=== PATIENT | male | born 1945 | race Caucasian/White ===

== ENCOUNTER → 2019-07-11 13:56 | Outpatient (CLI) | payer MEDICARE, OTHER, SELFPAY ==
--- NOTE | 2019-07-11 | DI.US.S_ITS ---
PROCEDURE: US RENAL COMPLETE INDICATIONS: RETENTION OF URINE, UNSPECIFIED TECHNIQUE: Real-time scanning was performed of the kidneys and bladder, with image documentation. COMPARISON: [facility], CT, IVP (ABD & PEL WWO CONTRAST), 01/26/2018, 12:58. FINDINGS: Kidneys: Kidneys are normal in size. Right kidney measures 10.5 cm long; left kidney measures 10.6 cm long. Right renal cortical thickness is 1.2 cm; left renal cortical thickness is 1.5 cm. Renal cortical echotexture is normal. No hydronephrosis or nephrolithiasis. No suspicious solid mass lesions. Bladder: Pre-void bladder volume is 777 mL. Post-void residual is 599 mL. Pre-void images demonstrate no intraluminal masses or stones. On pre-void images, neither ureteral jets are noted with color Doppler interrogation. (Of note, ureteral jets may not be detectable in up to 25% of cases due to insufficient differences in specific gravity between ureteral and bladder urine). Bladder wall trabeculations and fine low-level echoes visualized within the urinary bladder. Miscellaneous: No free pelvic fluid. IMPRESSION: 1. No hydronephrosis. 2. Significant postvoid residual with bladder wall trabeculation suggesting chronic outlet obstruction. 3. Fine low-level echoes throughout the urinary bladder which could be related to cystitis. Recommend correlation with urinalysis. Dictated by: Dominic GLASS Interpreted: Anuradha Augustin MD on 07/11/2019 at 17:09 Approved by: Anuradha Augustin M.D. on 07/11/2019 at 17:23
== END ==
PROVIDERS: PCP Family Medicine; Visit Provider Urology
DX: R33.9 Retention of urine, unspecified (principal); N32.89 Other specified disorders of bladder
CPT/HCPCS: 76770

== ENCOUNTER 2024-01-01 07:57 | Day surgery (SDC) | payer MEDICARE, OTHER, SELFPAY ==
[2023-12-31 08:05] VITALS: BMI 22.1
[2024-01-01 08:20] VITALS: BP 174/81; PULSE 87; RESP 16; TEMP 36.6; O2SAT 98; BMI 22.1
[2024-01-01] MEDS: LACTATED RINGERS 1,000 ML 42 ML IV ×2 (08:38→11:16)
--- NOTE | 2024-01-01 09:49 | PM.PREOP ---
Pre-operative Note Interval Note History & Physical reviewed/Exam performed by Physician: Yes Changes to H&P: No
[2024-01-01] MEDS: CEFAZOLIN 2 GM/100 ML PREMIX 100 ML IV (10:40)
[2024-01-01] MEDS: TRANEXAMIC ACID 1,000 MG in SODIUM CHLORIDE 0.9% 100 ML 200 MG IV (10:42)
--- NOTE | 2024-01-01 10:56 | SUR.OPER ---
Lithotomy on padded OR bed, head on pillow, arms secured on padded arm boards at <90 degrees abduction. Legs secured in padded yellow fins stirrups.
[2024-01-01 11:37] VITALS: BP 140/74; PULSE 68; RESP 15; TEMP 36.8; O2SAT 99
--- NOTE | 2024-01-01 11:45 | PM.OP.1 ---
Operative Date/Time/Diagnoses Date of procedure: 01/01/24 Time of procedure: 11:30 Pre-op diagnosis: 1. Multiple obstructing prostatic calculi. 2. History of prostate cancer status post brachytherapy. Post-op diagnosis: same Procedure & Clinicians Procedure: 1. Cystoscopy/laser litholapaxy of multiple obstructing and adherent prostate calculi. 2. Cystoscopy/laser photo vaporization of prostate (resection). 3. Cystoscopy/removal foreign bodies (brachytherapy metallic seeds x3) Same procedure as scheduled: Yes Indications: 1. Multiple obstructing prostatic calculi. 2. Prostate foreign bodies. 3. Bladder outlet obstruction. Surgeon: Geneva Leo Click Yes if Unassisted: Yes Anesthesia Type: General Operative Notes Closure Type: not applicable Specimen(s): other (Brachytherapy seeds x3. Calculus fragments. Prostate tissue.) Applied: catheter (Sixteen Mong[place]ian 2 [address] Rogers catheter to gravity drainage.) Estimated Blood Loss (mL): 0 Blood products transfused: none Procedure in detail: The patient was positioned supine was administered general anesthesia. He was then repositioned in semi lithotomy in the lower abdomen, genitalia, and groin were then prepped and draped in sterile fashion. The continuous-flow laser cystoscope was then advanced and lower urinary tract with the findings as described above. Using the beak of the scope some of the prostatic urethral calculi were dislodged and repositioned retrograde into the bladder lumen. This allowed assessment of the situation. The bladder showed 1 to 2+ trabeculation. The bladder neck was elevated with a depressed bladder floor. Orifices were normal position bilaterally with clear efflux no visible tumor was seen. Fifty micron laser fiber was requested and all operating room personnel and patient were fitted with laser safety eyewear. The repositioned calculi within the bladder lumen were then laser fragmented readily. Continuous-flow laser cystoscope was then withdrawn to vicinity of the verumontanum and calculus with overlying mucosa were laser resected and excavated from the right proximal and posterior prostatic fossa. Then, attention was turned to the left prostatic fossa where there was a large adherent mass of calculus. Lithotripsy was commenced and eventually metallic brachytherapy seeds were encountered laterally. Laser resection and undermining of the tissue in the vicinity and beneath these metallic foreign bodies was conducted to mobilize the foreign bodies which were then repositioned retrograde into the bladder base with hydrostatic irrigant flow. Hemostasis was excellent. The prostatic fossa appeared adequately resected and patent. Next the foreign body grasper, the 25 Mong[place]ian stone shop superintendent, and th Ellik evacuator was used in combination to remove stone fragments, tissue fragments, and metallic foreign body. All the specimens were submitted in aggregate to pathology for routine gross and microscopic examination. The bladder was then left partially filled and the continuous-flow laser scope was removed. A 16 Mongolian Rogers catheter was then inserted and advanced lower urinary tract, the balloon inflated to 10 cc, and then placed to gravity drainage. The patient was then repositioned in supine, was awakened, transferred to [facility], and then transported to recovery in stable condition. Complications: none Post-operative Condition: stable Disposition: PACU Plan for aftercare: 1. Discharge home with Rogers catheter. 2. Supervised voiding trial and [facility] 01/04/2024
[2024-01-01 11:48] VITALS: BP 150/72; PULSE 64; RESP 17; O2SAT 99
[2024-01-01 11:52] VITALS: BP 148/74; PULSE 64; RESP 17; O2SAT 99
[2024-01-01 12:05] VITALS: BP 156/69; PULSE 80; RESP 14; O2SAT 97
[2024-01-01 13:01] VITALS: BP 154/81; PULSE 81; RESP 14; O2SAT 98
[2024-01-09 11:04] LABS: Ca oxalate dihydrate 40 % (.); Ca oxalate monohydr 40 % (.); Hydroxyapatite 20 % (.); Size 8x7 mm (.)
== END 2024-01-01 13:01 | disposition home or self-care (01) ==
PROVIDERS: PCP Family Medicine; Referring Provider Specialist; Visit Provider Specialist
PROC: 0TCB8ZZ Extirpation of Matter from Bladder, Via Natural or Artificial Opening Endoscopic (ICD-10-PCS; CPT 52601; principal; 2024-01-01 09:30)
DX: N32.0 Bladder-neck obstruction (principal); N42.0 Calculus of prostate; I10 Essential (primary) hypertension
CPT/HCPCS: 52601; 52318; 82365; 82962; 93005; 93010; J0690; J1100; J2250; J2405; J2704; J3010

== ENCOUNTER → 2024-01-05 08:17 | Outpatient (CLI) | payer MEDICARE, OTHER, SELFPAY | PROVIDERS: PCP Family Medicine; Visit Provider Specialist | DX: R39.9 Unspecified symptoms and signs involving the genitourinary system (principal) | CPT/HCPCS: 51798; 81002; 87086 ==

== ENCOUNTER → 2024-02-23 14:24 | Outpatient (CLI) | payer MEDICARE, OTHER, SELFPAY ==
[2024-02-23 16:31] LABS: Prostate Specific Antigen < 0.064 ng/mL (0.10-4.00)
== END ==
PROVIDERS: PCP Family Medicine; Referring Provider Specialist; Visit Provider Specialist
DX: Z85.46 Personal history of malignant neoplasm of prostate (principal)
CPT/HCPCS: 36415; 84153

== ENCOUNTER 2024-05-30 13:41 | Emergency (ER) | payer MEDICARE, OTHER, SELFPAY ==
[2024-05-30] VITALS (14 sets, daily range): BP systolic 147–189; BP diastolic 65–79; PULSE 52–65; RESP 9–26; TEMP 36.5; O2SAT 96–100; BMI 22.1
--- NOTE | 2024-05-30 14:09 | DI.CT.S_ITS ---
PROCEDURE: CT HEAD/BRAIN WO CON INDICATIONS: Positive BE-FAST, Stroke symptoms. Neurologic deficit. TECHNIQUE: Noncontrast 4.5 mm thick angled axial sections acquired from the foramen magnum to the vertex, with coronal and sagittal reformats. For radiation dose reduction, the following was used: automated exposure control, adjustment of mA and/or kV according to patient size. COMPARISON: [facility], MR, MR BRAIN WITHOUT CONTRAST, 04/13/2023, 7:57. [facility], CT, CT HEAD WITHOUT CONTRAST, 04/11/2023, 19:32. FINDINGS: Image quality: Diagnostic. CSF spaces: Basal cisterns are patent. No extra-axial fluid collections. The ventricles are symmetric in size and shape. Brain: No intracranial bleeds or masses. There is cerebral volume loss for age, with resultant ventricular and sulcal prominence. There are periventricular and deep white matter chronic small vessel ischemic changes. There is intracranial internal carotid artery atherosclerosis. Skull and face: Calvarium and visualized facial bones appear intact, without suspicious lesions. Sinuses: Severe right maxillary sinus mucosal thickening with small air-fluid level. mastoids are clear. IMPRESSION: No acute intracranial pathology. Acute superimposed upon chronic right maxillary sinusitis. Dictated by: Clementine Pepe MD, PhD on 05/30/2024 at 14:38 Approved by: Clementine Pepe MD, PhD on 05/30/2024 at 14:40
--- NOTE | 2024-05-30 14:09 | DI.RAD.S_ITS ---
PROCEDURE: XR CHEST 1V INDICATIONS: Possible stroke TECHNIQUE: One view of the chest was acquired. COMPARISON: None. FINDINGS: Surgical changes and devices: None. Lungs and pleura: Lungs are clear. No pleural effusions or pneumothorax. Mediastinum: Mediastinal contours appear normal. Heart size is normal. Bones and chest wall: No suspicious bony lesions. Overlying soft tissues appear unremarkable. IMPRESSION: No acute cardiopulmonary abnormality is seen. Dictated by: Clementine Pepe MD, PhD on 05/30/2024 at 14:37 Approved by: Clementine Pepe MD, PhD on 05/30/2024 at 14:37
--- NOTE | 2024-05-30 14:10 | DI.CT.S_ITS ---
PROCEDURE: CT ANGIO HEAD AND NECK INDICATIONS: TIA TECHNIQUE: After the administration of intravenous contrast, 1 mm thick sections acquired from the aortic arch through the Josephine of [place]. 3-dimensional nryulxe-xetqvsaeq-tdxzrvkzzg (MIP) and/or volume rendering reformats were acquired of the central intracranial vasculature and neck separately. For radiation dose reduction, the following was used: automated exposure control, adjustment of mA and/or kV according to patient size. COMPARISON: CT head May 30, 2024. FINDINGS: Image quality: Diagnostic. HEAD CT ANGIOGRAPHY: Anterior circulation: Intracranial internal carotid arteries are normal in size and flow. The flow within the paired anterior cerebral arteries is normal and symmetric. The flow within the middle cerebral arteries is normal and symmetric. The anterior communicating artery is seen. No aneurysms are seen. Posterior circulation: Atherosclerotic calcification in the proximal V4 segment of the left vertebral artery which causes mild short segment stenosis. Intracranial right vertebral artery is fully patent. Normal flow in the basilar artery. Normal flow in the right posterior cerebral artery. There is narrowing with diminished flow involving the P1 segment of the left posterior cerebral artery which could be due to atherosclerotic disease or nonocclusive thrombus. No aneurysms are seen. Dural sinuses demonstrate normal postcontrast enhancement. NECK CT ANGIOGRAPHY: Carotid system: The great vessels demonstrate bovine variant anatomy as they arise from the aortic arch. The origins of the common carotid arteries appear patent. The common carotid arteries demonstrate normal caliber and courses. Soft and calcified atherosclerotic plaque in the origin of the right internal carotid artery which causes mild, less than 50% stenosis of the vessel. Soft and calcified atherosclerotic plaque in the origin of the left internal carotid artery which causes high-grade, approximately 70% stenosis of the vessel. Posterior circulation: Dominant left vertebral artery. Atherosclerotic plaque in the origins of the vertebral arteries causes mild narrowing of the vessels. The more superior extracranial portions of both vertebral arteries also demonstrate normal courses and calibers. They join to form a normal appearing basilar artery. Soft tissues: Visualized neck soft tissues demonstrate no suspicious abnormalities. Bones: No suspicious bony lesions. Visualized cervical spine appears normally aligned. Spine degenerative disc disease and facet arthropathy. 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 High-grade atherosclerotic stenosis versus nonocclusive thrombus involving the P1 segment of the left posterior cerebral artery. Mild atherosclerotic stenosis of the origin of the right internal carotid artery, origins of the vertebral arteries and P4 segment of the left vertebral artery. Any quantitative measurements of stenosis were performed using NASCET criteria. Dictated by: Clementine Pepe MD, PhD on 05/30/2024 at 14:40 Approved by: Clementine Pepe MD, PhD on 05/30/2024 at 14:50
--- NOTE | 2024-05-30 14:14 | EKG_ITS ---
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
[2024-05-30 14:23] LABS: Add Manual Diff / Slide Review NO; Basophils Absolute Auto 0 /uL (0-100); Basophils Percent Auto 0.3 % (0-2); Eosinophils Absolute Auto 100 /uL (0-450); Eosinophils Percent Auto 0.8 % (2-4); Hematocrit 38.9 % (41-53); Hemoglobin 13.5 g/dL (13.5-17.5); Lymphocytes Absolute Auto 1600 /uL (1100-4500); Lymphocytes Percent Auto 24.7 % (25-40); Mean Corpuscular HGB Conc 34.7 % (30-36); Mean Corpuscular Hemoglobin 31.4 PG (26-34); Mean Corpuscular Volume 90.5 fL (80-100); Monocytes Absolute Auto 500 /uL (0-900); Monocytes Percent Auto 7.4 % (3-14); Neutrophils Absolute Auto 4300 /uL (1500-7000); Neutrophils Percent Auto 66.8 % (50-75); Platelet Count 188 X10^3/uL (150-400); Prothrombin Time 11.3 SECONDS (9.4-12.5); Red Cell Distribution Width 12.1 % (11.6-14.8); White Blood Cell Count 6.5 X10^3/uL (4.5-11.0)
[2024-05-30 14:25] LABS: PTT Partial Thromboplastin Tim 42 SECONDS (25.1-36.5)
[2024-05-30 14:29] LABS: Alanine Aminotransferase 21 IU/L (<50); Albumin Globulin Ratio 1.1 (1.0-2.8); Alkaline Phosphatase 76 U/L (38-126); Aspartate Aminotransferase 33 IU/L (17-59); BUN Creatinine Ratio 30.6 (6-22); Bilirubin Total 0.7 mg/dL (0.2-1.3); Blood Urea Nitrogen 33 mg/dL (9-20); Calcium 9.1 mg/dL (8.4-10.2); Carbon Dioxide 30 mmol/L (22-32); Chloride 105 mmol/L (98-107); Creatine Kinase 63 U/L (55-170); Estimated Glomerular Filt Rate > 60 mL/min (>60); Globulin 3.8 g/dL (1.7-4.1); Glucose 111 mg/dL (80-110); HEMOLYSIS < 15 (0-50); Magnesium 2.3 mg/dL (1.6-2.3); Potassium 5.2 mmol/L (3.4-5.1); Sodium 138 mmol/L (137-145); Total Protein 7.8 g/dL (6.3-8.2)
[2024-05-30 14:39] LABS: Troponin I < 0.012 ng/mL (0.01-0.034)
--- NOTE | 2024-05-30 15:26 | PC.NURSE ---
Thursday afternoon pt experienced a brief (< 5 minutes) episode of confusion. He describes having his family members over to visit, but when they left he forgot who had been visiting and asked his who was just with them visiting. He also mentions forgetting why his son's truck was at his house, and eventually recalled that the truck is at his house pending transmission work.
[2024-05-30 17:32] LABS: UR Morphine/Opiate cutoff 300 Negative (Negative); Ur Creatinine Normal (Normal); Ur Specific Gravity Normal (Normal); Urine Amphetamines Negative (Negative); Urine Barbiturates Negative (Negative); Urine Benzodiazepines Negative (Negative); Urine Cocaine Negative (Negative); Urine MDMA Negative (Negative); Urine Methadone Negative (Negative); Urine Methamphetamines Negative (Negative); Urine Oxycodone Negative (Negative); Urine Phencyclidine Negative (Negative); Urine Tetrahydrocannabinol Negative (Negative); Urine Tricyclic Antidepressant Negative (Negative); Urine pH Normal (Normal)
--- NOTE | 2024-05-30 18:17 | ED.NEUROSD ---
HPI - Neuro Symptoms/Deficit General Chief Complaint: Neuro Symptoms/Deficit Stated Complaint: TIA Time Seen by Provider: 05/30/24 17:54 Source: patient Mode of arrival: Ambulatory History of Present Illness HPI Narrative: 79-year-old male with history of known carotid artery stenosis followed by vascular surgery (Dr. Dominguez of [place]) presents for possible TIA. Five days ago patient was at home with his family and had a sudden and severe change in his recall and memory. This resolved spontaneously after several minutes. Patient recently got a smart phone and today was investigating his symptoms and was concerned that he may have had a TIA. Patient states on previous brain imaging he was told he had a stroke in the past, but patient denies ever having symptoms of a stroke to his knowledge. Patient has known 70% carotid artery stenosis that is followed by vascular surgery. On Anticoagulants: No Related Data Home Medications Medication Instructions Recorded Confirmed tamsulosin 0.4 mg capsule 0.4 mg PO DAILY 02/24/24 02/24/24 Allergies Allergy/AdvReac Type Severity Reaction Status Date / Time No Known Drug Allergies Allergy Verified 05/30/24 13:59 Review of Systems Hematologic/Lymphatic On Anticoagulants: No Patient History Medical History Hx of brachytherapy (04/10/18) Urge incontinence Lower urinary tract symptoms (LUTS) Bladder outlet obstruction Prostatic calculi High blood pressure History of prostate cancer Surgical History History of transurethral resection of prostate (07/27/19) Social History marital status: number of children: 2 household members: spouse 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 Smoking Status: Never smoker alcohol intake: current Type(s) of exercise: other frequency: daily Smoking Status: Never smoker Substance Use Type: does not use Exam Initial Vital Signs Initial Vital Signs: Vital Signs Temperature 97.7 F 05/30/24 13:53 Pulse Rate 65 05/30/24 13:53 Respiratory Rate 18 05/30/24 13:53 Blood Pressure 158/71 H 05/30/24 13:53 Pulse Oximetry 98 05/30/24 13:53 Oxygen Delivery Method Room Air 05/30/24 13:53 Const: Awake, alert, no acute distress, nontoxic appearing Cardiac: regular rate, regular rhythm RESP: unlabored, clear bilaterally, no wheezing GI: Soft, nontender, nondistended, no rebound, no guarding MSK: Atraumatic, full range of motion, pulses equal Skin: Warm, Dry, intact, no rashes Neuro: AO x3, CN II-XII grossly intact, moves all extremities Course Orders Ordered: ED Orders 05/30/24 14:00 EKG-12 Lead Stat 05/30/24 14:05 Complete Blood Count AUTO DIFF Stat Comprehensive Metabolic Panel Stat Magnesium Stat PTT Partial Thromboplastin Yamil Stat Prothrombin Time INR Stat Troponin & CK Cardiac Panel Stat 05/30/24 14:09 CT head/brain wo con Stat XR chest 1V Stat 05/30/24 14:10 CT angio head and neck Stat 05/30/24 17:15 Urine Drug Screen, Rapid Stat 05/30/24 19:24 MR head/brain wo con Stat Discontinued Medications Ondansetron HCl (Ondansetron 4 Mg/2 Ml Inj) 4 mg IV NOW PRN PRN Reason: Nausea And Vomiting Ondansetron HCl (Ondansetron 4 Mg Odt) 4 mg SL NOW PRN PRN Reason: Nausea And Vomiting Vital Signs Vital signs: Vital Signs - 8 hr 05/30/24 15:15 05/30/24 15:30 05/30/24 15:30 Pulse Rate 57 L 55 L Respiratory Rate 24 18 Blood Pressure 154/68 H Pulse Oximetry 100 98 Oxygen Delivery Method 05/30/24 16:00 05/30/24 16:00 05/30/24 16:30 Pulse Rate 52 L 60 Respiratory Rate 16 26 H Blood Pressure 165/70 H Pulse Oximetry 99 99 Oxygen Delivery Method Room Air 05/30/24 16:30 05/30/24 17:00 05/30/24 17:01 Pulse Rate 54 L 54 L Respiratory Rate 25 H 18 Blood Pressure 156/72 H Pulse Oximetry 98 99 Oxygen Delivery Method Room Air 05/30/24 17:01 05/30/24 17:30 05/30/24 17:30 Pulse Rate 55 L Respiratory Rate 13 Blood Pressure 157/70 H 147/65 H Pulse Oximetry 98 Oxygen Delivery Method 05/30/24 18:00 05/30/24 18:00 05/30/24 18:30 Pulse Rate 55 L 54 L Respiratory Rate 14 12 Blood Pressure 148/67 H Pulse Oximetry 98 98 Oxygen Delivery Method Room Air 05/30/24 18:30 05/30/24 19:00 05/30/24 19:00 Pulse Rate 56 L Respiratory Rate 16 Blood Pressure 166/75 H 157/72 H Pulse Oximetry 98 Oxygen Delivery Method 05/30/24 19:35 05/30/24 19:36 05/30/24 19:36 Pulse Rate 63 59 L Respiratory Rate 20 9 L Blood Pressure 189/79 H Pulse Oximetry 96 100 Oxygen Delivery Method Room Air 05/30/24 20:00 05/30/24 20:00 Pulse Rate 61 Respiratory Rate 19 16 Blood Pressure 173/76 H Pulse Oximetry 99 99 Oxygen Delivery Method MDM - Neuro Symptoms/Deficit Differential Diagnosis Differential diagnosis: Likely peripheral neuropathy, cerebrovascular accident and transient cerebral ischemia Lab Data 05/30/24 14:05 05/30/24 14:05 Labs: Lab Results 05/30/24 05/30/24 Range/Units 14:05 17:15 WBC 6.5 (4.5-11.0) X10^3/uL RBC 4.30 L (4.5-5.9) X10^6/uL Hgb 13.5 (13.5-17.5) g/dL Hct 38.9 L (41-53) % MCV 90.5 (80-100) fL MCH 31.4 (26-34) PG MCHC 34.7 (30-36) % RDW 12.1 (11.6-14.8) % Plt Count 188 (150-400) X10^3/uL Neut % (Auto) 66.8 (50-75) % Lymph % (Auto) 24.7 L (25-40) % [place] % (Auto) 7.4 (3-14) % Eos % (Auto) 0.8 L (2-4) % Baso % (Auto) 0.3 (0-2) % Neut # (Auto) 4300 (7909-2710) /uL Lymph # (Auto) 1600 (8167-0565) /uL [place] # (Auto) 500 (0-900) /uL Eos # (Auto) 100 (0-450) /uL Baso # (Auto) 0 (0-100) /uL PT 11.3 (9.4-12.5) SECONDS INR 1.0 (0.9-1.3) APTT 42 H (25.1-36.5) SECONDS Sodium 138 (137-145) mmol/L Potassium 5.2 H (3.4-5.1) mmol/L Chloride 105 (98-107) mmol/L Carbon Dioxide 30 (22-32) mmol/L BUN 33 H (9-20) mg/dL Creatinine 1.08 (0.66-1.25) mg/dL Estimated GFR > 60 (>60) mL/min BUN/Creatinine Ratio 30.6 H (6-22) Glucose 111 H (80-110) mg/dL Calcium 9.1 (8.4-10.2) mg/dL Magnesium 2.3 (1.6-2.3) mg/dL Total Bilirubin 0.7 (0.2-1.3) mg/dL AST 33 (17-59) IU/L ALT 21 (<50) IU/L Alkaline Phosphatase 76 (38-126) U/L Total Creatine Kinase 63 (55-170) U/L Troponin I < 0.012 (0.01-0.034) ng/mL Total Protein 7.8 (6.3-8.2) g/dL Albumin 4.0 (3.5-5.0) g/dL Globulin 3.8 (1.7-4.1) g/dL Albumin/Globulin Ratio 1.1 (1.0-2.8) U Opiates 300ng/mL cut Negative (Negative) Ur Oxycodone Screen Negative (Negative) Urine Methadone Screen Negative (Negative) Ur Barbiturates Screen Negative (Negative) U Tricyclic Antidepress Negative (Negative) Ur Phencyclidine Scrn Negative (Negative) Ur Amphetamines Screen Negative (Negative) U Methamphetamines Scrn Negative (Negative) Ur MDMA Scrn (Ecstasy) Negative (Negative) U Benzodiazepines Scrn Negative (Negative) Urine Cocaine Screen Negative (Negative) U Marijuana (THC) Screen Negative (Negative) Urine pH Normal (Normal) Urine Specific [place] Normal (Normal) Ur Creatinine Normal (Normal) Point of Care Testing Glucose POC 103 Urine Dip Bedside Urine Glucose Negative Bedside Urine Bilirubin - Negative Bedside Urine Ketone - Negative Urine Specific [place] 1.015 Bedside Urine Occult Blood ++ Bedside Urine pH 5.5 Bedside Urine Protein +/- 15 Bedside Urine Urobilinogen - Negative Bedside Urine Nitrite - Negative Bedside Urine Leukocytes - Negative Esterase Imaging Data CT scan - head: Radiologist's Impression: PROCEDURE: CT HEAD/BRAIN WO CON INDICATIONS: Positive BE-FAST, Stroke symptoms. Neurologic deficit. TECHNIQUE: Noncontrast 4.5 mm thick angled axial sections acquired from the foramen magnum to the vertex, with coronal and sagittal reformats. For radiation dose reduction, the following was used: automated exposure control, adjustment of mA and/or kV according to patient size. COMPARISON: [facility], MR, MR BRAIN WITHOUT CONTRAST, 04/13/2023, 7:57. [facility], CT, CT HEAD WITHOUT CONTRAST, 04/11/2023, 19:32. FINDINGS: Image quality: Diagnostic. CSF spaces: Basal cisterns are patent. No extra-axial fluid collections. The ventricles are symmetric in size and shape. Brain: No intracranial bleeds or masses. There is cerebral volume loss for age, with resultant ventricular and sulcal prominence. There are periventricular and deep white matter chronic small vessel ischemic changes. There is intracranial internal carotid artery atherosclerosis. Skull and face: Calvarium and visualized facial bones appear intact, without suspicious lesions. Sinuses: Severe right maxillary sinus mucosal thickening with small air-fluid level. mastoids are clear. IMPRESSION: No acute intracranial pathology. Acute superimposed upon chronic right maxillary sinusitis. Dictated by: Clementine Pepe MD, PhD on 05/30/2024 at 14:38 Approved by: Clementine Pepe MD, PhD on 05/30/2024 at 14:40 PROCEDURE: MR HEAD/BRAIN WO CON INDICATIONS: POSS CVA, P1 CVA STENOSIS TECHNIQUE: Noncontrast axial T1 spin echo, axial T2 fast spin echo, sagittal and axial FLAIR, coronal T2 fast spin echo, axial gradient echo, axial diffusion and ADC through the brain. COMPARISON: [facility], CT, CT ANGIO HEAD AND NECK, 05/30/2024, 14:14. FINDINGS: Image quality: Excellent. CSF Spaces: Basal cisterns are patent. No extra-axial fluid collections. Ventricles are normal in size and shape. Brain: No intracranial masses or hemorrhage. [place]/white matter interface is normal. Brainstem appears normal. Diffusion-weighted images demonstrate no acute infarct. No chronic ischemic insults. Normal intravascular flow voids are present. Skull and face: Calvarium has normal marrow signal. Orbits appear normal. Sinuses: Opacification of the right maxillary sinus. Mastoids are clear. IMPRESSION: No acute infarct. Dictated by: Matt Pizarro M.D. on 05/30/2024 at 21:00 Approved by: Matt Pizarro M.D. on 05/30/2024 at 21:05 CTA - brain/neck: Radiologist's Impression: PROCEDURE: CT ANGIO HEAD AND NECK INDICATIONS: TIA TECHNIQUE: After the administration of intravenous contrast, 1 mm thick sections acquired from the aortic arch through the [place] of [place]. 3-dimensional rwrqhls-vpgmnwmaz-xkgshugjgx (MIP) and/or volume rendering reformats were acquired of the central intracranial vasculature and neck separately. For radiation dose reduction, the following was used: automated exposure control, adjustment of mA and/or kV according to patient size. COMPARISON: CT head May 30, 2024. FINDINGS: Image quality: Diagnostic. HEAD CT ANGIOGRAPHY: Anterior circulation: Intracranial internal carotid arteries are normal in size and flow. The flow within the paired anterior cerebral arteries is normal and symmetric. The flow within the middle cerebral arteries is normal and symmetric. The anterior communicating artery is seen. No aneurysms are seen. Posterior circulation: Atherosclerotic calcification in the proximal V4 segment of the left vertebral artery which causes mild short segment stenosis. Intracranial right vertebral artery is fully patent. Normal flow in the basilar artery. Normal flow in the right posterior cerebral artery. There is narrowing with diminished flow involving the P1 segment of the left posterior cerebral artery which could be due to atherosclerotic disease or nonocclusive thrombus. No aneurysms are seen. Dural sinuses demonstrate normal postcontrast enhancement. NECK CT ANGIOGRAPHY: Carotid system: The great vessels demonstrate bovine variant anatomy as they arise from the aortic arch. The origins of the common carotid arteries appear patent. The common carotid arteries demonstrate normal caliber and courses. Soft and calcified atherosclerotic plaque in the origin of the right internal carotid artery which causes mild, less than 50% stenosis of the vessel. Soft and calcified atherosclerotic plaque in the origin of the left internal carotid artery which causes high-grade, approximately 70% stenosis of the vessel. Posterior circulation: Dominant left vertebral artery. Atherosclerotic plaque in the origins of the vertebral arteries causes mild narrowing of the vessels. The more superior extracranial portions of both vertebral arteries also demonstrate normal courses and calibers. They join to form a normal appearing basilar artery. Soft tissues: Visualized neck soft tissues demonstrate no suspicious abnormalities. Bones: No suspicious bony lesions. Visualized cervical spine appears normally aligned. Spine degenerative disc disease and facet arthropathy. 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 High-grade atherosclerotic stenosis versus nonocclusive thrombus involving the P1 segment of the left posterior cerebral artery. Mild atherosclerotic stenosis of the origin of the right internal carotid artery, origins of the vertebral arteries and P4 segment of the left vertebral artery. Any quantitative measurements of stenosis were performed using NASCET criteria. Dictated by: Clementine Pepe MD, PhD on 05/30/2024 at 14:40 Approved by: Clementine Pepe MD, PhD on 05/30/2024 at 14:50 ECG Data Interpretation: Sinus bradycardia at 59 beats per minute. Normal [place], no ST T wave changes, no STEMI MDM Narrative Medical decision making narrative: Possible TIA 5 days ago. Patient was well outside of candidacy for intervention or thrombolytics. On my exam patient has intact neurologic exam without any deficits whatsoever. CT brain and CTA ordered prior to my assessment show no acute stroke, however CTA read as high-grade atherosclerotic stenosis versus nonocclusive thrombus involving the P1 segment of the left posterior cerebral artery?. Left 70% stenosis of the ICA stable. Based on these findings I reached out to [facility]. They reviewed the images and stated that the stenosis of P 1 appeared to be longstanding. They recommended an MRI. If the MRI showed any findings of acute stroke then patient should be on dual antiplatelet therapy, however if no acute stroke seen then no medication changes recommended and he could be discharged with follow up. Patient consented to MRI brain. MRI brain shows no acute findings to suggest acute CVA. Patient and informed of all lab and imaging findings, they were relieved to know that there was no acute stroke seen. No medication changes to be made at this time. Patient was given a copy of his MRI in angio reports to take to his follow up appointments with the specialists. Discharge Plan Departure Patient Disposition: Home Clinical Impression: Episodic memory loss Instructions: DI for Transient Ischemic Attack Activity Restrictions/Additional Instructions: Your laboratory work and imaging today was reassuring. You have stable 70% stenosis of your left internal carotid artery. There was a possibility of narrowing of a blood vessel in the back of your brain, however this appears to be chronic and not related to your symptoms today. Your brain MRI did not show any new strokes. Continue all of your current medications as prescribed. Follow up with your specialists as scheduled. If you notice any new or worsening neurologic complaints or concerns please return to the emergency department for repeat evaluation. Prescriptions: No Action tamsulosin 0.4 mg capsule 0.4 mg PO DAILY Referrals: Kishore Reinoso DO [Primary Care Provider] - Stand Alone Forms: Patient Portal/API
--- NOTE | 2024-05-30 19:24 | DI.MRI.S_ITS ---
PROCEDURE: MR HEAD/BRAIN WO CON INDICATIONS: POSS CVA, P1 CVA STENOSIS TECHNIQUE: Noncontrast axial T1 spin echo, axial T2 fast spin echo, sagittal and axial FLAIR, coronal T2 fast spin echo, axial gradient echo, axial diffusion and ADC through the brain. COMPARISON: [facility], CT, CT ANGIO HEAD AND NECK, 05/30/2024, 14:14. FINDINGS: Image quality: Excellent. CSF Spaces: Basal cisterns are patent. No extra-axial fluid collections. Ventricles are normal in size and shape. Brain: No intracranial masses or hemorrhage. [place]/white matter interface is normal. Brainstem appears normal. Diffusion-weighted images demonstrate no acute infarct. No chronic ischemic insults. Normal intravascular flow voids are present. Skull and face: Calvarium has normal marrow signal. Orbits appear normal. Sinuses: Opacification of the right maxillary sinus. Mastoids are clear. IMPRESSION: No acute infarct. Dictated by: Matt Pizarro M.D. on 05/30/2024 at 21:00 Approved by: Matt Pizarro M.D. on 05/30/2024 at 21:05
--- NOTE | 2024-05-30 19:42 | PC.NURSE ---
Pt states no changes in his symptoms since arrival.
== END 2024-05-30 21:19 | disposition home or self-care (01) ==
PROVIDERS: Emergency Medicine; Emergency Provider Emergency Medicine; PCP Family Medicine
DX: R41.3 Other amnesia (principal); R00.1 Bradycardia, unspecified
CPT/HCPCS: 36415; 70450; 70496; 70498; 70551; 71045; 80053; 80305; 81003; 82550; 82962; 83735; 84484; 85025; 85610; 85730; 93005; 93010; 99284; Q9967

== ENCOUNTER → 2025-01-04 08:56 | Outpatient (CLI) | payer MEDICARE, OTHER, SELFPAY | PROVIDERS: PCP Family Medicine; Visit Provider Urology | DX: R39.9 Unspecified symptoms and signs involving the genitourinary system (principal) | CPT/HCPCS: 87086 ==

== ENCOUNTER → 2025-01-04 09:38 | Outpatient (CLI) | payer MEDICARE, OTHER, SELFPAY ==
[2025-01-04 10:56] LABS: Blood Urea Nitrogen 22 mg/dL (9-20); Calcium 9.2 mg/dL (8.4-10.2); Carbon Dioxide 28 mmol/L (22-32); Chloride 96 mmol/L (98-107); Estimated Glomerular Filt Rate > 60 mL/min (>60); Glucose 272 mg/dL (80-110); HEMOLYSIS < 15 (0-50); Potassium 4.4 mmol/L (3.4-5.1); Sodium 132 mmol/L (137-145)
[2025-01-04 11:37] LABS: Prostate Specific Antigen < 0.064 ng/mL (0.10-4.00)
== END ==
PROVIDERS: PCP Internal Medicine; Referring Provider Urology; Visit Provider Urology
DX: R31.0 Gross hematuria (principal); Z85.46 Personal history of malignant neoplasm of prostate; R39.9 Unspecified symptoms and signs involving the genitourinary system
CPT/HCPCS: 36415; 80048; 84153; 87086

== ENCOUNTER → 2025-01-07 10:51 | Outpatient (CLI) | payer MEDICARE, OTHER, SELFPAY ==
--- NOTE | 2025-01-07 10:52 | DI.CT.S_ITS ---
PROCEDURE: CT ABDOMEN PELVIS WO/W CON INDICATIONS: Gross hematuria history of prostate cancer TECHNIQUE: After the administration of oral contrast, 5 mm thick sections acquired from the diaphragms to the iliac crests. After the administration of intravenous contrast, 5 mm thick sections acquired from the diaphragms to the symphysis. 5 mm thick coronal and sagittal reformats were acquired. For radiation dose reduction, the following was used: automated exposure control, adjustment of mA and/or kV according to patient size. COMPARISON: [facility], CT, CT ABDOMEN PELVIS WITH CONTRAST, 04/11/2023, 19:32. [facility], CR, XR CHEST 1V, 05/30/2024, 14:13. FINDINGS: Image quality: Diagnostic. Lower Chest: No significant findings. ABDOMEN: Liver: No solid mass. Gallbladder: No radiopaque gallstones or wall thickening. Biliary ducts: No biliary dilation. Pancreas: No ductal dilation. Spleen: Size is within normal limits. Adrenal Glands: No adrenal nodules. Kidneys and Ureters: No hydronephrosis. No solid mass. No complex renal cystic lesion which requires follow up. 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 Punctate low-attenuation foci too small to definitively characterize are unchanged and statistically likely represent small cysts. Stomach and Bowel: Normal colonic caliber, without significant wall thickening. Moderate stool. Peritoneum: No abnormal intraperitoneal fluid. No free air. Ventral Wall: No significant ventral hernia. Abdominal Nodes: No retroperitoneal or mesenteric adenopathy by size criteria. Vessels: Aorta and inferior vena cava are normal in size. PELVIS: Pelvic Organs: Is enlarged with radiation seeds. Bladder: Bladder wall demonstrates mild thickening. It is incompletely distended. There is mild irregularity along the posterior inferior aspect. Pelvic Nodes: No enlarged lymph nodes. Miscellaneous: No inguinal hernias are seen. Bones: No aggressive osseous abnormality. IMPRESSION: Diffusely thickened bladder wall with incomplete distention. There is mild irregularity of the contrast within the posterior lumen. This could be secondary to affect from enlarged prostate gland. However, given history of hematuria, further evaluation with cystoscopy may be helpful for further delineation. Dictated by: Anuradha Augustin M.D. on 01/07/2025 at 16:07 Approved by: Anuradha Augustin M.D. on 01/07/2025 at 16:12
== END ==
PROVIDERS: PCP Internal Medicine; Referring Provider Urology; Visit Provider Urology
DX: R31.0 Gross hematuria (principal); Z85.46 Personal history of malignant neoplasm of prostate; N40.0 Benign prostatic hyperplasia without lower urinary tract symptoms; R93.41 Abnormal radiologic findings on diagnostic imaging of renal pelvis, ureter, or bladder
CPT/HCPCS: 74178; Q9967

== ENCOUNTER → 2025-01-27 15:37 | Outpatient (CLI) | payer MEDICARE, OTHER, SELFPAY | PROVIDERS: PCP Internal Medicine; Visit Provider Urology | DX: N39.41 Urge incontinence (principal); R31.0 Gross hematuria; R39.9 Unspecified symptoms and signs involving the genitourinary system; Z85.46 Personal history of malignant neoplasm of prostate | CPT/HCPCS: 51798; 52000; 87077; 87086; 87186 ==

== ENCOUNTER 2025-02-12 10:32 | Inpatient (IN) | payer MEDICARE, OTHER, SELFPAY ==
[2025-02-12] VITALS (22 sets, daily range): BP systolic 108–172; BP diastolic 57–79; PULSE 84–110; RESP 12–46; TEMP 36.3–37.7; O2SAT 98–100; BMI 22.1; BMI 22.8
[2025-02-12] MEDS: LIDOCAINE 2% (GLYDO) 6 ML GEL TOP (11:06)
[2025-02-12 11:28] LABS: Appearance Urine UA CLOUDY; Bilirubin Urine UA 1+ (NEGATIVE); Color Urine UA ORANGE; Glucose Urine UA TRACE g/dL (Negative); Ketones Urine UA NEGATIVE (NEGATIVE); Leukocyte Esterase Urine UA TRACE (NEGATIVE); Nitrite Urine UA NEGATIVE (Negative); Occult Blood Urine UA 3+ (Negative); Protein Urine UA 2+ (Negative); Urobilinogen Urine UA 0.2 E.U./dL (0.2)
[2025-02-12 11:45] LABS: Bacteria Urine Few (2-10); RBC Urine >100/HPF (0-5/HPF); Urine Volume 10mL (spun); WBC Urine 1-5/HPF (0-5/HPF)
[2025-02-12 11:46] LABS: Culture Indicated Urine Cult Not Indicated; Squamous Epithelial Cell Urine 0-1 /HPF (0-5/HPF)
[2025-02-12 11:47] LABS: Ictotest Urine Negative (Negative)
--- NOTE | 2025-02-12 11:56 | ED.MALEGU ---
HPI - Male Genitourinary General Chief complaint: Urogenital-Male Stated complaint: Hard time going to the bathroom Time Seen by Provider: 02/12/25 11:35 Source: patient, RN notes reviewed and old records reviewed Mode of arrival: Wheelchair Limitations: no limitations History of Present Illness HPI Narrative: 80-year-old male history of DVT currently on Eliquis, prior pancreatic stone on , known carotid artery stenosis follows with vascular, history of bladder outlet obstruction, prostatic calculi and history of prostate cancer has had a prior TURP x2. Patient presents with complaint of difficulty with urination that started overnight. Patient has not been able to empty his bladder. Has been increasingly painful overnight. No reports of fever. While here in the department patient's states his memory seems to be altered as well after arrival to the department. She notes he does have some baseline issues with memory since about 2022. gives majority of history patient does not really contribute. Patient appears uncomfortable after catheter is placed but it was not conversing. She notes he was had chronic back pain. She also notes his right leg has been chronically swollen since he had his DVT. He has not had any nausea or vomiting. Has had some trouble with bowel movements but did have a small bowel movement earlier today. She states he has been walking around like he was uncomfortable been able to ambulate and was speaking clearly. No complaints of chest pain or shortness of breath. No facial droop. No sudden changes movement. She notes he was on Eliquis for DVT in his left lower leg diagnosed in November, and tamsulosin his only home medications. Had Ca, pancreatic stone retrieval with ERCP with Dr. Noland. TURP x2 several years ago. No known drug allergies. No tobacco, alcohol or recreational drugs. Dr. Cristina is his primary care physician. Dr. Padilla is his urologist. Dr. Noland is his felt finisher. He was accompanied by his . Related Data Home Medications Medication Instructions Recorded Confirmed tamsulosin 0.4 mg capsule 0.4 mg PO DAILY 02/24/24 01/27/25 Previous Rx's Medication Instructions Recorded ciprofloxacin HCl 250 mg tablet 250 mg PO BID #6 tabs 01/12/25 ciprofloxacin HCl 500 mg tablet 500 mg PO BID #20 tabs 01/30/25 Allergies Allergy/AdvReac Type Severity Reaction Status Date / Time No Known Drug Allergies Allergy Verified 02/12/25 10:46 Review of Systems Review of Systems ROS Unobtainable: All systems reviewed & are unremarkable except as noted in HPI and below Patient History Medical History Bladder outlet obstruction Chronic anticoagulation Gross hematuria High blood pressure History of prostate cancer Hx of brachytherapy (04/10/18) Lower urinary tract symptoms (LUTS) Prostatic calculi Right leg DVT Urge incontinence Surgical History History of transurethral resection of prostate (07/27/19) Social History marital status: number of children: 2 household members: spouse 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 No facial droop. HEENT: Head normocephalic, atraumatic, EOMI, pupils reactive, face symmetric, moist mucous membranes NECK: Supple, full range of motion CARDIOVASCULAR: Regular rate and rhythm without murmurs, rubs or gallops. Patient was some swelling right lower extremity nonpitting compared to the left. states this is his baseline. RESPIRATORY: Breath sounds equal bilaterally, no wheezes rales or rhonchi. No tachypnea accessory muscle use. ABDOMEN: Soft, nontender, nondistended after Rogers catheter placed. Normoactive bowel sounds all 4 quadrants. No guarding or rebound, rigidity, no mass : No CVA tenderness, patient was Rogers catheter in place. No active urine draining he was about 600 mL of tea-colored urine in the bag itself. EXTREMITIES: Normal range of motion of upper and lower extremities, no clubbing or edema. Neurovascularly intact NEUROLOGICAL: Cranial nerves II through XII grossly intact. Moving all extremities SKIN: Warm, dry, no petechiae, no rashes or lesions. Initial Vital Signs Initial Vital Signs: Vital Signs Temperature 97.4 F L 02/12/25 10:41 Pulse Rate 100 H 02/12/25 10:41 Respiratory Rate 26 H 02/12/25 10:41 Blood Pressure 135/63 02/12/25 10:41 Pulse Oximetry 100 02/12/25 10:41 Oxygen Delivery Method Room Air 02/12/25 10:41 Course Orders Ordered: ED Orders 02/12/25 11:10 Ictotest Urine Stat UA Complete [Urinalysis and Microscopic] Stat Urine Culture Stat Urine Drug Screen, Rapid Stat 02/12/25 11:55 CBC Auto Diff [Complete Blood Count AUTO DIFF] Stat CK [Creatine Kinase] Stat CMP [Comprehensive Metabolic Panel] Stat Lactate (Lactic Acid) Stat Lipase Stat Procalcitonin Stat 02/12/25 11:57 Blood Culture Stat 02/12/25 12:15 CT kidney ureter bladder (KUB) Stat Sodium Chloride (Normal Saline 0.9%) 2,121 mls @ 707 mls/hr 30 ml/kg infuse over 3 hr (2121 ml) IV NOW ONE Stop: 02/12/25 16:36 Last Admin: 02/12/25 13:53 Dose: 707 mls/hr Documented By: FELICIANO Discontinued Medications Ceftriaxone Sodium 2,000 mg/ (Sodium Chloride) 100 mls @ 200 mls/hr IV NOW ONE Stop: 02/12/25 11:38 Last Infusion: 02/12/25 12:40 Dose: Infused Documented By: Admin: 02/12/25 12:10 Dose: 200 mls/hr Documented By: FELICIANO Sodium Chloride (Normal Saline 0.9%) 1,000 mls @ 1,000 mls/hr IV BOLUS ONE Stop: 02/12/25 13:16 Last Admin: 02/12/25 12:40 Dose: 1,000 mls/hr Documented By: CJ Lidocaine HCl (Lidocaine 2% (Glydo) 6 Ml Gel) 6 ml TOP NOW ONE Stop: 02/12/25 10:59 Last Admin: 02/12/25 11:06 Dose: 6 ml Documented By: SLOANE Morphine Sulfate (Morphine 4 Mg/Ml Inj) 4 mg IV NOW ONE Stop: 02/12/25 12:18 Last Admin: 02/12/25 12:41 Dose: 4 mg Documented By: CJ Vital Signs Vital signs: Vital Signs - 8 hr 02/12/25 10:41 02/12/25 12:35 02/12/25 12:48 Temperature 97.4 F L 98.3 F Pulse Rate 100 H 110 H 102 H Respiratory Rate 26 H 40 H Blood Pressure 135/63 Pulse Oximetry 100 100 100 Oxygen Delivery Method Room Air 02/12/25 12:48 02/12/25 13:00 02/12/25 13:00 Temperature Pulse Rate 94 H Respiratory Rate 18 Blood Pressure 154/67 H 140/65 Pulse Oximetry 100 98 Oxygen Delivery Method High Flow Nasal Cannula 02/12/25 13:15 02/12/25 13:15 02/12/25 13:30 Temperature Pulse Rate 92 H Respiratory Rate 12 Blood Pressure 139/64 137/65 Pulse Oximetry 99 Oxygen Delivery Method 02/12/25 13:30 02/12/25 13:45 02/12/25 13:45 Temperature Pulse Rate 93 H 95 H Respiratory Rate 16 22 Blood Pressure 141/65 H Pulse Oximetry 100 100 Oxygen Delivery Method MDM - Male Genitourinary Lab Data 02/12/25 11:55 02/12/25 11:55 Labs: Lab Results 02/12/25 02/12/25 02/12/25 Range/Units 11:10 11:10 11:55 WBC 7.1 (4.5-11.0) X10^3/uL RBC 3.92 L (4.5-5.9) X10^6/uL Hgb 11.7 L (13.5-17.5) g/dL Hct 33.3 L (41-53) % MCV 85.0 (80-100) fL MCH 29.9 (26-34) PG MCHC 35.2 (30-36) % RDW 12.2 (11.6-14.8) % Plt Count 333 (150-400) X10^3/uL Neut % (Auto) 78.3 H (50-75) % Lymph % (Auto) 14.0 L (25-40) % [place] % (Auto) 6.7 (3-14) % Eos % (Auto) 0.4 L (2-4) % Baso % (Auto) 0.6 (0-2) % Neut # (Auto) 5600 (1208-0782) /uL Lymph # (Auto) 1000 L (9147-1385) /uL [place] # (Auto) 500 (0-900) /uL Eos # (Auto) 0 (0-450) /uL Baso # (Auto) 0 (0-100) /uL Sodium 131 L (137-145) mmol/L Potassium 4.5 (3.4-5.1) mmol/L Chloride 96 L (98-107) mmol/L Carbon Dioxide 20 L (22-32) mmol/L BUN 36 H (9-20) mg/dL Creatinine 1.99 H (0.66-1.25) mg/dL Estimated GFR 34 L (>60) mL/min BUN/Creatinine Ratio 18.1 (6-22) Glucose 179 H (80-110) mg/dL Lactate 4.6 H* (0.7-2.1) mmol/L Calcium 9.4 (8.4-10.2) mg/dL Total Bilirubin 1.1 (0.2-1.3) mg/dL AST 35 (17-59) IU/L ALT 26 (<50) IU/L Alkaline Phosphatase 108 (38-126) U/L Total Creatine Kinase 38 L (55-170) U/L Total Protein 7.4 (6.3-8.2) g/dL Albumin 4.0 (3.5-5.0) g/dL Globulin 3.4 (1.7-4.1) g/dL Albumin/Globulin Ratio 1.2 (1.0-2.8) Lipase 12 L (23-300) U/L Procalcitonin 0.160 (<0.5) ng/mL Urine Color [place] Urine Appearance Cloudy Urine pH 5.0 Normal (4.5-8.0) Ur Specific [place] 1.020 (1.000-1.035) Urine Protein 2+ H (Negative) Urine Glucose (UA) Trace H (Negative) g/dL Urine Ketones Negative (NEGATIVE) Urine Occult Blood 3+ H (Negative) Urine Nitrate Negative (Negative) Urine Bilirubin 1+ H (NEGATIVE) Ur Bilirubin Confirm Negative (Negative) Urine Urobilinogen 0.2 (0.2) E.U./dL Ur Leukocyte Esterase Trace H (NEGATIVE) Urine RBC >100/hpf H (0-5/HPF) Urine WBC 1-5/hpf (0-5/HPF) Ur Squamous Epith Cells 0-1 /hpf (0-5/HPF) Urine Bacteria Few (2-10) H (None) Ur Culture Indicated? Cult not indicated Vol Urine Centrifuged 10ml (spun) U Opiates 300ng/mL cut Negative (Negative) Ur Oxycodone Screen Negative (Negative) Urine Methadone Screen Negative (Negative) Ur Barbiturates Screen Negative (Negative) U Tricyclic Antidepress Positive H (Negative) Ur Phencyclidine Scrn Negative (Negative) Ur Amphetamines Screen Negative (Negative) U Methamphetamines Scrn Negative (Negative) Ur MDMA Scrn (Ecstasy) Negative (Negative) U Benzodiazepines Scrn Negative (Negative) Urine Cocaine Screen Negative (Negative) U Marijuana (THC) Screen Positive H (Negative) Urine Specific [place] Normal (Normal) Ur Creatinine Normal (Normal) ECG Data Attestation: I personally reviewed and interpreted this ECG as follows: Prior ECG tracings: available for review Interpretation: Rate of 108 QRS is 68 QTC 455. Patient has some frequent PVCs nonspecific change. Patient has prior from 05/30/2024. [facility] Narrative Medical decision making narrative: Patient had over 600 mL on bladder scan. Rogers catheter was placed by nursing and had immediate output proximally 600 mL. Urinalysis shows 2+ protein trace glucose 3+ blood 1+ bilirubin trace leuks greater than 100 RBCs 1-5 WBCs few bacteria 1 squamous. Culture was ordered. Patient has not old urine culture from January 27, 2025 which showed Klebsiella oxytoca had resistance to cefazolin and ampicillin otherwise sensitive with greater than 100,000 CFU. Per family was treated with ciprofloxacin recently. White count of 7, hemoglobin 11.7 platelets of 333 predominance of neutrophils at 78%. INR is 1, creatinine is 1.99 was 1.10 on January 04, BUN 36 CO2 is 20 chloride 96 potassium is appropriate 4.5 with a sodium 131 glucose is 179. Calcium is 9.4. LFTs are negative, lipase is 12. Procalcitonin Lactate lactate is elevated at 4 0.6 CK is normal at 38 Blood cultures obtained Urinalysis shows 2+ protein, trace glucose 3+ blood negative for nitrates 1+ bili negative for bili, trace leuks, greater than 100 RBCs 1-5 [address]BCs [address] KUB was obtained to look for other obstructive potential sources or kidney stone is notes he was also had back pain for past 2 months. Shows no obstructing stone bilateral hydro and hydroureter increased from compared without obstructing stone moderate stool throughout mild central new mobility suggested prior sphincterotomy. Patient received fluids, Rocephin based on patient's most culture, morphine Patient's catheter had immediate output but he appears quite uncomfortable and had a change in his mentation does not have any active output currently so nursing flushed the catheter. Rechecked at 1335 patient is still mildly confused but now conversant. He states he does feel off. He denies any pain currently. Initial urine was quite dark and tea-colored now is slightly pink tinged. Repeat evaluation patient appears to have likely urosepsis meets criteria with a later respiratory rate and tachycardia, no white count. Patient has not been febrile. No hypotension. He appears improved on re-evaluation but still slightly confused. We will admit patient inpatient for UTI sepsis. Patient has been following with Dr. Padilla. Spoke with Dr. Eisenberg hospitalist at 1330, accepts for inpatient. Does ask that we go ahead and give a 30 cc/kilos bolus total of fluids. We will also reach out to urology. Spoke with Dr. Justin, urology. Reviewed findings imaging for patient recommends repeat renal/bladder ultrasound in 48 hours we will see patient. Discharge Plan Departure Patient Disposition: Admitted As Inpatient Clinical Impression: Acute UTI, Altered mental status, Bilateral hydronephrosis Admit Date/Time: 02/12/25 13:50 Admit Provider: Brooks Eisenberg V
[2025-02-12 12:06] LABS: Add Manual Diff / Slide Review NO; Basophils Absolute Auto 0 /uL (0-100); Basophils Percent Auto 0.6 % (0-2); Eosinophils Absolute Auto 0 /uL (0-450); Eosinophils Percent Auto 0.4 % (2-4); Hematocrit 33.3 % (41-53); Hemoglobin 11.7 g/dL (13.5-17.5); Lymphocytes Absolute Auto 1000 /uL (1100-4500); Mean Corpuscular HGB Conc 35.2 % (30-36); Mean Corpuscular Hemoglobin 29.9 PG (26-34); Monocytes Absolute Auto 500 /uL (0-900); Monocytes Percent Auto 6.7 % (3-14); Neutrophils Absolute Auto 5600 /uL (1500-7000); Neutrophils Percent Auto 78.3 % (50-75); Platelet Count 333 X10^3/uL (150-400); Red Blood Cell Count 3.92 X10^6/uL (4.5-5.9); Red Cell Distribution Width 12.2 % (11.6-14.8); White Blood Cell Count 7.1 X10^3/uL (4.5-11.0)
[2025-02-12] MEDS: cefTRIAXone 2,000 MG in SODIUM CHLORIDE 0.9% 100 ML 200 MG IV (12:10)
--- NOTE | 2025-02-12 12:15 | DI.CT.S_ITS ---
PROCEDURE: CT KIDNEY URETER BLADDER (KUB) INDICATIONS: urinary retention, dark urine, confusion TECHNIQUE: Axial sections were acquired from the lung bases to the pubic symphysis. Coronal and sagittal reformats were performed. For radiation dose reduction, the following was used: automated exposure control, adjustment of mA and/or kV according to patient size. COMPARISON: [facility], CT, CT ABDOMEN PELVIS WITH CONTRAST, 09/02/2023, 10:59. FINDINGS: Image quality: There is moderate motion artifact.. Lower Chest: No significant findings. 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 No right renal stone. Right-sided hydronephrosis extending to level of mid ureter without radiopaque stone identified Right Ureter: Hydroureter extends to the mid ureter without obstructive stone identified. Left Kidney: The stones. Mild hydronephrosis. Left Ureter: Mild hydroureter Bladder: The bladder is decompressed with Rogers catheter. ABDOMEN: Liver: No contour-deforming solid mass. Gallbladder: No radiopaque gallstones or wall thickening. Biliary ducts: No biliary dilation. Central pneumobilia. Pancreas: No ductal dilation. Atrophic appearing pancreas Spleen: Size is within normal limits. Adrenal Glands: No adrenal nodules. Stomach and Bowel: Normal colonic caliber, without significant wall thickening. Moderate to large volume stool throughout the colon with fecalization of the small bowel suggesting delayed transit. Peritoneum: Moderate edema throughout the peritoneum and retroperitoneal fat. No overlies or drainable fluid collection. Ventral Wall: No hernia. Abdominal Nodes: No enlarged retroperitoneal or mesenteric lymph nodes. 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 PELVIS: Pelvic Organs: Unremarkable. Pelvic Nodes: Unremarkable. Miscellaneous: No inguinal hernias are seen. Moderate anasarca Bones: Unremarkable. IMPRESSION: No obstructing stone identified. Bilateral hydronephrosis and hydroureter, increased from comparison without obstructing stone identified. Moderate stool throughout the colon. Mild central pneumobilia suggestive of prior sphincterotomy Dictated by: Kishore Radford M.D. on 02/12/2025 at 12:00 Approved by: Kishore Radford M.D. on 02/12/2025 at 12:17
[2025-02-12 12:18] LABS: Alanine Aminotransferase 26 IU/L (<50); Albumin Globulin Ratio 1.2 (1.0-2.8); Alkaline Phosphatase 108 U/L (38-126); Aspartate Aminotransferase 35 IU/L (17-59); BUN Creatinine Ratio 18.1 (6-22); Bilirubin Total 1.1 mg/dL (0.2-1.3); Blood Urea Nitrogen 36 mg/dL (9-20); Calcium 9.4 mg/dL (8.4-10.2); Carbon Dioxide 20 mmol/L (22-32); Chloride 96 mmol/L (98-107); Estimated Glomerular Filt Rate 34 mL/min (>60); Globulin 3.4 g/dL (1.7-4.1); Glucose 179 mg/dL (80-110); HEMOLYSIS < 15 (0-50); Lipase 12 U/L (23-300); Potassium 4.5 mmol/L (3.4-5.1); Sodium 131 mmol/L (137-145); Total Protein 7.4 g/dL (6.3-8.2)
[2025-02-12 12:36] LABS: Creatine Kinase 38 U/L (55-170)
[2025-02-12 12:39] LABS: Lactate (Lactic Acid) 4.6 mmol/L (0.7-2.1)
[2025-02-12] MEDS: SODIUM CHLORIDE 0.9% 1,000 ML 1000 ML IV (12:40)
[2025-02-12] MEDS: MORPHINE 4 MG/ML INJ IV (12:41)
[2025-02-12 12:43] LABS: Ur Creatinine Normal (Normal); Ur Specific Gravity Normal (Normal); Urine Amphetamines Negative (Negative); Urine Cocaine Negative (Negative); Urine Opiates Negative (Negative); Urine THC Positive (Negative); Urine pH Normal (Normal)
[2025-02-12 12:44] LABS: Urine Barbiturates Negative (Negative); Urine Benzodiazepines Negative (Negative); Urine MDMA Negative (Negative); Urine Methadone Negative (Negative); Urine Oxycodone Negative (Negative); Urine Phencyclidine Negative (Negative); Urine Tricyclic Antidepressant Positive (Negative)
--- NOTE | 2025-02-12 13:04 | PC.NURSE ---
pt is non verbal, moaning and rolling around bed. will not answer questions. reports he has not been feeling good for a day. states he has been moaning at home.
[2025-02-12] MEDS: SODIUM CHLORIDE 0.9% 2,121 ML 707 ML IV (13:53)
--- NOTE | 2025-02-12 13:53 | PM.HP.IH.1 ---
History of Present Illness History of Present Illness Date Patient Seen: 02/12/25 Time Patient Seen: 14:50 Chief complaint: Hard time going to the bathroom Narrative: 80-year-old man under the primary care of Dr. Kartik Cristina presents with difficulty urinating and confusion with a history of DVT on Eliquis, peripancreatic stone on Creon for pancreatic insufficiency, carotid artery stenosis and prior history of bladder outlet obstruction with prostatic calculi history of prostate cancer status post TURP x2, planning upcoming cystoscopy by Dr. Kishore Padilla of urology. He has had a recent Klebsiella UTI and was waiting to complete treatment schedule the cystoscopy in evaluation of bladder wall thickening seen on his recent CT scan in December below. His CT scan in the emergency department shows new bilateral hydronephrosis and hydroureter without obstructing stone seen. The history is obtained from the as patient appears uncomfortable and appears to defer to her, but he does report suprapubic pain. He had a DVT in November and started on Eliquis but they have noticed in the past few days his right leg appears to be more swollen and tender. A urinary catheter was placed with 600 mL urine output and IV fluids administered per sepsis protocol, with presenting lactate of 4.6 improving to 1.9 within 3 hours. He was administered ceftriaxone 2 g IV in the emergency department and is admitted further evaluation and management. 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 Smoking Status: Never smoker alcohol intake: current Type(s) of exercise: other frequency: daily Meds Home Medications and Allergies Home Medications Medication Instructions Recorded Confirmed Type tamsulosin 0.4 mg capsule 0.4 mg PO DAILY 02/24/24 01/27/25 History ciprofloxacin HCl 250 mg tablet 250 mg PO BID #6 tabs 01/12/25 01/27/25 Rx ciprofloxacin HCl 500 mg tablet 500 mg PO BID #20 tabs 01/30/25 Rx Allergies Allergy/AdvReac Type Severity Reaction Status Date / Time No Known Drug Allergies Allergy Verified 02/12/25 10:46 Review of Systems Review of Systems ROS: Yes All systems reviewed with the patient and are negative except as otherwise documented Exam Vital Signs (past 8 hours): - 02/12/25 10:41 02/12/25 12:35 02/12/25 12:48 Temperature 97.4 F L 98.3 F Pulse Rate 100 H 110 H 102 H Respiratory Rate 26 H 40 H Blood Pressure 135/63 Pulse Oximetry 100 100 100 Oxygen Delivery Method Room Air 02/12/25 12:48 02/12/25 13:00 02/12/25 13:00 Temperature Pulse Rate 94 H Respiratory Rate 18 Blood Pressure 154/67 H 140/65 Pulse Oximetry 100 98 Oxygen Delivery Method High Flow Nasal Cannula 02/12/25 13:15 02/12/25 13:15 02/12/25 13:30 Temperature Pulse Rate 92 H Respiratory Rate 12 Blood Pressure 139/64 137/65 Pulse Oximetry 99 Oxygen Delivery Method 02/12/25 13:30 Temperature Pulse Rate 93 H Respiratory Rate 16 Blood Pressure Pulse Oximetry 100 Oxygen Delivery Method Oxygen Delivery Method High Flow Nasal Cannula Narrative Exam Narrative: GENERAL: This is a well-nourished, well-developed patient, appears uncomfortable, answering simple questions but defers to , grimacing occasionally. HEAD: Atraumatic. Normocephalic. No temporal or scalp tenderness. EYES: Pupils equal round and reactive. Extraocular motions intact. No scleral icterus. No injection or drainage. ENT: Mucous membranes pink and moist. NECK: Trachea midline. No JVD, bruits or lymphadenopathy. Supple, nontender, no meningeal signs. CARDIOVASCULAR: Regular rate and rhythm without murmurs, gallops, or rubs. RESPIRATORY: Clear to auscultation. GASTROINTESTINAL: Abdomen soft, non-tender, nondistended. EXTREMITIES: No left leg edema; right leg with moderate swelling and tenderness, normal skin color, distal DP and PT pulse intact on the right, with tenderness extending into the right thigh. NEUROLOGIC: Alert, oriented, speech fluent, full upper and lower motor strength, no focal deficits evident. DERMATOLOGIC: No rashes or skin lesions. Objective Imaging CT KUB 02/12/2025:: Radiologist's impression: No obstructing stone identified. Bilateral hydronephrosis and hydroureter, increased from comparison without obstructing stone identified. Moderate stool throughout the colon. Mild central pneumobilia suggestive of prior sphincterotomy Abdomen pelvis CT with and without contrast 01/07/2025:: Radiologist's impression: Diffusely thickened bladder wall with incomplete distention. There is mild irregularity of the contrast within the posterior lumen. This could be secondary to affect from enlarged prostate gland. However, given history of hematuria, further evaluation with cystoscopy may be helpful for further delineation. Kidneys and Ureters: No hydronephrosis. No solid mass. No complex renal cystic lesion which requires follow up. 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 Punctate low-attenuation foci too small to definitively characterize are unchanged and statistically likely represent small cysts. Labs 02/12/25 11:55 02/12/25 11:55 Labs: Laboratory Results - last 24 hr 02/12/25 02/12/25 02/12/25 11:10 11:10 11:55 WBC 7.1 RBC 3.92 L Hgb 11.7 L Hct 33.3 L MCV 85.0 MCH 29.9 MCHC 35.2 RDW 12.2 Plt Count 333 Neut % (Auto) 78.3 H Lymph % (Auto) 14.0 L [place] % (Auto) 6.7 Eos % (Auto) 0.4 L Baso % (Auto) 0.6 Neut # (Auto) 5600 Lymph # (Auto) 1000 L [place] # (Auto) 500 Eos # (Auto) 0 Baso # (Auto) 0 Sodium 131 L Potassium 4.5 Chloride 96 L Carbon Dioxide 20 L BUN 36 H Creatinine 1.99 H Estimated GFR 34 L BUN/Creatinine Ratio 18.1 Glucose 179 H Lactate 4.6 H* Calcium 9.4 Total Bilirubin 1.1 AST 35 ALT 26 Alkaline Phosphatase 108 Total Creatine Kinase 38 L Total Protein 7.4 Albumin 4.0 Globulin 3.4 Albumin/Globulin Ratio 1.2 Lipase 12 L Procalcitonin 0.160 Urine Color [place] Urine Appearance Cloudy Urine pH 5.0 Normal Ur Specific [place] 1.020 Urine Protein 2+ H Urine Glucose (UA) Trace H Urine Ketones Negative Urine Occult Blood 3+ H Urine Nitrate Negative Urine Bilirubin 1+ H Ur Bilirubin Confirm Negative Urine Urobilinogen 0.2 Ur Leukocyte Esterase Trace H Urine RBC >100/hpf H Urine WBC 1-5/hpf Ur Squamous Epith Cells 0-1 /hpf Urine Bacteria Few (2-10) H Ur Culture Indicated? Cult not indicated Vol Urine Centrifuged 10ml (spun) U Opiates 300ng/mL cut Negative Ur Oxycodone Screen Negative Urine Methadone Screen Negative Ur Barbiturates Screen Negative U Tricyclic Antidepress Positive H Ur Phencyclidine Scrn Negative Ur Amphetamines Screen Negative U Methamphetamines Scrn Negative Ur MDMA Scrn (Ecstasy) Negative U Benzodiazepines Scrn Negative Urine Cocaine Screen Negative U Marijuana (THC) Screen Positive H Urine Specific [place] Normal Ur Creatinine Normal Assessment & Plan Assessment & Plan narrative: 1. Urinary tract infection with presumed septicemia with tachycardia, MELISSA, and elevated lactate. SOFA 1. 2. Bilateral hydronephrosis and hydroureter, bladder wall thickening. Urology consultation appreciated. We will likely require stenting. 3. Acute kidney injury. 4. BPH. Continue tamsulosin, urinary catheterization. 5. Deep venous thrombosis, right leg. Continue Eliquis. Given increasing pain and swelling will repeat ultrasound. 6. History of pancreatic insufficiency. Continue Creon. 7. History of prostate cancer. No evidence of disease. PSA less than 0.064 on 01/04/2025. 8. Hyperglycemia. Monitor. No reported history of diabetes. Check hemoglobin A1c in the morning. DVT prophylaxis: Eliquis Code status: Full code. This is reviewed with the patient and his on admission. His Leni is his surrogate decision maker. Plan: -admit as inpatient physical require at least 2 midnights of inpatient level care -ceftriaxone 2 g IV Q 24 hours -follow urine cultures -IV normal saline hydration -monitor renal function -lower extremity ultrasound -urinary catheterization, tamsulosin -continue Creon -urology consultation appreciated Scores GCS [place] coma scale eye opening: Spontaneous [place] coma scale verbal response: Orientated [place] coma scale motor response: Obey commands [place] coma scale total score: 15 SOFA PaO2/FIO2: >=400 mmHg Platelets: >= 150 Bilirubin: < 1.2 mg/dL Hypotension: MAP >= 70 mmHg [place] Coma Scale: 15 Renal: Creatinine 1.2-1.9 mg/dL SOFA Score: 1 IH PROFEE Er Medical Technician Document charge(s): No Charge Codes Initial inpatient/observation care: [id number]
[2025-02-12 14:02] LABS: Reflexed Lactate in 2 Hours Y
[2025-02-12 14:35] LABS: Lactate 2HR (Lactic Acid Rflx) 1.9 mmol/L (0.7-2.1)
--- NOTE | 2025-02-12 14:55 | DI.US.S_ITS ---
PROCEDURE: US PERIPH VENOUS LOW EXTREM RT INDICATIONS: swelling and dvt hx TECHNIQUE: Real-time imaging, as well as color and pulse Doppler interrogation, were performed of the lower extremity deep veins from the inguinal ligament to the popliteal fossa, with documentation of the visualized calf veins. COMPARISON: None. FINDINGS: The common femoral, femoral, popliteal, and the visualized calf veins are normally compressible, and free of intraluminal thrombus. Color and pulse Doppler demonstrate normal phasic intraluminal flow. There is normal augmentation response to distal compression maneuver. IMPRESSION: No findings of lower extremity deep venous thrombosis. Dictated by: Kishore Radford M.D. on 02/12/2025 at 14:39 Approved by: Kishore Radford M.D. on 02/12/2025 at 14:40
--- NOTE | 2025-02-12 15:26 | PM.CN.IH.1 ---
History of Present Illness Consult details Date Patient Seen: 02/12/25 Time Patient Seen: 15:26 Chief complaint: Hard time going to the bathroom Reason for consult: Urinary retention, MELISSA, bilateral hydroureteronephrosis Narrative: 80 y/o M presented to ER for evaluation of severe suprapubic pain and inability to urinate for more than 12 hours. Briefly, he has a h/o low-risk prostate cancer diagnosed in 2007. He was ultimately treated w/ brachytherapy in March of 2008. He underwent a limited TURP in 2018 secondary to exposed brachytherapy seeds within his prostate urethra. He then began to have difficulty urinating with obstructing type voiding symptoms and underwent a TURP w/ cystolithalopaxy for management of regrowth of prostatic tissue, exposed brachytherapy seeds and urolithiasis within his bladder and prostatic urethra in December of 2023. Regarding his prostate cancer, his PSA was noted to be < 0.064 in December of 2024. Over the last 12 hours, he has been unable to urinate at all and endorsing severe suprapubic pain/discomfort. He did not answer many questions secondary to discomfort and continued shaking, nearly all of the history was obtained from his . He had a cystoscopy performed in early January of [address] Padilla that was notable for coaptating lateral prostatic lobes w/ questionable necrotic debris vs edema and dystrophic calcifications. He is in the midst of getting scheduled for a cystoscopy under anesthesia with possible TURP or TURBT. His evaluation in the ER was notable for tachycardia and tachypnea. His bladder scan was noted to be 600 cc's and a 14Fr harper catheter was placed by the nursing staff w/ immediate return of 600 cc's of tea colored urine. His WBC was 7.1, his sCr 1.99 (baseline sCr around 1.1), his lactate was 4.6, questionably infected appearing UA and a CT KUB that was notable for bilateral mild hydroureteronephrosis (R>L) and abnormal thickening of his posterior bladder wall and the urinary trigone. Meds Home Medications and Allergies Home Medications Medication Instructions Recorded Confirmed Type tamsulosin 0.4 mg capsule 0.4 mg PO DAILY 02/24/24 01/27/25 History ciprofloxacin HCl 250 mg tablet 250 mg PO BID #6 tabs 01/12/25 01/27/25 Rx ciprofloxacin HCl 500 mg tablet 500 mg PO BID #20 tabs 01/30/25 Rx Allergies Allergy/AdvReac Type Severity Reaction Status Date / Time No Known Drug Allergies Allergy Verified 02/12/25 10:46 Review of Systems Review of Systems Narrative: CONSTITUTIONAL: Denies weight loss, fevers, chills. HEENT: Denies change in vision, hearing. RESP: Denies SOB, cough. CV: Denies palpations, CP. GI: Denies nausea, vomiting, diarrhea. MSK: Denies myalgia, joint pain. SKIN: Denies rash, pruritus. NEURO: Denies headache, syncope. PSYCH: Denies recent change in mood, anxiety, depression. Exam Vital Signs (past 8 hours): - 02/12/25 10:41 02/12/25 12:35 02/12/25 12:48 Temperature 97.4 F L 98.3 F Pulse Rate 100 H 110 H 102 H Respiratory Rate 26 H 40 H Blood Pressure 135/63 Pulse Oximetry 100 100 100 Oxygen Delivery Method Room Air 02/12/25 12:48 02/12/25 13:00 02/12/25 13:00 Temperature Pulse Rate 94 H Respiratory Rate 18 Blood Pressure 154/67 H 140/65 Pulse Oximetry 100 98 Oxygen Delivery Method High Flow Nasal Cannula 02/12/25 13:15 02/12/25 13:15 02/12/25 13:30 Temperature Pulse Rate 92 H Respiratory Rate 12 Blood Pressure 139/64 137/65 Pulse Oximetry 99 Oxygen Delivery Method 02/12/25 13:30 02/12/25 13:45 02/12/25 13:45 Temperature Pulse Rate 93 H 95 H Respiratory Rate 16 22 Blood Pressure 141/65 H Pulse Oximetry 100 100 Oxygen Delivery Method 02/12/25 14:00 02/12/25 14:00 Temperature Pulse Rate 93 H Respiratory Rate 30 H Blood Pressure 158/71 H Pulse Oximetry 100 Oxygen Delivery Method Oxygen Delivery Method High Flow Nasal Cannula Narrative Exam Narrative: GEN: Alert and oriented X3. No acute distress. Well-nourished. EYES: PERRLA, EOMI. HENT: Moist mucus membranes, no scleral icterus, normal neck ROM. RESP: Unlabored breathing, equal rise and fall of chest bilaterally, no cyanosis appreciated. CV: No peripheral edema, unremarkable heart rate. ABD: Soft, non-tender, non-distended, no palpable masses. : Harper secured and draining clear yellow urine. EXT: No edema, clubbing or cyanosis. SKIN: No rashes or lesions. NEURO: No focal neurologic deficits, CN II-XII grossly intact. PSYCH: Cooperative, appropriate mood and affect. Objective Labs 02/12/25 11:55 02/12/25 11:55 Labs: Laboratory Results - last 24 hr 02/12/25 02/12/25 02/12/25 11:10 11:10 11:55 WBC 7.1 RBC 3.92 L Hgb 11.7 L Hct 33.3 L MCV 85.0 MCH 29.9 MCHC 35.2 RDW 12.2 Plt Count 333 Neut % (Auto) 78.3 H Lymph % (Auto) 14.0 L [place] % (Auto) 6.7 Eos % (Auto) 0.4 L Baso % (Auto) 0.6 Neut # (Auto) 5600 Lymph # (Auto) 1000 L [place] # (Auto) 500 Eos # (Auto) 0 Baso # (Auto) 0 Sodium 131 L Potassium 4.5 Chloride 96 L Carbon Dioxide 20 L BUN 36 H Creatinine 1.99 H Estimated GFR 34 L BUN/Creatinine Ratio 18.1 Glucose 179 H Lactate 4.6 H* Calcium 9.4 Total Bilirubin 1.1 AST 35 ALT 26 Alkaline Phosphatase 108 Total Creatine Kinase 38 L Total Protein 7.4 Albumin 4.0 Globulin 3.4 Albumin/Globulin Ratio 1.2 Lipase 12 L Procalcitonin 0.160 Urine Color [place] Urine Appearance Cloudy Urine pH 5.0 Normal Ur Specific [place] 1.020 Urine Protein 2+ H Urine Glucose (UA) Trace H Urine Ketones Negative Urine Occult Blood 3+ H Urine Nitrate Negative Urine Bilirubin 1+ H Ur Bilirubin Confirm Negative Urine Urobilinogen 0.2 Ur Leukocyte Esterase Trace H Urine RBC >100/hpf H Urine WBC 1-5/hpf Ur Squamous Epith Cells 0-1 /hpf Urine Bacteria Few (2-10) H Ur Culture Indicated? Cult not indicated Vol Urine Centrifuged 10ml (spun) U Opiates 300ng/mL cut Negative Ur Oxycodone Screen Negative Urine Methadone Screen Negative Ur Barbiturates Screen Negative U Tricyclic Antidepress Positive H Ur Phencyclidine Scrn Negative Ur Amphetamines Screen Negative U Methamphetamines Scrn Negative Ur MDMA Scrn (Ecstasy) Negative U Benzodiazepines Scrn Negative Urine Cocaine Screen Negative U Marijuana (THC) Screen Positive H Urine Specific [place] Normal Ur Creatinine Normal 02/12/25 14:06 WBC RBC Hgb Hct MCV MCH MCHC RDW Plt Count Neut % (Auto) Lymph % (Auto) [place] % (Auto) Eos % (Auto) Baso % (Auto) Neut # (Auto) Lymph # (Auto) [place] # (Auto) Eos # (Auto) Baso # (Auto) Sodium Potassium Chloride Carbon Dioxide BUN Creatinine Estimated GFR BUN/Creatinine Ratio Glucose Lactate 1.9 Calcium Total Bilirubin AST ALT Alkaline Phosphatase Total Creatine Kinase Total Protein Albumin Globulin Albumin/Globulin Ratio Lipase Procalcitonin Urine Color Urine Appearance Urine pH Ur Specific [place] Urine Protein Urine Glucose (UA) Urine Ketones Urine Occult Blood Urine Nitrate Urine Bilirubin Ur Bilirubin Confirm Urine Urobilinogen Ur Leukocyte Esterase Urine RBC Urine WBC Ur Squamous Epith Cells Urine Bacteria Ur Culture Indicated? Vol Urine Centrifuged U Opiates 300ng/mL cut Ur Oxycodone Screen Urine Methadone Screen Ur Barbiturates Screen U Tricyclic Antidepress Ur Phencyclidine Scrn Ur Amphetamines Screen U Methamphetamines Scrn Ur MDMA Scrn (Ecstasy) U Benzodiazepines Scrn Urine Cocaine Screen U Marijuana (THC) Screen Urine Specific [place] Ur Creatinine PFSH Medical History Right leg DVT Chronic anticoagulation Gross hematuria Hx of brachytherapy (04/10/18) Urge incontinence Lower urinary tract symptoms (LUTS) Bladder outlet obstruction Prostatic calculi High blood pressure History of prostate cancer Surgical History History of transurethral resection of prostate (07/27/19) Social History marital status: number of children: 2 household members: spouse 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 Briefly, he has a h/o low-risk prostate cancer diagnosed in 2007. He was ultimately treated w/ brachytherapy in March of 2008. He underwent a limited TURP in 2019 secondary to exposed brachytherapy seeds within his prostate urethra. He then began to have difficulty urinating with obstructing type voiding symptoms and underwent a TURP w/ cystolithalopaxy for management of regrowth of prostatic tissue, exposed brachytherapy seeds and urolithiasis within his bladder and prostatic urethra in December of 2023. Regarding his prostate cancer, his PSA was noted to be < 0.064 in December of 2024. Over the last 12 hours, he has been unable to urinate at all and endorsing severe suprapubic pain/discomfort. He did not answer many questions secondary to discomfort and continued shaking, nearly all of the history was obtained from his . He had a cystoscopy performed in early January of [address] Padilla that was notable for coaptating lateral prostatic lobes w/ questionable necrotic debris vs edema and dystrophic calcifications. He is in the midst of getting scheduled for a cystoscopy under anesthesia with possible TURP or TURBT. His evaluation in the ER was notable for tachycardia and tachypnea. His bladder scan was noted to be 600 cc's and a 14Fr harper catheter was placed by the nursing staff w/ immediate return of 600 cc's of tea colored urine. His WBC was 7.1, his sCr 1.99 (baseline sCr around 1.1), his lactate was 4.6, questionably infected appearing UA and a CT KUB that was notable for bilateral mild hydroureteronephrosis (R>L) and abnormal thickening of his posterior bladder wall and the urinary trigone. Discussed extensively with his that I would recommend that the harper catheter remain in place for now and that a renal bladder US be performed on 14 February 2025 to evaluate for resolution of the aforementioned hydronephrosis. Discussed etiologies to include acute urinary retention, necrotic debris within his bladder, calcifications, exposed brachytherapy seeds or concern for possible bladder or prostate cancer obscuring his ureteral orifices. Discussed that he will need a cystoscopy under anesthesia with possible TURP and/or TURBT in the near future. - Please ensure that he remains on his Tamsulosin 0.4mg daily - Recommend discussion of holding his blood thinner should the aforementioned procedure need to be completed during his admission - Recommend broad spectrum antibiotics with tapering to UCx directed antibiotics when available - Appreciate assistance of hospitalist team with this patient - Dr. Padilla returns to on 14 February 2025, will alert him to this patient and have him follow-up and weigh in on his RBUS findings - Please reconsult Urology in the interim should additional questions and/or concerns arise (2) Acute kidney injury: Status: Acute Plan: Please see plan above under urinary retention (3) Bilateral hydronephrosis: Status: Acute Plan: Please see plan above under urinary retention Time-Based Coding :: [TOTAL MINUTES] spent with patient and on the chart (including review of chart, obtaining history, exam, reviewing outside data, placing orders, documenting exam and treatment plan, and counseling patient) on [DATE]. PROFEE Charge Codes Inpatient or Observation consultation: [id number]
[2025-02-12] MEDS: HYDROMORPHONE 0.5 MG INJ IV ×3 (15:46→20:12)
[2025-02-12] MEDS: SODIUM CHLORIDE 0.45% 1,000 ML 100 ML IV (15:47)
[2025-02-12] MEDS: ONDANSETRON 4 MG/2 ML INJ IV (15:50)
[2025-02-12] MEDS: HYDROCODONE/ACET 5/325 TABLET 1 TAB PO (17:55)
--- NOTE | 2025-02-12 19:34 | PC.NURSE ---
Patient arrived from ED at 1715 this evening. SBP elevated however patient in severe pain with mobilizing from gurney to bed. He c/o pain to R flank , low abd, perineal area. He is very [place]. He denies having appetite for dinner but is able to take ensure. at bedside helping with admission assessment. Pt is A&X3, no confusion observed, some lethargy and he is very [place]. Continuous monitoring.
[2025-02-13] MEDS: SODIUM CHLORIDE 0.45% 1,000 ML 100 ML IV ×2 (02:12→13:26)
[2025-02-13 04:40] VITALS: BP 107/66; PULSE 95; RESP 16; TEMP 37.3; O2SAT 98
[2025-02-13 04:41] VITALS: TEMP 37.3
[2025-02-13] MEDS: ACETAMINOPHEN 325 MG TABLET 650 MG PO (04:41)
[2025-02-13 05:54] LABS: Add Manual Diff / Slide Review NO; Basophils Absolute Auto 0 /uL (0-100); Basophils Percent Auto 0.5 % (0-2); Eosinophils Absolute Auto 100 /uL (0-450); Eosinophils Percent Auto 1.3 % (2-4); Hematocrit 26.6 % (41-53); Hemoglobin 9.4 g/dL (13.5-17.5); Lymphocytes Absolute Auto 900 /uL (1100-4500); Lymphocytes Percent Auto 14.5 % (25-40); Mean Corpuscular HGB Conc 35.3 % (30-36); Mean Corpuscular Hemoglobin 30.3 PG (26-34); Mean Corpuscular Volume 85.9 fL (80-100); Monocytes Absolute Auto 600 /uL (0-900); Monocytes Percent Auto 9.8 % (3-14); Neutrophils Absolute Auto 4400 /uL (1500-7000); Neutrophils Percent Auto 73.9 % (50-75); Platelet Count 255 X10^3/uL (150-400); Red Cell Distribution Width 12.2 % (11.6-14.8); White Blood Cell Count 5.9 X10^3/uL (4.5-11.0)
[2025-02-13 06:03] LABS: Hemoglobin A1C% w Est Avg Glu 5.9 % (4.0-6.0)
[2025-02-13 06:15] LABS: Alanine Aminotransferase 13 IU/L (<50); Albumin 3.1 g/dL (3.5-5.0); Alkaline Phosphatase 78 U/L (38-126); Aspartate Aminotransferase 30 IU/L (17-59); BUN Creatinine Ratio 17.2 (6-22); Bilirubin Total 0.5 mg/dL (0.2-1.3); Blood Urea Nitrogen 34 mg/dL (9-20); Calcium 8.6 mg/dL (8.4-10.2); Carbon Dioxide 24 mmol/L (22-32); Chloride 101 mmol/L (98-107); Estimated Glomerular Filt Rate 34 mL/min (>60); Globulin 3.1 g/dL (1.7-4.1); Glucose 100 mg/dL (80-110); HEMOLYSIS < 15 (0-50); Potassium 4.4 mmol/L (3.4-5.1); Sodium 131 mmol/L (137-145); Total Protein 6.2 g/dL (6.3-8.2)
[2025-02-13 06:53] LABS: Thyroid Stimulating Hormone 2.19 uIU/mL (0.47-4.68)
[2025-02-13] MEDS: HYDROCODONE/ACET 5/325 TABLET 1 TAB PO ×2 (06:53→19:50)
[2025-02-13 08:00] VITALS: BP 119/56; PULSE 84; RESP 14; TEMP 36.8; O2SAT 98
[2025-02-13] MEDS: TAMSULOSIN 0.4 MG CAPSULE PO (09:03)
[2025-02-13] MEDS: APIXABAN 5 MG TABLET PO ×2 (09:03→19:50)
[2025-02-13] MEDS: cefTRIAXone 2,000 MG in SODIUM CHLORIDE 0.9% 100 ML 200 MG IV (11:29)
[2025-02-13] MEDS: DOCUSATE 100 MG CAPSULE PO ×2 (11:30→19:50)
[2025-02-13] MEDS: polyethylene glycoL 3350 17 GM POWD.PACK PO (11:31)
--- NOTE | 2025-02-13 14:34 | CM.DANOTE ---
DCP Assessment note pt is a 80yo M admitted with UTI/concerns on urinary retention. failed PO abx in OP setting, now getting IV abx. PCP Kartik Cristina Payer Medicare and [facility] FOOD PROCESSING CHEMIST reviewed EMR per provider in morning rounds, plan for ultrasounds tomorrow/urology consult [place]. Per RN, pt medically improving. mobilizing with nursing. ASA'C[place]ARMI[place]. FOOD PROCESSING CHEMIST entered room and introduced self and role. pt resting in bed, spouse Leni at bedside. confirm lives with spouse in [place], indep at baseline, no DME. mobilizing baseline during admission, pt has been experiencing lower back pain past few weeks. FOOD PROCESSING CHEMIST advised pt to f/u with OP PCP about OP PT for back. no hx of HH/SNF. Denies any DCP/CM needs at this time. P: anticipate dc home with spouse and likely OP f/u when medically stable. no anticipated DCP needs at this time, will continue to follow as needed KAYDEN Mayes Discharge Planning/Care Management Advanced directive, confirm from FAMILY Start: 02/12/25 17:46 Freq: Q24H Status: Active Protocol: Document 02/12/25 17:46 EJ (Rec: 02/12/25 18:36 EJ [id number]) Advance Directive, confirm on record Time 18:00 Person contacted Janis Cook Copy received No CM Discharge Assessment Start: 02/13/25 14:32 Freq: Status: Active Protocol: Document 02/13/25 14:33 SL (Rec: 02/13/25 14:33 SL Desktop) Discharge Planning Assessment Assigned Color Consultant KAYDEN Ackerman DPOA/Assigned Designee Name Leni spouse Contact Information [phone] Advance Directives? Yes Advance Directives on File No History Provided By Patient Prior Living Arrangements House Household Members spouse Independent with ADL's Yes Is patient alert and oriented? Yes Barriers to Discharge No Discharge Plan Home Referrals Initiated None needed Whiteboard Updated in Patient Room with Yes name and ext. # of Color Consultant Review Status In Process Please Provide Date Initial DC 02/13/25 Assessment Was Performed Next Review Type Continued Stay Review
--- NOTE | 2025-02-13 15:19 | PM.PN.1 ---
Subjective Subjective Interval history: 80 M admitted with probable acute cystitis Exam Vital Signs (past 8 hours): - 02/13/25 08:00 02/13/25 08:00 Temperature 98.2 F Pulse Rate 84 Respiratory Rate 14 Blood Pressure 119/56 L Pulse Oximetry 98 Oxygen Delivery Method Room Air Oxygen Flow Rate 0 Oxygen Delivery Method Room Air Oxygen Flow Rate 0 Narrative Exam Narrative: GENERAL: This is a well-nourished, well-developed patient, appears uncomfortable, answering simple questions but defers to , grimacing occasionally. HEAD: Atraumatic. Normocephalic. No temporal or scalp tenderness. EYES: Pupils equal round and reactive. Extraocular motions intact. No scleral icterus. No injection or drainage. ENT: Mucous membranes pink and moist. NECK: Trachea midline. No JVD, bruits or lymphadenopathy. Supple, nontender, no meningeal signs. CARDIOVASCULAR: Regular rate and rhythm without murmurs, gallops, or rubs. RESPIRATORY: Clear to auscultation. GASTROINTESTINAL: Abdomen soft, non-tender, nondistended. EXTREMITIES: No left leg edema; right leg with moderate swelling and tenderness, normal skin color, distal DP and PT pulse intact on the right, with tenderness extending into the right thigh. NEUROLOGIC: Alert, oriented, speech fluent, full upper and lower motor strength, no focal deficits evident. DERMATOLOGIC: No rashes or skin lesions. Objective Labs 02/13/25 05:00 02/13/25 05:00 Labs: Laboratory Results - last 24 hr 02/13/25 05:00 WBC 5.9 RBC 3.10 L Hgb 9.4 L Hct 26.6 L MCV 85.9 MCH 30.3 MCHC 35.3 RDW 12.2 Plt Count 255 Neut % (Auto) 73.9 Lymph % (Auto) 14.5 L [place] % (Auto) 9.8 Eos % (Auto) 1.3 L Baso % (Auto) 0.5 Neut # (Auto) 4400 Lymph # (Auto) 900 L [place] # (Auto) 600 Eos # (Auto) 100 Baso # (Auto) 0 Sodium 131 L Potassium 4.4 Chloride 101 Carbon Dioxide 24 BUN 34 H Creatinine 1.98 H Estimated GFR 34 L BUN/Creatinine Ratio 17.2 Glucose 100 Hemoglobin A1c 5.9 Calcium 8.6 Total Bilirubin 0.5 AST 30 ALT 13 Alkaline Phosphatase 78 Total Protein 6.2 L Albumin 3.1 L Globulin 3.1 Albumin/Globulin Ratio 1.0 TSH 2.19 PFSH Medical History Right leg DVT Chronic anticoagulation Gross hematuria Hx of brachytherapy (04/10/18) Urge incontinence Lower urinary tract symptoms (LUTS) Bladder outlet obstruction Prostatic calculi High blood pressure History of prostate cancer Surgical History History of transurethral resection of prostate (07/27/19) Social History marital status: number of children: 2 household members: spouse 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 Sepsis secondary to Acute cystitis due to urinary obstruction (BPH related), present on admission 2. Bilateral hydronephrosis and hydroureter, bladder wall thickening. Urology consultation appreciated. 3. Acute kidney injury and acute metabolic encephalopathy due to #1 above. 4. BPH. Continue tamsulosin, harper catheter 5. Deep venous thrombosis, right leg. Continue Eliquis. 6. History of pancreatic insufficiency. Continue Creon. 7. History of prostate cancer. No evidence of disease. PSA less than 0.064 on 01/04/2025. 8. Hyperglycemia, pre-diabetes. Monitor. No reported history of diabetes. A1c 5.9%. Recommend outpatient follow up with PCP. DVT prophylaxis: Eliquis Code status: Full code. This is reviewed with the patient and his on admission. His Leni is his surrogate decision maker. Plan: -continue ceftriaxone 2 g IV Q 24 hours for now given presentation and findings, cultures negative thus far. -follow urine culture -can stop IV fluids this afternoon. -monitor renal function, cr essentially unchanged at 1.98 today. -lower extremity ultrasound negative for DVT, continues on home apixaban. -urinary catheterization, tamsulosin -continue Creon -urology consultation appreciated will repeat renal ultrasound tomorrow per their recommendations. Dispo: possible discharge home 1-2 days depending on urology recommendations. Time-Based Coding :: [TOTAL MINUTES] spent with patient and on the chart (including review of chart, obtaining history, exam, reviewing outside data, placing orders, documenting exam and treatment plan, and counseling patient) on [DATE]. Scores SOFA PaO2/FIO2: >=400 mmHg Platelets: >= 150 Bilirubin: < 1.2 mg/dL Hypotension: MAP >= 70 mmHg [place] Coma Scale: 15 Renal: Creatinine 1.2-1.9 mg/dL SOFA Score: 1 Quality VTE Deep Vein Thrombosis/Pulmonary Embolism Present on Admission: No
[2025-02-13 16:00] VITALS: BP 136/75; PULSE 79; RESP 15; TEMP 36.6; O2SAT 98
[2025-02-13] MEDS: CREON 3 EACH PO (17:30)
[2025-02-13 20:00] VITALS: BP 141/70; PULSE 80; RESP 18; TEMP 36.6; O2SAT 99
[2025-02-13] MEDS: BISACODYL 10 MG SUPP PR (22:23)
[2025-02-14] VITALS: BP 135/68; PULSE 75; RESP 18; TEMP 36.5; O2SAT 98
[2025-02-14 04:00] VITALS: BP 124/87; PULSE 72; RESP 18; TEMP 36.8; O2SAT 100
[2025-02-14 04:46] LABS: Add Manual Diff / Slide Review NO; Basophils Absolute Auto 0 /uL (0-100); Basophils Percent Auto 0.6 % (0-2); Eosinophils Absolute Auto 200 /uL (0-450); Eosinophils Percent Auto 2.7 % (2-4); Hematocrit 29.1 % (41-53); Hemoglobin 10.1 g/dL (13.5-17.5); Lymphocytes Absolute Auto 800 /uL (1100-4500); Lymphocytes Percent Auto 13.4 % (25-40); Mean Corpuscular HGB Conc 34.5 % (30-36); Mean Corpuscular Hemoglobin 29.7 PG (26-34); Monocytes Absolute Auto 500 /uL (0-900); Monocytes Percent Auto 9.4 % (3-14); Neutrophils Absolute Auto 4200 /uL (1500-7000); Neutrophils Percent Auto 73.9 % (50-75); Platelet Count 253 X10^3/uL (150-400); Red Blood Cell Count 3.39 X10^6/uL (4.5-5.9); Red Cell Distribution Width 12.1 % (11.6-14.8); White Blood Cell Count 5.7 X10^3/uL (4.5-11.0)
[2025-02-14 05:40] LABS: BUN Creatinine Ratio 15.4 (6-22); Blood Urea Nitrogen 30 mg/dL (9-20); Calcium 8.8 mg/dL (8.4-10.2); Carbon Dioxide 24 mmol/L (22-32); Chloride 97 mmol/L (98-107); Estimated Glomerular Filt Rate 35 mL/min (>60); Glucose 156 mg/dL (80-110); HEMOLYSIS < 15 (0-50); Potassium 4.8 mmol/L (3.4-5.1); Sodium 128 mmol/L (137-145)
[2025-02-14 08:00] VITALS: BP 133/72; PULSE 74; RESP 15; TEMP 36.5; O2SAT 97
[2025-02-14] MEDS: HYDROCODONE/ACET 5/325 TABLET 1 TAB PO (08:00)
[2025-02-14] MEDS: CREON 3 EACH PO ×3 (08:02→17:55)
[2025-02-14] MEDS: TAMSULOSIN 0.4 MG CAPSULE PO (08:06)
[2025-02-14] MEDS: APIXABAN 5 MG TABLET PO ×2 (08:06→21:28)
[2025-02-14] MEDS: polyethylene glycoL 3350 17 GM POWD.PACK PO (08:06)
[2025-02-14] MEDS: DOCUSATE 100 MG CAPSULE PO ×2 (08:06→21:29)
--- NOTE | 2025-02-14 09:00 | DI.US.S_ITS ---
PROCEDURE: US RENAL COMPLETE INDICATIONS: reassess hydronephrosis after harper placement TECHNIQUE: Real-time scanning was performed of the kidneys and bladder, with image documentation. COMPARISON: [facility], CT, CT KIDNEY URETER BLADDER (KUB), 02/12/2025, 12:23. FINDINGS: Kidneys: Kidneys are normal in size. Right kidney measures 11.4 cm long; left kidney measures 10.3 cm long. Right renal cortical thickness is 1.6 cm; left renal cortical thickness is 1.5 cm. Renal cortical echotexture is normal. Moderate bilateral hydronephrosis. No nephrolithiasis. No suspicious solid mass lesions. Bladder: Bladder decompressed by Harper catheter. Miscellaneous: No free pelvic fluid. IMPRESSION: Bilateral moderate hydronephrosis without significant change compared to prior CT scan. Dictated by: Clementine Pepe MD, PhD on 02/14/2025 at 9:08 Approved by: Clementine Pepe MD, PhD on 02/14/2025 at 9:13
--- NOTE | 2025-02-14 10:29 | CM.DPNOTE ---
Addendum entered by KAYDEN Mayes 02/14/25 15:55: per provider, pt reports feeling weaker than normal. PT/OT pending. per Favian, pt needs cardiology and vascular clearance prior to urology surgical intervention can be done in OP setting. pt also anxious about 5 days without BM. per provider, anticipate dc tomorrow with OP cardio/vascular/urology f/u. DCP pending therapy recs/pt preferences. will add new meds to encourage BM today. SL Original Note: DCP note DAIRY EQUIPMENT MECHANIC reviewed EMR per chart review/provider report, urology consult pending for today. per yesterday PN, dc today vs Wed pending urology input. no further CM needs identified at this time P: anticipate dc home with spouse when medically stable and likely OP f/u. Will continue to follow in case any DCP needs arise. KAYDEN Mayes
[2025-02-14] MEDS: cefTRIAXone 2,000 MG in SODIUM CHLORIDE 0.9% 100 ML 200 MG IV (11:02)
[2025-02-14 12:00] VITALS: BP 148/68; PULSE 83; RESP 15; TEMP 36.4; O2SAT 100
[2025-02-14 16:00] VITALS: BP 148/68; PULSE 75; RESP 18; TEMP 36.3; O2SAT 99
[2025-02-14] MEDS: LACTULOSE 20 GM/30 ML SOLUTION PO ×2 (16:10→21:28)
--- NOTE | 2025-02-14 16:18 | PM.PN.1 ---
Subjective Subjective Interval history: 80 M admitted with probable acute cystitis, and b/l hydroureter. Discussed with urology today given repeat ultrasound. Given improvement in symptoms, stable / improving cr and harper in place patient is okay for discharge and outpatient follow up. He still requires cardiology and vascular clearance / risk stratification prior to any urological procedures here. The interval option should harper fail would be percutaneous nephrostomy tubes with IR. Patient still complains of no bowel movements today, spouse is concerned about his R leg which is still swollen weakness. Ordered lactulose for his constipation and PT/OT evaluations. Exam Vital Signs (past 8 hours): - 02/14/25 12:00 02/14/25 16:00 Temperature 97.5 F L 97.4 F L Pulse Rate 83 75 Respiratory Rate 15 18 Blood Pressure 148/68 H 148/68 H Pulse Oximetry 100 99 Oxygen Delivery Method Room Air Oxygen Flow Rate 0 Narrative Exam Narrative: GENERAL: This is a well-nourished, well-developed patient, appears uncomfortable, answering simple questions but defers to , grimacing occasionally. HEAD: Atraumatic. Normocephalic. No temporal or scalp tenderness. EYES: Pupils equal round and reactive. Extraocular motions intact. No scleral icterus. No injection or drainage. ENT: Mucous membranes pink and moist. NECK: Trachea midline. No JVD, bruits or lymphadenopathy. Supple, nontender, no meningeal signs. CARDIOVASCULAR: Regular rate and rhythm without murmurs, gallops, or rubs. RESPIRATORY: Clear to auscultation. GASTROINTESTINAL: Abdomen soft, non-tender, nondistended. EXTREMITIES: No left leg edema; right leg with moderate swelling and tenderness, normal skin color, distal DP and PT pulse intact on the right, with tenderness extending into the right thigh. NEUROLOGIC: Alert, oriented, speech fluent, full upper and lower motor strength, no focal deficits evident. DERMATOLOGIC: No rashes or skin lesions. Objective Labs 02/14/25 04:00 02/14/25 04:00 Labs: Laboratory Results - last 24 hr 02/14/25 04:00 WBC 5.7 RBC 3.39 L Hgb 10.1 L Hct 29.1 L MCV 86.0 MCH 29.7 MCHC 34.5 RDW 12.1 Plt Count 253 Neut % (Auto) 73.9 Lymph % (Auto) 13.4 L Bradford % (Auto) 9.4 Eos % (Auto) 2.7 Baso % (Auto) 0.6 Neut # (Auto) 4200 Lymph # (Auto) 800 L Bradford # (Auto) 500 Eos # (Auto) 200 Baso # (Auto) 0 Sodium 128 L Potassium 4.8 Chloride 97 L Carbon Dioxide 24 BUN 30 H Creatinine 1.95 H Estimated GFR 35 L BUN/Creatinine Ratio 15.4 Glucose 156 H Calcium 8.8 PFSH Medical History Right leg DVT Chronic anticoagulation Gross hematuria Hx of brachytherapy (04/10/18) Urge incontinence Lower urinary tract symptoms (LUTS) Bladder outlet obstruction Prostatic calculi High blood pressure History of prostate cancer Surgical History History of transurethral resection of prostate (07/27/19) Social History marital status: number of children: 2 household members: spouse 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 Sepsis secondary to Acute cystitis due to urinary obstruction (BPH related), present on admission 2. Bilateral hydronephrosis and hydroureter, bladder wall thickening. Urology consultation appreciated. 3. Acute kidney injury and acute metabolic encephalopathy due to #1 above. 4. BPH. Continue tamsulosin, harper catheter 5. Deep venous thrombosis, right leg. Continue Eliquis. 6. History of pancreatic insufficiency. Continue Creon. 7. History of prostate cancer. No evidence of disease. PSA less than 0.064 on 01/04/2025. 8. Hyperglycemia, pre-diabetes. Monitor. No reported history of diabetes. A1c 5.9%. Recommend outpatient follow up with PCP. DVT prophylaxis: Eliquis Code status: Full code. This is reviewed with the patient and his on admission. His Leni is his surrogate decision maker. Plan: -continue ceftriaxone 2 g IV Q 24 hours for now given presentation and findings, cultures negative thus far. -follow urine culture, also with no growth -stopped IV fluids on 02/13. -monitor renal function, cr essentially unchanged at 1.95 today. Repeat ultrasound with stable hydroureter bilaterally. -lower extremity ultrasound negative for DVT, continues on home apixaban. -urinary catheterization, tamsulosin to continue. Will continue laxative therapies and add lactulose. -continue Creon -urology consultation appreciated - Discussed with urology Dr. Padilla today given repeat ultrasound. Given improvement in symptoms, stable / improving cr and harper in place patient is okay for discharge and outpatient follow up. He still requires cardiology and vascular clearance / risk stratification prior to any urological procedures here. The interval option should harper fail would be percutaneous nephrostomy tubes with IR. Dispo: possible discharge home tomorrow should Cr remain stable and no recommendation for SNF with PT/OT. Time-Based Coding :: [TOTAL MINUTES] spent with patient and on the chart (including review of chart, obtaining history, exam, reviewing outside data, placing orders, documenting exam and treatment plan, and counseling patient) on [DATE]. Quality VTE Deep Vein Thrombosis/Pulmonary Embolism Present on Admission: No
--- NOTE | 2025-02-14 16:35 | OT.IP.EVAL ---
Current Diagnoses Unspecified hydronephrosis (02/12/25) Acute kidney failure, unspecified (02/12/25) Retention of urine, unspecified (02/12/25) Past Medical History (Last Reviewed 02/12/25 @ 15:35 by Carlito Justin DO) Bladder outlet obstruction Chronic anticoagulation Gross hematuria High blood pressure History of prostate cancer Hx of brachytherapy (04/10/18) Lower urinary tract symptoms (LUTS) Prostatic calculi Right leg DVT Urge incontinence Surgical History (Last Reviewed 02/12/25 @ 15:35 by Carlito Justin DO) History of transurethral resection of prostate (07/27/19) Occupational Therapy Inpatient Evaluation/Re-Eval M1 PT/OT-IP Prior Functional Status Start: 02/14/25 16:13 Freq: NEEDED Status: Active Protocol: Document 02/14/25 16:38 [facility] (Rec: 02/14/25 17:00 [facility] Desktop) Medical Review Prior Functional Status Communication I Mobility and Gait I and did not use a device. Activities of Daily Living and IADL's Completely independent with ADL and IADL needs. Pt states has not driven since November. Social History Household Members spouse Living Arrangements House Number of Floors (Floors) 3 or More Floors Number of Stairs To Enter/Railing? Pt lies in tri-level. & steps from the front with wide bilateral rails to the main level with kitchen and living room. 7 steps with right rail and left 1/2 wall to get to the bedroom level. Home Environment Standard Height Toilet,Walk in Shower M2 OT-IP Current Condition Start: 02/14/25 16:13 Freq: Status: Active Protocol: Document 02/14/25 16:38 [facility] (Rec: 02/14/25 17:00 [facility] Desktop) Occupational Therapy Current Condition Current Condition Evaluation Date 02/14/25 Treatment Diagnosis Sepsis due to acute cystitis Diagnosis Onset Date 02/12/25 M3 OT- IP Subjective and Pain Start: 02/14/25 16:13 Freq: Status: Active Protocol: Document 02/14/25 16:38 [facility] (Rec: 02/14/25 17:00 [facility] Desktop) OT- Subjective Occupational Therapy Visit Type Type Initial Evaluation Visit Start Time 15:15 Visit Stop Time 16:35 Occupational Therapy Visit Comments Patient Comments Pt agreed to get up, pt's in the room. Patient/Caregiver Goals TO go home. OT Pain Assessment Pain When Pain Assessed At Rest Location Back Pain Behaviors Facial Grimacing,Holding Area M4 OT- IP ADL's Start: 02/14/25 16:13 Freq: Status: Active Protocol: Document 02/14/25 16:38 [facility] (Rec: 02/14/25 17:00 [facility] Desktop) OT [id number] Comments OT Self-Feeding Comments Not at meal time. OT ADL-Grooming General Evaluation Grooming Ability Standby Assistance OT ADL-Oral Care Comments Oral Care Comments NOt performed. OT ADL-Dressing General Eval Upper Body Dressing Ability Standby Assistance Lower Body Dressing Ability Standby Assistance Comments OT Dressing Comments Increased time and use of momentum and left hand to assist to get his RLE up over his left knee. OT ADL-Toileting General Evaluation Toileting Ability Total Assistance Areas Needing Assistance Empty Catheter or Colostomy Comments OT Toileting Comments Harper in place. OT ADL-Bathing Comments OT Bathing Comments NOt performed. Suggested pt get a shower chair/stool for showering needs. M5 OT- IP IADL's Start: 02/14/25 16:13 Freq: Status: Active Protocol: Document 02/14/25 16:38 [facility] (Rec: 02/14/25 17:00 [facility] Desktop) OT-Instrumental Activities of Daily Living Home Safety Awareness Home Safety Comments To assess more tomorrow. Medication Management Medication Management Comments Pt states does his own. Money Management Money Management Caregiver Provides Assistance Meal Preparation Meal Preparation Caregiver Provides Assist Shower Maid Shower Maid Caregiver Provides Assist M6 OT- IP Functional Cognition Start: 02/14/25 16:13 Freq: Status: Active Protocol: Document 02/14/25 16:38 [facility] (Rec: 02/14/25 17:00 [facility] Desktop) Cognitive Factors Limiting Selfcare Function Cognitive Ability Level of Alertness Alert Patient Orientation Name,Age,Birthday,Month,Date, Year,Day of Week,Place, Situation Attention Span Ability Capable of Focused Attention, Capable of Sustained Attention Ability to Follow Commands Able to Follow One Step Commands Memory Description Short Term Impaired Cognitive Tests SLUMS 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 Pt's states pt has had TIA's in the past and his STM gets worse when he is tired. Pt able to recall 11 animals in one minute, able to recall 2/5 objects after time passes, and able to answer 3/4 questions right after paragraph read. Cognitive Comments Cognitive Assessment Comments Pt able to follow commands. Pt having difficulty with STM . Pt needing reminders to remember to carry his harper when up walking. OT- Vision and Hearing OT- Hearing Assessment OT- Hearing Assessment Hearing Impaired,Use of Hearing Aids OT- Vision Assessment Visual Acuity Glasses All The Time Visual Attentiveness WFL Occular Pursuits WFL M7 OT- IP Mobility and Balance Start: 02/14/25 16:13 Freq: Status: Active Protocol: Document 02/14/25 16:38 [facility] (Rec: 02/14/25 17:00 [facility] Desktop) OT- Bed Mobility Assessment Supine to Sit Supine to Sit Assist Standby Assistance Sit to Supine Sit to Supine Assist Minimal Assistance OT-Transfer Assessment Sit to and From Stand Sit to and from Stand Standby Assistance Transfers Transfer Ability Standby Assistance Technique Transfer Destination Bed,Chair Transfer Technique Stand Step Pivot Devices Transfer Assistive Devices None Comments Mobility Comments Pt needing CANDE to help get his RLE back into bed due to RLE very swollen and heavy and has difficulty to orange picker his leg. Pt able to stand with SBA and walk in the room with no device at this time. Suggested pt to call for assist as needed. OT- Balance Assessment Sitting Balance and Reactions Static Sitting Balance Ability Normal Dynamic Sitting Balance Ability Good Standing Balance and Reactions Static Standing Balance Ability Good Dynamic Standing Balance Ability Fair M8 OT- IP Objective Assessments Start: 02/14/25 16:13 Freq: Status: Active Protocol: Document 02/14/25 16:38 [facility] (Rec: 02/14/25 17:00 [facility] Desktop) OT Gross Range of Motion Upper Extremity Range of Motion Assessment Within Functional Limits OT Strength Comments Strength Comments BUE grossly 4/5 to 4+/5 OT- Coordination Assessment Upper Extremity Finger to Nose Test Within Functional Limits OT-Muscle Tone Assessment Comments Muscle Tone Comments Muscle atrophy in hands, pt unable to make a fist with bilateral hands. Pt states has not been able to close his hand since the past 3 months since having a DVT. OT Sensation Assessment Comments Summary Comments Intact for sensation in hands. M9 OT- IP Assessment and Plan Start: 02/14/25 16:13 Freq: Status: Active Protocol: Document 02/14/25 16:38 [facility] (Rec: 02/14/25 17:00 [facility] Desktop) OT Summary Assessment and Plan Potential Rehabilitation Potential Good Analytic Complexity at Evaluation Moderate Summary OT Impairments Pain,Range of Motion,Strength, Balance,Functional Cognition, Functional Mobility,Dressing, Toileting,Shower Transfers Progress Towards Goals Progressing Toward Goals Assessment Summary Pt MOD complexity and main barriers are medical needs of sepsis due to acute cystitis and having swollen RLE making it having to move his RLE for bed mobility and when up walking. Pt to go home when medically stable. To go over hand exercises with pt tomorrow. Goals Self-Feeding Goal Independent Grooming Goal Independent Dressing Goal Independent Toileting Goal Independent Bathing Goal Independent Toilet Transfer Goal Independent Shower Transfer Goal Independent Days to Meet Goals 5 Frequency of Treatment Frequency Of Treatment Once a Day Treatment Plan OT Treatment Plan ADL Training,Functional Mobility,Therapeutic Exercises ,Patient/Family Education, Discharge Planning Discharge Recommendations OT Discharge Recommendations Home with 24/ Assist Available Home Equipment Needs Shower chair/stool Transportation Needs at Discharge Private Vehicle
[2025-02-14 20:00] VITALS: BP 154/73; PULSE 81; RESP 18; TEMP 36.3; O2SAT 99
[2025-02-15 04:00] VITALS: BP 133/69; PULSE 92; RESP 18; TEMP 36.6; O2SAT 99
[2025-02-15 06:30] LABS: Add Manual Diff / Slide Review NO; Basophils Absolute Auto 0 /uL (0-100); Basophils Percent Auto 0.4 % (0-2); Eosinophils Absolute Auto 100 /uL (0-450); Eosinophils Percent Auto 1.9 % (2-4); Hematocrit 30.4 % (41-53); Hemoglobin 10.6 g/dL (13.5-17.5); Lymphocytes Absolute Auto 700 /uL (1100-4500); Lymphocytes Percent Auto 11.8 % (25-40); Mean Corpuscular HGB Conc 34.9 % (30-36); Mean Corpuscular Hemoglobin 29.8 PG (26-34); Mean Corpuscular Volume 85.4 fL (80-100); Monocytes Absolute Auto 500 /uL (0-900); Monocytes Percent Auto 8.4 % (3-14); Neutrophils Absolute Auto 4900 /uL (1500-7000); Neutrophils Percent Auto 77.5 % (50-75); Platelet Count 248 X10^3/uL (150-400); Red Blood Cell Count 3.56 X10^6/uL (4.5-5.9); Red Cell Distribution Width 12.2 % (11.6-14.8); White Blood Cell Count 6.3 X10^3/uL (4.5-11.0)
[2025-02-15 06:45] LABS: BUN Creatinine Ratio 17.6 (6-22); Blood Urea Nitrogen 33 mg/dL (9-20); Calcium 8.7 mg/dL (8.4-10.2); Carbon Dioxide 23 mmol/L (22-32); Chloride 96 mmol/L (98-107); Estimated Glomerular Filt Rate 36 mL/min (>60); Glucose 116 mg/dL (70-99); HEMOLYSIS < 15 (0-50); Potassium 4.4 mmol/L (3.4-5.1); Sodium 127 mmol/L (137-145)
[2025-02-15 08:00] VITALS: BP 136/88; PULSE 83; RESP 16; TEMP 36.1; O2SAT 99
[2025-02-15] MEDS: TAMSULOSIN 0.4 MG CAPSULE PO (08:30)
[2025-02-15] MEDS: APIXABAN 5 MG TABLET PO ×2 (08:30→22:18)
[2025-02-15] MEDS: CREON 3 EACH PO ×3 (08:30→17:44)
[2025-02-15] MEDS: DOCUSATE 100 MG CAPSULE PO (08:30)
[2025-02-15] MEDS: LACTULOSE 20 GM/30 ML SOLUTION PO ×2 (08:30→15:04)
[2025-02-15] MEDS: HYDROCODONE/ACET 5/325 TABLET 1 TAB PO (09:31)
--- NOTE | 2025-02-15 10:10 | PT.IIE ---
Current Diagnoses Unspecified hydronephrosis (02/12/25) Acute kidney failure, unspecified (02/12/25) Retention of urine, unspecified (02/12/25) Surgical History (Last Reviewed 02/12/25 @ 15:35 by Carlito Justin DO) History of transurethral resection of prostate (07/27/19) Medical History (Last Reviewed 02/12/25 @ 15:35 by Carlito Justin DO) Bladder outlet obstruction Chronic anticoagulation Gross hematuria High blood pressure History of prostate cancer Hx of brachytherapy (04/10/18) Lower urinary tract symptoms (LUTS) Prostatic calculi Right leg DVT Urge incontinence Physical Therapy Inpatient Evaluation/Re-Eval M1 PT/OT-IP Prior Functional Status Start: 02/15/25 13:18 Freq: NEEDED Status: Active Protocol: Document 02/15/25 10:10 [facility] (Rec: 02/15/25 13:37 [facility] [id number]) Medical Review Prior Functional Status Medical History Reviewed Yes Communication able to make needs known Mobility and Gait pt stated that he was modified independent with all mobilities and ambulation without AD; stated that he strained his back last November and has had pain since then Activities of Daily Living and IADL's Completely independent with ADL and IADL needs. Pt states has not driven since November. Social History Household Members spouse Living Arrangements House Number of Floors (Floors) 3 or More Floors Number of Stairs To Enter/Railing? 7 steps with wide bilateral rails to enter the house 7 steps R rail ascending to get to 2nd level bedroom Home Environment Standard Height Toilet,Walk in Shower Home Equipment Bedside Commode M2 PT-IP Current Condition Start: 02/15/25 13:18 Freq: NEEDED Status: Active Protocol: Document 02/15/25 10:10 [facility] (Rec: 02/15/25 13:37 AB [id number]) Physical Therapy Current Condition Current Condition Evaluation Date 02/15/25 Treatment Diagnosis UIT; hydronephrosis; difficulty in walking Onset Date 02/12/25 M3 PT-IP Subjective Start: 02/15/25 13:18 Freq: NEEDED Status: Active Protocol: Document 02/15/25 10:10 [facility] (Rec: 02/15/25 13:37 AB [id number]) Subjective Physical Therapy Visit Type Type Initial Evaluation Visit Start Time 10:10 Visit Stop Time 11:00 Number of HISTOLOGY MANAGER Visits 0 Physical Therapy Visit Comments Patient Comments agreeable to do PT Therapy Pain Assessment Pain When Pain Assessed During Mobility Pain Present Pain Present Pain Reported Location Back Scale Used Numeric (0 - 10) Right Flank Intensity 10 Scale Used Numeric (0 - 10) M4 PT-IP Mobility and Gait Start: 02/15/25 13:18 Freq: NEEDED Status: Active Protocol: Document 02/15/25 10:10 [facility] (Rec: 02/15/25 13:37 AB [id number]) PT-Bed Mobility Assessment Supine to Sit Supine to Sit Standby Assistance Sit to Supine Sit to Supine Moderate Assistance,1 Person Assistance,2 Person Assistance PT-Transfer Assessment Sit to and From Stand Sit to and from Stand Contact Guard Assistance,1 Person Assistance,Use of Upper Extremities Equipment Transfer Assistive Device Gait Belt,Front Wheeled Walker Orthotic/Prosthetic Devices or Brace: No Comments Mobility Comments pt in bed and spouse in room. obtained PLOF and home set up. pt stated that he cannot move RLE during MMT and needed assistance. pt completed supine to sit SBA . c/o increase R side low back pain with mobility. pt stated that he strained his back last November and has pain since then. sit to stand CGA but has to sit back down due to pain. pt rested . sit to stand again CGA and ambulated in room using FWW CGA and cues. presents with slow pace antalgic gait with stooped posture. cued for upright posture but pt with difficulty with c/o increase back pain. pt sat on EOB. wanted to lay back. sit to supine mod A and cues needing assist with RLE elevation to bed. positioned pt on the bed. call light and table placed within reach. informed spouse to get a FWW for pt and agreed. stated that she had one before and will look for it. Gait Assessment Gait Gait Assistance Required: Contact Guard Assist,1 Person Assist Distance (Feet) 20 Able to Maintain Weight Bearing Status Yes During Gait Assistive Devices Assistive Device Gait Belt,Front Wheeled Walker Orthotic/Prosthetic Devices or Brace: No Gait Deviations General Gait Pattern Antalgic,Decreased Stride Length,Decreased Feet Clearance,Flexed Trunk,Step-to Gait Factors Limiting Gait Function Factors Limiting Gait Function Decreased Activity Tolerance, Decreased Strength,Pain,Poor Balance,Poor Safety Awareness PT-Balance Assessment Sitting Balance and Reactions Static Sitting Balance Ability Good Dynamic Sitting Balance Ability Good Standing Balance and Reactions Static Standing Balance Ability Fair Dynamic Standing Balance Ability Fair Device Used FWW M5 PT-IP Objective Assessments Start: 02/15/25 13:18 Freq: NEEDED Status: Active Protocol: Document 02/15/25 10:10 [facility] (Rec: 02/15/25 13:37 AB [id number]) Orientation Orientation/Cognition Level of Alertness Alert Orientation Name,Place,Situation Language Function Ability Hard of Hearing Safety Awareness Decreased Safety Awareness Memory Description No Deficits Noted Gross Range of Motion Lower Extremity ROM Assessment Within Functional Limits Strength Lower Extremity Strength Assessment Right Impaired Hip 2+/5 Knee 2+/5 Ankle 2+/5 Coordination Assessment Gross Coordination Gross Coordination WNL Muscle Tone Muscle Tone WNL Yes M6 PT-IP Treatment Start: 02/15/25 13:18 Freq: NEEDED Status: Active Protocol: Document 02/15/25 10:10 AB (Rec: 02/15/25 13:37 AB [id number]) Physical Therapy Treatment Education Education Provided Safety M7 PT-IP Assessment and Plan Start: 02/15/25 13:18 Freq: NEEDED Status: Active Protocol: Document 02/15/25 10:10 [facility] (Rec: 02/15/25 13:37 AB [id number]) PT Summary Assessment and Plan Potential Rehabilitation Potential Fair Status of Condition at Evaluation Evolving Summary Impairments Pain,ROM,Strength,Balance, Coordination,Sensation,Tone, Cognition,Bed Mobility, Transfers,Gait,Activity Tolerance Assessment Summary pt is a 80 y/o M who is admitted for UTI, hydornephrosis. pt with difficulty moving RLE with c/o R side back pain and RLE swelling. c/o increase back pain when ambulating and unable to tolerate much activity due to pain. pt requiring CGA for ambulation with use of FWW. Recommending continued use of FWW and spouse will try to get a FWW for pt to use at home. d/c plan depending on progress. home with assist with HHPT vs SNF Goals Bed Mobility Goal Standby Assistance Transfer Goal Standby Assistance,Front Wheeled Walker Gait Goal Standby Assistance,Front Wheel Walker Gait Distance 100 Other Goals improve bed mobility, transfers, ambulation using FWW ~ 200 ft mod I up/down 7 steps R rail ascending SBA Days to Meet Goals 10 Frequency of Treatment Frequency Of Treatment Once a Day Treatment Plan Physical Therapy Treatment Plan Bed Mobility Training,Transfer Training,Gait Training, Therapeutic Exercise,Balance Retraining,Discharge Planning, Hot or Cold Pack,Neuromuscular Re-ed,Coordination Retraining ,Manual Therapy Recommendations To Nursing Amount of Assist Needed 1 Person Assist Discharge Recommendations PT Discharge Recommendations Home with 18/05 Assist Available,Home Health,SNF Rehab,Home vs SNF Equipment Needed for Home Before FWW Discharge Transportation Needs at Discharge Private Vehicle,Wheelchair/ Cabulance - PT assist 1
[2025-02-15] MEDS: cefTRIAXone 2,000 MG in SODIUM CHLORIDE 0.9% 100 ML 200 MG IV (11:16)
--- NOTE | 2025-02-15 12:04 | OT.IP.TRT ---
Current Diagnoses Unspecified hydronephrosis (02/12/25) Acute kidney failure, unspecified (02/12/25) Retention of urine, unspecified (02/12/25) Occupational Therapy Treatment Note M2 OT-IP Current Condition Start: 02/14/25 16:13 Freq: Status: Active Protocol: Document 02/14/25 16:38 CCC (Rec: 02/14/25 17:00 [facility] Desktop) Occupational Therapy Current Condition Current Condition Evaluation Date 02/14/25 Treatment Diagnosis Sepsis due to acute cystitis Diagnosis Onset Date 02/12/25 M3 OT- IP Subjective and Pain Start: 02/14/25 16:13 Freq: Status: Active Protocol: Document 02/15/25 12:28 CCC (Rec: 02/15/25 12:34 [facility] Desktop) OT- Subjective Occupational Therapy Visit Type Type Treatment Note Visit Start Time 11:50 Visit Stop Time 12:04 Occupational Therapy Visit Comments Patient Comments Pt states got up earlier but had more pain and needing to use the FWW. Pt agreed to go over thera-putty exercises for his hands. Patient/Caregiver Goals To go home. M4 OT- IP ADL's Start: 02/14/25 16:13 Freq: Status: Active Protocol: Document 02/14/25 16:38 CCC (Rec: 02/14/25 17:00 [facility] Desktop) OT [id number] Comments OT Self-Feeding Comments Not at meal time. OT ADL-Grooming General Evaluation Grooming Ability Standby Assistance OT ADL-Oral Care Comments Oral Care Comments NOt performed. OT ADL-Dressing General Eval Upper Body Dressing Ability Standby Assistance Lower Body Dressing Ability Standby Assistance Comments OT Dressing Comments Increased time and use of momentum and left hand to assist to get his RLE up over his left knee. OT ADL-Toileting General Evaluation Toileting Ability Total Assistance Areas Needing Assistance Empty Catheter or Colostomy Comments OT Toileting Comments Harper in place. OT ADL-Bathing Comments OT Bathing Comments NOt performed. Suggested pt get a shower chair/stool for showering needs. M5 OT- IP IADL's Start: 02/14/25 16:13 Freq: Status: Active Protocol: Document 02/14/25 16:38 CCC (Rec: 02/14/25 17:00 [facility] Desktop) OT-Instrumental Activities of Daily Living Home Safety Awareness Home Safety Comments To assess more tomorrow. Medication Management Medication Management Comments Pt states does his own. Money Management Money Management Caregiver Provides Assistance Meal Preparation Meal Preparation Caregiver Provides Assist Manager Library Manager Library Caregiver Provides Assist M6 OT- IP Functional Cognition Start: 02/14/25 16:13 Freq: Status: Active Protocol: Document 02/14/25 16:38 [facility] (Rec: 02/14/25 17:00 [facility] Desktop) Cognitive Factors Limiting Selfcare Function Cognitive Ability Level of Alertness Alert Patient Orientation Name,Age,Birthday,Month,Date, Year,Day of Week,Place, Situation Attention Span Ability Capable of Focused Attention, Capable of Sustained Attention Ability to Follow Commands Able to Follow One Step Commands Memory Description Short Term Impaired Cognitive Tests SLUMS 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 Pt's states pt has had TIA's in the past and his STM gets worse when he is tired. Pt able to recall 11 animals in one minute, able to recall 2/5 objects after time passes, and able to answer 3/4 questions right after paragraph read. Cognitive Comments Cognitive Assessment Comments Pt able to follow commands. Pt having difficulty with STM . Pt needing reminders to remember to carry his harper when up walking. OT- Vision and Hearing OT- Hearing Assessment OT- Hearing Assessment Hearing Impaired,Use of Hearing Aids OT- Vision Assessment Visual Acuity Glasses All The Time Visual Attentiveness WFL Occular Pursuits WFL M7 OT- IP Mobility and Balance Start: 02/14/25 16:13 Freq: Status: Active Protocol: Document 02/14/25 16:38 [facility] (Rec: 02/14/25 17:00 [facility] Desktop) OT- Bed Mobility Assessment Supine to Sit Supine to Sit Assist Standby Assistance Sit to Supine Sit to Supine Assist Minimal Assistance OT-Transfer Assessment Sit to and From Stand Sit to and from Stand Standby Assistance Transfers Transfer Ability Standby Assistance Technique Transfer Destination Bed,Chair Transfer Technique Stand Step Pivot Devices Transfer Assistive Devices None Comments Mobility Comments Pt needing CANDE to help get his RLE back into bed due to RLE very swollen and heavy and has difficulty to strip picker his leg. Pt able to stand with SBA and walk in the room with no device at this time. Suggested pt to call for assist as needed. OT- Balance Assessment Sitting Balance and Reactions Static Sitting Balance Ability Normal Dynamic Sitting Balance Ability Good Standing Balance and Reactions Static Standing Balance Ability Good Dynamic Standing Balance Ability Fair M8 OT- IP Objective Assessments Start: 02/14/25 16:13 Freq: Status: Active Protocol: Document 02/15/25 12:28 [facility] (Rec: 02/15/25 12:34 [facility] Desktop) OT Strength Comments Strength Comments went over theraputty exsercises and stretches for pt to work on finger flexion. OT-Muscle Tone Assessment Comments Muscle Tone Comments Pt states his hands have been swollen and not able to put his ring on. Educated pt to work on elevating his arms and doing gentle massage/stratching to his hands. M9 OT- IP Assessment and Plan Start: 02/14/25 16:13 Freq: Status: Active Protocol: Document 02/15/25 12:28 [facility] (Rec: 02/15/25 12:34 [facility] Desktop) OT Summary Assessment and Plan Potential Rehabilitation Potential Good Analytic Complexity at Evaluation Moderate Summary OT Impairments Pain,Range of Motion,Strength, Balance,Functional Cognition, Functional Mobility,Dressing, Toileting,Shower Transfers Assessment Summary Pt shown thera-putty exercises for his hands. Pt is more pain today and states able to get up earlier but having to use the FWW. Pt to go home pending progress and will benefit from a FWW for home use. Goals Self-Feeding Goal Independent Grooming Goal Independent Dressing Goal Independent Toileting Goal Independent Bathing Goal Independent Toilet Transfer Goal Independent Shower Transfer Goal Independent Days to Meet Goals 4 Frequency of Treatment Frequency Of Treatment Once a Day Treatment Plan OT Treatment Plan ADL Training,Functional Mobility,Therapeutic Exercises ,Patient/Family Education, Discharge Planning Discharge Recommendations OT Discharge Recommendations Home with 18/05 Assist Available Home Equipment Needs FWW Transportation Needs at Discharge Private Vehicle
--- NOTE | 2025-02-15 13:33 | P.DS_ITS ---
History of Present Illness History of Present Illness Chief complaint: Hard time going to the bathroom Discharge Providers Provider Date of admission: 02/12/25 13:50 Primary care physician: Kartik Cristina MD Consults: 02/14/25 13:43 Consult to Occupational Therapy Evaluate & Treat Comment: Physician Instructions: Evaluate and treat Consult to Physical Therapy Evaluate & Treat Comment: Physician Instructions: Evaluate and Treat Discharge provider: Dagoberto Jackson MD Exam Vital Signs (past 8 hours): - 02/15/25 08:00 Temperature 97.0 F L Pulse Rate 83 Respiratory Rate 16 Blood Pressure 136/88 Pulse Oximetry 99 Oxygen Delivery Method Room Air Oxygen Flow Rate 0 Objective Labs 02/15/25 05:44 02/15/25 05:44 Labs: Laboratory Results - last 24 hr 02/15/25 05:44 WBC 6.3 RBC 3.56 L Hgb 10.6 L Hct 30.4 L MCV 85.4 MCH 29.8 MCHC 34.9 RDW 12.2 Plt Count 248 Neut % (Auto) 77.5 H Lymph % (Auto) 11.8 L [place] % (Auto) 8.4 Eos % (Auto) 1.9 L Baso % (Auto) 0.4 Neut # (Auto) 4900 Lymph # (Auto) 700 L [place] # (Auto) 500 Eos # (Auto) 100 Baso # (Auto) 0 Sodium 127 L Potassium 4.4 Chloride 96 L Carbon Dioxide 23 BUN 33 H Creatinine 1.87 H Estimated GFR 36 L BUN/Creatinine Ratio 17.6 Glucose 116 H Calcium 8.7 PFSH Medical History Right leg DVT Chronic anticoagulation Gross hematuria Hx of brachytherapy (04/10/18) Urge incontinence Lower urinary tract symptoms (LUTS) Bladder outlet obstruction Prostatic calculi High blood pressure History of prostate cancer Surgical History History of transurethral resection of prostate (07/27/19) Social History marital status: number of children: 2 household members: spouse 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
--- NOTE | 2025-02-15 14:55 | PM.PN.1 ---
Subjective Subjective Interval history: He was doing well. He did have multiple bowel movements last night this morning and response to lactulose. He was tolerating his Harper catheter. Exam Vital Signs (past 8 hours): - 02/15/25 08:00 Temperature 97.0 F L Pulse Rate 83 Respiratory Rate 16 Blood Pressure 136/88 Pulse Oximetry 99 Oxygen Delivery Method Room Air Oxygen Flow Rate 0 Narrative Exam Narrative: NAD, alert and oriented. Fluent speech. Lungs are clear, normal rate and effort. Heart is regular, no murmur gallop or rub. Abdomen is soft, non distended. Extremities are free of edema. Harper catheter. Urine is clear. Objective Labs 02/15/25 05:44 02/15/25 05:44 Labs: Laboratory Results - last 24 hr 02/15/25 05:44 WBC 6.3 RBC 3.56 L Hgb 10.6 L Hct 30.4 L MCV 85.4 MCH 29.8 MCHC 34.9 RDW 12.2 Plt Count 248 Neut % (Auto) 77.5 H Lymph % (Auto) 11.8 L [place] % (Auto) 8.4 Eos % (Auto) 1.9 L Baso % (Auto) 0.4 Neut # (Auto) 4900 Lymph # (Auto) 700 L [place] # (Auto) 500 Eos # (Auto) 100 Baso # (Auto) 0 Sodium 127 L Potassium 4.4 Chloride 96 L Carbon Dioxide 23 BUN 33 H Creatinine 1.87 H Estimated GFR 36 L BUN/Creatinine Ratio 17.6 Glucose 116 H Calcium 8.7 PFSH Medical History Right leg DVT Chronic anticoagulation Gross hematuria Hx of brachytherapy (04/10/18) Urge incontinence Lower urinary tract symptoms (LUTS) Bladder outlet obstruction Prostatic calculi High blood pressure History of prostate cancer Surgical History History of transurethral resection of prostate (07/27/19) Social History marital status: number of children: 2 household members: spouse 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 Sepsis secondary to Acute cystitis due to urinary obstruction (BPH related), present on admission and improved. 2. Bilateral hydronephrosis and hydroureter, bladder wall thickening. Urology consultation appreciated. Present on admission and improved. 3. Acute kidney injury and acute metabolic encephalopathy due to #1 above. Improving. 4. BPH. Continue tamsulosin, harper catheter. Present on admission and active. 5. Deep venous thrombosis, right leg. Continue Eliquis. Present on admission and active. 6. History of pancreatic insufficiency. Continue Creon. Present on admission and stable. 7. History of prostate cancer. No evidence of disease. PSA less than 0.064 on 01/04/2025. Present on admission and stable. 8. Hyperglycemia, pre-diabetes. Monitor. No reported history of diabetes. A1c 5.9%. Recommend outpatient follow up with PCP. DVT prophylaxis: Kavon Code status: Full code. This is reviewed with the patient and his on admission. His Leni is his surrogate decision maker. Plan: -continue ceftriaxone 2 g IV Q 24 hours for now given presentation and findings, cultures negative thus far. -follow urine culture, also with no growth -carotid ultrasounds. -discuss with Cardiology to see if they believe he requires a cardiac stress test. -monitor renal function. Time-Based Coding :: [TOTAL MINUTES] spent with patient and on the chart (including review of chart, obtaining history, exam, reviewing outside data, placing orders, documenting exam and treatment plan, and counseling patient) on [DATE]. Quality VTE Deep Vein Thrombosis/Pulmonary Embolism Present on Admission: No
--- NOTE | 2025-02-15 15:57 | DI.ECHO.S_ITS ---
Version: 1 Study ID: [id number] [place] [address] Name: DONATO REECE Study Date: 02/16/2025, 6: 22 AM : 1945 BP: 131 / 75 mmHg Gender: Male Height: 69 in Age: 80 Years Weight: 155 lb BSA: 1.85 mA? Ordering: MICHELINE GRANADO Referring: MICHELINE GRANADO Clinician: Silvana Naqvi Reason For Study: CARDIAC PERIOPERATIVE CLEARANCE History: Summary Statements Normal sinus rhythm. Normal LV size; there is moderate eccentric left ventricular hypertrophy localized to the septum measuring 1.5 cm in end diastole. Normal wall motion and LV systolic function. Ejection fraction is 60-65%. Normal chamber sizes. Aortic sclerosis without stenosis. No left ventricular outflow tract obstruction. No prior study available for comparison. Procedure: A two-dimensional transthoracic echocardiogram with color flow and Doppler was performed. The study quality was technically adequate. There is no prior echocardiogram noted for this patient. The patient was in sinus rhythm with heart rates between 78-83 bpm during the exam. Left Ventricle: The left ventricle is normal in size. There is moderate asymmetric left ventricular hypertrophy. The ejection fraction is estimated to be 60-65%. Right Ventricle: The right ventricle is normal in size and function. Atria: The left atrial size is normal. Right atrial size is normal. There is no Doppler evidence for an interatrial shunt. Mitral Valve: The mitral valve leaflets appear to open well. There is trace mitral regurgitation. Aortic Valve: The aortic valve is trileaflet. The aortic valve is slightly calcified. There is no aortic valve stenosis. There is mild aortic regurgitation. Tricuspid Valve: The tricuspid valve leaflets are thin and pliable. There is mild tricuspid regurgitation. Pulmonic Valve: The pulmonic valve leaflets are thin and pliable; valve motion is normal. There is no pulmonic valvular regurgitation. Great Vessels: The aortic root is normal size. The ascending aorta could not be visualized. The IVC is of normal diameter and collapses greater than 50% with a sniff. This suggests a low right atrial pressure of 3 mm Hg. Pericardium/ Pleura: There is no pericardial effusion. There is no pleural effusion. 2D and M-Mode Measurements and Calculations LVIDd: 4.8 cm LVOT diam: 2.5 cm LVIDs: 3.4 cm Ao root diam: 3.9 cm IVSd: 1.19 cm LVPWd: 0.95 cm LV claire. diameter/BSA (cm/m^2): 2.6 LV sys. diameter/BSA (cm/m^2): 1.86 RVD1 (basal): 3.5 cm RVD2 (mid): 2.8 cm TAPSE: 2.7 cm LA A4 area: 15.9 patient services rep? IVC diam: 1.46 cm LA A2 area: 20.8 patient services rep? RA area: 14.4 patient services rep? LA length (vol): 4.7 cm RA long axis: 5.1 cm LA vol: 59.5 ml RA vol: 34.1 ml LA vol index: 32.1 ml/mA? RA : 18.4 ml/mA? Doppler Measurements and Calculations Ao V2 max: 147.7 cm/sec LVOT Max Esau: 88.8 cm/sec Ao V2 mean: 103.8 cm/sec LV V1 max P.2 mmHg Ao V2 VTI: 30.5 cm LV V1 VTI: 19.2 cm Ao max P.7 mmHg SV(LVOT): 96.3 ml Ao mean P.8 mmHg CHRISTA(I,D): 3.2 patient services rep? CHRISTA(V,D): 3.0 patient services rep? CHRISTA indexed to BSA (cm^2/m^2): 1.70 sev ratio: 0.63 MV E max esau: 49.9 cm/sec MV dec time: 0.11 sec MV A max esau: 88.4 cm/sec MV E/A: 0.56 Med Peak E' Esau: 5.0 cm/sec Lat Peak E' Esau: 6.4 cm/sec E/e' average: 8.8 PA V2 max: 123.2 cm/sec PA mean P.4 mmHg Electronically signed by: Ciera Burris M.D. 02/16/2025, 9: 01 AM
[2025-02-15 16:00] VITALS: BP 151/81; PULSE 76; RESP 16; TEMP 36.7; O2SAT 98
[2025-02-15 20:00] VITALS: BP 150/70; PULSE 87; RESP 18; TEMP 36.5; O2SAT 99
[2025-02-15] MEDS: LIDOCAINE 5% PATCH 1 EACH TOP (22:18)
[2025-02-15] MEDS: ACETAMINOPHEN 325 MG TABLET 650 MG PO (22:20)
[2025-02-16 04:00] VITALS: BP 131/75; PULSE 83; RESP 18; TEMP 36.6; O2SAT 98
[2025-02-16 06:08] LABS: Add Manual Diff / Slide Review NO; Basophils Absolute Auto 0 /uL (0-100); Basophils Percent Auto 0.5 % (0-2); Eosinophils Absolute Auto 100 /uL (0-450); Eosinophils Percent Auto 2.2 % (2-4); Hematocrit 29.2 % (41-53); Hemoglobin 10.2 g/dL (13.5-17.5); Lymphocytes Absolute Auto 800 /uL (1100-4500); Lymphocytes Percent Auto 15.4 % (25-40); Mean Corpuscular HGB Conc 34.9 % (30-36); Mean Corpuscular Hemoglobin 29.9 PG (26-34); Mean Corpuscular Volume 85.6 fL (80-100); Monocytes Absolute Auto 500 /uL (0-900); Neutrophils Absolute Auto 3800 /uL (1500-7000); Neutrophils Percent Auto 72.9 % (50-75); Platelet Count 252 X10^3/uL (150-400); Red Blood Cell Count 3.41 X10^6/uL (4.5-5.9); Red Cell Distribution Width 12.2 % (11.6-14.8); White Blood Cell Count 5.2 X10^3/uL (4.5-11.0)
[2025-02-16 06:19] LABS: BUN Creatinine Ratio 17.6 (6-22); Blood Urea Nitrogen 31 mg/dL (9-20); Calcium 8.8 mg/dL (8.4-10.2); Carbon Dioxide 27 mmol/L (22-32); Chloride 96 mmol/L (98-107); Estimated Glomerular Filt Rate 39 mL/min (>60); Glucose 110 mg/dL (70-99); HEMOLYSIS < 15 (0-50); Potassium 4.3 mmol/L (3.4-5.1); Sodium 128 mmol/L (137-145)
[2025-02-16 08:00] VITALS: BP 148/78; PULSE 79; RESP 17; TEMP 36.6; O2SAT 99
--- NOTE | 2025-02-16 09:00 | DI.US.S_ITS ---
PROCEDURE: US CAROTID DOPPLER BI INDICATIONS: CAROTID STENOSIS TECHNIQUE: Color and pulse Doppler interrogation was performed of both carotid systems, with image documentation and velocity measurements. COMPARISON: [facility], CT, CT ANGIO HEAD AND NECK, 05/30/2024, 14:14. FINDINGS: Stenosis calculations are based on SRU (Society of Radiologists in Ultrasound) criteria. Right side: Brachial blood pressure: 162/75 mm Hg. Common carotid artery peak systolic velocity: 68 cm/sec. Internal carotid artery peak systolic velocity: 213 cm/sec. Internal carotid artery end diastolic velocity: 31 cm/sec. External carotid artery peak systolic velocity: 165 cm/sec. ICA/CCA peak systolic ratio: 3.1 . Yeager scale imaging description: Mild noncalcified plaque Percent internal carotid artery stenosis: 50-69% stenosis . Vertebral artery: Flow direction is antegrade. Left side: Brachial blood pressure: 148/78 mm Hg. Common carotid artery peak systolic velocity: 93 cm/sec. Internal carotid artery peak systolic velocity: 322 cm/sec. Internal carotid artery end diastolic velocity: 76 cm/sec. External carotid artery peak systolic velocity: 102 cm/sec. ICA/CCA peak systolic ratio: 3.5 . Yeager scale imaging description: Moderate calcified and noncalcified plaque Percent internal carotid artery stenosis: 70% stenosis-near occlusion . Vertebral artery: Flow direction is antegrade. Other: There is a heterogenous, hypoechoic 3.1 x 4.1 x 3.2 cm mass present lateral to the left common carotid artery. IMPRESSION: 1. In the right carotid artery, there is 50-69% stenosis based on peak systolic velocity criteria. 2. In the left carotid artery, there is 70% stenosis- near occlusion based on peak systolic velocity criteria. 3. Antegrade vertebral arteries. 4. Incompletely characterized left submandibular 4.[address] neck soft tissue with contrast recommended for further evaluation. Dictated by: Giorgio Vera M.D. on 02/16/2025 at 8:35 Approved by: Giorgio Vera M.D. on 02/16/2025 at 8:44
[2025-02-16] MEDS: OXYCODONE IR 5 MG TABLET PO (09:10)
[2025-02-16] MEDS: HYDROMORPHONE 0.5 MG INJ IV (09:58)
[2025-02-16] MEDS: CREON 3 EACH PO (12:21)
[2025-02-16] MEDS: cefTRIAXone 2,000 MG in SODIUM CHLORIDE 0.9% 100 ML 200 MG IV (12:22)
--- NOTE | 2025-02-16 14:15 | CM.DPNOTE ---
DCP Cont Reviewed chart. Patient discussed in multidisciplinary rounds. Discharge home today anticipated. Patient appears at functional and cognitive baseline. Plan remains discharge home w/family and recommendation for close follow up with urology. CM team following clinical course closely in case any discharge needs or concerns arise. NEHAL
--- NOTE | 2025-02-16 15:17 | PM.DS.1 ---
History of Present Illness History of Present Illness Chief complaint: Hard time going to the bathroom Narrative: From H&P: 80-year-old man under the primary care of Dr. Kartik Cristina presents with difficulty urinating and confusion with a history of DVT on Eliquis, peripancreatic stone on Creon for pancreatic insufficiency, carotid artery stenosis and prior history of bladder outlet obstruction with prostatic calculi history of prostate cancer status post TURP x2, planning upcoming cystoscopy by Dr. Kishore Padilla of urology. He has had a recent Klebsiella UTI and was waiting to complete treatment schedule the cystoscopy in evaluation of bladder wall thickening seen on his recent CT scan in December below. His CT scan in the emergency department shows new bilateral hydronephrosis and hydroureter without obstructing stone seen. The history is obtained from the as patient appears uncomfortable and appears to defer to her, but he does report suprapubic pain. He had a DVT in November and started on Eliquis but they have noticed in the past few days his right leg appears to be more swollen and tender. A urinary catheter was placed with 600 mL urine output and IV fluids administered per sepsis protocol, with presenting lactate of 4.6 improving to 1.9 within 3 hours. He was administered ceftriaxone 2 g IV in the emergency department and is admitted further evaluation and management. Discharge Providers Provider Date of admission: 02/12/25 13:50 Discharge Date: 02/16/25 Primary care physician: Kartik Cristina MD Consults: 02/14/25 13:43 Consult to Occupational Therapy Evaluate & Treat Comment: Physician Instructions: Evaluate and treat Consult to Physical Therapy Evaluate & Treat Comment: Physician Instructions: Evaluate and Treat Urology. Discharge provider: Dagoberto Jackson MD Summary Hospital Course Discharge Diagnosis: 1. Sepsis secondary to Acute cystitis due to urinary obstruction (BPH related), present on admission and improved. 2. Bilateral hydronephrosis and hydroureter, bladder wall thickening. Urology consultation appreciated. Present on admission and improved. 3. Acute kidney injury and acute metabolic encephalopathy due to #1 above. Improving. 4. BPH. Continue tamsulosin, harper catheter. Present on admission and active. 5. Deep venous thrombosis, right leg. Continue Eliquis. Present on admission and active. 6. History of pancreatic insufficiency. Continue Creon. Present on admission and stable. 7. History of prostate cancer. No evidence of disease. PSA less than 0.064 on 01/04/2025. Present on admission and stable. 8. Hyperglycemia, pre-diabetes. Monitor. No reported history of diabetes. A1c 5.9%. Recommend outpatient follow up with PCP. Hospital Course: Patient was admitted initially for concern for sepsis and urinary tract infection in context of urine retention. He decompressed with a Harper catheter. Urine cultures were ultimately negative, although he was treated with antibiotics while in the hospital. Case was discussed with Urology multiple times and they would like to pursue cystoscopy at some point in the near future further assessed. The patient will go home with a leg bag. There was concerns about preoperative clearance due to his vascular disease. I did coordinate with recommended preoperative studies with Dr. Salomon cardiology and obtained an echo which was normal, a nuclear stress test which was low risk, and a carotid duplex ultrasound which reveals asymptomatic stenosis of the right internal carotid 50-69% and asymptomatic left internal carotid stenosis of 70%. Dr. Salomon felt that the patient would be cleared for cystoscopy based on these test results. I did discuss this further with Dr. Padilla. The patient will be discharged home with a Harper and leg bag and Dr. Padilla will arrange for follow up and decide how to best pursue sharing the preoperative clearance information with anesthesia. The patient does have ongoing right leg edema but had negative duplex ultrasound. He continues on anticoagulation for now. MELISSA was improving up until the time of discharge with decompression and will be further followed outpatient. [N], the patient has documentation of a left ventricle ejection fracture less than or equal to 40%, or moderately or severely reduced left ventricle systolic function. [N], the patient has a history of heart transplant or left ventricular assist device (LVAD). [N], the patient was prescribed an ANA inhibitor at discharge or is already being taken. The patient was not prescribed an ANA-inhibitor because of the following exception: N. [N], the patient was prescribed a beta toby at discharge. The patient was not prescribed a beta toby at discharge because of the following exception: N. Status at Discharge Cognitive/behavioral status at discharge: oriented Functional status at discharge: uses cane/walker Overall status at discharge: patient is progressing back to baseline Time Spent with Patient Time spent: Greater than 30 minutes Exam Vital Signs (past 8 hours): - 02/16/25 08:00 Temperature 97.8 F Pulse Rate 79 Respiratory Rate 17 Blood Pressure 148/78 H Pulse Oximetry 99 Oxygen Flow Rate 0 Oxygen Delivery Method Room Air Oxygen Flow Rate 0 Narrative Exam Narrative: NAD, alert and oriented. Fluent speech. Lungs are clear, normal rate and effort. Heart is regular, no murmur gallop or rub. Abdomen is soft, non distended. Extremities are free of edema. Objective Imaging Multiple studies:: Radiologist's impression: Echo: Reason For Study: CARDIAC PERIOPERATIVE CLEARANCE History: Summary Statements Normal sinus rhythm. Normal LV size; there is moderate eccentric left ventricular hypertrophy localized to the septum measuring 1.5 cm in end diastole. Normal wall motion and LV systolic function. Ejection fraction is 60-65%. Normal chamber sizes. Aortic sclerosis without stenosis. No left ventricular outflow tract obstruction. No prior study available for comparison. Nuclear stress test: Normal, low risk study. Carotid ultrasound: Stenosis calculations are based on SRU (Society of Radiologists in Ultrasound) criteria. Right side: Brachial blood pressure: 162/75 mm Hg. Common carotid artery peak systolic velocity: 68 cm/sec. Internal carotid artery peak systolic velocity: 213 cm/sec. Internal carotid artery end diastolic velocity: 31 cm/sec. External carotid artery peak systolic velocity: 165 cm/sec. ICA/CCA peak systolic ratio: 3.1 . Yeager scale imaging description: Mild noncalcified plaque Percent internal carotid artery stenosis: 50-69% stenosis . Vertebral artery: Flow direction is antegrade. Left side: Brachial blood pressure: 148/78 mm Hg. Common carotid artery peak systolic velocity: 93 cm/sec. Internal carotid artery peak systolic velocity: 322 cm/sec. Internal carotid artery end diastolic velocity: 76 cm/sec. External carotid artery peak systolic velocity: 102 cm/sec. ICA/CCA peak systolic ratio: 3.5 . Yeager scale imaging description: Moderate calcified and noncalcified plaque Percent internal carotid artery stenosis: 70% stenosis-near occlusion . Vertebral artery: Flow direction is antegrade. Other: There is a heterogenous, hypoechoic 3.1 x 4.1 x 3.2 cm mass present lateral to the left common carotid artery. IMPRESSION: 1. In the right carotid artery, there is 50-69% stenosis based on peak systolic velocity criteria. 2. In the left carotid artery, there is 70% stenosis- near occlusion based on peak systolic velocity criteria. 3. Antegrade vertebral arteries. 4. Incompletely characterized left submandibular 4.[address] neck soft tissue with contrast recommended for further evaluation. Leg DVT study: IMPRESSION: No findings of lower extremity deep venous thrombosis. Renal ultrasound: Bilateral moderate hydronephrosis without significant change compared to prior CT scan. Abdomen pelvis CT: No obstructing stone identified. Bilateral hydronephrosis and hydroureter, increased from comparison without obstructing stone identified. Moderate stool throughout the colon. Mild central pneumobilia suggestive of prior sphincterotomy Labs 02/16/25 05:41 02/16/25 05:41 Labs: Laboratory Results - last 24 hr 02/16/25 05:41 WBC 5.2 RBC 3.41 L Hgb 10.2 L Hct 29.2 L MCV 85.6 MCH 29.9 MCHC 34.9 RDW 12.2 Plt Count 252 Neut % (Auto) 72.9 Lymph % (Auto) 15.4 L [place] % (Auto) 9.0 Eos % (Auto) 2.2 Baso % (Auto) 0.5 Neut # (Auto) 3800 Lymph # (Auto) 800 L [place] # (Auto) 500 Eos # (Auto) 100 Baso # (Auto) 0 Sodium 128 L Potassium 4.3 Chloride 96 L Carbon Dioxide 27 BUN 31 H Creatinine 1.76 H Estimated GFR 39 L BUN/Creatinine Ratio 17.6 Glucose 110 H Calcium 8.8 PFSH Medical History Right leg DVT Chronic anticoagulation Gross hematuria Hx of brachytherapy (04/10/18) Urge incontinence Lower urinary tract symptoms (LUTS) Bladder outlet obstruction Prostatic calculi High blood pressure History of prostate cancer Surgical History History of transurethral resection of prostate (07/27/19) Social History marital status: number of children: 2 household members: spouse 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 Sepsis secondary to Acute cystitis due to urinary obstruction (BPH related), present on admission and improved. 2. Bilateral hydronephrosis and hydroureter, bladder wall thickening. Urology consultation appreciated. Present on admission and improved. 3. Acute kidney injury and acute metabolic encephalopathy due to #1 above. Improving. Discharge Plan Discharge Plan Patient Disposition: Home Provider Discharge Comment: Stable for discharge home with Harper and leg bag and close follow up with Dr. Padilla, Urology. Discharge orders & Medications Prescriptions: Continued Eliquis 5 mg Tablet 5 mg PO DAILY losartan 25 mg Tablet 25 mg PO DAILY Creon 36,000-114,000- 180,000 unit capsule,delayed release(DR/EC) 3 cap PO TID Rx Instructions: 3 capsules with each meal tamsulosin 0.4 mg capsule 0.4 mg PO DAILY Follow up/Referrals: Kartik Cristina MD [Primary Care Provider] - Kishore Padilla MD [Physician] - Diet/Activity/Treatments Diet: Low-fat Visit Report/Discharge Packet Instructions: DI for Urinary Retention in Men Stand Alone Forms: Patient Portal/API Discharge Data Primary Care Provider: Kartik Cristina Quality VTE Deep Vein Thrombosis/Pulmonary Embolism Present on Admission: No
--- NOTE | 2025-02-16 15:39 | DI.NM.S_ITS ---
DATE OF SERVICE: 02/16/2025 PROCEDURE: Pharmacological perfusion study. INDICATIONS: Preop clearance for urinary obstruction with bilateral hydronephrosis, hyperglycemia, prediabetic. RADIOPHARMACEUTICAL: 27.5 millicurie technetium-99m Myoview IV was injected at stress and 12.5 millicurie technetium-99m Myoview IV was injected at rest. CARDIAC STRESS: The patient underwent IV Lexiscan perfusion study under the supervision of an attending staff using standard IV Lexiscan as per protocol. The patient remained hemodynamically stable. Baseline rhythm sinus. During stress, no convincing ischemic changes seen. Intermittent PVCs. No ventricular tachycardia. Resting blood pressure 125/82 and heart rate 78. No chest pain. Had minimal dyspnea. RAW DATA: There is increased subdiaphragmatic activity. GATED STUDY: Resting LV ejection fraction 64 and stress LV ejection fraction 65%. Resting end-diastolic volume 131 mL. TID ratio 1.03, which is within normal limits. Lung/heart ratio 0.22, which is within normal limits. MYOCARDIAL PERFUSION SCAN: Stress supine and resting supine images were compared to each other. There are no stress prone images. There is a normal myocardial perfusion. Summed stress score and summed rest score zero. CONCLUSION: This is a normal myocardial perfusion study. Preserved LV function. No ischemic EKG changes. Intermittent PVCs without any ventricular tachycardia during stress. Overall, low-risk myocardial perfusion scan. Aaron Cook - JOAQUIN/francisco javier/[employer] doc#: [id number]/job#: [id number] dd: 02/16/2025 12:57:00 dt: 02/16/2025 14:17:00 DICTATING MD/COPIES TO: Federica Cheema MD COPIES MNE: MAYA;
--- NOTE | 2025-02-16 15:51 | CM.DPNOTE ---
DC Note Patient discharging home today, Dr Jackson feels patient would benefit from HH and patient/spouse agree. Referral sent to [facility] per calendar rotation. Patient lives in [place]. Emailed f2F, MORGAN order and clinical packet to Salena at [facility]. NEHAL
[2025-02-16 16:00] VITALS: BP 137/69; PULSE 90; RESP 16; TEMP 36.4; O2SAT 100
--- NOTE | 2025-02-16 16:09 | PT.IPTN ---
Current Diagnoses Unspecified hydronephrosis (02/12/25) Acute kidney failure, unspecified (02/12/25) Retention of urine, unspecified (02/12/25) Physical Therapy Treatment Note M2 PT-IP Current Condition Start: 02/15/25 13:18 Freq: NEEDED Status: Active Protocol: Document 02/15/25 10:10 AB (Rec: 02/15/25 13:37 AB [id number]) Physical Therapy Current Condition Current Condition Evaluation Date 02/15/25 Treatment Diagnosis UIT; hydronephrosis; difficulty in walking Onset Date 02/12/25 M3 PT-IP Subjective Start: 02/15/25 13:18 Freq: NEEDED Status: Active Protocol: Document 02/16/25 16:09 DLM (Rec: 02/16/25 17:57 DLM Desktop) Subjective Physical Therapy Visit Type Type Treatment Note Visit Start Time 15:40 Visit Stop Time 16:09 Notes 29 min Number of [place] FLORIST Visits 0 Physical Therapy Visit Comments Patient Comments He wants to go home. Patient Goals Discharge home Therapy Pain Assessment Pain When Pain Assessed During Mobility Pain Present Pain Present Pain Reported Location Back Intensity 8 Scale Used Numeric (0 - 10) Description Aching,Tender,With Movement Pain Behaviors Facial Grimacing,Guarding Pain Management Techniques Modification of Treatment,Re- positioning M4 PT-IP Mobility and Gait Start: 02/15/25 13:18 Freq: NEEDED Status: Active Protocol: Document 02/16/25 16:09 DLM (Rec: 02/16/25 17:57 DLM Desktop) PT-Bed Mobility Assessment Rolling Type of Rolling Log Rolling Level of Assist Standby Assistance Supine to Sit Supine to Sit Standby Assistance Sit to Supine Sit to Supine Minimal Assistance Scooting Scooting to Edge of Bed Independent PT-Transfer Assessment Sit to and From Stand Sit to and from Stand Standby Assistance,Use of Upper Extremities Equipment Transfer Assistive Device Gait Belt,Front Wheeled Walker Transfers Transfer Destination Bed Transfer Technique Stand Step Pivot Transfer Ability Level of Assist Standby Assistance,Contact Guard Assistance Comments Mobility Comments Pt stands at edge of bed with FWW. He has increased back pain with any attempts to stand erect. He has decreased back pain with mild flexion of trunk and UE support on FWW. Educated pt to use FWW and positioning to manage his pain . Educated pt to use log rolling in bed and get in/out of bed from sidelying to better manage his back pain. Pt describes doing a long sit up to get out of bed previously. He needs assistance to get his LE's onto bed during sit to supine. Gait Assessment Gait Gait Assistance Required: Contact Guard Assist Distance (Feet) 20 Assistive Devices Assistive Device Gait Belt,Front Wheeled Walker Gait Deviations General Gait Pattern Decreased Stride Length,Flexed Trunk Factors Limiting Gait Function Factors Limiting Gait Function Decreased Activity Tolerance, Decreased Strength,Pain,Poor Balance,Poor Safety Awareness Comments Gait Comments His distance of gait is limited by his back pain at this time. His pain improves in sitting and sidelying. He tolerates lying flat on his back poorly due to pain. PT-Balance Assessment Sitting Balance and Reactions Static Sitting Balance Ability Good Dynamic Sitting Balance Ability Good Standing Balance and Reactions Static Standing Balance Ability Fair Dynamic Standing Balance Ability Fair Device Used FWW M5 PT-IP Objective Assessments Start: 02/15/25 13:18 Freq: NEEDED Status: Active Protocol: Document 02/15/25 10:10 AB (Rec: 02/15/25 13:37 AB [id number]) Orientation Orientation/Cognition Level of Alertness Alert Orientation Name,Place,Situation Language Function Ability Hard of Hearing Safety Awareness Decreased Safety Awareness Memory Description No Deficits Noted Gross Range of Motion Lower Extremity ROM Assessment Within Functional Limits Strength Lower Extremity Strength Assessment Right Impaired Hip 2+/5 Knee 2+/5 Ankle 2+/5 Coordination Assessment Gross Coordination Gross Coordination WNL Muscle Tone Muscle Tone WNL Yes M6 PT-IP Treatment Start: 02/15/25 13:18 Freq: NEEDED Status: Active Protocol: Document 02/16/25 16:09 DLM (Rec: 02/16/25 17:57 DLM Desktop) Physical Therapy Treatment Education Education Provided Safety Other Treatments Other Treatment Performed education to manage back pain during mobility including log rolling, use of FWW, trunk positioning in standing His is present today and participated in education. M7 PT-IP Assessment and Plan Start: 02/15/25 13:18 Freq: NEEDED Status: Active Protocol: Document 02/16/25 16:09 DLM (Rec: 02/16/25 17:57 DLM Desktop) PT Summary Assessment and Plan Summary Impairments Pain,ROM,Strength,Balance, Coordination,Sensation,Tone, Cognition,Bed Mobility, Transfers,Gait,Activity Tolerance Progress Towards Goals Slow Progress due to Pain Assessment Summary Aaron is alert and resting in bed in right sidelying. He reports pain relieve with sitting, sidelying and use of rub on pain reliever at home. Pt was able to ambulate a short distance in his room with the FWW with his distance limited by his back pain. He has a harper catheter that he plans to have at discharge. His back pain is increased with erect trunk posture in standing. He needs to lean on the FWW to decrease his back pain in standing. He will need to use the FWW at home to manage his pain at this time. He is open to education for pain management. His plans to borrow a FWW to use at home if she can not find the one they had in storage. Will plan for discharge home with 24/ assist and home health Physical Therapy to continue to advance his gait and address pain management. Goals Bed Mobility Goal Standby Assistance Transfer Goal Standby Assistance,Front Wheeled Walker Gait Goal Standby Assistance,Front Wheel Walker Gait Distance 100 Other Goals improve bed mobility, transfers, ambulation using FWW ~ 200 ft mod I up/down 7 steps R rail ascending SBA Days to Meet Goals 10 Frequency of Treatment Frequency Of Treatment Once a Day Treatment Plan Physical Therapy Treatment Plan Bed Mobility Training,Transfer Training,Gait Training, Therapeutic Exercise,Balance Retraining,Discharge Planning, Hot or Cold Pack,Neuromuscular Re-ed,Coordination Retraining ,Manual Therapy Precautions Other Precautions low back pain Recommendations To Nursing Amount of Assist Needed 1 Person Assist Discharge Recommendations PT Discharge Recommendations Home with 24/7 Assist Available,Home Health Equipment Needed for Home Before FWW Discharge Transportation Needs at Discharge Private Vehicle - PT assist 1
--- NOTE | 2025-02-16 19:16 | PC.NURSE ---
pt discharged home, RN answered questions, pt is aware to f/u with Urology, leg bag instructions given and sent home with large bag attached and small bag for later if desired.
== END 2025-02-16 18:40 | disposition home health service (06) | DRG 871 ==
LOC: ED 13:51 → AC 13:51
PROVIDERS: Internal Medicine; Admitting Provider Internal Medicine; Emergency Provider Emergency Medicine; PCP Internal Medicine; Referring Provider Emergency Medicine; Visit Provider Internal Medicine
DX: A41.9 Sepsis, unspecified organism (principal); G93.41 Metabolic encephalopathy; N17.9 Acute kidney failure, unspecified; N30.00 Acute cystitis without hematuria; N13.8 Other obstructive and reflux uropathy; N13.6 Pyonephrosis; K86.89 Other specified diseases of pancreas; R73.03 Prediabetes; R33.8 Other retention of urine; N40.1 Benign prostatic hyperplasia with lower urinary tract symptoms; Z86.718 Personal history of other venous thrombosis and embolism; Z79.01 Long term (current) use of anticoagulants; Z92.3 Personal history of irradiation; Z85.46 Personal history of malignant neoplasm of prostate; I49.3 Ventricular premature depolarization
CPT/HCPCS: 36415; 51798; 74176; 76770; 78452; 80048; 80053; 80305; 81001; 82550; 83036; 83605; 83690; 84145; 84443; 85025; 87040; 87086; 93010; 93017; 93306; 93880; 93971; 96361; 96365; 96375; 97110; 97116; 97163; 97166; 97530; 99233; 99285; A9502; J0696; J1171; J2270; J2405; J2785; J7050

== ENCOUNTER 2025-02-25 12:08 | Emergency (ER) | payer MEDICARE, OTHER, SELFPAY ==
[2025-02-12 17:38] VITALS: BMI 22.8
[2025-02-25] VITALS (11 sets, daily range): BP systolic 128–184; BP diastolic 62–84; PULSE 69–81; RESP 14–17; TEMP 36.4; O2SAT 97–100; BMI 21.4
--- NOTE | 2025-02-25 12:35 | PC.NURSE ---
chronic right flank pain since november has not gone away and is taking muscle relaxers for this. Pt endorses consisten pain not getting worse. He presents for new hematuria that started yesterday. Pt not taking his eliquis since yesterday because of the hematuria. Denies penile or abdominal pain. Right lower extremity is swollen. Hx of DVT. Pt endorses right flank pain that radiates to right hip/right thigh. No right calf tenderness.
--- NOTE | 2025-02-25 13:49 | ED.MALEGU ---
HPI - Male Genitourinary General Chief complaint: Urogenital-Male Stated complaint: Back Pain, Blood in Urine Time Seen by Provider: 02/25/25 12:17 Source: patient and family Mode of arrival: Wheelchair Limitations: no limitations History of Present Illness HPI Narrative: 80-year-old male history of DVT on Eliquis, prior pancreatic stone on Creon, known chronic artery stenosis, BPH, prosthetic calculi, history of prostate cancer with prior TURP x2. Presents with complaint of blood in his catheter bag. Patient states no fevers. 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 He denies any nausea or vomiting. No chest pain or shortness of breath. He has been constipated but did have a bowel movement earlier today. No black or bloody stools. He states he has been constipated for medications while hospitalized has been taking stool softeners regularly. Denies any dysuria, urgency or other urinary symptoms but did notice dark urine in his catheter and bloody urine over the last 12-24 hours. Patient states no suprapubic pain, no abdominal pain. Has not had any large clots or signs of blockage. Patient had recent hospitalization admitted on 01/2025 and discharged on 01/2024 with sepsis secondary to acute cystitis, urinary obstruction, BPH with bilateral hydro and hydroureter and bladder wall thickening, MELISSA and acute metabolic encephalopathy. Was discharged home with plan for cystoscopy as an outpatient with Urology. Patient has been continuing to take his Eliquis until this morning. He has been following with Dr. Padilla for urology. They expressed they have had some difficulty and getting cardiac clearance in place. They are waiting a letter from Cardiology think he was recommendations about when to stop and start his Eliquis with the procedure. Related Data Home Medications Medication Instructions Recorded Confirmed tamsulosin 0.4 mg capsule 0.4 mg PO DAILY 02/24/24 02/12/25 apixaban 5 mg tablet (Eliquis) 5 mg PO DAILY 02/12/25 02/12/25 hbjuml-oqbsnptz-[id number] 3 cap PO TID 02/12/25 02/12/25 36,000-114,000-180,000 unit capsule,delay rel (Creon) losartan 25 mg tablet 25 mg PO DAILY 02/12/25 02/12/25 Previous Rx's Medication Instructions Recorded cephalexin 500 mg capsule 500 mg PO Q8H 10 days #30 caps 02/25/25 Allergies Allergy/AdvReac Type Severity Reaction Status Date / Time No Known Drug Allergies Allergy Verified 02/25/25 12:16 Review of Systems Review of Systems ROS Unobtainable: All systems reviewed & are unremarkable except as noted in HPI and below Patient History Medical History Elevated serum creatinine Right leg DVT Chronic anticoagulation Gross hematuria Hx of brachytherapy (04/10/18) Urge incontinence Lower urinary tract symptoms (LUTS) Bladder outlet obstruction Prostatic calculi High blood pressure History of prostate cancer Surgical History History of transurethral resection of prostate (07/27/19) Social History marital status: number of children: 2 household members: spouse 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 RESPIRATORY: Breath sounds equal bilaterally, no wheezes rales or rhonchi. ABDOMEN: Soft, nontender. Normoactive bowel sounds all 4 quadrants. No guarding or rebound, rigidity, no mass : No CVA tenderness, portion has patent Rogers catheter in place is draining urine that is translucent but reddish. No clots appreciated. EXTREMITIES: Normal range of motion, no clubbing or edema. Neurovascularly intact NEUROLOGICAL: Cranial nerves II through XII grossly intact. Moving all extremities SKIN: Warm, dry, no petechiae, no rashes or lesions. Initial Vital Signs Initial Vital Signs: Vital Signs Temperature 97.6 F 02/25/25 12:16 Pulse Rate 81 02/25/25 12:16 Respiratory Rate 17 02/25/25 12:16 Blood Pressure 128/62 02/25/25 12:16 Pulse Oximetry 100 02/25/25 12:16 Oxygen Delivery Method Room Air 02/25/25 12:16 Course Orders Ordered: ED Orders 02/25/25 12:32 Complete Blood Count AUTO DIFF Stat Comprehensive Metabolic Panel Stat PTT Partial Thromboplastin Yamil Stat Prothrombin Time INR Stat 02/25/25 13:38 UA Complete [Urinalysis and Microscopic] Stat Urine Culture Stat 02/25/25 14:26 CT kidney ureter bladder (KUB) Stat Discontinued Medications Ceftriaxone Sodium 1,000 mg/ (Sodium Chloride) 100 mls @ 200 mls/hr IV NOW ONE Stop: 02/25/25 14:29 Last Infusion: 02/25/25 15:40 Dose: Infused Documented By: Admin: 02/25/25 15:00 Dose: 200 mls/hr Documented By: ABBE Vital Signs Vital signs: Vital Signs - 8 hr 02/25/25 12:16 02/25/25 12:35 02/25/25 13:00 Temperature 97.6 F Pulse Rate 81 75 70 Respiratory Rate 17 Blood Pressure 128/62 Pulse Oximetry 100 100 98 Oxygen Delivery Method Room Air Room Air 02/25/25 13:00 02/25/25 13:30 02/25/25 13:30 Temperature Pulse Rate 78 Respiratory Rate Blood Pressure 170/79 H 155/80 H Pulse Oximetry 97 Oxygen Delivery Method Room Air 02/25/25 14:00 02/25/25 14:00 02/25/25 14:30 Temperature Pulse Rate 70 71 Respiratory Rate Blood Pressure 184/83 H Pulse Oximetry 99 98 Oxygen Delivery Method Room Air 02/25/25 14:30 02/25/25 14:42 02/25/25 14:42 Temperature Pulse Rate 74 Respiratory Rate Blood Pressure 175/84 H 173/83 H Pulse Oximetry 100 Oxygen Delivery Method 02/25/25 15:00 02/25/25 15:00 02/25/25 15:30 Temperature Pulse Rate 72 Respiratory Rate Blood Pressure 182/81 H 170/78 H Pulse Oximetry 99 Oxygen Delivery Method Room Air 02/25/25 15:30 02/25/25 16:00 02/25/25 16:00 Temperature Pulse Rate 69 70 Respiratory Rate Blood Pressure 178/84 H Pulse Oximetry 99 99 Oxygen Delivery Method Room Air 02/25/25 16:40 Temperature Pulse Rate 76 Respiratory Rate 14 Blood Pressure Pulse Oximetry Oxygen Delivery Method MDM - Male Genitourinary Lab Data 02/25/25 12:32 02/25/25 12:32 Labs: Lab Results 02/25/25 02/25/25 Range/Units 12:32 13:38 WBC 5.9 (4.5-11.0) X10^3/uL RBC 3.48 L (4.5-5.9) X10^6/uL Hgb 10.3 L (13.5-17.5) g/dL Hct 29.7 L (41-53) % MCV 85.2 (80-100) fL MCH 29.6 (26-34) PG MCHC 34.8 (30-36) % RDW 12.1 (11.6-14.8) % Plt Count 289 (150-400) X10^3/uL Neut % (Auto) 78.6 H (50-75) % Lymph % (Auto) 11.7 L (25-40) % [place] % (Auto) 7.6 (3-14) % Eos % (Auto) 1.2 L (2-4) % Baso % (Auto) 0.9 (0-2) % Neut # (Auto) 4600 (3830-8288) /uL Lymph # (Auto) 700 L (8468-5853) /uL [place] # (Auto) 400 (0-900) /uL Eos # (Auto) 100 (0-450) /uL Baso # (Auto) 100 (0-100) /uL PT 14.7 H (9.4-12.5) SECONDS INR 1.3 (0.9-1.3) APTT 40 H (25.1-36.5) SECONDS Sodium 124 L (137-145) mmol/L Potassium 4.6 (3.4-5.1) mmol/L Chloride 91 L (98-107) mmol/L Carbon Dioxide 26 (22-32) mmol/L BUN 31 H (9-20) mg/dL Creatinine 1.75 H (0.66-1.25) mg/dL Estimated GFR 39 L (>60) mL/min BUN/Creatinine Ratio 17.7 (6-22) Glucose 203 H (70-99) mg/dL Calcium 9.0 (8.4-10.2) mg/dL Total Bilirubin 0.6 (0.2-1.3) mg/dL AST 31 (17-59) IU/L ALT 18 (<50) IU/L Alkaline Phosphatase 98 (38-126) U/L Total Protein 6.6 (6.3-8.2) g/dL Albumin 3.5 (3.5-5.0) g/dL Globulin 3.1 (1.7-4.1) g/dL Albumin/Globulin Ratio 1.1 (1.0-2.8) Urine Color Red Urine Appearance Turbid Urine pH 6.5 (4.5-8.0) Ur Specific [place] 1.020 (1.000-1.035) Urine Protein 3+ H (Negative) Urine Glucose (UA) Negative (Negative) g/dL Urine Ketones Trace H (NEGATIVE) Urine Occult Blood 3+ H (Negative) Urine Nitrate Positive H (Negative) Urine Bilirubin Negative (NEGATIVE) Urine Urobilinogen 0.2 (0.2) E.U./dL Ur Leukocyte Esterase Trace H (NEGATIVE) Urine RBC >100/hpf H (0-5/HPF) Urine WBC 1-5/hpf (0-5/HPF) Ur Squamous Epith Cells None seen (0-5/HPF) Urine Bacteria Moderate (10-30) H (None) Ur Culture Indicated? Specimen cultured Vol Urine Centrifuged 10ml (spun) MDM Narrative Medical decision making narrative: White count of 5.2 hemoglobin is 10.2 was in the 10 range throughout January of 2025, platelets are 252. Sodium is 128 appears consistent with priors for the past month. Patient's chloride 96 BUN 31, creatinine is 1.76 which is slightly improved from priors, glucose is 110 UA is 3+ protein, trace ketones, 3+ blood, positive for nitrates trace leuks, greater than 100 RBCs 1-5 WBCs moderate bacteria was sent for culture. Labs show hemoglobin of 10.3 consistent with priors white count 5.9 also consistent with priors platelets of 289. Chemistries show creatinine 1.75 improved from priors earlier in January, sodium is 124 patient has been 128-127 chloride 91, BUN 31 glucose is 203 LFTs are otherwise negative. CT KUB she was persistent appearance bilateral hydro and hydroureter without visualized source of stone. Bladder collapsed and diffusely thickened with a Rogers catheter unable to be evaluated. Focal areas of streaky opacity right base and lesser degree the left. 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 Patient received a dose of Rocephin for nitrate positive urine in the setting of Rogers catheter in place. Patient's last urine culture was negative prior to that had Klebsiella and appeared sensitive to Rocephin. Plan to start patient on oral antibiotic, patient was supposed to follow up with Urology for cystoscopy for hematuria. Spoke with Dr. Padilla, urology he was familiar with the patient. Reviewed findings from today he notes patient has actually been having hematuria for out the week they have had regular phone calls daily. At this time they are trying to get patient scheduled for cystoscopy but also has had some changes bladder there was concern for potential malignancy and encrustation of the prostate and we will likely require some additional procedures and after discussion with the anesthesia 1 and formal Cardiology consultation. He has been in contact with Dr. Salomon with Cardiology in [place]. Expected to see the patient within the next week for formal evaluation. He states he was reviewed this with the patient's family at this time they did not feel comfortable stopping Eliquis without further input. He agrees with current plan to treat and follow up outpatient at this time. Discussed with the patient and family including his at bedside. Reviewed they should be expecting to hear back from Cardiology and my conversation with Dr. Padilla. Did give contact for Dr. Salomon's office so they can call on Thursday to see if they has been scheduled. At this time we will have them continue Xarelto as patient has not had a drop in his hemoglobin but to watch closely. Discussed return precautions they feel comfortable with the plan at this time. Did review all of his findings including that his sodium was a little bit in the low side. They feel comfortable with this plan all questions answered. Discharge Plan Departure Patient Disposition: Home Clinical Impression: Hematuria, UTI (urinary tract infection) Activity Restrictions/Additional Instructions: I did talk with Dr. Padilla today. He has spoken with Dr. Salomon (cardiology), and has heard that they are expecting to see you in the next week or so for a face to face evaluation for medical clearance. At this time I would continue your Xarelto but you can talk with your primary care physician as well. Your urine does show changes consistent with infection. Please take oral antibiotics as prescribed. Prescription sent to [facility] [place] You had a dose of IV antibiotics today you can start her oral antibiotics tomorrow. Please return for fevers, new or worsening abdominal back or flank pain, if you are having any clots or blockages to the catheter if it is not draining appropriately, changes to mentation, vomiting or other new or concerning changes. Prescriptions: New cephalexin 500 mg capsule 500 mg PO Q8H 10 Days Qty: 30 0RF No Action Eliquis 5 mg Tablet 5 mg PO DAILY losartan 25 mg Tablet 25 mg PO DAILY Creon 36,000-114,000- 180,000 unit capsule,delayed release(DR/EC) 3 cap PO TID Rx Instructions: 3 capsules with each meal tamsulosin 0.4 mg capsule 0.4 mg PO DAILY Referrals: Kartik Cristina MD [Primary Care Provider] - Kishore Padilla MD [Physician] - Stand Alone Forms: Patient Portal/API/Survey
[2025-02-25 14:17] LABS: Add Manual Diff / Slide Review NO; Basophils Absolute Auto 100 /uL (0-100); Basophils Percent Auto 0.9 % (0-2); Eosinophils Absolute Auto 100 /uL (0-450); Eosinophils Percent Auto 1.2 % (2-4); Hematocrit 29.7 % (41-53); Hemoglobin 10.3 g/dL (13.5-17.5); INR 1.3 (0.9-1.3); Lymphocytes Absolute Auto 700 /uL (1100-4500); Lymphocytes Percent Auto 11.7 % (25-40); Mean Corpuscular HGB Conc 34.8 % (30-36); Mean Corpuscular Hemoglobin 29.6 PG (26-34); Mean Corpuscular Volume 85.2 fL (80-100); Monocytes Absolute Auto 400 /uL (0-900); Monocytes Percent Auto 7.6 % (3-14); Neutrophils Absolute Auto 4600 /uL (1500-7000); Neutrophils Percent Auto 78.6 % (50-75); Platelet Count 289 X10^3/uL (150-400); Prothrombin Time 14.7 SECONDS (9.4-12.5); Red Blood Cell Count 3.48 X10^6/uL (4.5-5.9); Red Cell Distribution Width 12.1 % (11.6-14.8); White Blood Cell Count 5.9 X10^3/uL (4.5-11.0)
[2025-02-25 14:20] LABS: PTT Partial Thromboplastin Tim 40 SECONDS (25.1-36.5)
[2025-02-25 14:22] LABS: Bilirubin Urine UA NEGATIVE (NEGATIVE); Glucose Urine UA NEGATIVE (Negative); Ketones Urine UA TRACE (NEGATIVE); Leukocyte Esterase Urine UA TRACE (NEGATIVE); Nitrite Urine UA POSITIVE (Negative); Occult Blood Urine UA 3+ (Negative); Protein Urine UA 3+ (Negative); Urobilinogen Urine UA 0.2 E.U./dL (0.2); pH Urine UA 6.5 (4.5-8.0)
[2025-02-25 14:24] LABS: Appearance Urine UA TURBID
[2025-02-25 14:25] LABS: Alanine Aminotransferase 18 IU/L (<50); Albumin 3.5 g/dL (3.5-5.0); Albumin Globulin Ratio 1.1 (1.0-2.8); Alkaline Phosphatase 98 U/L (38-126); Aspartate Aminotransferase 31 IU/L (17-59); BUN Creatinine Ratio 17.7 (6-22); Bilirubin Total 0.6 mg/dL (0.2-1.3); Blood Urea Nitrogen 31 mg/dL (9-20); Carbon Dioxide 26 mmol/L (22-32); Chloride 91 mmol/L (98-107); Estimated Glomerular Filt Rate 39 mL/min (>60); Globulin 3.1 g/dL (1.7-4.1); Glucose 203 mg/dL (70-99); HEMOLYSIS < 15 (0-50); Potassium 4.6 mmol/L (3.4-5.1); Sodium 124 mmol/L (137-145); Total Protein 6.6 g/dL (6.3-8.2)
[2025-02-25 14:25] LABS: Bacteria Urine Moderate (10-30); Color Urine UA RED; Culture Indicated Urine Specimen Cultured; RBC Urine >100/HPF (0-5/HPF); Squamous Epithelial Cell Urine None Seen (0-5/HPF); Urine Volume 10mL (spun); WBC Urine 1-5/HPF (0-5/HPF)
--- NOTE | 2025-02-25 14:26 | DI.CT.S_ITS ---
PROCEDURE: CT KIDNEY URETER BLADDER (KUB) INDICATIONS: hematuria, recent BPH with b/l hydro TECHNIQUE: Axial sections were acquired from the lung bases to the pubic symphysis. Coronal and sagittal reformats were performed. For radiation dose reduction, the following was used: automated exposure control, adjustment of mA and/or kV according to patient size. COMPARISON: [facility], CT, CT KIDNEY URETER BLADDER (KUB), 02/12/2025, 12:23. FINDINGS: Image quality: Diagnostic. Lower Chest: Focal areas of streaky opacity in the right base and to a lesser degree the left. URINARY: Right Kidney: Areas of calcified vascular aneurysm are present unchanged. Hydronephrosis to the level of the mid ureter without visualized obstruction is unchanged. Right Ureter: Hydronephrosis to the level mid ureter without stone. No change. Left Kidney: Mild hydronephrosis. No visualized stone. Left Ureter: Kzpv-ln-ugrlhxqx hydroureter without visualized stone. Bladder: Bladder is thickened and collapsed with a Rogers catheter. ABDOMEN: Liver: No contour-deforming solid mass. Pneumobilia. Is unchanged. Gallbladder: No radiopaque gallstones or wall thickening. Biliary ducts: No biliary dilation. Pancreas: No ductal dilation. Spleen: Size is within normal limits. Adrenal Glands: No adrenal nodules. Stomach and Bowel: Normal colonic caliber, without significant wall thickening. Peritoneum: No abnormal intraperitoneal fluid. No free air. Ventral Wall: No hernia. Abdominal Nodes: No enlarged retroperitoneal or mesenteric lymph nodes. Vessels: Aorta and inferior vena cava are normal in size. PELVIS: Pelvic Organs: Prostate gland is enlarged with radiation seeds. Pelvic Nodes: Unremarkable. Miscellaneous: No inguinal hernias are seen. Bones: Unremarkable. IMPRESSION: Persistent appearance of bilateral hydronephrosis and hydroureter without visualized source of stone. Bladder is collapsed and diffusely thickened with a Rogers catheter unable to be evaluated. Dictated by: Anuradha Augustin M.D. on 02/25/2025 at 14:48 Approved by: Anuradha Augustin M.D. on 02/25/2025 at 14:54
[2025-02-25] MEDS: cefTRIAXone 1,000 MG in SODIUM CHLORIDE 0.9% 100 ML 200 MG IV (15:00)
== END 2025-02-25 16:50 | disposition home or self-care (01) ==
PROVIDERS: Emergency Provider Emergency Medicine; PCP Internal Medicine
DX: R31.9 Hematuria, unspecified (principal); N39.0 Urinary tract infection, site not specified
CPT/HCPCS: 36415; 74176; 80053; 81001; 85025; 85610; 85730; 87086; 96365; 99284; J0696

== ENCOUNTER 2025-03-01 16:24 | Inpatient (IN) | payer MEDICARE, OTHER, SELFPAY ==
[2025-02-12 17:38] VITALS: BMI 22.8
[2025-03-01] VITALS (17 sets, daily range): BP systolic 128–186; BP diastolic 67–86; PULSE 78–91; RESP 15–35; TEMP 36.4–36.5; O2SAT 94–100; BMI 23.6; BMI 22.8
--- NOTE | 2025-03-01 16:45 | PC.NURSE ---
History of swelling and blood clot in right leg; pt unable to use right leg during NIH examination secondary to these dx per pt
--- NOTE | 2025-03-01 16:46 | EKG_ITS ---
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
--- NOTE | 2025-03-01 16:46 | DI.RAD.S_ITS ---
PROCEDURE: XR CHEST 1V INDICATIONS: Chest Pain TECHNIQUE: One view of the chest was acquired. COMPARISON: [facility], CR, XR CHEST 1V, 05/30/2024, 14:13. FINDINGS: Surgical changes and devices: None. Lungs and pleura: Lungs are clear. No pleural effusions or pneumothorax. Mediastinum: Mediastinal contours appear normal. Heart size is normal. Bones and chest wall: No suspicious bony lesions. Overlying soft tissues appear unremarkable. IMPRESSION: No acute cardiopulmonary pathology. Dictated by: Flaquito Bentley M.D. on 03/01/2025 at 17:14 Approved by: Flaquito Bentley M.D. on 03/01/2025 at 17:14
--- NOTE | 2025-03-01 16:51 | DI.CT.S_ITS ---
PROCEDURE: CT HEAD/BRAIN WO CON INDICATIONS: AMS TECHNIQUE: Noncontrast 4.5 mm thick angled axial sections acquired from the foramen magnum to the vertex, with coronal and sagittal reformats. For radiation dose reduction, the following was used: automated exposure control, adjustment of mA and/or kV according to patient size. COMPARISON: [facility], CT, CT ANGIO HEAD AND NECK, 03/01/2025, 17:27. [facility], MR, MR HEAD/BRAIN WO CON, 05/30/2024, 20:19. [facility], CT, CT ANGIO HEAD AND NECK, 05/30/2024, 14:14. [facility], CT, CT HEAD/BRAIN WO CON, 05/30/2024, 14:14. FINDINGS: Image quality: This examination is limited by involuntary motion artifact. CSF spaces: Basal cisterns are patent. No extra-axial fluid collections. The ventricles are symmetric in size and shape. Brain: No intracranial bleeds or mass effect. There is cerebral volume loss, with resultant ventricular and sulcal prominence. There are periventricular and deep white matter chronic small vessel ischemic changes. There is intracranial internal carotid artery atherosclerosis. Skull and face: Calvarium and visualized facial bones appear intact, without suspicious lesions. Sinuses: Visualized sinuses and mastoids are clear. IMPRESSION: Motion limited study, without an acute intracranial abnormality seen. Dictated by: Markus Garzon M.D. on 03/01/2025 at 16:46 Approved by: Markus Garzon M.D. on 03/01/2025 at 16:47
--- NOTE | 2025-03-01 16:51 | PC.NURSE ---
Discussed case w/ MD Stephen. CT non con verbal order.
--- NOTE | 2025-03-01 17:01 | DI.CT.S_ITS ---
PROCEDURE: CT ANGIO HEAD AND NECK INDICATIONS: altered mental status TECHNIQUE: After the administration of intravenous contrast, 1 mm thick sections acquired from the aortic arch through the [place]. 3-dimensional bklwugk-fieeqimcv-imafejgddd (MIP) and/or volume rendering reformats were acquired of the central intracranial vasculature and neck separately. For radiation dose reduction, the following was used: automated exposure control, adjustment of mA and/or kV according to patient size. COMPARISON: [facility], CT, CT ANGIO HEAD AND NECK, 05/30/2024, 14:14. [facility], CT, CT HEAD/BRAIN WO CON, 03/01/2025, 17:27. [facility], MR, MR HEAD/BRAIN WO CON, 05/30/2024, 20:19. [facility], CT, CT HEAD/BRAIN WO CON, 05/30/2024, 14:14. FINDINGS: Image quality: Limited by bolus timing, with venous contamination. There is artifact associated with the metallic hardware. Artifact from the metallic hardware is reduced by metal reconstruction algorithm. BRAIN: CSF spaces: Ventricles are normal in size and shape. Basal cisterns are patent. No extra-axial fluid collections. Brain: No significant abnormality of the brain can be seen. Skull and face: Calvarium and facial bones appear intact, without suspicious lesions. Orbits appear normal. Sinuses: Sinuses and mastoids are clear. HEAD CT ANGIOGRAPHY: Anterior circulation: Intracranial internal carotid arteries are normal in size and flow. The flow within the paired anterior cerebral arteries is normal and symmetric. The flow within the middle cerebral arteries is normal and symmetric. The anterior communicating artery is seen. No aneurysms are seen. Posterior circulation: There is focal calcification seen involving the left V4 segment, with 50% narrowing. The right V4 segment is within normal limits. There is a normal appearing basilar artery. Is there is focal high-grade narrowing seen involving the left P1 segment, which is similar to the prior. Flow within the posterior cerebral arteries is otherwise normal and symmetric. No aneurysms are seen. No significant intracranial venous abnormality is seen. NECK CT ANGIOGRAPHY: Carotid system: The great vessels demonstrate a conventional anatomy as they arise from the aortic arch. The origins of the common carotid arteries appear patent. The common carotid arteries demonstrate normal caliber and courses. The bifurcation regions demonstrate atherosclerotic irregularity and calcification. There is 70-80% narrowing seen involving the left proximal internal carotid artery. No hemodynamically significant stenosis is seen on the right. The more distal internal carotid arteries demonstrate normal course and caliber. Posterior circulation: The origins of the demonstrate approximately 50% narrowing on the right and 20% narrowing on the left. The more superior extracranial portions of both vertebral arteries also demonstrate normal courses and calibers. The left vertebral artery is dominant to the right. Soft tissues: Visualized neck soft tissues demonstrate no suspicious abnormalities. Bones: No suspicious bony lesions. Visualized cervical spine appears normally aligned. IMPRESSION: High-grade narrowing again seen involving the left P1 segment, without significant change from the prior. 50% narrowing seen involving the left V4 segment. 70-80% narrowing seen involving the left proximal internal carotid artery. Mild narrowing can be seen involving the origins of the origins of the vertebral arteries. The If there is strong clinical suspicion for an acute stroke, please consider a brain MRI for further evaluation, as it is more sensitive (assuming that there is no contraindication to MRI). Any quantitative measurements of stenosis were performed using NASCET criteria. Dictated by: Markus Garzon M.D. on 03/01/2025 at 16:47 Approved by: Markus Garzon M.D. on 03/01/2025 at 16:53
--- NOTE | 2025-03-01 17:02 | ED.GENADULT ---
HPI - General Adult <Robbie Stephen MD - Last Filed: 03/02/25 09:40> General Chief complaint: Altered Mental Status Stated complaint: AMS Time Seen by Provider: 03/01/25 17:00 Source: patient and family Mode of arrival: EMS History of Present Illness HPI narrative: Significant PMHx include: R DVT in Nov 2024 on Eliquis, HTN, prostate cancer, urosepsis, urinary retention with chronic harper catheter, TIA with confusion Aaron is a 80-year-old male who presented to the emergency department with an episode of confusion and a fall. The patient's daughter called him at approximately 2:25 PM and found him to be confused and unresponsive to questions. The patient reports that he was sitting on the couch in the living room when he went upstairs to the bathroom. Upon returning, he moved slowly due to back pain. As he bent his knees near the refrigerator, his legs suddenly gave out, causing him to slowly fall to the ground. He denies hitting his head or losing consciousness during the fall. The patient describes feeling lightheaded and was unable to get up on his own, so he crawled to the living room couch for support. When his daughter arrived about 15 minutes later, she found him disoriented and unable to remember their phone conversation. He was using the TV remote as a phone. The patient's confusion resolved by approximately 3:15 PM. The patient has a history of TIA about two years ago, which also presented with brief confusion. He also has a history of a recent blood clot in his right leg a few months ago, for which he is taking Eliquis. The patient was recently hospitalized for sepsis due to a urinary tract infection and is currently on day 3 or 4 of antibiotics. He has a catheter in place. The patient denies any chest pain, fever, shortness of breath, abdominal pain, nausea, vomiting, or diarrhea. He reports ongoing lower back pain but does not believe he injured his back during the fall. The patient notes that his right leg has been weak and swollen since November, making it difficult to walk. He currently uses a walker for mobility. Related Data Home Medications Medication Instructions Recorded Confirmed tamsulosin 0.4 mg capsule 0.4 mg PO DAILY 02/24/24 03/02/25 apixaban 5 mg tablet (Eliquis) 5 mg PO DAILY 02/12/25 03/02/25 mlcyhb-vlkbzchu-tbanybo 3 cap PO TID 02/12/25 03/02/25 36,000-114,000-180,000 unit capsule,delay rel (Creon) Previous Rx's Medication Instructions Recorded cephalexin 500 mg capsule 500 mg PO Q8H 10 days #30 caps 02/25/25 Allergies Allergy/AdvReac Type Severity Reaction Status Date / Time No Known Drug Allergies Allergy Verified 02/25/25 12:16 Review of Systems <Robbie Stephen MD - Last Filed: 03/02/25 09:40> Review of Systems Narrative: All systems reviewed and unremarkable except as noted in the HPI Patient History <Robbie Stephen MD - Last Filed: 03/02/25 09:40> Medical History Elevated serum creatinine Right leg DVT Chronic anticoagulation Gross hematuria Hx of brachytherapy (04/10/18) Urge incontinence Lower urinary tract symptoms (LUTS) Bladder outlet obstruction Prostatic calculi High blood pressure History of prostate cancer Surgical History History of transurethral resection of prostate (07/27/19) Social History marital status: number of children: 2 household members: spouse 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 Smoking Status: Never smoker alcohol intake: current Type(s) of exercise: other frequency: daily Smoking Status: Never smoker Exam <Robbie Stephen MD - Last Filed: 03/02/25 09:40> Narrative Exam Narrative: VS as noted above Focused physical exam as follows: General: Well developed, well nourished, no acute distress HEENT: pink palpebral conjunctiva, anicteric sclera, DELFINA, moist mucous membranes, no JVD, no cervical lymphadenopathy Lungs: no respiratory distress, clear to auscultation without wheezes or crackles; equal breath sounds Heart: normal rate, regular rhythm, no appreciable murmurs Abdomen: soft, nontender, no rebound or rigidity Musculoskeletal: no gross deformities with full ROM in all extremities, no pedal edema Skin: pink, warm; no rashes Neuro: AAOx3, GCS 15, mild weakness in the R lower extremity but this is not new Psyche: no SI/HI, normal affect Initial Vital Signs Initial Vital Signs: Vital Signs Temperature 97.6 F 03/01/25 16:27 Pulse Rate 79 03/01/25 16:27 Respiratory Rate 19 03/01/25 16:27 Blood Pressure 162/73 H 03/01/25 16:27 Pulse Oximetry 99 03/01/25 16:27 Oxygen Delivery Method Room Air 03/01/25 16:27 <Blaise Ramires MD - Last Filed: 03/02/25 04:46> Initial Vital Signs Initial Vital Signs: Vital Signs Temperature 97.6 F 03/01/25 16:27 Pulse Rate 79 03/01/25 16:27 Respiratory Rate 19 03/01/25 16:27 Blood Pressure 162/73 H 03/01/25 16:27 Pulse Oximetry 99 03/01/25 16:27 Oxygen Delivery Method Room Air 03/01/25 16:27 Scores <Robbie Stephen MD - Last Filed: 03/02/25 09:40> NIH Stroke Scale Level of Conciousness: Alert, keenly responsive Ask month/age: Answers both questions correctly. Open/close eyes, close hand: Performs both tasks correctly Best gaze horizontal: Normal Visual saunders: No visual loss Facial palsy: Normal symetrical movement Left arm drift: No drift for full 10 sec Right arm drift: No drift for full 10 sec Left leg drift: No drift for full 5 sec Right leg drift: Some effort against gravity, cannot maintain, drifts down to bed Limb ataxia: Absent Sensory on face/arms/legs: Normal, no sensory loss Best language: No aphasia, normal Dysarthria: Normal Extinction or inattention: No abnormality Total NIH Stroke scale score: 2 <Blaise Ramires MD - Last Filed: 03/02/25 04:46> NIH Stroke Scale Total NIH Stroke scale score: 2 Course <Robbie Stephen MD - Last Filed: 03/02/25 09:40> Course Course Narrative: Initial VS noted above. PMHx, PSHx, Medication list, social history reviewed as noted above. Differential diagnosis considered include (but not limited to) the following: CVA/TIA, intracranial hemorrhage, hypo/hyperglycemia, electrolyte imbalance, liver or kidney failure, urosepsis, UTI, adverse effect of illicit drug/ETOH, cardiac dysrhythmia Pt interviewed and examined. Neuro exam nonfocal other than RLE weakness which is not new. NIHSS is 2 due to R leg weakness (not new). Pt is on Eliquis - not a TNKAse candidate. TIA work up initiated to include CT head and CTA head and neck. Bedside EKG showed no ST elevation or ectopy. Transferred care to Dr. Ramires @ 1800 with work up and disposition pending. Robbie Stephen MD 03/01/25 1800 Orders Ordered: Acetaminophen (Acetaminophen 325 Mg Tablet) 650 mg PO Q6H PRN PRN Reason: Fever/Mild Pain (1-3) Cephalexin HCl (Cephalexin 250 Mg Capsule) 500 mg PO Q8H [facility] Last Admin: 03/02/25 08:53 Dose: 500 mg Documented By: CITLALI Naloxone HCl (Naloxone 0.4 Mg/Ml Vial) 0.2 mg IV Q2MIN PRN PRN Reason: Opiate Reversal Non-Formulary Medication (Iazeea-Pajcndgb-Pdvxrgc [Creon]) 3 cap PO TID [facility] Last Admin: 03/02/25 08:55 Dose: Not Given Documented By: CITLALI Tamsulosin HCl (Tamsulosin 0.4 Mg Capsule) 0.4 mg PO DAILY [facility] Last Admin: 03/02/25 08:53 Dose: 0.4 mg Documented By: CITLALI Vital Signs Vital signs: Vital Signs - 8 hr 03/01/25 21:00 03/01/25 21:00 03/01/25 21:30 Pulse Rate 79 91 H Respiratory Rate 17 35 H Blood Pressure 164/83 H Pulse Oximetry 94 99 Oxygen Delivery Method Room Air 03/01/25 21:31 03/01/25 21:31 03/01/25 22:00 Pulse Rate 85 Respiratory Rate 25 H Blood Pressure 128/67 178/83 H Pulse Oximetry 100 Oxygen Delivery Method Room Air 03/01/25 22:00 03/01/25 22:30 03/01/25 22:30 Pulse Rate 80 80 Respiratory Rate 22 Blood Pressure 159/74 H Pulse Oximetry 100 99 Oxygen Delivery Method Room Air <Blaise Ramires MD - Last Filed: 03/02/25 04:46> Orders Ordered: Acetaminophen (Acetaminophen 325 Mg Tablet) 650 mg PO Q6H PRN PRN Reason: Fever/Mild Pain (1-3) Cephalexin HCl (Cephalexin 250 Mg Capsule) 500 mg PO Q8H [facility] Last Admin: 03/02/25 08:53 Dose: 500 mg Documented By: CITLALI Naloxone HCl (Naloxone 0.4 Mg/Ml Vial) 0.2 mg IV Q2MIN PRN PRN Reason: Opiate Reversal Non-Formulary Medication (Lmppku-Xvbjftry-Dtfburn [Creon]) 3 cap PO TID [facility] Last Admin: 03/02/25 08:55 Dose: Not Given Documented By: CITLALI Tamsulosin HCl (Tamsulosin 0.4 Mg Capsule) 0.4 mg PO DAILY [facility] Last Admin: 03/02/25 08:53 Dose: 0.4 mg Documented By: CITLALI Vital Signs Vital signs: Vital Signs - 8 hr 03/01/25 21:00 03/01/25 21:00 03/01/25 21:30 Pulse Rate 79 91 H Respiratory Rate 17 35 H Blood Pressure 164/83 H Pulse Oximetry 94 99 Oxygen Delivery Method Room Air 03/01/25 21:31 03/01/25 21:31 03/01/25 22:00 Pulse Rate 85 Respiratory Rate 25 H Blood Pressure 128/67 178/83 H Pulse Oximetry 100 Oxygen Delivery Method Room Air 03/01/25 22:00 03/01/25 22:30 03/01/25 22:30 Pulse Rate 80 80 Respiratory Rate 22 Blood Pressure 159/74 H Pulse Oximetry 100 99 Oxygen Delivery Method Room Air Medical Decision Making <Robbie Stephen MD - Last Filed: 03/02/25 09:40> Lab Data 03/02/25 03:46 03/02/25 03:46 Labs: Lab Results 03/01/25 Range/Units 16:59 WBC 6.1 (4.5-11.0) X10^3/uL RBC 3.40 L (4.5-5.9) X10^6/uL Hgb 10.1 L (13.5-17.5) g/dL Hct 28.7 L (41-53) % MCV 84.4 (80-100) fL MCH 29.7 (26-34) PG MCHC 35.2 (30-36) % RDW 12.4 (11.6-14.8) % Plt Count 284 (150-400) X10^3/uL Neut % (Auto) 79.9 H (50-75) % Lymph % (Auto) 10.7 L (25-40) % Luce % (Auto) 8.2 (3-14) % Eos % (Auto) 0.6 L (2-4) % Baso % (Auto) 0.6 (0-2) % Neut # (Auto) 4900 (0813-0201) /uL Lymph # (Auto) 600 L (0123-7256) /uL Luce # (Auto) 500 (0-900) /uL Eos # (Auto) 0 (0-450) /uL Baso # (Auto) 0 (0-100) /uL PT 17.2 H (9.4-12.5) SECONDS INR 1.5 H (0.9-1.3) APTT 43 H (25.1-36.5) SECONDS Sodium 123 L (137-145) mmol/L Potassium 4.7 (3.4-5.1) mmol/L Chloride 90 L (98-107) mmol/L Carbon Dioxide 29 (22-32) mmol/L BUN 32 H (9-20) mg/dL Creatinine 1.78 H (0.66-1.25) mg/dL Estimated GFR 39 L (>60) mL/min BUN/Creatinine Ratio 18.0 (6-22) Glucose 121 H (70-99) mg/dL Lactate 0.8 (0.7-2.1) mmol/L Calcium 9.0 (8.4-10.2) mg/dL Magnesium 1.9 (1.6-2.3) mg/dL Total Bilirubin 0.5 (0.2-1.3) mg/dL AST 34 (17-59) IU/L ALT 17 (<50) IU/L Alkaline Phosphatase 112 (38-126) U/L Total Creatine Kinase 39 L (55-170) U/L Troponin I < 0.012 (0.01-0.034) ng/mL NT-Pro-B Natriuret Pep 3240 H (<450) pg/mL Total Protein 7.1 (6.3-8.2) g/dL Albumin 3.8 (3.5-5.0) g/dL Globulin 3.3 (1.7-4.1) g/dL Albumin/Globulin Ratio 1.2 (1.0-2.8) Lipase 10 L (23-300) U/L ECG Data Attestation: I personally reviewed and interpreted this ECG as follows: (1700 - NSR @ 75; nonspecific STTW changes; QTc 422) <Blaise Ramires MD - Last Filed: 03/02/25 04:46> Lab Data Lab results reviewed: Yes I reviewed the patient's lab results. Lab results narrative: White blood cell count 6100, hemoglobin 10.1, platelets 284,000. Glucose 121. BUN 32 with creatinine 1.78. Serum CO2 29. Sodium 123. Potassium 4.7. Normal liver functions. Lipase normal. BNP 3240 elevated. Troponin negative/unmeasurable. Labs: Lab Results 03/01/25 Range/Units 16:59 WBC 6.1 (4.5-11.0) X10^3/uL RBC 3.40 L (4.5-5.9) X10^6/uL Hgb 10.1 L (13.5-17.5) g/dL Hct 28.7 L (41-53) % MCV 84.4 (80-100) fL MCH 29.7 (26-34) PG MCHC 35.2 (30-36) % RDW 12.4 (11.6-14.8) % Plt Count 284 (150-400) X10^3/uL Neut % (Auto) 79.9 H (50-75) % Lymph % (Auto) 10.7 L (25-40) % Luce % (Auto) 8.2 (3-14) % Eos % (Auto) 0.6 L (2-4) % Baso % (Auto) 0.6 (0-2) % Neut # (Auto) 4900 (4348-4231) /uL Lymph # (Auto) 600 L (6387-9846) /uL Luce # (Auto) 500 (0-900) /uL Eos # (Auto) 0 (0-450) /uL Baso # (Auto) 0 (0-100) /uL PT 17.2 H (9.4-12.5) SECONDS INR 1.5 H (0.9-1.3) APTT 43 H (25.1-36.5) SECONDS Sodium 123 L (137-145) mmol/L Potassium 4.7 (3.4-5.1) mmol/L Chloride 90 L (98-107) mmol/L Carbon Dioxide 29 (22-32) mmol/L BUN 32 H (9-20) mg/dL Creatinine 1.78 H (0.66-1.25) mg/dL Estimated GFR 39 L (>60) mL/min BUN/Creatinine Ratio 18.0 (6-22) Glucose 121 H (70-99) mg/dL Lactate 0.8 (0.7-2.1) mmol/L Calcium 9.0 (8.4-10.2) mg/dL Magnesium 1.9 (1.6-2.3) mg/dL Total Bilirubin 0.5 (0.2-1.3) mg/dL AST 34 (17-59) IU/L ALT 17 (<50) IU/L Alkaline Phosphatase 112 (38-126) U/L Total Creatine Kinase 39 L (55-170) U/L Troponin I < 0.012 (0.01-0.034) ng/mL NT-Pro-B Natriuret Pep 3240 H (<450) pg/mL Total Protein 7.1 (6.3-8.2) g/dL Albumin 3.8 (3.5-5.0) g/dL Globulin 3.3 (1.7-4.1) g/dL Albumin/Globulin Ratio 1.2 (1.0-2.8) Lipase 10 L (23-300) U/L MDM Narrative Medical decision making narrative: 03/01/25, 1830, Ike. Signout from Dr Stephen. 80-year-old male with history of TIA in the past, last known well to 30 p.m. this afternoon, felt like his legs were giving out, fell toward the ground, takes Eliquis anticoagulation secondary to a recent DVT now on his 3rd month, seemed confused however on the phone with his daughter, was apparently using the TV remote as if it were a phone while talking with his daughter, NIHSS score to attributable to his right leg weakness with old clot, confusion symptoms seemed to be resolved. Also has history of urinary tract infection, on recent antibiotics, chronic Harper, urinalysis pending. CT head noncontrast study ordered, CT angiogram head and neck vessels ordered. Assumed care. CT head noncontrast study. Impressions: ?Motion limited study, without any acute intracranial abnormality seen.? See radiology report. EKG shows normal sinus rhythm with first-degree AV block, ventricular rate 75, SC 210. No obvious ST segment elevation or depression changes. QRS 78. QTC 422. CT angio head and neck vessels. Impressions: ?High-grade narrowing again seen involving the left P1 segment, without significant change from prior. 50% narrowing involving the left V4 segment. Seventy 80% narrowing seen involving the left proximal internal carotid artery. Mild narrowing can be seen involving the origins of the origin of the vertebral bodies. If there is strong clinical suspicion for an acute stroke, police consider brain MRI for further evaluation, as it is more sensitive (assuming that there is no contraindication MRI). See radiology report. [id number], case discssued with stroke neurology Dr Phelan, can admit for Brain MRI on telemetry, echo, fasting lipid panel, hemoglobin A1c, permissive hypertension, further evaluation stroke-like symptoms. Continue Eliquis. We will contact hospitalist. [id number], case discussed with hospitalist Dr. Jalloh who accepts patient for admission to observation. Discharge Plan Departure Patient Disposition: Admitted as Observation Clinical Impression: Stroke-like symptoms, Confusion, Bilateral leg weakness Admit Date/Time: 03/01/25 22:36 Admit Provider: Boubacar Moralez
[2025-03-01 17:11] LABS: Add Manual Diff / Slide Review NO; Basophils Absolute Auto 0 /uL (0-100); Basophils Percent Auto 0.6 % (0-2); Eosinophils Absolute Auto 0 /uL (0-450); Eosinophils Percent Auto 0.6 % (2-4); Hematocrit 28.7 % (41-53); Hemoglobin 10.1 g/dL (13.5-17.5); Lymphocytes Absolute Auto 600 /uL (1100-4500); Lymphocytes Percent Auto 10.7 % (25-40); Mean Corpuscular HGB Conc 35.2 % (30-36); Mean Corpuscular Hemoglobin 29.7 PG (26-34); Mean Corpuscular Volume 84.4 fL (80-100); Monocytes Absolute Auto 500 /uL (0-900); Monocytes Percent Auto 8.2 % (3-14); Neutrophils Absolute Auto 4900 /uL (1500-7000); Neutrophils Percent Auto 79.9 % (50-75); Platelet Count 284 X10^3/uL (150-400); Red Cell Distribution Width 12.4 % (11.6-14.8); White Blood Cell Count 6.1 X10^3/uL (4.5-11.0)
[2025-03-01 17:28] LABS: INR 1.5 (0.9-1.3); Prothrombin Time 17.2 SECONDS (9.4-12.5)
[2025-03-01 17:30] LABS: PTT Partial Thromboplastin Tim 43 SECONDS (25.1-36.5)
[2025-03-01 17:32] LABS: Lactate (Lactic Acid) 0.8 mmol/L (0.7-2.1)
[2025-03-01 17:33] LABS: Alanine Aminotransferase 17 IU/L (<50); Albumin 3.8 g/dL (3.5-5.0); Albumin Globulin Ratio 1.2 (1.0-2.8); Alkaline Phosphatase 112 U/L (38-126); Aspartate Aminotransferase 34 IU/L (17-59); Bilirubin Total 0.5 mg/dL (0.2-1.3); Blood Urea Nitrogen 32 mg/dL (9-20); Carbon Dioxide 29 mmol/L (22-32); Chloride 90 mmol/L (98-107); Creatine Kinase 39 U/L (55-170); Estimated Glomerular Filt Rate 39 mL/min (>60); Globulin 3.3 g/dL (1.7-4.1); Glucose 121 mg/dL (70-99); HEMOLYSIS < 15 (0-50); Lipase 10 U/L (23-300); Magnesium 1.9 mg/dL (1.6-2.3); Potassium 4.7 mmol/L (3.4-5.1); Sodium 123 mmol/L (137-145); Total Protein 7.1 g/dL (6.3-8.2)
[2025-03-01 17:45] LABS: NT-proBNP (BNP-Adult 18+) 3240 pg/mL (<450); Troponin I < 0.012 ng/mL (0.01-0.034)
[2025-03-02] VITALS (8 sets, daily range): BP systolic 93–154; BP diastolic 51–85; PULSE 75–96; RESP 16–19; TEMP 36.2–36.6; O2SAT 94–100
--- NOTE | 2025-03-02 01:13 | DI.MRI.S_ITS ---
PROCEDURE: MR HEAD/BRAIN WO CON INDICATIONS: suspected stroke TECHNIQUE: Noncontrast axial T1 spin echo, axial T2 fast spin echo, sagittal and axial FLAIR, coronal T2 fast spin echo, axial gradient echo, axial diffusion and ADC through the brain. COMPARISON: [facility], , MR HEAD/BRAIN WO CON, 05/30/2024, 20:19. FINDINGS: CSF Spaces: Basal cisterns are patent. No extra-axial fluid collections. Ventricles are normal in size and shape. Brain: No intracranial masses or hemorrhage. Yeager/white matter interface is normal. Brainstem appears normal. Diffusion-weighted sequence is unremarkable without evidence of acute infarct. Normal intravascular flow voids are present. Skull and face: Calvarium has normal marrow signal. Orbits appear normal. Sinuses: Right maxillary sinus mucosal thickening and debris nevertheless improved from the prior IMPRESSION: Atrophy and mild white matter chronic ischemic change without acute infarct, hemorrhage or mass lesion Right maxillary mucosal sinus disease, improved from the prior Approved by: Jose Martin Torrez M.D. on 03/02/2025 at 14:12
--- NOTE | 2025-03-02 01:19 | PM.HP.1 ---
History of Present Illness History of Present Illness Date Patient Seen: 03/02/25 Time Patient Seen: 00:20 Date of Onset of Symptoms: 03/01/25 Chief complaint: AMS Narrative: 80 y/o brought to ED by EMS for confusion. Daughter found him confused at home and summoned EMS. He was recently hospitalized at [facility] for UTI, sepsis, MELISSA and acute urinary obstruction and was discharged home with indwelling catheter to follow up with urology for cystoscopy. He has a history of prostate carcinoma, TURP x 2, thickened bladder wall - planned cystoscopy, is on Flomax and finishing course of Keflex. He has a history of b/l carotid stenosis and intracranial stenosis and TIA/s in the past. ED workup negative for stroke, same degree of renal insufficiency, recent A1C was 5.9. 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 Smoking Status: Never smoker alcohol intake: current Type(s) of exercise: other frequency: daily Meds Home Medications and Allergies Home Medications Medication Instructions Recorded Confirmed Type tamsulosin 0.4 mg capsule 0.4 mg PO DAILY 02/24/24 03/02/25 History apixaban 5 mg tablet (Eliquis) 5 mg PO DAILY 02/12/25 03/02/25 History zkvyic-urupjdkk-jcpxktk 3 cap PO TID 02/12/25 03/02/25 History 36,000-114,000-180,000 unit capsule,delay rel (Creon) cephalexin 500 mg capsule 500 mg PO Q8H 10 days #30 caps 02/25/25 03/02/25 Rx Allergies Allergy/AdvReac Type Severity Reaction Status Date / Time No Known Drug Allergies Allergy Verified 02/25/25 12:16 Review of Systems Review of Systems Narrative: General - w/o fever or chills Neuro - chronic right leg weakness CVS - w/op chest pain or pressure RS - w/o shortness of breath or cough UG - w/o dysuria or worsening hematuria GI - w/o abdominal pain Exam Vital Signs (past 8 hours): - 03/01/25 17:36 03/01/25 17:38 03/01/25 17:38 Temperature Pulse Rate 82 82 Respiratory Rate 23 Blood Pressure 186/81 H Pulse Oximetry 99 100 Oxygen Delivery Method Oxygen Flow Rate 03/01/25 18:00 03/01/25 18:00 03/01/25 18:30 Temperature Pulse Rate 80 Respiratory Rate 15 Blood Pressure 176/86 H 171/81 H Pulse Oximetry 100 Oxygen Delivery Method Oxygen Flow Rate 03/01/25 18:30 03/01/25 19:00 03/01/25 19:30 Temperature Pulse Rate 78 79 78 Respiratory Rate 17 16 19 Blood Pressure 170/83 H 170/82 H Pulse Oximetry 99 98 99 Oxygen Delivery Method Room Air Oxygen Flow Rate 03/01/25 20:00 03/01/25 20:00 03/01/25 20:30 Temperature Pulse Rate 78 Respiratory Rate 18 Blood Pressure 174/82 H 172/83 H Pulse Oximetry 94 Oxygen Delivery Method Oxygen Flow Rate 03/01/25 20:30 03/01/25 21:00 03/01/25 21:00 Temperature Pulse Rate 79 79 Respiratory Rate 18 17 Blood Pressure 164/83 H Pulse Oximetry 96 94 Oxygen Delivery Method Room Air Oxygen Flow Rate 03/01/25 21:30 03/01/25 21:31 03/01/25 21:31 Temperature Pulse Rate 91 H 85 Respiratory Rate 35 H 25 H Blood Pressure 128/67 Pulse Oximetry 99 100 Oxygen Delivery Method Room Air Oxygen Flow Rate 03/01/25 22:00 03/01/25 22:00 03/01/25 22:30 Temperature Pulse Rate 80 Respiratory Rate Blood Pressure 178/83 H 159/74 H Pulse Oximetry 100 Oxygen Delivery Method Oxygen Flow Rate 03/01/25 22:30 03/01/25 22:45 03/01/25 22:50 Temperature 97.7 F Pulse Rate 80 87 Respiratory Rate 22 19 Blood Pressure 161/73 H Pulse Oximetry 99 98 Oxygen Delivery Method Room Air Room Air Oxygen Flow Rate 0 03/02/25 00:00 Temperature 97.1 F L Pulse Rate 79 Respiratory Rate 17 Blood Pressure 154/73 H Pulse Oximetry 94 Oxygen Delivery Method Oxygen Flow Rate 0 Oxygen Delivery Method Room Air Oxygen Flow Rate 0 Narrative Exam Narrative: General - in no distress HEENT - hearing loss, has hearing aids, atraumatic CVS - RRR RS - CTA GI - abdomen soft, not distended UG - indwelling Rogers Neuro - w/o focal acute weakness, chronic Rt leg weakness, appears somewhat confused Objective ECG Impression: NSR, 77 !st degree AV block, GA 210 ms w/o ischemic changes Imaging CT scan - head: Radiologist's impression: No intracranial bleeds or mass effect. There is cerebral volume loss, with resultant ventricular and sulcal prominence. There are periventricular and deep white matter chronic small vessel ischemic changes. There is intracranial internal carotid artery atherosclerosis. CTA head neck: Radiologist's impression: High-grade narrowing again seen involving the left P1 segment, without significant change from prior. 50% narrowing involving the left V4 segment. 70% to 80% narrowing seen involving the left proximal internal carotid artery. Mild narrowing can be seen involving the origins of the origin of the vertebral bodies. Chest x-ray: Radiologist's impression: No acute cardiopulmonary pathology. Labs 03/01/25 16:59 03/01/25 16:59 Labs: Laboratory Results - last 24 hr 03/01/25 16:59 WBC 6.1 RBC 3.40 L Hgb 10.1 L Hct 28.7 L MCV 84.4 MCH 29.7 MCHC 35.2 RDW 12.4 Plt Count 284 Neut % (Auto) 79.9 H Lymph % (Auto) 10.7 L [place] % (Auto) 8.2 Eos % (Auto) 0.6 L Baso % (Auto) 0.6 Neut # (Auto) 4900 Lymph # (Auto) 600 L [place] # (Auto) 500 Eos # (Auto) 0 Baso # (Auto) 0 PT 17.2 H INR 1.5 H APTT 43 H Sodium 123 L Potassium 4.7 Chloride 90 L Carbon Dioxide 29 BUN 32 H Creatinine 1.78 H Estimated GFR 39 L BUN/Creatinine Ratio 18.0 Glucose 121 H Lactate 0.8 Calcium 9.0 Magnesium 1.9 Total Bilirubin 0.5 AST 34 ALT 17 Alkaline Phosphatase 112 Total Creatine Kinase 39 L Troponin I < 0.012 NT-Pro-B Natriuret Pep 3240 H Total Protein 7.1 Albumin 3.8 Globulin 3.3 Albumin/Globulin Ratio 1.2 Lipase 10 L Assessment & Plan Assessment and plan (1) TIA (transient ischemic attack): Status: Acute (2) CKD (chronic kidney disease) stage 3, GFR 30-59 ml/min: Status: Acute (3) Bladder outlet obstruction: Status: Acute (4) Right leg DVT: Qualifiers: Affected thrombotic vein of extremity: unspecified vein of extremity Chronicity: chronic Qualified Code(s): I82.501 - Chronic embolism and thrombosis of unspecified deep veins of right lower extremity Status: Acute (5) Exocrine pancreatic insufficiency: Status: Acute Assessment & Plan narrative: TIA - recurrent - symptomatic Lt ICA stenosis, 70-80% including high-grade intracranial stenosis - pending MRI brain - microvascular disease and atrophy seen on CTH - permissive HTN, pending lipid panel - recent A1C 5.9, pending repeated - neurology apprenticeship consultant recommended to continue with Eliquis for now - recent unremarkable echocardiogram and stress test Bladder outlet obstruction - followed by urology and planned cystoscopy for bladder thickening - had TURP, brachyTx and 2nd limited TURP for brachyTx removal - b/l hydronephrosis and renal function at CKD stage 3a-3b level since almost a month now UTI - Keflex - not clear how many more doses he is supposed to be - to be clarified with urologist Rt leg DVT - had clear doppler few weeks ago - started Tx in November - on 5 mg daily? - switched to 2.5 mg bid - if he is going to stop Eliquis needs antiplatelets Exocrine Pancreatic Insufficiency - Creon with meals Patient consented to a real time, audio-video telemedicine visit with electronic stethoscope and RN assisting during the exam. Patient located at [place], [place]. Provider located in [place]. Time-Based Coding :: [TOTAL MINUTES] spent with patient and on the chart (including review of chart, obtaining history, exam, reviewing outside data, placing orders, documenting exam and treatment plan, and counseling patient) on [DATE].
[2025-03-02 04:21] LABS: Add Manual Diff / Slide Review NO; Basophils Absolute Auto 0 /uL (0-100); Basophils Percent Auto 0.7 % (0-2); Eosinophils Absolute Auto 100 /uL (0-450); Eosinophils Percent Auto 0.9 % (2-4); Hematocrit 28.7 % (41-53); Hemoglobin 9.9 g/dL (13.5-17.5); Lymphocytes Absolute Auto 700 /uL (1100-4500); Lymphocytes Percent Auto 9.9 % (25-40); Mean Corpuscular HGB Conc 34.7 % (30-36); Mean Corpuscular Hemoglobin 29.5 PG (26-34); Monocytes Absolute Auto 600 /uL (0-900); Monocytes Percent Auto 8.9 % (3-14); Neutrophils Absolute Auto 5300 /uL (1500-7000); Neutrophils Percent Auto 79.6 % (50-75); Platelet Count 278 X10^3/uL (150-400); Red Blood Cell Count 3.37 X10^6/uL (4.5-5.9); Red Cell Distribution Width 12.4 % (11.6-14.8); White Blood Cell Count 6.7 X10^3/uL (4.5-11.0)
[2025-03-02 04:40] LABS: BUN Creatinine Ratio 16.6 (6-22); Blood Urea Nitrogen 30 mg/dL (9-20); Carbon Dioxide 27 mmol/L (22-32); Chloride 93 mmol/L (98-107); Cholesterol 175 mg/dL (140-199); Estimated Glomerular Filt Rate 38 mL/min (>60); Glucose 111 mg/dL (70-99); HDL Cholesterol 54 mg/dL (40-60); HEMOLYSIS < 15 (0-50); LDL Cholesterol Calculated 94 mg/dL (<100); Potassium 4.4 mmol/L (3.4-5.1); Sodium 125 mmol/L (137-145); Triglycerides 133 mg/dL (35-150)
--- NOTE | 2025-03-02 04:49 | PC.NURSE ---
Admitted to acute care from ED at 22:50, transferred by slide board to bed. Alert and oriented x 4, hard of hearing. Rogers catheter present on admit, patient reports it was placed the last time I was here.
[2025-03-02] MEDS: cephALEXin 250 MG CAPSULE 500 MG PO ×2 (08:53→17:30)
[2025-03-02] MEDS: TAMSULOSIN 0.4 MG CAPSULE PO (08:53)
--- NOTE | 2025-03-02 11:39 | PT-IP ANOTE ---
Attempted Physical Therapy evaluation. Pt is lying in bed sleeping and did not arouse when I spoke to family. Pt's and Son are present and report his back pain has been limiting all activity at home. Pt does not want to move at home because it increases his back pain. He was current with home health Physical Therapy before this admission but with limited tolerance for treatment due to his back pain. His reports they got an out-pt referral for an MRI on his back but he fell before they could get the MRI. The Physician arrived at this time in his room. PT radha held at this time. MRI on his brain is pending.
--- NOTE | 2025-03-02 11:59 | SLP.IPNOTE ---
Chart reviewed and RN consulted. Brain MRI pending. RN reported no observed s/sx of aspiration or other swallowing difficulty. Also noted that pt appears to have returned to cognitive baseline per marine photographer and family report. Pt and family with hospitalist when TAX SENIOR ASSOCIATE evaluation was attempted. Evaluation held off. TAX SENIOR ASSOCIATE to re-attempt later in day if schedule allows.
--- NOTE | 2025-03-02 12:03 | DI.CT.S_ITS ---
PROCEDURE: CT ABDOMEN PELVIS WO CON INDICATIONS: R flank pain, r/o worsening hydronephrosis TECHNIQUE: Axial sections were acquired from the lung bases to the pubic symphysis. Coronal and sagittal reformats were performed. For radiation dose reduction, the following was used: automated exposure control, adjustment of mA and/or kV according to patient size. COMPARISON: [facility], CT, CT ABDOMEN PELVIS WITH CONTRAST, 09/02/2023, 10:59. [facility], CT, CT KIDNEY URETER BLADDER (KUB), 02/25/2025, 14:35. FINDINGS: Image quality: Diagnostic. Lower Chest: Minor posterior basal reticulation. No consolidations or effusions. URINARY: Moderate to severe bilateral and fairly symmetric hydronephrosis to a similar degree compared to prior. No significant perinephric inflammation. Less dilute contrast excreted from the left kidney suggests mildly delayed left renal function. No visible stones in the kidneys or ureters. The distal right ureter is not filled with contrast. The distal left ureter remains dilated to the bladder. Rogers catheter is present decompressing the urinary bladder is wall appears diffusely thickened. There is significant perivesicular inflammation though nonfocal. ABDOMEN: Liver: No contour-deforming solid mass. Gallbladder: No gallbladder wall thickening. Small amount of air at the fundus. Biliary ducts: Nondilated. Primarily extrahepatic pneumobilia. Pancreas: Diffuse fatty replacement. Scattered parenchymal calcifications. Minor pancreatic ductal prominence and air in the duct. Spleen: Size is within normal limits. Adrenal Glands: No adrenal nodules. Stomach and Bowel: Stomach and small bowel loops are within normal limits. Increased quantity of solid stool in the proximal and transverse colon. Distal colon is decompressed. Peritoneum: No abnormal intraperitoneal fluid. No free air. Ventral Wall: No hernia. Abdominal Nodes: No enlarged retroperitoneal nodes. Several borderline prominent mesenteric lymph nodes as present previously with diffuse haziness of the mesenteric fat. 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 Distal abdominal aortic aneurysm at roughly 3.2 cm. Portal vein is not well seen. IVC is decreased in caliber. PELVIS: Pelvic Organs: Brachytherapy seeds in the prostate gland. Pelvic Nodes: Unremarkable. Miscellaneous: Diffuse pelvic fat stranding in the anterior subcutaneous tissues, muscular layer, and throughout the pelvis, also involving presacral fascia. Bones: No suspicious lesions or fractures. Degenerative disease in the lower lumbar spine. IMPRESSION: Bilateral and fairly symmetric hydronephrosis, similar extent compared to priors. Given bilaterality, this is likely due to distal/bladder process. Colonic obstipation, primarily proximal, similar to increased compared to prior exam. Mesenteric adenopathy and hazy/divya mesentery appearance has not significantly changed since December 2024, but new since 09/02/23. Dictated by: Martina Katz M.D. on 03/02/2025 at 15:33 Approved by: Martina Katz M.D. on 03/02/2025 at 15:52
--- NOTE | 2025-03-02 14:05 | SLP.IPNOTE ---
Chart reviewed and RN consulted. Screen completed. GUM MIXER alert and oriented upon GUM MIXER entry. Pt's and son present at bedside. Pt and family denied swallowing, speech, and language difficulties. Pt drank thin liquids via straw throughout the conversation without overt s/sx of dysphgia. He was able to participate in conversation without difficulty and answered questions re: livinig situation and medical history accurately. Pt expressed he had a TIA two years ago, and occasionally has short-term memory difficulties. However, his family expressed that his confusion that was present upon admission has cleared and he seems to be back at baseline. Given no changes from baseline, no further GUM MIXER services are needed at this time. Recommended pt request PCP referral for outpatient GUM MIXER services targeting cognition, if pt and family are interested. Discussed recommendations with RN and MD. Order discharged at this time. GUM MIXER to follow-up if there changes to status.
--- NOTE | 2025-03-02 14:42 | OT.IPNOTE ---
Pt not available for OT eval as getting MRI.
--- NOTE | 2025-03-02 15:13 | P.HP_ITS ---
History of Present Illness History of Present Illness Date Patient Seen: 03/02/25 Time Patient Seen: 11:55 Date of Onset of Symptoms: 03/01/25 Chief complaint: AMS Narrative: Per overnight provider: 80 y/o brought to ED by EMS for confusion. Daughter found him confused at home and summoned EMS. He was recently hospitalized at [facility] for UTI, sepsis, MELISSA and acute urinary obstruction and was discharged home with indwelling catheter to follow up with urology for cystoscopy. He has a history of prostate carcinoma, TURP x 2, thickened bladder wall - planned cystoscopy, is on Flomax and finishing course of Keflex. He has a history of b/l carotid stenosis and intracranial stenosis and TIA/s in the past. ED workup negative for stroke, same degree of renal insufficiency, recent A1C was 5.9. Placed in observation with MRI brain pending Interval History: In further discussion with patient, he had a fall yesterday after reaching down low to in the refridgerator. He has had a worsening R flank pain, he had pain when he bent down yesterday. He denies numbness, tingling, slurred speech to me but felt weak and had to crawl around. According to the ER report he was using a TV remote as a phone. He was acutely confused per daughter which resolved in under an hour per ER report. He was admitted for possible TIA. In review of admission labs, his sodium was 123 on presentation. He describes his pain as R flank related and radiating down his R leg laterally over the IT band area. It flares up intermittently like yesterday. His PCP had ordered a Lumbar spine MRI that was supposed to be today at the hospital. 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: current Type(s) of exercise: other frequency: daily Meds Home Medications and Allergies Home Medications Medication Instructions Recorded Confirmed Type tamsulosin 0.4 mg capsule 0.4 mg PO DAILY 02/24/24 03/02/25 History apixaban 5 mg tablet (Eliquis) 5 mg PO BID 02/12/25 03/02/25 History yjzohq-rbxudabh-eyccaju 3 cap PO TID 02/12/25 03/02/25 History 36,000-114,000-180,000 unit capsule,delay rel (Creon) cephalexin 500 mg capsule 500 mg PO Q8H 10 days #30 caps 02/25/25 03/02/25 Rx Allergies Allergy/AdvReac Type Severity Reaction Status Date / Time No Known Drug Allergies Allergy Verified 02/25/25 12:16 Review of Systems Review of Systems Narrative: All other systems reviewed with the patient and are negative unless otherwise stated. Exam Vital Signs (past 8 hours): - 03/02/25 08:03 03/02/25 09:59 03/02/25 12:00 Temperature 97.7 F 97.1 F L Pulse Rate 85 82 Respiratory Rate 18 18 Blood Pressure 126/65 102/61 Pulse Oximetry 99 100 Oxygen Delivery Method Room Air Oxygen Flow Rate 0 0 Oxygen Delivery Method Room Air Oxygen Flow Rate 0 Narrative Exam Narrative: General - in no distress, alert and oriented today. HEENT - hearing loss, has hearing aids, atraumatic CVS - RRR RS - CTA GI - abdomen soft, not distended. R flank tenderness. UG - indwelling Rogers Neuro - w/o focal acute weakness, chronic Rt leg weakness, appears somewhat confused Objective Labs 03/02/25 03:46 03/02/25 03:46 Labs: Laboratory Results - last 24 hr 03/01/25 03/02/25 16:59 03:46 WBC 6.1 6.7 RBC 3.40 L 3.37 L Hgb 10.1 L 9.9 L Hct 28.7 L 28.7 L MCV 84.4 85.0 MCH 29.7 29.5 MCHC 35.2 34.7 RDW 12.4 12.4 Plt Count 284 278 Neut % (Auto) 79.9 H 79.6 H Lymph % (Auto) 10.7 L 9.9 L [place] % (Auto) 8.2 8.9 Eos % (Auto) 0.6 L 0.9 L Baso % (Auto) 0.6 0.7 Neut # (Auto) 4900 5300 Lymph # (Auto) 600 L 700 L [place] # (Auto) 500 600 Eos # (Auto) 0 100 Baso # (Auto) 0 0 PT 17.2 H INR 1.5 H APTT 43 H Sodium 123 L 125 L Potassium 4.7 4.4 Chloride 90 L 93 L Carbon Dioxide 29 27 BUN 32 H 30 H Creatinine 1.78 H 1.81 H Estimated GFR 39 L 38 L BUN/Creatinine Ratio 18.0 16.6 Glucose 121 H 111 H Hemoglobin A1c 6.0 Lactate 0.8 Calcium 9.0 9.0 Magnesium 1.9 Total Bilirubin 0.5 AST 34 ALT 17 Alkaline Phosphatase 112 Total Creatine Kinase 39 L Troponin I < 0.012 NT-Pro-B Natriuret Pep 3240 H Total Protein 7.1 Albumin 3.8 Globulin 3.3 Albumin/Globulin Ratio 1.2 Triglycerides 133 Cholesterol 175 LDL Cholesterol, Calc 94 HDL Cholesterol 54 Lipase 10 L Assessment & Plan Assessment & Plan narrative: Possible TIA, Acute metabolic encephalopathy, weakness - Unclear if TIA, suspect more likely acute encephalopathy due to hyponatremia or pain related weakness at this time. - MR brain pending, r/o CVA - CT abd/pelvis, consider discussion with urology if worsening hyponatremia, renal function, or if pain related to hydronephrosis is unclear at this time. - as noted below, MR of L spine if negative evaluation above. - positive UA on 02/25 but negative cultures at that time. Currently on keflex, prescribed 10 days from the ER on 02/25. Hyponatremia, acute on chronic, present on admission. - Unclear if related to hydronephrosis or not. First eval with CT of his abdomen to see if increasing obstruction / hydronephrosis or not. - Will obtain Urine Na and urine osm today. - Na improved to 125 on repeat, will continue to follow. Acute on chronic R leg weakness - physical exam shows R flank pain, but proximal muscle weakness of his R leg without sensory deficits. distal plantar flexion +5/5. - Also with IT band pain on the R leg based on descriptio of pain and exam. - MR L spine ordered by PCP, spinal etiologies seem less likely at this time. Will evaluate first with brain MRI, and repeat CT of his abdomen to rule out possible worsening hydronephrosis leading to R flank pain and hyponatremia. - if above workup is negative, plan for MRI L spine to rule out spinal pathologies. - PT / OT consultation Bladder outlet obstruction with chronic hydronephrosis - followed by urology and planned cystoscopy for bladder thickening - had TURP, brachyTx and 2nd limited TURP for brachyTx removal - b/l hydronephrosis and renal function at CKD stage 3a-3b level since almost a month now - as noted above, pending repeat abdominal CT to see if pain related to hydronephrosis. - baseline cr around 1.7 UTI, present prior to admissino. - continue previously prescribed Keflex Rt leg DVT - continue eliquis Exocrine Pancreatic Insufficiency - Creon with meals Code: Full, surrogate is patient's spouse DVT: Lovenox daily I have utilized all available immediate resources to obtain, update, or review the patient's current medications. Dispo: patient admitted under inpatient status due to hyponatremia. Unclear discharge timing 2-3 days pending the above evaluation. Additional history obtained via discussions with the overnight telehospitalist. These discussions contributed to the creation of the above assessment and plan. I have reviewed patient's presenting documentation, labs, and imaging personally. Time-Based Coding :: [TOTAL MINUTES] spent with patient and on the chart (including review of chart, obtaining history, exam, reviewing outside data, placing orders, documenting exam and treatment plan, and counseling patient) on [DATE].
--- NOTE | 2025-03-02 15:18 | CM.DANOTE ---
Initial DCP Assessment Visit Note Reviewed EMR and team rounds for status updates. Met with several family members in the room to discuss potential home d/c needs, as well as obtain some of the recent hx of decline and resources being used. Pt is modified independent, lives at home with his in [place]. If he discharges from , we will need to notifiy [facility] of d/c and provide resumption orders. Pt at this time is possibly pending transfer if his kidney function remains impaired. Per , he was been steadily declining and becoming less functional since , and has had 3-ED visits between [place] and current hospitalization. If he returns home, family will transport. Payor: Medicare PCP: Dr Cristina Pt is a 84 year-old M witwith a hx of HTN, prostate cancer, urosepsis, and urinary retention with a chronic catheter, as well as past TIA. He presented to the ED via EMS after becoming very confused yesterday afternoon, did not remember talking to his dtr on the phone, and was not oriented or able to answer questions appropriately, then his legs gave out and he slid to the ground (non-injurty) Family shared that he has been steadily declining in overall disease function since , and that he's had 3-ED visits since that time. He uses a walker at baseline for mobility, however due to chronic back pain, he is mostly sedentary. CT was negative for abnormalities. [facility] was consulted, and the decision was made to admit him for furher eval and monitoring of his stroke symptoms. Brain MR results are currently pending. DCP will continue to monitor and assist with final d/c coordination and referral needs. Discharge Planning/Care Management Advanced directive, confirm from FAMILY Start: 03/02/25 00:24 Freq: Q24H Status: Active Protocol: Document 03/02/25 00:24 (Rec: 03/02/25 00:35 [id number]) Advance Directive, confirm on record Time 00:35 Person contacted patient/ spouse Copy received No CM Discharge Assessment Start: 03/01/25 22:45 Freq: Status: Active Protocol: Document 03/02/25 15:16 DPL (Rec: 03/02/25 15:18 DPL [id number]) Discharge Planning Assessment Assigned Framer KAYDEN Rubi Advance Directives? No Advance Directives on File No History Provided By Family Member,Significant Other Expected Length of Stay 3 Has Patient been admitted in last 30 No days? Prior Living Arrangements House Household Members spouse Type of transporation used prior to Relies on Others admit Independent with ADL's No: Modified ind. with a walker and family assistance. Needs Assistance With Meal Prep,Managing Medications ,Home Chores / Shopping Caregiver for Another No Comment OP Urology DME Already Rented / Owned Bath Bench,Elevated Toilet Seat,FWW / Walker Patient/Family Preference Home with Home Health Barriers to Discharge No Discharge Plan Home Community Services Physical Therapy,Home Health Aid,Home Health Nurse Transportation Arrangement Family Referrals Initiated None needed Additional Comment Will need to contact [facility] at d/c to resume services. If patient plan is home with home health No : Has signed face to face form been completed? Whiteboard Updated in Patient Room with Yes name and ext. # of Framer Review Status In Process Please Provide Date Initial DC 03/02/25 Assessment Was Performed
--- NOTE | 2025-03-02 16:48 | PT.IIE ---
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) Chronic kidney disease, stage 3 unspecified (03/01/25) Bladder-neck obstruction (03/01/25) Surgical History (Last Reviewed 03/02/25 @ 02:41 by Boubacar Jalloh MD) History of transurethral resection of prostate (07/27/19) Medical History (Last Reviewed 03/02/25 @ 02:41 by Boubacar Jalloh MD) Bladder outlet obstruction Chronic anticoagulation Elevated serum creatinine Gross hematuria High blood pressure History of prostate cancer Hx of brachytherapy (04/10/18) Lower urinary tract symptoms (LUTS) Prostatic calculi Right leg DVT Urge incontinence Physical Therapy Inpatient Evaluation/Re-Eval M1 PT/OT-IP Prior Functional Status Start: 03/02/25 16:54 Freq: NEEDED Status: Active Protocol: Document 03/02/25 16:54 DLM (Rec: 03/02/25 17:25 DLM Desktop) Medical Review Prior Functional Status Medical History Reviewed Yes Diet/Fluid Consistency Regular Communication WNL, wears glasses Mobility and Gait Independent without a device. Has been using a FWW to manage his back pain at home recently (since January hospitalization). He is able to go up and down stairs at home using the handrail. He has two FWW's at home; one on each level of the house. He reports he stays on the couch a lot where he can position himself to manage his back pain. Activities of Daily Living and IADL's Independent. He has been needing help from his more recently due to his back pain. He was discharged home in January with a harper catheter . Prior Functional Level (Other details) He had only one visit by the home health Physical Therapist between his last hospital discharge and this admission. Social History Household Members spouse Living Arrangements House Number of Floors (Floors) Two Floors Number of Stairs To Enter/Railing? 7 steps with bilateral rails, 7 steps with one rail to get to second floor of house to his bedroom Home Environment Standard Height Toilet,Walk in Shower Home Equipment Bedside Commode Employment Status Retired Additional Social History Comment He describes straining his back in Feb lifting his exercise bike at home. He went to a Chiropractor for his back pain but it did not help. He uses a CBD cream on his back at home that helps for about an hour. He uses a heating pad at home that helps a little. He tried ice but it did not help. He reports losing 30#. He reports food does not taste good to him and he just can't eat much. 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 He is not sure if he was light-headed when this occurred. He reports his legs feel stronger today than they did day of admission . Patient Goals Feel better Therapy Pain Assessment Pain When Pain Assessed During Mobility Pain Present Pain Present Pain Reported Location Back Intensity 5 Scale Used Numeric (0 - 10) Description Aching,Sharp,Shooting,Tender, With Movement Pain Behaviors Facial Grimacing,Wincing Pain Management Techniques Modification of Treatment,Re- positioning M4 PT-IP Mobility and Gait Start: 03/02/25 16:54 Freq: NEEDED Status: Active Protocol: Document 03/02/25 16:54 DLM (Rec: 03/02/25 17:25 DLM Desktop) PT-Bed Mobility Assessment Rolling Type of Rolling Bilateral Level of Assist Independent Supine to Sit Supine to Sit Independent Sit to Supine Sit to Supine Independent Scooting Scooting to Edge of Bed Independent PT-Transfer Assessment Sit to and From Stand Sit to and from Stand Standby Assistance,Use of Upper Extremities Equipment Transfer Assistive Device Front Wheeled Walker Transfers Transfer Destination Bed Transfer Technique Stand Step Pivot Transfer Ability Level of Assist Standby Assistance,Use of Upper Extremities Comments Mobility Comments He is not getting in/out of bed from his side and needs verbal cues to remind him to use this precaution to manage his back pain. He has increased back pain if he tries to lie flat in supine and has less pain if head of bed is elevated. He has increased back pain with trying to sit erect or stand erect and has less pain with mild to moderate flexion of trunk. He reports his back pain gets worse if he bends too far forward. Gait Assessment Gait Gait Assistance Required: Standby Assistance Distance (Feet) 10 Assistive Devices Assistive Device Front Wheeled Walker Gait Deviations General Gait Pattern Flexed Trunk Factors Limiting Gait Function Factors Limiting Gait Function Decreased Activity Tolerance, Decreased Strength,Pain Comments Gait Comments He reports light-headedness with initial standing that resolved with sitting up on the edge of the bed. He developed light-headedness with gait that limited his distance to 10 feet. His light -headedness resolved slowly in sitting. Pt returned to bed to rest per his request. Stair Climbing Assessment Comments Stair Climbing Comments unable to advance to this due to light-headedness during short distance of gait PT-Balance Assessment Sitting Balance and Reactions Static Sitting Balance Ability Good Dynamic Sitting Balance Ability Good Standing Balance and Reactions Static Standing Balance Ability Good Dynamic Standing Balance Ability Good Device Used FWW Functional Assessments Other Functional Tests Performed Straight leg raise test is negative bilaterally. No radicular pain in right LE at this time. Palpation of his back shows pain in lumbar region which is greatest over his kidney areas and right worse than left. M5 PT-IP Objective Assessments Start: 03/02/25 16:54 Freq: NEEDED Status: Active Protocol: Document 03/02/25 16:54 DLM (Rec: 03/02/25 17:25 DLM Desktop) Orientation Orientation/Cognition Level of Alertness Alert Orientation Name,Age,Birthday,Month,Date, Year,Day of Week,Place, Situation Language Function Ability No Deficits Noted Safety Awareness Decreased Safety Awareness Gross Range of Motion Upper Extremity ROM Assessment Within Functional Limits Lower Extremity ROM Assessment Within Functional Limits Strength Upper Extremity Strength Assessment Within Functional Limits Lower Extremity Strength Assessment Right Impaired Hip flexion 3-/5 Knee flex and ext 4/5 Ankle DF 4+/5 Comments Strength Comments left LE: hip flex 5/5, knee flex and ext 5/5, DF 5/5 No back pain with resisted LE movements Coordination Assessment Gross Coordination Gross Coordination WNL Sensation Assessment Sensation Gross Sensation WNL Comments Sensation Comments no numbness reported at this time Muscle Tone Muscle Tone WNL Yes M6 PT-IP Treatment Start: 03/02/25 16:54 Freq: NEEDED Status: Active Protocol: Document 03/02/25 16:54 DLM (Rec: 03/02/25 17:25 DLM Desktop) Physical Therapy Treatment Education Education Provided Safety Other Treatments Other Treatment Performed Pt educated to avoid twisting and use trunk flexion positions to manage his back pain. Pt should be using the FWW at all times. Educated pt to report all light-headedness to staff and to avoid gait when he is light-headed to avoid falls. M7 PT-IP Assessment and Plan Start: 03/02/25 16:54 Freq: NEEDED Status: Active Protocol: Document 03/02/25 16:54 DLM (Rec: 03/02/25 17:25 DLM Desktop) PT Summary Assessment and Plan Potential Rehabilitation Potential Good Status of Condition at Evaluation Evolving Summary Impairments Pain,Strength,Bed Mobility, Transfers,Gait,Activity Tolerance Assessment Summary Jean is alert and resting in bed with his family present. He describes ongoing back pain that limits his gait and mobility. He was admitted with worsening of his LE weakness and a fall at home when his LE 's gave out. He is medically complicated with ongoing bladder and kidney impairments . He continues to have a Harper catheter due to urine retention. Noted in his chart review that patient has only Tylenol ordered for his back pain at this time. He describes limited management of his back pain at home with use of Tylenol and creams he uses on his back. Clinical testing today shows improved LE strength with chronic right LE weakness greater than left . Pt was able to ambulate only a short distance with the FWW this visit due to light- headedness limiting his activity tolerance. Pt and his family want for him to discharge home when he is medically stable. Jean is medically complex at this time and is at increased risk for falls. Recommend he resume home health Physical Therapy when he discharges home to continue to address his back pain and strengthening. Goals Bed Mobility Goal Independent Transfer Goal Independent,Front Wheeled Walker Gait Goal Standby Assistance,Front Wheel Walker Gait Distance 100 feet without light- headedness Other Goals up/down 7 steps with bilateral rails and SBA Days to Meet Goals 5 Frequency of Treatment Frequency Of Treatment Once a Day Treatment Plan Physical Therapy Treatment Plan Bed Mobility Training,Transfer Training,Gait Training, Therapeutic Exercise,Balance Retraining,Discharge Planning, Hot or Cold Pack,Neuromuscular Re-ed Other Recommendations and Next Treatment back pain management Focus Precautions Lumbar Precautions Log Roll,No Twisting,Limit Bending,Lifting Restriction of 10 lbs Other Precautions manage his back pain monitor for light-headedness Recommendations To Nursing Amount of Assist Needed Standby Assistance Discharge Recommendations PT Discharge Recommendations Home with 18/05 Assist Available,Home Health Other Discharge Recommendations home PT to address his back pain and strengthening Transportation Needs at Discharge Private Vehicle - PT assist 1
--- NOTE | 2025-03-02 17:12 | DI.MRI.S_ITS ---
PROCEDURE: MR LUMBAR SPINE WO CON INDICATIONS: R leg unilateral weakness with low back pain TECHNIQUE: Noncontrast sagittal T1 spin echo and T2 fast echo, sagittal STIR, and T2 fast spin echo through the lumbar spine. In cases with scoliosis, additional coronal T2 fast spin echo may be performed. COMPARISON: [facility], CT, CT ABDOMEN PELVIS WO CON, 03/02/2025, 14:56. FINDINGS: Image quality: Excellent. Alignment and Curvature: There is trace retrolisthesis of L4 on L5. Mild leftward curvature. Bone Marrow: Marrow is of normal overall signal. No acute vertebral body compression fractures. Spinal Cord: Conus medullaris terminates at the L1 level. Visualized cord demonstrates normal signal and size. 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 Paraspinous Soft Tissues: No paravertebral masses. T2 hyperintensities within the kidneys likely cysts. Discs: Multilevel gmjj-us-vobamigy disc desiccation most severe at L4-5. T12-L1: No disc bulge, spinal stenosis or foraminal narrowing. L1-L2: Minimal disc bulge without spinal stenosis or foraminal narrowing. Facet and ligamentum flavum hypertrophy are present. L2-L3: Mild disc bulge with mild spinal stenosis. Mild bilateral foraminal narrowing with facet and ligamentum flavum hypertrophy. L3-L4: Mild disc bulge with mild spinal stenosis. Moderate bilateral foraminal narrowing with facet and ligamentum flavum hypertrophy. L4-L5: Mild disc bulge with moderate spinal stenosis. Moderate to severe right and moderate left foraminal narrowing with facet and ligamentum flavum hypertrophy. L5-S1: Mild disc bulge including a right lateral/foraminal component. Severe right and moderate left foraminal narrowing with mild compression of the exiting right L5 nerve roots. Facet and ligamentum flavum hypertrophy are present. IMPRESSION: Multilevel degenerative changes including disc bulges, spinal stenosis and foraminal narrowing. Foraminal narrowing is most significant at L5-S1 demonstrating mild compression of the right exiting L5 nerve root. Dictated by: Anuradha Augustin M.D. on 03/02/2025 at 20:07 Approved by: Anuradha Augustin M.D. on 03/02/2025 at 20:11
[2025-03-02] MEDS: LACTULOSE 20 GM/30 ML SOLUTION PO ×2 (17:30→21:20)
[2025-03-02 20:31] LABS: Sodium Urine Random 18 mmol/L (30-90)
--- NOTE | 2025-03-02 21:07 | PC.NURSE ---
RN requested this senior copywriter to do Orthostatic Vitals on patient and RN is aware of the vitals. All vitals were taken on pts Left arm Lying @2001 - 143/73(95), HR-77 Sitting @2002 - 99/57(71), HR-87 Standing @2003 - 93/51(65), HR-87
[2025-03-02] MEDS: SENNOSIDES 8.6 MG TABLET 17.2 MG PO (21:20)
[2025-03-02] MEDS: ACETAMINOPHEN 325 MG TABLET 650 MG PO (21:20)
[2025-03-02] MEDS: LIPASE PROTEASE AMYLASE 3 EACH PO (21:21)
[2025-03-03] VITALS (18 sets, daily range): BP systolic 92–151; BP diastolic 48–73; PULSE 74–95; RESP 12–21; TEMP 35.8–36.3; O2SAT 95–100; BMI 22.8
--- NOTE | 2025-03-03 | DI.RAD.S_ITS ---
PROCEDURE: XR ABDOMEN 1V INDICATIONS: RT STENT PLACEMENT TECHNIQUE: Low resolution intraoperative fluoroscopic spot films were obtained COMPARISON: None. FINDINGS: Intraoperative fluoroscopic spot films show appropriate positioning of double-J ureteral stent IMPRESSION: Fluoroscopic guidance Approved by: Jose Martin Torrez M.D. on 03/06/2025 at 11:28
[2025-03-03] MEDS: cephALEXin 250 MG CAPSULE 500 MG PO ×3 (01:04→21:53)
[2025-03-03 05:37] LABS: Add Manual Diff / Slide Review NO; Basophils Absolute Auto 100 /uL (0-100); Basophils Percent Auto 0.9 % (0-2); Eosinophils Absolute Auto 100 /uL (0-450); Eosinophils Percent Auto 1.4 % (2-4); Hematocrit 27.5 % (41-53); Hemoglobin 9.5 g/dL (13.5-17.5); Lymphocytes Absolute Auto 700 /uL (1100-4500); Lymphocytes Percent Auto 12.3 % (25-40); Mean Corpuscular HGB Conc 34.5 % (30-36); Mean Corpuscular Hemoglobin 29.1 PG (26-34); Mean Corpuscular Volume 84.5 fL (80-100); Monocytes Absolute Auto 500 /uL (0-900); Neutrophils Absolute Auto 4300 /uL (1500-7000); Neutrophils Percent Auto 76.4 % (50-75); Platelet Count 273 X10^3/uL (150-400); Red Blood Cell Count 3.25 X10^6/uL (4.5-5.9); Red Cell Distribution Width 12.1 % (11.6-14.8); White Blood Cell Count 5.6 X10^3/uL (4.5-11.0)
[2025-03-03 05:45] LABS: BUN Creatinine Ratio 17.2 (6-22); Blood Urea Nitrogen 32 mg/dL (9-20); Calcium 9.1 mg/dL (8.4-10.2); Carbon Dioxide 26 mmol/L (22-32); Chloride 92 mmol/L (98-107); Estimated Glomerular Filt Rate 37 mL/min (>60); Glucose 123 mg/dL (70-99); HEMOLYSIS < 15 (0-50); Potassium 4.5 mmol/L (3.4-5.1); Sodium 126 mmol/L (137-145)
[2025-03-03] MEDS: TAMSULOSIN 0.4 MG CAPSULE PO (08:55)
--- NOTE | 2025-03-03 08:56 | P.PN_ITS ---
Subjective Subjective Date Patient Seen: 03/03/25 Time Patient Seen: 07:50 Interval history: Narrative : 80 y/o brought to ED by EMS for confusion. Daughter found him confused at home and summoned EMS. He was recently hospitalized at [facility] for UTI, sepsis, MELISSA and acute urinary obstruction and was discharged home with indwelling catheter to follow up with urology for cystoscopy. He has a history of prostate carcinoma, TURP x 2, thickened bladder wall - planned cystoscopy, is on Flomax and finishing course of Keflex. He has a history of b/l carotid stenosis and intracranial stenosis and TIA/s in the past. ED workup negative for stroke, same degree of renal insufficiency, recent A1C was 5.9. Placed in observation with MRI brain pending In further discussion with patient, he had a fall yesterday after reaching down low to in the refridgerator. He has had a worsening R flank pain, he had pain when he bent down yesterday. He denies numbness, tingling, slurred speech to me but felt weak and had to crawl around. According to the ER report he was using a TV remote as a phone. He was acutely confused per daughter which resolved in under an hour per ER report. He was admitted for possible TIA. In review of admission labs, his sodium was 123 on presentation. He describes his pain as R flank related and radiating down his R leg laterally over the IT band area. It flares up intermittently like yesterday. His PCP had ordered a Lumbar spine MRI that was supposed to be today at the hospital. Interval history: 03/03: The patient reports pain in his back with movement, but otherwise is comfortable at rest. The pain radiates from the right lateral hip area and low back to the distal right lateral thigh, without pain [id number]. He is unable to get up without severe pain, and is essentially nonambulatory as a result, and unable to return home, where he has to navigate multiple levels of stairs in his level home. He notes he is awaiting cardiac clearance for planned urologic surgery for bilateral hydronephrosis and urethral obstruction due to history of prostate cancer with prostatic seeds with erosion into the bladder neck, PSA 01/04/2025 undetectable at less than 0.64. Note also recent Klebsiella urinary infection with sepsis two weeks ago requiring hospitalization. Exam Vital Signs (past 8 hours): - 03/03/25 03:23 03/03/25 07:00 Temperature 97.3 F L 97.1 F L Pulse Rate 81 90 Respiratory Rate 21 21 Blood Pressure 138/68 102/48 L Pulse Oximetry 100 100 Oxygen Flow Rate 0 0 Oxygen Delivery Method Room Air Oxygen Flow Rate 0 Narrative Exam Narrative: GENERAL: This is a well-nourished, well-developed patient, in no apparent distress. HEAD: Atraumatic. Normocephalic. No temporal or scalp tenderness. EYES: Pupils equal round and reactive. Extraocular motions intact. No scleral icterus. No injection or drainage. ENT: Mucous membranes pink and moist. NECK: Trachea midline. No JVD, bruits or lymphadenopathy. Supple, nontender, no meningeal signs. CARDIOVASCULAR: Regular rate and rhythm without murmurs, gallops, or rubs. RESPIRATORY: Clear to auscultation. GASTROINTESTINAL: Abdomen soft, non-tender, nondistended. EXTREMITIES: No clubbing, cyanosis, or edema. BACK: Nontender without deformity or crepitance. No flank tenderness. NEUROLOGIC: Alert, oriented, speech fluent, full upper and lower motor strength, no focal deficits evident. Severe pain in the right leg with walking. DERMATOLOGIC: No rashes or skin lesions. Objective ECG Impression: 03/01/2025: Sinus rhythm with 1st degree AV block Imaging *: Radiologist's impression: 1. Head CT 03/01/2025: Motion limited study, without an acute intracranial abnormality seen. 2. Brain MRI 03/02/2025: Atrophy and mild white matter chronic ischemic change without acute infarct, hemorrhage or mass lesion Right maxillary mucosal sinus disease, improved from the prior 3. Head/neck CTA 03/01/2025: High-grade narrowing again seen involving the left P1 segment, without significant change from the prior.50% narrowing seen involving the left V4 segment. 70-80% narrowing seen involving the left proximal internal carotid artery. Mild narrowing can be seen involving the origins of the origins of the vertebral arteries. The If there is strong clinical suspicion for an acute stroke, please consider a brain MRI for further evaluation, as it is more sensitive (assuming that there is no contraindication to MRI). 4. Chest xray 03/01/2025: Motion limited study, without an acute intracranial abnormality seen. 5. Abdomen-pelvis CT without contrast 03/02/2025: Bilateral and fairly symmetric hydronephrosis, similar extent compared to priors. Given bilaterality, this is likely due to distal/bladder process. Colonic obstipation, primarily proximal, similar to increased compared to prior exam. Mesenteric adenopathy and hazy/divya mesentery appearance has not significantly changed since December 2024, but new since 09/02/23. 6. Lumbar MRI without contrast 03/02/2025: Multilevel degenerative changes including disc bulges, spinal stenosis and foraminal narrowing. Foraminal narrowing is most significant at L5-S1 demonstrating mild compression of the right exiting L5 nerve root. 7. Carotid doppler US 02/16/2025: 1. In the right carotid artery, there is 50-69% stenosis based on peak systolic velocity criteria. 2. In the left carotid artery, there is 70% stenosis- near occlusion based on peak systolic velocity criteria. 3. Antegrade vertebral arteries. 4. Incompletely characterized left submandibular 4.[address] neck soft tissue with contrast recommended for further evaluation. 8. NM myocardial perfusion scan 02/16/2025: This is a normal myocardial perfusion study. Preserved LV function. No ischemic EKG changes. Intermittent PVCs without any ventricular tachycardia during stress. Overall, low-risk myocardial perfusion scan. 9. Echocardiogram 02/15/2025: Normal sinus rhythm. Normal LV size; there is moderate eccentric left ventricular hypertrophy localized to the septum measuring 1.5 cm in end diastole. Normal wall motion and LV systolic function. Ejection fraction is 60-65%. Normal chamber sizes. Aortic sclerosis without stenosis. No left ventricular outflow tract obstruction. No prior study available for comparison. 10. Venous doppler US 02/12/2025: No findings of lower extremity deep venous thrombosis. 11. Renal US 02/14/2025: Bilateral moderate hydronephrosis without significant change compared to prior CT scan. Labs 03/03/25 04:30 03/03/25 04:30 Labs: Laboratory Results - last 24 hr 03/02/25 03/03/25 19:54 04:30 WBC 5.6 RBC 3.25 L Hgb 9.5 L Hct 27.5 L MCV 84.5 MCH 29.1 MCHC 34.5 RDW 12.1 Plt Count 273 Neut % (Auto) 76.4 H Lymph % (Auto) 12.3 L [place] % (Auto) 9.0 Eos % (Auto) 1.4 L Baso % (Auto) 0.9 Neut # (Auto) 4300 Lymph # (Auto) 700 L [place] # (Auto) 500 Eos # (Auto) 100 Baso # (Auto) 100 Sodium 126 L Potassium 4.5 Chloride 92 L Carbon Dioxide 26 BUN 32 H Creatinine 1.86 H Estimated GFR 37 L BUN/Creatinine Ratio 17.2 Glucose 123 H Calcium 9.1 Magnesium 2.0 Ur Random Sodium 18 L PFSH Medical History Bladder outlet obstruction Chronic anticoagulation Elevated serum creatinine Gross hematuria High blood pressure History of prostate cancer Hx of brachytherapy (04/10/18) Lower urinary tract symptoms (LUTS) Prostatic calculi Right leg DVT Urge incontinence Surgical History History of transurethral resection of prostate (07/27/19) Social History marital status: number of children: 2 household members: spouse 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 - Doubt TIA, suspect more likely acute encephalopathy due to cyclobenzaprine, with secondary hyponatremia. - positive UA on 02/25 but negative cultures at that time. Currently on keflex on time of admission, prescribed 10 days from the ER on 02/25. Acute on chronic R leg weakness - MRI 03/02: Right L5 nerve root impingement, exacerbated by overexertion with heavy lifting on 12/14/2024 lifting a heavy object - Pain is worsened and debilitating. - Plan for IV steroid then oral prednisone taper after ureteral obstruction treated, to rule out upper tract infection before giving steroids - Hold PT/OT until pain improved Bladder outlet obstruction with chronic hydronephrosis/acute kidney injury - followed by urology and planned cystoscopy/possible ureteral stenting for bladder thickening - note no improvement in creatinine despite Rogers catheter bladder decompression - he is cleared from a cardiac and medical perpective to have this treated today, with normal myocardial perfusion scan, echocardiogram and lower extremity US in the past 3 weeks -had TURP, brachyTx and 2nd limited TURP for brachyTx removal - b/l hydronephrosis and renal function at CKD stage 3a-3b level since almost a month now - baseline cr around 1.0 in December prior to this obstruction UTI, present prior to admissino. - UA negative for infection, consider upper tract infection - hold previously prescribed Keflex Hyponatremia, acute on chronic, present on admission. 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 PROFEE Product Handler Document charge(s): No Charge Codes Subsequent inpatient/observation care: [id number]
--- NOTE | 2025-03-03 08:59 | OT.IPNOTE ---
Per hospitalist discharge pt OT eval orders as pt not medically appropriate to be seen at this time.
--- NOTE | 2025-03-03 09:07 | PT.IPTN ---
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) Chronic kidney disease, stage 3 unspecified (03/01/25) Bladder-neck obstruction (03/01/25) Physical Therapy Treatment Note M2 PT-IP Current Condition Start: 03/02/25 16:54 Freq: NEEDED Status: Active Protocol: Document 03/02/25 16:54 DLM (Rec: 03/02/25 17:25 DLM Desktop) Physical Therapy Current Condition Current Condition Evaluation Date 03/02/25 Treatment Diagnosis AMS, back pain, impaired gait Onset Date 03/01/25 M3 PT-IP Subjective Start: 03/02/25 16:54 Freq: NEEDED Status: Active Protocol: Document 03/03/25 09:07 AB (Rec: 03/03/25 09:07 AB [id number]) Subjective Physical Therapy Visit Type Type Administrative Note Notes Per hospitalist, d/c PT. Pt not appropriate for PT at this time. Document 03/03/25 09:07 AB (Rec: 03/03/25 09:07 AB [id number]) PT Summary Assessment and Plan Frequency of Treatment Frequency Of Treatment Discharge
[2025-03-03] MEDS: DEXTROSE 5%-0.9% NS 1,000 ML 125 ML IV (09:24)
[2025-03-03 09:53] LABS: Appearance Urine UA CLEAR; Bilirubin Urine UA NEGATIVE (NEGATIVE); Color Urine UA YELLOW; Glucose Urine UA NEGATIVE (Negative); Ketones Urine UA NEGATIVE (NEGATIVE); Leukocyte Esterase Urine UA TRACE (NEGATIVE); Nitrite Urine UA NEGATIVE (Negative); Occult Blood Urine UA 3+ (Negative); Protein Urine UA 2+ (Negative); Specific Gravity Urine UA 1.025 (1.000-1.035); Urobilinogen Urine UA 0.2 E.U./dL (0.2); pH Urine UA 5.5 (4.5-8.0)
--- NOTE | 2025-03-03 09:59 | PC.NURSE ---
Per Dr Eisenberg, keep patient NPO, medications with sips of water okay.
[2025-03-03 10:20] LABS: RBC Urine 30-100/HPF (0-5/HPF); Urine Volume 10mL (spun); WBC Urine 1-5/HPF (0-5/HPF)
[2025-03-03 10:21] LABS: Bacteria Urine None Seen; Culture Indicated Urine Cult Not Indicated; Hyaline Casts Urine 1-5/LPF; Squamous Epithelial Cell Urine 0-1 /HPF (0-5/HPF)
--- NOTE | 2025-03-03 13:19 | PM.CN.IH.1 ---
History of Present Illness Consult details Date Patient Seen: 03/03/25 Time Patient Seen: 12:00 Chief complaint: AMS Reason for consult: Bilateral hydronephrosis with worsening renal function Requesting provider: Brooks Eisenberg Narrative: This 80-year-old male is admitted to the hospital with complaints of severe sciatica. And had known hydronephrosis had a Rogers catheter placed in his creatinine had been improving however it is worsening and the hydronephrosis has persisted and there was still contrast from a CT scan done on the some 6 or 7 days ago that has persisted. Again renal function is worsening. And the hospitalist service would like to give the patient IV steroids to help with his sciatica back pain. Patient has a history of prostate cancer, brachytherapy in his had some gross hematuria. He has a Rogers catheter which continues in place and is draining well. Creatinine has risen up to 1.86 with a GFR of 37. Patient had been taking Eliquis. He had had a recent cardiac workup and has carotid stenosis 70% or high-grade on 1 side. His case was reviewed with anesthesia to see if these could be done safely again this is in a an urgent to emergent case given his pain needs seemingly worsening renal function plan would be for cystoscopy with bilateral stent placement. The procedure, risks, alternatives were discussed with the patient his son and and they wished to proceed. The risks for the procedure to include but not limited to bleeding, infection, injury to surrounding structures, failure to place stents, possible need for Interventional Radiology to place bilateral percutaneous nephrostomy tubes, unforeseen and unpredictable consequences in sequelae, anesthetic complications possibility for adverse cardiovascular events to include heart attack, stroke, DVT. With the questions answered they voiced understanding and acceptance of risks and wished to proceed. Patient's CT scan again shows bilateral hydronephrosis Rogers catheter in place the ureters seemed to be of uniform diameter without filling defect down to the level of the bladder. At cystoscopy in the office we were not able to visualize things clearly and so there is the possibility of an occult urothelial malignancy in the bladder which was discussed with the patient and family and complications of his radiation etc. urinalysis today shows blood but no distinct evidence of infection patient has been on Keflex patient reports he has not taken his Eliquis since the . Meds Home Medications and Allergies Home Medications Medication Instructions Recorded Confirmed Type tamsulosin 0.4 mg capsule 0.4 mg PO DAILY 02/24/24 03/02/25 History apixaban 5 mg tablet (Eliquis) 5 mg PO BID 02/12/25 03/02/25 History jfxlya-vhjjzwgo-irxvxap 3 cap PO TID 02/12/25 03/02/25 History 36,000-114,000-180,000 unit capsule,delay rel (Creon) cephalexin 500 mg capsule 500 mg PO Q8H 10 days #30 caps 02/25/25 03/02/25 Rx Allergies Allergy/AdvReac Type Severity Reaction Status Date / Time No Known Drug Allergies Allergy Verified 02/25/25 12:16 Exam Vital Signs (past 8 hours): - 03/03/25 07:00 03/03/25 07:00 03/03/25 09:15 Temperature 97.1 F L Pulse Rate 90 Respiratory Rate 21 Blood Pressure 102/48 L Blood Pressure [Orthostatic Lying] 118/70 Blood Pressure [Orthostatic Sitting] 111/72 Blood Pressure [Orthostatic Standing] 92/51 L Pulse Oximetry 100 Oxygen Delivery Method Room Air Oxygen Flow Rate 0 03/03/25 12:00 Temperature 96.5 F L Pulse Rate 86 Respiratory Rate 20 Blood Pressure Blood Pressure [Orthostatic Lying] Blood Pressure [Orthostatic Sitting] Blood Pressure [Orthostatic Standing] Pulse Oximetry 99 Oxygen Delivery Method Oxygen Flow Rate 0 Oxygen Delivery Method Room Air Oxygen Flow Rate 0 Narrative Exam Narrative: General: This is an awake, alert, oriented, uncomfortable appearing male lying in a hospital bed. Abdomen: Soft, nontender. Objective Labs 03/03/25 04:30 03/03/25 04:30 Labs: Laboratory Results - last 24 hr 03/02/25 03/03/25 03/03/25 19:54 04:30 09:30 WBC 5.6 RBC 3.25 L Hgb 9.5 L Hct 27.5 L MCV 84.5 MCH 29.1 MCHC 34.5 RDW 12.1 Plt Count 273 Neut % (Auto) 76.4 H Lymph % (Auto) 12.3 L Marin % (Auto) 9.0 Eos % (Auto) 1.4 L Baso % (Auto) 0.9 Neut # (Auto) 4300 Lymph # (Auto) 700 L Marin # (Auto) 500 Eos # (Auto) 100 Baso # (Auto) 100 Sodium 126 L Potassium 4.5 Chloride 92 L Carbon Dioxide 26 BUN 32 H Creatinine 1.86 H Estimated GFR 37 L BUN/Creatinine Ratio 17.2 Glucose 123 H Calcium 9.1 Magnesium 2.0 Urine Color Yellow Urine Appearance Clear Urine pH 5.5 Ur Specific [place] 1.025 Urine Protein 2+ H Urine Glucose (UA) Negative Urine Ketones Negative Urine Occult Blood 3+ H Urine Nitrate Negative Urine Bilirubin Negative Urine Urobilinogen 0.2 Ur Leukocyte Esterase Trace H Urine RBC 30-100/hpf H Urine WBC 1-5/hpf Ur Squamous Epith Cells 0-1 /hpf Urine Bacteria None seen Hyaline Casts 1-5/lpf Ur Culture Indicated? 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 The patient has been NPO and we will plan to do this around 2:00 a.m. this afternoon. Time-Based Coding :: [35 TOTAL MINUTES] spent with patient and on the chart (including review of chart, obtaining history, exam, reviewing outside data, placing orders, documenting exam and treatment plan, and counseling patient) on [DATE]. PROFEE Charge Codes Inpatient or Observation consultation: 73791 (35 minutes)
--- NOTE | 2025-03-03 13:21 | CM.DPNOTE ---
WADE Jauregui Reviewed chart. Patient discussed in multidisciplinary rounds. It is possible that DR Justin will take patient to the OR for a urololgy procedure, Dr Eisenberg would provide cardiac clearance. Therapies on hold. Patient would like to return home w/family and resumption of [facility] . Emailed F2F, HH order and clinical to Linda at [facility] P [phone]. Plan remains discharge home w/family and Signature . Will await therapy recommendations once patient is medically stable to participate. CM team following clinical course closely in case any discharge needs or concerns arise. NEHAL
--- NOTE | 2025-03-03 13:32 | PM.PREOP ---
Pre-operative Note COVID-19 COVID-19 status: Not tested Interval Note History & Physical reviewed/Exam performed by Physician: Yes Changes to H&P: No
[2025-03-03] MEDS: LACTATED RINGERS 1,000 ML 42 ML IV (14:37)
[2025-03-03] MEDS: CEFAZOLIN 2 GM/100 ML PREMIX 100 ML IV (14:45)
--- NOTE | 2025-03-03 15:00 | SUR.OPER ---
Lithotomy on padded OR bed, head on pillow, arms secured on padded arm boards at <90 degrees abduction. Legs secured in padded yellow fins stirrups.
[2025-03-03] MEDS: iopamidoL 30 ML VIAL INTRAURETH (15:21)
--- NOTE | 2025-03-03 16:21 | P.OP_ITS ---
Operative Date/Time/Diagnoses Date of procedure: 03/03/25 Time of procedure: 16:22 Pre-op diagnosis: Bilateral hydronephrosis elevated serum creatinine Post-op diagnosis: same Procedure & Clinicians Procedure: Cystoscopy right retrograde pyelogram and right ureteral stent placement, attempted left ureteral stent placement (unable to identify ureteral orifice) Same procedure as scheduled: Yes Indications: This is a 80-year-old male who was admitted to the hospital and 3 workup found to have bilateral hydronephrosis and a rising serum creatinine. I believe it was in the 1.86 range. Patient also had back pain profound sciatica was in urinary retention with a Rogers catheter and he presents at this time for cystoscopy and planned bilateral ureteral stent placement or at least attempted. Patient does have a history of prostate cancer and had undergone brachytherapy. Surgeon: Kishore Padilla Click Yes if Unassisted: Yes Anesthesia Type: General Operative Notes Findings: Findings: Urethral meatus is normal the urethra so changes consistent with a Rogers catheter being in place prostatic fossa is remarkable for minimal obstructive character dystrophic calcification fibrinous debris irregular flocculent surface. I do not see any protruding brachytherapy seeds. The trigone and bladder outlet area are obliterated by bullous edema irregularity, nothing that looks like malignancy. It was unable to identify the left ureteral orifice despite extended attempt using 30 and 70 degree lens. Was able to find I think with some luck the right ureteral orifice and perform a retrograde pyelo gram and place a stent the retrograde pyelogram showed dilated distal ureter and then at the level of the vessels a segment of about 3 cm that was quite narrowed and tight. The kidney itself was quite hydronephrotic dilated but smooth with blunted calices. The stent was left in good position this was a 7 Hungarian by multilink stent the string he had been removed and there was clear efflux without evidence of purulence from the stent. An 18 Hungarian team and tip were coude-tip catheter was left in place with 14 cc in the balloon. Closure Type: not applicable Specimen(s): none sent Prosthetic devices, grafts, tissues, transplants, or devices: 1. Seven Hungarian by multi length stent right collecting system good position no string 2. Eighteen Hungarian team and tip 2 way catheter 14 cc in the balloon left in the urethra bladder draining blush colored urine. Estimated Blood Loss (mL): 5 Procedure in detail: Procedure in detail: After informed consent was obtained, the patient was identified brought to the operating room where anesthesia was induced on the patient's bed due to his profound back pain and inability to move. He was then transferred to the operating room bed where he was positioned in the lithotomy position. He was then prepped, draped in a sterile fashion and prepared for Transurethral procedure. After prepping, draping, ensuring an adequate level of anesthesia, time-out and administration of antibiotics (2 g of Ancef) a 22 Hungarian cystoscope was passed through the urethra prostate and in the bladder under direct vision cystoscopy was then performed with the 30 in 70 degree lens. The ureteral orifices were not immediately visible and then with the 30 and 70 degree lens probing through the very irregular bullous edema crevices neurogenic webbing I eventually identified the right ureteral orifice. This was with a 70 degree lens and with the aid of an Edgard bridge I was able to pass a wire up and end of the collecting system this did coil at the level of the vessels I passed a Lawton catheter over the wire left in place and retrograde pyelogram was performed. There was the area of narrowing noted and with a Lawton catheter in place I was able to manipulate the hybrid wire up and into the renal pelvis. The Lawton catheter was advanced over the wire into the renal pelvis where retrograde pyelogram was again performed confirming that it was in the collecting system. The wire was replaced backloaded through the cystoscope and the stent was passed over the wire and up into the collecting system where it was position via fluoroscopic visualization in the bladder under direct vision, the nylon harness was removed and the stent was left in good position with the right ureteral orifices a landmark I then tried for an extended period of time approximately an hour to identify the left ureteral orifice. I could not identify it. At this point there were some points of bleeding which were controlled with the Bugbee electrode the bladder was filled the scope was removed and the catheter was passed through the urethral prostate into the bladder without difficulty the balloon was filled 14 cc of sterile water and placed to gravity drainage. At this point the patient was awakened having tolerated the procedure well transferred to the postanesthesia care unit where he will be recovered and then transferred to the rizo and back into the care of the hospitalist. The patient tolerated the procedure well and there were no complications Complications: none Post-operative Condition: stable Disposition: PACU Plan for aftercare: Patient will be recovered in recovery and then transferred to the care of Dr. Chanda deluna who he was received from back in acute care. He will likely need a percutaneous nephrostomy tube to drain the left collecting system and then perhaps internalization of a stent either at that time or several days later to facilitate internal drainage. Other care we will be per the hospitalist.
[2025-03-03] MEDS: methylPREDNISolone 125 MG/2 ML VIAL IV (16:56)
[2025-03-03] MEDS: SENNOSIDES 8.6 MG TABLET 17.2 MG PO (21:53)
[2025-03-03] MEDS: APIXABAN 5 MG TABLET PO (21:53)
[2025-03-04 03:00] VITALS: BP 124/64; BP 136/74; BP 87/43; PULSE 109; PULSE 96; RESP 20; TEMP 36.6; O2SAT 97
[2025-03-04] MEDS: DEXTROSE 5%-0.9% NS 1,000 ML 125 ML IV (05:25)
[2025-03-04 05:44] LABS: Add Manual Diff / Slide Review NO; Basophils Absolute Auto 0 /uL (0-100); Basophils Percent Auto 0.2 % (0-2); Eosinophils Absolute Auto 0 /uL (0-450); Hematocrit 28.4 % (41-53); Hemoglobin 9.9 g/dL (13.5-17.5); Lymphocytes Absolute Auto 200 /uL (1100-4500); Lymphocytes Percent Auto 5.9 % (25-40); Mean Corpuscular HGB Conc 34.8 % (30-36); Mean Corpuscular Hemoglobin 29.5 PG (26-34); Mean Corpuscular Volume 84.9 fL (80-100); Monocytes Absolute Auto 100 /uL (0-900); Neutrophils Absolute Auto 2900 /uL (1500-7000); Neutrophils Percent Auto 91.9 % (50-75); Platelet Count 279 X10^3/uL (150-400); Red Blood Cell Count 3.34 X10^6/uL (4.5-5.9); Red Cell Distribution Width 12.5 % (11.6-14.8); White Blood Cell Count 3.2 X10^3/uL (4.5-11.0)
[2025-03-04 05:50] LABS: BUN Creatinine Ratio 18.3 (6-22); Blood Urea Nitrogen 33 mg/dL (9-20); Calcium 9.2 mg/dL (8.4-10.2); Carbon Dioxide 24 mmol/L (22-32); Chloride 95 mmol/L (98-107); Estimated Glomerular Filt Rate 38 mL/min (>60); Glucose 298 mg/dL (70-99); HEMOLYSIS < 15 (0-50); Magnesium 1.9 mg/dL (1.6-2.3); Potassium 4.7 mmol/L (3.4-5.1); Sodium 127 mmol/L (137-145)
[2025-03-04] MEDS: cephALEXin 250 MG CAPSULE 500 MG PO (05:57)
[2025-03-04] MEDS: TAMSULOSIN 0.4 MG CAPSULE PO (08:17)
[2025-03-04] MEDS: LIPASE PROTEASE AMYLASE 3 EACH PO ×3 (08:17→17:09)
[2025-03-04] MEDS: APIXABAN 5 MG TABLET PO ×2 (08:17→21:07)
[2025-03-04 08:18] VITALS: BP 135/67; PULSE 90; RESP 17; TEMP 36.3; O2SAT 99
--- NOTE | 2025-03-04 11:03 | PM.PN.IH.1 ---
Subjective Subjective Date Patient Seen: 03/04/25 Time Patient Seen: 07:53 Interval history: Narrative : 80 y/o brought to ED by EMS for confusion. Daughter found him confused at home and summoned EMS. He was recently hospitalized at [facility] for UTI, sepsis, MELISSA and acute urinary obstruction and was discharged home with indwelling catheter to follow up with urology for cystoscopy. He has a history of prostate carcinoma, TURP x 2, thickened bladder wall - planned cystoscopy, is on Flomax and finishing course of Keflex. He has a history of b/l carotid stenosis and intracranial stenosis and TIA/s in the past. ED workup negative for stroke, same degree of renal insufficiency, recent A1C was 5.9. Placed in observation with MRI brain pending In further discussion with patient, he had a fall yesterday after reaching down low to in the refridgerator. He has had a worsening R flank pain, he had pain when he bent down yesterday. He denies numbness, tingling, slurred speech to me but felt weak and had to crawl around. According to the ER report he was using a TV remote as a phone. He was acutely confused per daughter which resolved in under an hour per ER report. He was admitted for possible TIA. In review of admission labs, his sodium was 123 on presentation. He describes his pain as R flank related and radiating down his R leg laterally over the IT band area. It flares up intermittently like yesterday. His PCP had ordered a Lumbar spine MRI that was supposed to be today at the hospital. Interval history: 03/03: The patient reports pain in his back with movement, but otherwise is comfortable at rest. The pain radiates from the right lateral hip area and low back to the distal right lateral thigh, without pain [id number]. He is unable to get up without severe pain, and is essentially nonambulatory as a result, and unable to return home, where he has to navigate multiple levels of stairs in his level home. He notes he is awaiting cardiac clearance for planned urologic surgery for bilateral hydronephrosis and urethral obstruction due to history of prostate cancer with prostatic seeds with erosion into the bladder neck, PSA 01/04/2025 undetectable at less than 0.64. Note also recent Klebsiella urinary infection with sepsis two weeks ago requiring hospitalization. 03/04: The patient underwent successful right ureteral stenting on 03/03, unable to stent the left ureter, with bladder cautery of bleeding sites. He was given a dose of IV Solu-Medrol 125 mg postoperatively for back pain/sciatica. Today he states his back pain is gone and he is feeling much better, having been up and walked in the room without difficulty to go to the bathroom. Exam Vital Signs (past 8 hours): - 03/04/25 07:00 03/04/25 08:18 Temperature 97.4 F L Pulse Rate 90 Respiratory Rate 17 Blood Pressure 135/67 Pulse Oximetry 99 Oxygen Delivery Method Room Air Oxygen Flow Rate 0 Oxygen Delivery Method Room Air Oxygen Flow Rate 0 Narrative Exam Narrative: GENERAL: This is a well-nourished, well-developed patient, in no apparent distress. HEAD: Atraumatic. Normocephalic. No temporal or scalp tenderness. EYES: Pupils equal round and reactive. Extraocular motions intact. No scleral icterus. No injection or drainage. ENT: Mucous membranes pink and moist. NECK: Trachea midline. No JVD, bruits or lymphadenopathy. Supple, nontender, no meningeal signs. CARDIOVASCULAR: Regular rate and rhythm without murmurs, gallops, or rubs. RESPIRATORY: Clear to auscultation. GASTROINTESTINAL: Abdomen soft, non-tender, nondistended. EXTREMITIES: No clubbing, cyanosis, or edema. BACK: Nontender without deformity or crepitance. No flank tenderness. NEUROLOGIC: Alert, oriented, speech fluent, full upper and lower motor strength, no focal deficits evident. Severe pain in the right leg with walking. DERMATOLOGIC: No rashes or skin lesions. Objective ECG Impression: 03/01/2025: Sinus rhythm with 1st degree AV block Imaging *: Radiologist's impression: 1. Head CT 03/01/2025: Motion limited study, without an acute intracranial abnormality seen. 2. Brain MRI 03/02/2025: Atrophy and mild white matter chronic ischemic change without acute infarct, hemorrhage or mass lesion Right maxillary mucosal sinus disease, improved from the prior 3. Head/neck CTA 03/01/2025: High-grade narrowing again seen involving the left P1 segment, without significant change from the prior.50% narrowing seen involving the left V4 segment. 70-80% narrowing seen involving the left proximal internal carotid artery. Mild narrowing can be seen involving the origins of the origins of the vertebral arteries. The If there is strong clinical suspicion for an acute stroke, please consider a brain MRI for further evaluation, as it is more sensitive (assuming that there is no contraindication to MRI). 4. Chest xray 03/01/2025: Motion limited study, without an acute intracranial abnormality seen. 5. Abdomen-pelvis CT without contrast 03/02/2025: Bilateral and fairly symmetric hydronephrosis, similar extent compared to priors. Given bilaterality, this is likely due to distal/bladder process. Colonic obstipation, primarily proximal, similar to increased compared to prior exam. Mesenteric adenopathy and hazy/divya mesentery appearance has not significantly changed since December 2024, but new since 09/02/23. 6. Lumbar MRI without contrast 03/02/2025: Multilevel degenerative changes including disc bulges, spinal stenosis and foraminal narrowing. Foraminal narrowing is most significant at L5-S1 demonstrating mild compression of the right exiting L5 nerve root. 7. Carotid doppler US 02/16/2025: 1. In the right carotid artery, there is 50-69% stenosis based on peak systolic velocity criteria. 2. In the left carotid artery, there is 70% stenosis- near occlusion based on peak systolic velocity criteria. 3. Antegrade vertebral arteries. 4. Incompletely characterized left submandibular 4.[address] neck soft tissue with contrast recommended for further evaluation. 8. NM myocardial perfusion scan 02/16/2025: This is a normal myocardial perfusion study. Preserved LV function. No ischemic EKG changes. Intermittent PVCs without any ventricular tachycardia during stress. Overall, low-risk myocardial perfusion scan. 9. Echocardiogram 02/15/2025: Normal sinus rhythm. Normal LV size; there is moderate eccentric left ventricular hypertrophy localized to the septum measuring 1.5 cm in end diastole. Normal wall motion and LV systolic function. Ejection fraction is 60-65%. Normal chamber sizes. Aortic sclerosis without stenosis. No left ventricular outflow tract obstruction. No prior study available for comparison. 10. Venous doppler US 02/12/2025: No findings of lower extremity deep venous thrombosis. 11. Renal US 02/14/2025: Bilateral moderate hydronephrosis without significant change compared to prior CT scan. Labs 03/04/25 04:30 03/04/25 04:30 Labs: Laboratory Results - last 24 hr 03/04/25 04:30 WBC 3.2 L RBC 3.34 L Hgb 9.9 L Hct 28.4 L MCV 84.9 MCH 29.5 MCHC 34.8 RDW 12.5 Plt Count 279 Neut % (Auto) 91.9 H Lymph % (Auto) 5.9 L Kingfisher % (Auto) 2.0 L Eos % (Auto) 0.0 L Baso % (Auto) 0.2 Neut # (Auto) 2900 Lymph # (Auto) 200 L Kingfisher # (Auto) 100 Eos # (Auto) 0 Baso # (Auto) 0 Sodium 127 L Potassium 4.7 Chloride 95 L Carbon Dioxide 24 BUN 33 H Creatinine 1.80 H Estimated GFR 38 L BUN/Creatinine Ratio 18.3 Glucose 298 H D Calcium 9.2 Magnesium 1.9 PFSH Medical History (Updated 03/03/25 @ 13:29 by Kishore Padilla MD) Bladder outlet obstruction Chronic anticoagulation Elevated serum creatinine Gross hematuria High blood pressure History of prostate cancer Hx of brachytherapy (04/10/18) Lower urinary tract symptoms (LUTS) Prostatic calculi Right leg DVT Urge incontinence Worsening renal function Surgical History History of transurethral resection of prostate (07/27/19) Social History marital status: number of children: 2 household members: spouse 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 - Doubt TIA, suspect more likely acute encephalopathy due to cyclobenzaprine, with secondary hyponatremia. - positive UA on 02/25 but negative cultures at that time. Currently on keflex on time of admission, prescribed 10 days from the ER on 02/25. Acute on chronic R leg weakness - MRI 03/02: Right L5 nerve root impingement, exacerbated by overexertion with heavy lifting on 12/14/2024 lifting a heavy object - Pain is worsened and debilitating, resolved following 1 dose of IV methylprednisolone 125 mg on 03/03. - Plan for IV steroids today then oral prednisone taper. - Consider PT if difficulty with ambulation today. Bladder outlet obstruction with chronic hydronephrosis/acute kidney injury - s/p right ureteral stenting 03/03, will need outpatient percutaneous left nephrostomy following discharge - note no improvement in creatinine prior to admission despite Rogers catheter bladder decompression -had TURP, brachyTx and 2nd limited TURP for brachyTx removal - b/l hydronephrosis and renal function at CKD stage 3a-3b level since almost a month now - baseline cr around 1.0 in December prior to this obstruction, monitor with IV hydration today and hopeful to improve, but still requires left sided ureteral decompression percutaneously as an outpatient this week UTI, present prior to admissino. - UA negative for infection - hold previously prescribed Keflex Hyponatremia, acute on chronic, present on admission. 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 PROFEE Talent Development Manager Document charge(s): No Charge Codes Subsequent inpatient/observation care: [id number]
[2025-03-04] MEDS: methylPREDNISolone 125 MG/2 ML VIAL 80 MG IV (11:45)
[2025-03-04 13:00] VITALS: BP 118/48; BP 135/68; BP 145/56; PULSE 102; PULSE 107
[2025-03-04] MEDS: DEXTROSE 5%-0.9% NS 1,000 ML 100 ML IV (14:09)
[2025-03-04] MEDS: cephALEXin 250 MG CAPSULE PO ×2 (14:09→21:07)
[2025-03-04 16:25] VITALS: BP 165/72; PULSE 81; RESP 16; TEMP 36.3; O2SAT 99
[2025-03-04 20:06] VITALS: BP 169/65; PULSE 85; RESP 20; TEMP 36.1; O2SAT 100
[2025-03-04] MEDS: SENNOSIDES 8.6 MG TABLET 17.2 MG PO (21:07)
[2025-03-05 00:15] VITALS: BP 155/70; PULSE 97; RESP 17; TEMP 37; O2SAT 98
[2025-03-05 05:02] LABS: Add Manual Diff / Slide Review NO; Basophils Absolute Auto 0 /uL (0-100); Basophils Percent Auto 0.1 % (0-2); Eosinophils Absolute Auto 0 /uL (0-450); Hematocrit 28.2 % (41-53); Hemoglobin 9.7 g/dL (13.5-17.5); Lymphocytes Absolute Auto 500 /uL (1100-4500); Mean Corpuscular HGB Conc 34.3 % (30-36); Mean Corpuscular Hemoglobin 29.3 PG (26-34); Mean Corpuscular Volume 85.3 fL (80-100); Monocytes Absolute Auto 700 /uL (0-900); Neutrophils Absolute Auto 8800 /uL (1500-7000); Neutrophils Percent Auto 87.9 % (50-75); Platelet Count 265 X10^3/uL (150-400); Red Cell Distribution Width 12.2 % (11.6-14.8)
[2025-03-05 05:15] LABS: Blood Urea Nitrogen 36 mg/dL (9-20); Carbon Dioxide 22 mmol/L (22-32); Chloride 100 mmol/L (98-107); Estimated Glomerular Filt Rate 43 mL/min (>60); Glucose 185 mg/dL (70-99); HEMOLYSIS < 15 (0-50); Magnesium 1.8 mg/dL (1.6-2.3); Potassium 4.2 mmol/L (3.4-5.1); Sodium 131 mmol/L (137-145)
[2025-03-05] MEDS: cephALEXin 250 MG CAPSULE PO ×3 (05:52→21:02)
[2025-03-05 05:53] VITALS: BP 111/56; BP 123/65; BP 96/53; PULSE 101; PULSE 74; PULSE 95
[2025-03-05] MEDS: ACETAMINOPHEN 325 MG TABLET 650 MG PO ×2 (06:01→13:44)
[2025-03-05] MEDS: LIPASE PROTEASE AMYLASE 3 EACH PO ×3 (08:55→17:12)
[2025-03-05] MEDS: APIXABAN 5 MG TABLET PO ×2 (09:16→21:02)
[2025-03-05] MEDS: TAMSULOSIN 0.4 MG CAPSULE PO (09:16)
[2025-03-05] MEDS: polyethylene glycoL 3350 17 GM POWD.PACK PO (09:16)
[2025-03-05] MEDS: TRAMADOL 50 MG TABLET PO (09:16)
[2025-03-05] MEDS: methylPREDNISolone 125 MG/2 ML VIAL 80 MG IV (09:17)
[2025-03-05] MEDS: DEXTROSE 5%-0.9% NS 1,000 ML 100 ML IV (09:17)
--- NOTE | 2025-03-05 10:35 | PT.IPRE ---
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) Unspecified hydronephrosis (03/01/25) Chronic kidney disease, stage 3 unspecified (03/01/25) Disorder of kidney and ureter, unspecified (03/01/25) Bladder-neck obstruction (03/01/25) Retention of urine, unspecified (03/01/25) Personal history of irradiation (03/01/25) Surgery Performed Operation Date: 03/03/25 14:00 Actual Procedures p Cystoscopy w/ right ureteral Stent Placement, right retrograde pyelogram - Kishore Padilla MD Surgical History (Last Reviewed 03/03/25 @ 11:41 by Brooks Eisenberg MD) History of transurethral resection of prostate (07/27/19) Medical History (Last Updated 03/03/25 @ 13:29 by Kishore Padilla MD) Bladder outlet obstruction Chronic anticoagulation Elevated serum creatinine Gross hematuria High blood pressure History of prostate cancer Hx of brachytherapy (04/10/18) Lower urinary tract symptoms (LUTS) Prostatic calculi Right leg DVT Urge incontinence Worsening renal function Physical Therapy Inpatient Evaluation/Re-Eval M1 PT/OT-IP Prior Functional Status Start: 03/02/25 16:54 Freq: NEEDED Status: Active Protocol: Document 03/05/25 09:28 MB (Rec: 03/05/25 10:35 MB Desktop) Medical Review Prior Functional Status Medical History Reviewed Yes Diet/Fluid Consistency Regular Communication WNL, wears glasses Mobility and Gait Independent without a device. Has been using a FWW to manage his back pain at home recently (since January hospitalization). He is able to go up and down stairs at home using the handrail. He has two FWW's at home; one on each level of the house. He reports he stays on the couch a lot where he can position himself to manage his back pain. Activities of Daily Living and IADL's Independent. He has been needing help from his more recently due to his back pain. He was discharged home in January with a harper catheter . Prior Functional Level (Other details) He had only one visit by the home health Physical Therapist between his last hospital discharge and this admission. Social History Household Members spouse Living Arrangements House Number of Floors (Floors) Two Floors Number of Stairs To Enter/Railing? 7 steps with bilateral rails, 7 steps with one rail to get to second floor of house to his bedroom Home Environment Standard Height Toilet,Walk in Shower Home Equipment Bedside Commode Employment Status Retired Additional Social History Comment He describes straining his back in Feb lifting his exercise bike at home. He went to a Chiropractor for his back pain but it did not help. He uses a CBD cream on his back at home that helps for about an hour. He uses a heating pad at home that helps a little. He tried ice but it did not help. He reports losing 30#. He reports food does not taste good to him and he just can't eat much. 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 Therapy Pain Assessment Pain When Pain Assessed During Mobility Pain Present Pain Present Pain Reported Location Back Intensity 8 Scale Used Pain with standing, improves with stepping M4 PT-IP Mobility and Gait Start: 03/02/25 16:54 Freq: NEEDED Status: Active Protocol: Document 03/05/25 09:28 MB (Rec: 03/05/25 10:35 MB Desktop) PT-Transfer Assessment Sit to and From Stand Sit to and from Stand Standby Assistance,Use of Upper Extremities Equipment Transfer Assistive Device Gait Belt,Front Wheeled Walker Transfers Transfer Destination Chair Transfer Technique Stepping Transfer Ability Level of Assist Standby Assistance,Use of Upper Extremities Comments Mobility Comments BP and HR in right UE: recumbent in chair: 159/71, 78 ; standing 134/55, 83; standing 1' 137,59, 87 and pt reports mild light-headedness and severe LBP with standing greater than a minute and states he needs to step or sit . Pt with significant shaking in limbs with standing. Gait Assessment Gait Gait Assistance Required: Standby Assistance,1 Person Assist Distance (Feet) 2 Assistive Devices Assistive Device Gait Belt,Front Wheeled Walker Gait Deviations General Gait Pattern Antalgic,Decreased Stride Length,Decreased Feet Clearance,Flexed Trunk,Step-to Gait Factors Limiting Gait Function Factors Limiting Gait Function Decreased Activity Tolerance, Decreased Strength,Pain,Poor Balance Comments Gait Comments 2'x3 forward and back with RW and pt states that he needs to sit PT-Balance Assessment Sitting Balance and Reactions Static Sitting Balance Ability Good Dynamic Sitting Balance Ability Good Standing Balance and Reactions Static Standing Balance Ability Good Dynamic Standing Balance Ability Good Device Used FWW M5 PT-IP Objective Assessments Start: 03/02/25 16:54 Freq: NEEDED Status: Active Protocol: Document 03/05/25 09:28 MB (Rec: 03/05/25 10:35 MB Desktop) Gross Range of Motion Lower Extremity ROM Impairments Right greater than left limited DF with legs supported in chair, increased edema in right greater than left leg, history of DVT, recent stenting right ureter. Edema B LEs Strength Comments Strength Comments Pt does not tolerate MMT and he presents with functional weakness in his legs that is shaking and cord-like with standing checking BP and using RW, increased shaking with increased time up on feet Coordination Assessment Assessment Coordination Comments Did not test coordination and pt presents changes in right greater than LLE today M6 PT-IP Treatment Start: 03/02/25 16:54 Freq: NEEDED Status: Active Protocol: Document 03/05/25 09:28 MB (Rec: 03/05/25 10:35 MB Desktop) Physical Therapy Treatment Education Education Provided Safety M7 PT-IP Assessment and Plan Start: 03/02/25 16:54 Freq: NEEDED Status: Active Protocol: Document 03/05/25 09:28 MB (Rec: 03/05/25 10:35 MB Desktop) PT Summary Assessment and Plan Potential Rehabilitation Potential Fair Status of Condition at Evaluation Evolving Summary Impairments Pain,ROM,Strength,Balance, Coordination,Bed Mobility, Transfers,Gait,Activity Tolerance Progress Towards Goals Slow Progress due to Pain Assessment Summary Pt is a gentleman presenting post-op right uteral stenting and per op notes, will need left uteral stenting in the future. He reports subacute history of lumbar injury and right sciatica, right LE DVT and RLE is more edematous than the left today. He presents with orthostasis when moved from semi-recumbent to standing today and he has increased back pain and shaking in limbs with standing over 1 minute with use of RW. He tolerates short mobility only today. Liquid in catheter bag is red. Goals Bed Mobility Goal Independent Transfer Goal Independent,Front Wheeled Walker Gait Goal Standby Assistance,Front Wheel Walker Gait Distance 100 feet without light- headedness Other Goals up/down 7 steps with bilateral rails and SBA Days to Meet Goals 5 Frequency of Treatment Frequency Of Treatment Once a Day Treatment Plan Physical Therapy Treatment Plan Bed Mobility Training,Transfer Training,Gait Training, Therapeutic Exercise,Balance Retraining,Post Op Education, Discharge Planning,Hot or Cold Pack,Neuromuscular Re-ed, Manual Therapy Other Recommendations and Next Treatment back pain management Focus Recommendations To Nursing Amount of Assist Needed 1 Person Assist Discharge Recommendations PT Discharge Recommendations Home with 18/05 Assist Available,Home Health,Home vs SNF Equipment Needed for Home Before May need RW if d/c home Discharge Transportation Needs at Discharge Private Vehicle - PT assist 1
--- NOTE | 2025-03-05 11:14 | P.PN_ITS ---
Subjective Subjective Date Patient Seen: 03/05/25 Time Patient Seen: 08:34 Interval history: Narrative : 80 y/o brought to ED by EMS for confusion. Daughter found him confused at home and summoned EMS. He was recently hospitalized at [facility] for UTI, sepsis, MELISSA and acute urinary obstruction and was discharged home with indwelling catheter to follow up with urology for cystoscopy. He has a history of prostate carcinoma, TURP x 2, thickened bladder wall - planned cystoscopy, is on Flomax and finishing course of Keflex. He has a history of b/l carotid stenosis and intracranial stenosis and TIA/s in the past. ED workup negative for stroke, same degree of renal insufficiency, recent A1C was 5.9. Placed in observation with MRI brain pending In further discussion with patient, he had a fall yesterday after reaching down low to in the refridgerator. He has had a worsening R flank pain, he had pain when he bent down yesterday. He denies numbness, tingling, slurred speech to me but felt weak and had to crawl around. According to the ER report he was using a TV remote as a phone. He was acutely confused per daughter which resolved in under an hour per ER report. He was admitted for possible TIA. In review of admission labs, his sodium was 123 on presentation. He describes his pain as R flank related and radiating down his R leg laterally over the IT band area. It flares up intermittently like yesterday. His PCP had ordered a Lumbar spine MRI that was supposed to be today at the hospital. Interval history: 03/03: The patient reports pain in his back with movement, but otherwise is comfortable at rest. The pain radiates from the right lateral hip area and low back to the distal right lateral thigh, without pain [id number]. He is unable to get up without severe pain, and is essentially nonambulatory as a result, and unable to return home, where he has to navigate multiple levels of stairs in his level home. He notes he is awaiting cardiac clearance for planned urologic surgery for bilateral hydronephrosis and urethral obstruction due to history of prostate cancer with prostatic seeds with erosion into the bladder neck, PSA 01/04/2025 undetectable at less than 0.64. Note also recent Klebsiella urinary infection with sepsis two weeks ago requiring hospitalization. 03/04: The patient underwent successful right ureteral stenting on 03/03, unable to stent the left ureter, with bladder cautery of bleeding sites. He was given a dose of IV Solu-Medrol 125 mg postoperatively for back pain/sciatica. Today he states his back pain is gone and he is feeling much better, having been up and walked in the room without difficulty to go to the bathroom. 03/05: The patient reports his right lower back pain and sciatica appear worse today with increased pain. Then got up with physical therapy. Orthostatic blood pressures are notable for mildly low blood pressures with standing, but not significantly changed from line, in the 90 systolic range. No chest pain or breathing problems. Exam Vital Signs (past 8 hours): - 03/05/25 05:53 Pulse Rate [Orthostatic Lying] 95 H Pulse Rate [Orthostatic Sitting] 74 Pulse Rate [Orthostatic Standing] 101 H Blood Pressure [Orthostatic Lying] 123/65 Blood Pressure [Orthostatic Sitting] 111/56 L Blood Pressure [Orthostatic Standing] 96/53 L Oxygen Delivery Method Room Air Oxygen Flow Rate 0 Narrative Exam Narrative: GENERAL: This is a well-nourished, well-developed patient, in no apparent distress. EYES: Pupils equal round and reactive. Extraocular motions intact. No scleral icterus. No injection or drainage. ENT: Mucous membranes pink and moist. NECK: Trachea midline. No JVD, bruits or lymphadenopathy. Supple, nontender, no meningeal signs. CARDIOVASCULAR: Regular rate and rhythm without murmurs, gallops, or rubs. RESPIRATORY: Clear to auscultation. GASTROINTESTINAL: Abdomen soft, non-tender, nondistended. EXTREMITIES: No clubbing, cyanosis, or edema. NEUROLOGIC: Alert, oriented, speech fluent, full upper and lower motor strength, no focal deficits evident. DERMATOLOGIC: No rashes or skin lesions. Objective ECG Impression: 03/01/2025: Sinus rhythm with 1st degree AV block Imaging *: Radiologist's impression: 1. Head CT 03/01/2025: Motion limited study, without an acute intracranial abnormality seen. 2. Brain MRI 03/02/2025: Atrophy and mild white matter chronic ischemic change without acute infarct, hemorrhage or mass lesion Right maxillary mucosal sinus disease, improved from the prior 3. Head/neck CTA 03/01/2025: High-grade narrowing again seen involving the left P1 segment, without significant change from the prior.50% narrowing seen involving the left V4 segment. 70-80% narrowing seen involving the left proximal internal carotid artery. Mild narrowing can be seen involving the origins of the origins of the vertebral arteries. The If there is strong clinical suspicion for an acute stroke, please consider a brain MRI for further evaluation, as it is more sensitive (assuming that there is no contraindication to MRI). 4. Chest xray 03/01/2025: Motion limited study, without an acute intracranial abnormality seen. 5. Abdomen-pelvis CT without contrast 03/02/2025: Bilateral and fairly symmetric hydronephrosis, similar extent compared to priors. Given bilaterality, this is likely due to distal/bladder process. Colonic obstipation, primarily proximal, similar to increased compared to prior exam. Mesenteric adenopathy and hazy/divya mesentery appearance has not significantly changed since December 2024, but new since 09/02/23. 6. Lumbar MRI without contrast 03/02/2025: Multilevel degenerative changes including disc bulges, spinal stenosis and foraminal narrowing. Foraminal narrowing is most significant at L5-S1 demonstrating mild compression of the right exiting L5 nerve root. 7. Carotid doppler US 02/16/2025: 1. In the right carotid artery, there is 50-69% stenosis based on peak systolic velocity criteria. 2. In the left carotid artery, there is 70% stenosis- near occlusion based on peak systolic velocity criteria. 3. Antegrade vertebral arteries. 4. Incompletely characterized left submandibular 4.[address] neck soft tissue with contrast recommended for further evaluation. 8. NM myocardial perfusion scan 02/16/2025: This is a normal myocardial perfusion study. Preserved LV function. No ischemic EKG changes. Intermittent PVCs without any ventricular tachycardia during stress. Overall, low-risk myocardial perfusion scan. 9. Echocardiogram 02/15/2025: Normal sinus rhythm. Normal LV size; there is moderate eccentric left ventricular hypertrophy localized to the septum measuring 1.5 cm in end diastole. Normal wall motion and LV systolic function. Ejection fraction is 60-65%. Normal chamber sizes. Aortic sclerosis without stenosis. No left ventricular outflow tract obstruction. No prior study available for comparison. 10. Venous doppler US 02/12/2025: No findings of lower extremity deep venous thrombosis. 11. Renal US 02/14/2025: Bilateral moderate hydronephrosis without significant change compared to prior CT scan. Labs 03/05/25 04:40 03/05/25 04:40 Labs: Laboratory Results - last 24 hr 03/05/25 04:40 WBC 10.0 D RBC 3.30 L Hgb 9.7 L Hct 28.2 L MCV 85.3 MCH 29.3 MCHC 34.3 RDW 12.2 Plt Count 265 Neut % (Auto) 87.9 H Lymph % (Auto) 5.0 L Caroline % (Auto) 7.0 Eos % (Auto) 0.0 L Baso % (Auto) 0.1 Neut # (Auto) 8800 H Lymph # (Auto) 500 L Caroline # (Auto) 700 Eos # (Auto) 0 Baso # (Auto) 0 Sodium 131 L Potassium 4.2 Chloride 100 Carbon Dioxide 22 BUN 36 H Creatinine 1.64 H Estimated GFR 43 L BUN/Creatinine Ratio 22.0 Glucose 185 H D Calcium 9.0 Magnesium 1.8 PFSH Medical History Bladder outlet obstruction Chronic anticoagulation Elevated serum creatinine Gross hematuria High blood pressure History of prostate cancer Hx of brachytherapy (04/10/18) Lower urinary tract symptoms (LUTS) Prostatic calculi Right leg DVT Urge incontinence Worsening renal function Surgical History History of transurethral resection of prostate (07/27/19) Social History marital status: number of children: 2 household members: spouse 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 - Doubt TIA, suspect more likely acute encephalopathy due to cyclobenzaprine, with secondary hyponatremia. - positive UA on 02/25 but negative cultures at that time. Currently on keflex on time of admission, prescribed 10 days from the ER on 02/25. Acute on chronic R leg sciatica/weakness - MRI 03/02: Right L5 nerve root impingement, exacerbated by overexertion with heavy lifting on 12/14/2024 lifting a heavy object - Pain is worsened and debilitating, resolved following 1 dose of IV methylprednisolone 125 mg on 03/03. - Continue IV methylprednisolone 80 mg daily today then oral prednisone taper. - start gabapentin 300 mg 3 times daily today - PT evaluation today for safety Bladder outlet obstruction with chronic hydronephrosis/acute kidney injury - s/p right ureteral stenting 03/03, will need outpatient percutaneous left nephrostomy following discharge by IR, likely at [facility] - note no improvement in creatinine prior to admission despite Rogers catheter bladder decompression -had TURP, brachyTx and 2nd limited TURP for brachyTx removal - b/l hydronephrosis and renal function at CKD stage 3a-3b level since almost a month now - baseline cr around 1.0 in December prior to this obstruction, monitor with IV hydration today and hopeful to improve, but still requires left sided ureteral decompression percutaneously as an outpatient this week UTI, present prior to admissino. - UA negative for infection - completing course of prescribed Keflex from 02/25 on 03/07 Hyponatremia, acute on chronic, present on admission. - SIADH due to pain, recent illness - Monitor Orthostatic hypotension - Volume depletion - IV D5NS at 100nl/hr - monitor Rt leg DVT - negative US 02/12/2025 - continue Eliquis Exocrine Pancreatic Insufficiency - Creon with meals Plan: -continue IV steroids for back pain -add gabapentin 300 mg 3 times daily -continue IV fluids, monitor renal function which appears to be improving -plan for outpatient left percutaneous nephrostomy per urology Code: Full, surrogate is patient's spouse DVT prophylaxis/tx: Restart Eliquis post-op Dispo: Updated discussions with family today, likely discharge home tomorrow. [employer] Document charge(s): No Charge Codes Subsequent inpatient/observation care: [id number]
[2025-03-05] MEDS: GABAPENTIN 300 MG CAPSULE PO ×3 (11:40→21:02)
[2025-03-05 13:00] VITALS: BP 134/55; BP 159/71; PULSE 78; PULSE 83
--- NOTE | 2025-03-05 14:26 | CM.DPC ---
DCP Cont: Nurse, Anette, came in and stated, and patient want to know what's next, meaning discharge planning. Spouse anxious about plan, hospititalist has spend time with patient and spouse discussing medical aspects of hospitalization. Will refer this to DC planning for tomorrow, to see if he and spouse may think that patient needs rehab. Included this in hand-off. Oanh Jacinto RN/Assistant Women'S Soccer Coach
[2025-03-05 16:02] VITALS: BP 147/69; PULSE 82; RESP 15; TEMP 36.5; O2SAT 98
[2025-03-05] MEDS: SENNOSIDES 8.6 MG TABLET 17.2 MG PO (21:02)
[2025-03-05 23:00] VITALS: BP 126/56; BP 139/64; BP 164/79; PULSE 69; PULSE 83; PULSE 92
[2025-03-06 05:18] LABS: Add Manual Diff / Slide Review NO; Basophils Absolute Auto 0 /uL (0-100); Eosinophils Absolute Auto 0 /uL (0-450); Hematocrit 27.6 % (41-53); Hemoglobin 9.5 g/dL (13.5-17.5); Lymphocytes Absolute Auto 600 /uL (1100-4500); Lymphocytes Percent Auto 6.6 % (25-40); Mean Corpuscular HGB Conc 34.3 % (30-36); Mean Corpuscular Hemoglobin 29.2 PG (26-34); Mean Corpuscular Volume 85.4 fL (80-100); Monocytes Absolute Auto 600 /uL (0-900); Monocytes Percent Auto 6.1 % (3-14); Neutrophils Absolute Auto 8400 /uL (1500-7000); Neutrophils Percent Auto 87.3 % (50-75); Platelet Count 271 X10^3/uL (150-400); Red Blood Cell Count 3.23 X10^6/uL (4.5-5.9); Red Cell Distribution Width 12.7 % (11.6-14.8); White Blood Cell Count 9.7 X10^3/uL (4.5-11.0)
[2025-03-06 05:22] LABS: BUN Creatinine Ratio 29.5 (6-22); Blood Urea Nitrogen 38 mg/dL (9-20); Carbon Dioxide 23 mmol/L (22-32); Chloride 99 mmol/L (98-107); Estimated Glomerular Filt Rate 57 mL/min (>60); Glucose 147 mg/dL (70-99); HEMOLYSIS < 15 (0-50); Potassium 4.6 mmol/L (3.4-5.1); Sodium 130 mmol/L (137-145)
[2025-03-06] MEDS: cephALEXin 250 MG CAPSULE PO ×3 (06:19→20:39)
[2025-03-06 08:00] VITALS: BP 127/61; PULSE 80; RESP 15; TEMP 36.6; O2SAT 98
[2025-03-06] MEDS: TRAMADOL 50 MG TABLET PO ×2 (08:20→20:39)
[2025-03-06] MEDS: TAMSULOSIN 0.4 MG CAPSULE PO (09:45)
[2025-03-06] MEDS: APIXABAN 5 MG TABLET PO ×2 (09:45→20:39)
[2025-03-06] MEDS: GABAPENTIN 300 MG CAPSULE PO ×3 (09:45→20:39)
[2025-03-06] MEDS: methylPREDNISolone 125 MG/2 ML VIAL 80 MG IV (09:46)
[2025-03-06] MEDS: polyethylene glycoL 3350 17 GM POWD.PACK PO (09:46)
[2025-03-06] MEDS: LIPASE PROTEASE AMYLASE 3 EACH PO ×3 (09:46→17:23)
[2025-03-06] MEDS: ACETAMINOPHEN 325 MG TABLET 650 MG PO (11:13)
--- NOTE | 2025-03-06 11:55 | DIET.CONS ---
Dietary Consultation Note Admission Date: 03/01/2025 22:36 Assessment: 80 y M admitted for altered mental status with bilateral hydronephrosis and hyponatremia. Dietitian screened for LOS. PMH of exocrine pancreatic insufficiency (creon with meals), bladder outlet obstruction, prediabetes (A1c 6.0% on 03/02/25), CKD3 for about 1 month Met with pt and family at bedside. Reports improved appetite in hospital after bowel movement, but before that, at home, has had decline in appetite for about 1 yr. Family has been helping improve PO intakes with protein bars and orgain protein shakes and energy dense food options like pb. Pt reports sometimes skipping meals and just doing protein bar or shake instead. If not taking creon, experiences constipation per pt. Ht: 175.26 cm Wt: 70 kg BMI: 22.8 UBW: reports hx of UBW being 79.5 kg 1+ yr ago. About 1 yr ago started to experience decline in weight, went down to 65.9 kg. Recently reports started gaining weight again. Wt hx (per EMR): 02/24/24: 68.039 kg 01/04/25 65.771 kg 02/12/25 70.307 kg Last BM: 03/05/25 (03/05/25 02:20) MNA: 12 Terry Score: 21 Diet: 03/04/25 Lunch General (Regular) Diet Diet Modifications: Food Texture: Level 7 - Regular Liquid Consistency: Level 0 - Thin Nutrition Percent Meal Consumed 50% 03/05/25 18:00 Percent Meal Consumed 50% 03/04/25 18:00 Labs: RBC 3.23 X10^6/uL (4.5-5.9) L 03/06/25 04:30 Hgb 9.5 g/dL (13.5-17.5) L 03/06/25 04:30 Hct 27.6 % (41-53) L 03/06/25 04:30 Creatinine 1.29 mg/dL (0.66-1.25) H 03/06/25 04:30 Hemoglobin A1c 6.0 % (4.0-6.0) 03/02/25 03:46 Lactate 0.8 mmol/L (0.7-2.1) 03/01/25 16:59 NT-Pro-B Natriuret Pep 3240 pg/mL (<450) H 03/01/25 16:59 Nutrition Diagnosis: Inadequate oral intake r/t decreased appetite aeb recorded PO intakes 50%, pt reporting decline in appetite over last year resulting in weight loss Interventions: -Vanilla supplement shake 1x/day -Discussed energy dense, nutrient dense meals, focus on calories in shakes over protein content and higher kcal shakes if using for meal replacement, ways to increase kcal intake through day EER: 2158-1492 kcals (25-28 kcals/kg per BMI) 60 g protein (.8g/kg per CKD3) Monitoring/Evaluations: PO intakes, monitor renal function Electronically Signed by: Therese Blandon 03/06/25 11:55 Clinical Dietitian [address] [id number]
[2025-03-06 12:38] LABS: NT-proBNP (BNP-Adult 18+) 8890 pg/mL (<450)
--- NOTE | 2025-03-06 12:58 | PC.NURSE ---
Patient is alert and oriented x3 but slightly forgeful. He is having a lot of pain in his back from bulging disks. Given tramadol and tylenol for pain. Patient has not worked with physical therapy yet. Skin looks clear, back side was free of any redness or schaefer. Family is supportive and in room visiting.
[2025-03-06 13:39] LABS: Osmolality Urine 402 mOsmol/kg (.)
--- NOTE | 2025-03-06 14:05 | PT.IPTN ---
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) Unspecified hydronephrosis (03/01/25) Chronic kidney disease, stage 3 unspecified (03/01/25) Disorder of kidney and ureter, unspecified (03/01/25) Bladder-neck obstruction (03/01/25) Retention of urine, unspecified (03/01/25) Personal history of irradiation (03/01/25) Surgery Performed Operation Date: 03/03/25 14:00 Actual Procedures p Cystoscopy w/ right ureteral Stent Placement, right retrograde pyelogram - Kishore Padilla MD Physical Therapy Treatment Note M2 PT-IP Current Condition Start: 03/02/25 16:54 Freq: NEEDED Status: Active Protocol: Document 03/02/25 16:54 DLM (Rec: 03/02/25 17:25 DLM Desktop) Physical Therapy Current Condition Current Condition Evaluation Date 03/02/25 Treatment Diagnosis AMS, back pain, impaired gait Onset Date 03/01/25 M3 PT-IP Subjective Start: 03/02/25 16:54 Freq: NEEDED Status: Active Protocol: Document 03/06/25 13:41 MB (Rec: 03/06/25 14:05 MB Desktop) Subjective Physical Therapy Visit Type Type Treatment Note Visit Start Time 13:41 Visit Stop Time 13:58 Number of UTILITY TELLER Visits 0 Physical Therapy Visit Comments Patient Comments Pt hook lying in bed with family nearby and he states he has not gotten OOB today. Therapy Pain Assessment Pain When Pain Assessed During Mobility Pain Present Pain Present Pain Reported Location Back Intensity 10 M4 PT-IP Mobility and Gait Start: 03/02/25 16:54 Freq: NEEDED Status: Active Protocol: Document 03/06/25 13:41 MB (Rec: 03/06/25 14:05 MB Desktop) PT-Bed Mobility Assessment Rolling Type of Rolling Bilateral Level of Assist Independent Supine to Sit Supine to Sit Independent,Head of Bed Elevated,Bedrails Sit to Supine Sit to Supine Independent Scooting Scooting to Edge of Bed Independent PT-Transfer Assessment Sit to and From Stand Sit to and from Stand Standby Assistance,Use of Upper Extremities Equipment Transfer Assistive Device Gait Belt,Front Wheeled Walker Transfers Transfer Destination Bed Transfer Technique Stepping Transfer Ability Level of Assist Standby Assistance,Use of Upper Extremities Comments Mobility Comments Cues for hand placement Gait Assessment Gait Gait Assistance Required: Standby Assistance,1 Person Assist Distance (Feet) 15 Assistive Devices Assistive Device Gait Belt,Front Wheeled Walker Gait Deviations General Gait Pattern Antalgic,Decreased Stride Length,Decreased Feet Clearance,Flexed Trunk,Step-to Gait Factors Limiting Gait Function Factors Limiting Gait Function Decreased Activity Tolerance, Decreased Strength,Pain,Poor Balance Comments Gait Comments 15'x2 Stair Climbing Assessment Evaluation Level of Assist On Stairs Contact Guard Assistance,1 Person Assistance Devices Stair Climbing Assistive Devices Right Railing Technique/Endurance Stair Climbing Direction Ascend and Descend Stair Climbing Technique Step to Step Number of Steps Climbed 1 Stair Climbing Set # Repetitions (reps) 1 Comments Stair Climbing Comments Use rail in room under TV with step beside it, B hands on rail to right to ascend and both hands on same rail to descend, ascend first with left foot and descend first with right foot. LB pain increases PT-Balance Assessment Sitting Balance and Reactions Static Sitting Balance Ability Good Dynamic Sitting Balance Ability Good Standing Balance and Reactions Static Standing Balance Ability Good Dynamic Standing Balance Ability Good Device Used FWW M5 PT-IP Objective Assessments Start: 03/02/25 16:54 Freq: NEEDED Status: Active Protocol: Document 03/05/25 09:28 MB (Rec: 03/05/25 10:35 MB Desktop) Gross Range of Motion Lower Extremity ROM Impairments Right greater than left limited DF with legs supported in chair, increased edema in right greater than left leg, history of DVT, recent stenting right ureter. Edema B LEs Strength Comments Strength Comments Pt does not tolerate MMT and he presents with functional weakness in his legs that is shaking and cord-like with standing checking BP and using RW, increased shaking with increased time up on feet Coordination Assessment Assessment Coordination Comments Did not test coordination and pt presents changes in right greater than LLE today M6 PT-IP Treatment Start: 03/02/25 16:54 Freq: NEEDED Status: Active Protocol: Document 03/06/25 13:41 MB (Rec: 03/06/25 14:05 MB Desktop) Physical Therapy Treatment Education Education Provided Safety M7 PT-IP Assessment and Plan Start: 03/02/25 16:54 Freq: NEEDED Status: Active Protocol: Document 03/06/25 13:41 MB (Rec: 03/06/25 14:05 MB Desktop) PT Summary Assessment and Plan Potential Rehabilitation Potential Fair Status of Condition at Evaluation Evolving Summary Impairments Pain,ROM,Strength,Balance, Coordination,Bed Mobility, Transfers,Gait,Activity Tolerance Progress Towards Goals Slow Progress due to Pain Assessment Summary Pt con't with severely high pain when up on feet, up to 10 /10 in his back, and this limits mobility. Given fall UTILITY TELLER and only at home to help, family hoping for SNF at d/c. Pain is a barrier to mobility and I. Goals Bed Mobility Goal Independent Transfer Goal Independent,Front Wheeled Walker Gait Goal Standby Assistance,Front Wheel Walker Gait Distance 50 Other Goals up/down 7 steps with bilateral rails and SBA Days to Meet Goals 5 Frequency of Treatment Frequency Of Treatment Once a Day Treatment Plan Physical Therapy Treatment Plan Bed Mobility Training,Transfer Training,Gait Training, Therapeutic Exercise,Balance Retraining,Post Op Education, Discharge Planning,Hot or Cold Pack,Neuromuscular Re-ed, Manual Therapy Other Recommendations and Next Treatment back pain management Focus Precautions Other Precautions Pt performs rolling today Recommendations To Nursing Amount of Assist Needed 1 Person Assist Discharge Recommendations PT Discharge Recommendations SNF Rehab,Home vs SNF Equipment Needed for Home Before May need RW if d/c home Discharge Transportation Needs at Discharge Private Vehicle - PT assist 1
--- NOTE | 2025-03-06 14:51 | DI.US.S_ITS ---
PROCEDURE: US RENAL COMPLETE INDICATIONS: Follow up bilateral hydronephrosis TECHNIQUE: Real-time scanning was performed of the kidneys and bladder, with image documentation. COMPARISON: [facility], , US RENAL COMPLETE, 02/14/2025, 7:20. FINDINGS: Kidneys: Kidneys are normal in size. Right kidney measures 10.1 cm long; left kidney measures 11.1 cm long. Right renal cortical thickness is 1.6 cm; left renal cortical thickness is 1.8 cm. Renal cortical echotexture is normal. Partially visualized ureteral vesicular stent is present on the right. Moderate hydronephrosis bilaterally. Bladder: Bladder decompressed with a Rogers catheter.. Pre-void images demonstrate no intraluminal masses or stones. On pre-void images, neither ureteral jets are noted with color Doppler interrogation. (Of note, ureteral jets may not be detectable in up to 25% of cases due to insufficient differences in specific gravity between ureteral and bladder urine). Miscellaneous: No free pelvic fluid. IMPRESSION: Bilateral hydronephrosis appearing similar/minimally less prominent compared to prior exam. Dictated by: Anuradha Augustin M.D. on 03/06/2025 at 16:24 Approved by: Anuradha Augustin M.D. on 03/06/2025 at 16:26
--- NOTE | 2025-03-06 16:01 | CM.DPNOTE ---
DCP Cont Met w/patient, sp, son, daughter and granddaughter in room this afternoon to discuss discharge plan. Patient/family agreeable to SNF and ask that [facility] be contacted. Pt/family interested in SNFs closer to home however want to be closest to medical care and speacilty in [place]. Referral sent to Rafaela at [facility] via email. Patient has been accepted for admission when medically ready. PASRR completed. Plan: Discharge to [facility] is likely, via wc. Dr Jackson consulting [facility]. Family hopeful for patient's full recovery CM team following closely for coordination. Update patient/family- [facility] accepts. [facility]
--- NOTE | 2025-03-06 16:32 | P.PN_ITS ---
Subjective Subjective Interval history: S: He has fairly red output in Rogers catheter and a lot of intermittent right shooting pain from his back to his right thigh whenever he goes from a lying position to sitting or standing. He did have some transient improvement with steroids. He denies any flank pain. Exam Vital Signs (past 8 hours): Oxygen Delivery Method Room Air Oxygen Flow Rate 0 Narrative Exam Narrative: NAD, alert and oriented. Fluent speech. Lungs are clear, normal rate and effort. Heart is regular, no murmur gallop or rub. Abdomen is soft, non distended. Extremities are free of edema. Rogers with fairly bloody urine. Objective Labs 03/06/25 04:30 03/06/25 04:30 Labs: Laboratory Results - last 24 hr 03/02/25 03/06/25 03/06/25 19:54 04:30 12:11 WBC 9.7 RBC 3.23 L Hgb 9.5 L Hct 27.6 L MCV 85.4 MCH 29.2 MCHC 34.3 RDW 12.7 Plt Count 271 Neut % (Auto) 87.3 H Lymph % (Auto) 6.6 L [place] % (Auto) 6.1 Eos % (Auto) 0.0 L Baso % (Auto) 0.0 Neut # (Auto) 8400 H Lymph # (Auto) 600 L [place] # (Auto) 600 Eos # (Auto) 0 Baso # (Auto) 0 Sodium 130 L Potassium 4.6 Chloride 99 Carbon Dioxide 23 BUN 38 H Creatinine 1.29 H Estimated GFR 57 L BUN/Creatinine Ratio 29.5 H Glucose 147 H Calcium 9.0 NT-Pro-B Natriuret Pep 8890 H Urine Osmolality 402 PFSH Medical History Worsening renal function Elevated serum creatinine Right leg DVT Chronic anticoagulation Gross hematuria Hx of brachytherapy (04/10/18) Urge incontinence Lower urinary tract symptoms (LUTS) Bladder outlet obstruction Prostatic calculi High blood pressure History of prostate cancer Surgical History History of transurethral resection of prostate (07/27/19) Social History marital status: number of children: 2 household members: spouse 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 - Doubt TIA, suspect more likely acute encephalopathy due to cyclobenzaprine, with secondary hyponatremia. - positive UA on 02/25 but negative cultures at that time. Currently on keflex on time of admission, prescribed 10 days from the ER on 02/25. Acute on chronic R leg sciatica/weakness - MRI 03/02: Right L5 nerve root impingement, exacerbated by overexertion with heavy lifting on 12/14/2024 lifting a heavy object - Pain is worsened and debilitating, resolved following 1 dose of IV methylprednisolone 125 mg on 03/03. - Continue IV methylprednisolone 80 mg daily today then oral prednisone taper. - start gabapentin 300 mg 3 times daily today - PT evaluation today for safety Bladder outlet obstruction with chronic hydronephrosis/acute kidney injury - s/p right ureteral stenting 03/03, will need outpatient percutaneous left nephrostomy following discharge by IR, likely at [facility] - note no improvement in creatinine prior to admission despite Rogers catheter bladder decompression -had TURP, brachyTx and 2nd limited TURP for brachyTx removal - b/l hydronephrosis and renal function at CKD stage 3a-3b level since almost a month now - baseline cr around 1.0 in December prior to this obstruction, monitor with IV hydration today and hopeful to improve, but still requires left sided ureteral decompression percutaneously as an outpatient this week UTI, present prior to admissino. - UA negative for infection - completing course of prescribed Keflex from 02/25 on 03/07 Hyponatremia, acute on chronic, present on admission. 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 -we will also consider whether or not the risks and benefits still support apixaban given his ongoing hematuria which did clear when he stopped it before. -discharge planning to [facility]. Time-Based Coding :: [TOTAL MINUTES] spent with patient and on the chart (including review of chart, obtaining history, exam, reviewing outside data, placing orders, documenting exam and treatment plan, and counseling patient) on [DATE].
[2025-03-06] MEDS: SENNOSIDES 8.6 MG TABLET 17.2 MG PO (20:39)
[2025-03-06 21:00] VITALS: BP 113/58; PULSE 86; RESP 18; TEMP 36.7; O2SAT 98
[2025-03-07] VITALS (7 sets, daily range): BP systolic 73–145; BP diastolic 41–73; PULSE 70–92; RESP 16–18; TEMP 36.6–36.7; O2SAT 96–98
[2025-03-07 05:01] LABS: Hematocrit 24.4 % (41-53); Hemoglobin 8.7 g/dL (13.5-17.5); Mean Corpuscular HGB Conc 35.5 % (30-36); Mean Corpuscular Volume 84.6 fL (80-100); Platelet Count 224 X10^3/uL (150-400); Red Blood Cell Count 2.89 X10^6/uL (4.5-5.9); Red Cell Distribution Width 12.5 % (11.6-14.8); White Blood Cell Count 7.6 X10^3/uL (4.5-11.0)
[2025-03-07 05:04] LABS: BUN Creatinine Ratio 33.1 (6-22); Blood Urea Nitrogen 40 mg/dL (9-20); Calcium 8.6 mg/dL (8.4-10.2); Carbon Dioxide 26 mmol/L (22-32); Chloride 98 mmol/L (98-107); Estimated Glomerular Filt Rate > 60 mL/min (>60); Glucose 113 mg/dL (70-99); HEMOLYSIS < 15 (0-50); Potassium 4.4 mmol/L (3.4-5.1); Sodium 130 mmol/L (137-145)
[2025-03-07] MEDS: cephALEXin 250 MG CAPSULE PO ×3 (05:54→21:37)
--- NOTE | 2025-03-07 07:38 | PM.PN.1 ---
Subjective Subjective Interval history: S: His pain is much improved with tramadol. He rates his maximum pain today at 5 instead of 10 compared to yesterday. He of orthostasis today, this is a 1st. He still has hematuria. He was discussed with Dr. Padilla of Urology. We have agreed to stop anticoagulation and we will not pursue a nephrostomy at this point given the improvement of his renal function. He will likely go to residential facility to rehab for the next 1-[address] weeks [address] then see Dr[address] Padilla to discuss the possibility of a statin removal, bladder biopsy, and urethral procedure to alleviate his retention. Exam Vital Signs (past 8 hours): Oxygen Delivery Method Room Air Oxygen Flow Rate 0 Narrative Exam Narrative: NAD, alert and oriented. Fluent speech. Lungs are clear, normal rate and effort. Heart is regular, no murmur gallop or rub. Abdomen is soft, non distended. Extremities are free of edema. Objective Labs 03/07/25 04:20 03/07/25 04:20 Labs: Laboratory Results - last 24 hr 03/02/25 03/06/25 03/07/25 19:54 12:11 04:20 WBC 7.6 RBC 2.89 L Hgb 8.7 L Hct 24.4 L MCV 84.6 MCH 30.0 MCHC 35.5 RDW 12.5 Plt Count 224 Sodium 130 L Potassium 4.4 Chloride 98 Carbon Dioxide 26 BUN 40 H Creatinine 1.21 Estimated GFR > 60 BUN/Creatinine Ratio 33.1 H Glucose 113 H Calcium 8.6 NT-Pro-B Natriuret Pep 8890 H Urine Osmolality 402 PFSH Medical History Worsening renal function Elevated serum creatinine Right leg DVT Chronic anticoagulation Gross hematuria Hx of brachytherapy (04/10/18) Urge incontinence Lower urinary tract symptoms (LUTS) Bladder outlet obstruction Prostatic calculi High blood pressure History of prostate cancer Surgical History History of transurethral resection of prostate (07/27/19) Social History marital status: number of children: 2 household members: spouse 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 Acute metabolic encephalopathy, weakness 2. Acute on chronic R leg sciatica/weakness - MRI 03/02: Right L5 nerve root impingement, exacerbated by overexertion with heavy lifting on 12/14/2024 lifting a heavy object - Pain is worsened and debilitating, resolved following 1 dose of IV methylprednisolone 125 mg on 03/03. - Continue IV methylprednisolone 80 mg daily today then oral prednisone taper. - start gabapentin 300 mg 3 times daily today - PT evaluation today for safety 3. Bladder outlet obstruction with chronic hydronephrosis/acute kidney injury - s/p right ureteral stenting 03/03, will need outpatient percutaneous left nephrostomy following discharge by IR, likely at [facility] - note no improvement in creatinine prior to admission despite Rogers catheter bladder decompression -had TURP, brachyTx and 2nd limited TURP for brachyTx removal - b/l hydronephrosis and renal function at CKD stage 3a-3b level since almost a month now - baseline cr around 1.0 in December prior to this obstruction, monitor with IV hydration today and hopeful to improve, but still requires left sided ureteral decompression percutaneously as an outpatient this week 4. UTI, ruled out. - UA negative for infection - completing course of prescribed Keflex from 02/25 on 03/07 5. Hyponatremia, acute on chronic, present on admission. 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 Orthostatic hypotension - Volume depletion - IV D5NS at 100nl/hr - monitor 7. Right leg DVT, resolved. - negative US 02/12/2025 8. Pancreatic Insufficiency, stable. - Creon with meals Plan: -continue IV steroids for back pain and transitioned to oral on March 08. -continue gabapentin 300 mg 3 times daily -no further consideration for left nephrostomy at this point. Renal function is improved. -IV fluids, attempt to resolve orthostatic hypotension. -residential facility discharge in 1-2 days for rehabilitation. -Urology follow up in 2 weeks with consideration for renal perfusion scan, decision to remove right kidney stent, consideration of cystoscopy and biopsy of bladder, and consideration procedure to alleviate bladder outlet obstruction. Met with and son, all questions were answered. CHRISTIANA: 03/08-15. [facility] Time-Based Coding :: [TOTAL MINUTES] spent with patient and on the chart (including review of chart, obtaining history, exam, reviewing outside data, placing orders, documenting exam and treatment plan, and counseling patient) on [DATE].
[2025-03-07] MEDS: LIPASE PROTEASE AMYLASE 3 EACH PO ×3 (08:31→17:22)
[2025-03-07] MEDS: TRAMADOL 50 MG TABLET PO ×3 (08:32→22:05)
[2025-03-07] MEDS: methylPREDNISolone 125 MG/2 ML VIAL 80 MG IV (09:21)
[2025-03-07] MEDS: TAMSULOSIN 0.4 MG CAPSULE PO (09:21)
[2025-03-07] MEDS: APIXABAN 5 MG TABLET PO (09:21)
[2025-03-07] MEDS: GABAPENTIN 300 MG CAPSULE PO ×3 (09:21→21:37)
[2025-03-07] MEDS: polyethylene glycoL 3350 17 GM POWD.PACK PO (09:23)
--- NOTE | 2025-03-07 10:35 | CM.DPC ---
DCP Cont. Reviewed EMR and team rounds for status updates. Pt continues to require symptom management for acute sciatica pain, has not been able to mobilize with therapies. Plan is to continue pain/steroid tx, work with therapies today. Plan is home with HH vs. SNF rehab. Will need to send referral and need [facility] if SNF. Monitoring closely.
--- NOTE | 2025-03-07 11:10 | PT.IPTN ---
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) Unspecified hydronephrosis (03/01/25) Chronic kidney disease, stage 3 unspecified (03/01/25) Disorder of kidney and ureter, unspecified (03/01/25) Bladder-neck obstruction (03/01/25) Retention of urine, unspecified (03/01/25) Personal history of irradiation (03/01/25) Surgery Performed Operation Date: 03/03/25 14:00 Actual Procedures p Cystoscopy w/ right ureteral Stent Placement, right retrograde pyelogram - Kishore Padilla MD Physical Therapy Treatment Note M2 PT-IP Current Condition Start: 03/02/25 16:54 Freq: NEEDED Status: Active Protocol: Document 03/02/25 16:54 DLM (Rec: 03/02/25 17:25 DLM Desktop) Physical Therapy Current Condition Current Condition Evaluation Date 03/02/25 Treatment Diagnosis AMS, back pain, impaired gait Onset Date 03/01/25 M3 PT-IP Subjective Start: 03/02/25 16:54 Freq: NEEDED Status: Active Protocol: Document 03/07/25 11:10 AB (Rec: 03/07/25 13:26 AB [id number]) Subjective Physical Therapy Visit Type Type Treatment Note Visit Start Time 11:10 Visit Stop Time 11:55 Number of REFRIGERATION SERVICE TECHNICIAN Visits 0 Physical Therapy Visit Comments Patient Comments agreeable to do PT Therapy Pain Assessment Pain When Pain Assessed During Mobility Pain Present Pain Present Pain Reported Location Back Intensity 10 Scale Used Numeric (0 - 10) Pain Management Techniques Distraction,Modification of Treatment,Re-positioning, Timing of Activity with Medications M4 PT-IP Mobility and Gait Start: 03/02/25 16:54 Freq: NEEDED Status: Active Protocol: Document 03/07/25 11:10 AB (Rec: 03/07/25 13:26 AB [id number]) PT-Bed Mobility Assessment Rolling Type of Rolling Log Rolling Level of Assist Contact Guard Assistance Supine to Sit Supine to Sit Contact Guard Assistance Sit to Supine Sit to Supine Standby Assistance PT-Transfer Assessment Sit to and From Stand Sit to and from Stand Contact Guard Assistance,1 Person Assistance,Use of Upper Extremities Equipment Transfer Assistive Device Gait Belt,Large Based Quad Cane Orthotic/Prosthetic Devices or Brace: No Transfers Transfer Destination Bedside Commode Transfer Technique ambulated Transfer Ability Level of Assist Contact Guard Assistance,1 Person Assistance,Use of Upper Extremities Comments Mobility Comments pt in bed and agreeable to do PT. family in room. BP in supine: 133/66. educated pt on log roll bed mobility. completed log roll supine to sit CGA and max cues. able to sit on EOB SBA. BP in sittin/50. pt sat on EOB for a few minutes and BP rechecked: 108/58. sit to stand from EOB CGA. pt able to stand CGA using FWW for support. attempted to check BP but pt has to sit down due to increase R side LBP. BP upon sittin/41. no c/o dizziness but c/o increase LBP . pt sat for a few more minutes and BP rechecked: 81/ 37. pt wants to move more and use the toilet. BP checked again prior to getting up: 114 /57. sit to stand CGA and ambulated ~ 8 ft using FWW CGA and pt sat on bedside commode . BP check: 82/46. BP before getting up from the bedside commode: 110/52 and pt step transfer to bed using FWW CGA. log roll sit to supine SBA. positioned pt in bed. BP: 120/61. call light and table placed within reach. Gait Assessment Gait Gait Assistance Required: Contact Guard Assist Distance (Feet) 8 Able to Maintain Weight Bearing Status Yes During Gait Assistive Devices Assistive Device Gait Belt,Front Wheeled Walker Orthotic/Prosthetic Devices or Brace: No Gait Deviations General Gait Pattern Decreased Stride Length, Decreased Feet Clearance Factors Limiting Gait Function Factors Limiting Gait Function Decreased Activity Tolerance, Decreased Strength,Pain,Poor Balance,Poor Safety Awareness M5 PT-IP Objective Assessments Start: 03/02/25 16:54 Freq: NEEDED Status: Active Protocol: Document 03/05/25 09:28 MB (Rec: 03/05/25 10:35 MB Desktop) Gross Range of Motion Lower Extremity ROM Impairments Right greater than left limited DF with legs supported in chair, increased edema in right greater than left leg, history of DVT, recent stenting right ureter. Edema B LEs Strength Comments Strength Comments Pt does not tolerate MMT and he presents with functional weakness in his legs that is shaking and cord-like with standing checking BP and using RW, increased shaking with increased time up on feet Coordination Assessment Assessment Coordination Comments Did not test coordination and pt presents changes in right greater than LLE today M6 PT-IP Treatment Start: 03/02/25 16:54 Freq: NEEDED Status: Active Protocol: Document 03/07/25 11:10 AB (Rec: 03/07/25 13:26 AB [id number]) Physical Therapy Treatment Education Education Provided Safety M7 PT-IP Assessment and Plan Start: 03/02/25 16:54 Freq: NEEDED Status: Active Protocol: Document 03/07/25 11:10 AB (Rec: 03/07/25 13:26 AB [id number]) PT Summary Assessment and Plan Potential Rehabilitation Potential Fair Summary Impairments Pain,ROM,Strength,Balance, Coordination,Sensation,Tone, Cognition,Bed Mobility, Transfers,Gait,Activity Tolerance Progress Towards Goals Slow Progress due to Pain,Slow Progress due to Medical Issues,Slow Progress due to Activity Tolerance,Slow Progress - Other Assessment Summary pt requiring CGA with mobility using FWW but unable to tolerate much activity due to c/o increase LBP as well as orthostatic BP. pt will require 24/7 assist and will benefit from SNF rehab. will continue to assess. Goals Bed Mobility Goal Independent Transfer Goal Independent,Front Wheeled Walker Gait Goal Standby Assistance,Front Wheel Walker Gait Distance 50 Other Goals up/down 7 steps with bilateral rails and SBA Days to Meet Goals 10 Frequency of Treatment Frequency Of Treatment Once a Day Treatment Plan Physical Therapy Treatment Plan Bed Mobility Training,Transfer Training,Gait Training, Therapeutic Exercise,Balance Retraining,Post Op Education, Discharge Planning,Hot or Cold Pack,Neuromuscular Re-ed, Coordination Retraining,Manual Therapy Precautions Other Precautions BP Recommendations To Nursing Amount of Assist Needed 1 Person Assist Discharge Recommendations PT Discharge Recommendations SNF Rehab Transportation Needs at Discharge Private Vehicle,Wheelchair/ Cabulance - PT assist 1
--- NOTE | 2025-03-07 11:56 | OT.IP.EVAL ---
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) Unspecified hydronephrosis (03/01/25) Chronic kidney disease, stage 3 unspecified (03/01/25) Disorder of kidney and ureter, unspecified (03/01/25) Bladder-neck obstruction (03/01/25) Retention of urine, unspecified (03/01/25) Personal history of irradiation (03/01/25) Surgery Performed Operation Date: 03/03/25 14:00 Actual Procedures p Cystoscopy w/ right ureteral Stent Placement, right retrograde pyelogram - Kishore Padilla MD Past Medical History (Last Reviewed 03/06/25 @ 16:33 by Dagoberto Jackson MD) Bladder outlet obstruction Chronic anticoagulation Elevated serum creatinine Gross hematuria High blood pressure History of prostate cancer Hx of brachytherapy (04/10/18) Lower urinary tract symptoms (LUTS) Prostatic calculi Right leg DVT Urge incontinence Worsening renal function Surgical History (Last Reviewed 03/06/25 @ 16:33 by Dagoberto Jackson MD) History of transurethral resection of prostate (07/27/19) Occupational Therapy Inpatient Evaluation/Re-Eval M1 PT/OT-IP Prior Functional Status Start: 03/02/25 16:54 Freq: NEEDED Status: Active Protocol: Document 03/07/25 12:01 [facility] (Rec: 03/07/25 12:20 [facility] Desktop) Medical Review Prior Functional Status Medical History Reviewed Yes Diet/Fluid Consistency Regular Communication WNL, wears glasses Mobility and Gait Independent without a device. Has been using a FWW to manage his back pain at home recently (since January hospitalization). He is able to go up and down stairs at home using the handrail. He has two FWW's at home; one on each level of the house. He reports he stays on the couch a lot where he can position himself to manage his back pain. Activities of Daily Living and IADL's Independent. He has been needing help from his more recently due to his back pain. He was discharged home in January with a harper catheter . Prior Functional Level (Other details) He had only one visit by the home health Physical Therapist between his last hospital discharge and this admission. Social History Household Members spouse Living Arrangements House Number of Floors (Floors) Two Floors Number of Stairs To Enter/Railing? 7 steps with bilateral rails, 7 steps with one rail to get to second floor of house to his bedroom Home Environment Standard Height Toilet,Walk in Shower Home Equipment Bedside Commode Employment Status Retired Additional Social History Comment He describes straining his back in Feb lifting his exercise bike at home. He went to a Chiropractor for his back pain but it did not help. He uses a CBD cream on his back at home that helps for about an hour. He uses a heating pad at home that helps a little. He tried ice but it did not help. He reports losing 30#. He reports food does not taste good to him and he just can't eat much. M2 OT-IP Current Condition Start: 03/07/25 12:01 Freq: Status: Active Protocol: Document 03/07/25 12:01 [facility] (Rec: 03/07/25 12:20 [facility] Desktop) Occupational Therapy Current Condition Current Condition Evaluation Date 03/07/25 Treatment Diagnosis UTI, AMS, RLE weakness-L5 nerve root impingement Diagnosis Onset Date 03/01/25 Post Operative Precautions Lumbar Precautions Log Roll,No Twisting,Limit Bending,Lifting Restriction of 10 lbs M3 OT- IP Subjective and Pain Start: 03/07/25 12:01 Freq: Status: Active Protocol: Document 03/07/25 12:01 [facility] (Rec: 03/07/25 12:20 [facility] Desktop) OT- Subjective Occupational Therapy Visit Type Type Initial Evaluation Visit Start Time 11:20 Visit Stop Time 11:56 Occupational Therapy Visit Comments Patient Comments Pt agreed to get up to BSC and PT present during OT eval. Patient/Caregiver Goals TO get better. OT Pain Assessment Pain When Pain Assessed During Mobility Pain Present Pain Present Pain Reported Location Back Intensity 4 Scale Used Numeric (0 - 10) M4 OT- IP ADL's Start: 03/07/25 12:01 Freq: Status: Active Protocol: Document 03/07/25 12:01 [facility] (Rec: 03/07/25 12:20 [facility] Desktop) OT [id number] Comments OT Self-Feeding Comments Not at meal time. OT ADL-Grooming Comments OT Grooming Comments Not performed. OT ADL-Oral Care Comments Oral Care Comments Not performed. OT ADL-Dressing General Eval Lower Body Dressing Ability Maximum Assistance Areas Needing Assistance Underpants/Brief,Socks Comments OT Dressing Comments Able to practice use of javascript developer to ronald the brief. Educated to dress the RLE first due to it is his weaker side. OT ADL-Toileting General Evaluation Toileting Ability Moderate Assistance Areas Needing Assistance Manage Clothing Comments OT Toileting Comments Pt able to use wipe to clean himself , however did not have a bowel movement. OT ADL-Bathing Comments OT Bathing Comments Not performed. M5 OT- IP IADL's Start: 03/07/25 12:01 Freq: Status: Active Protocol: Document 03/07/25 12:01 [facility] (Rec: 03/07/25 12:20 [facility] Desktop) OT-Instrumental Activities of Daily Living Meal Preparation Meal Preparation Caregiver Provides Assist Janitorial Account Manager Janitorial Account Manager Caregiver Provides Assist M6 OT- IP Functional Cognition Start: 03/07/25 12:01 Freq: Status: Active Protocol: Document 03/07/25 12:01 [facility] (Rec: 03/07/25 12:20 [facility] Desktop) Cognitive Factors Limiting Selfcare Function Cognitive Ability Level of Alertness Alert Patient Orientation Name,Place,Situation Attention Span Ability Capable of Focused Attention, Capable of Sustained Attention Ability to Follow Commands Able to Follow One Step Commands Memory Description Short Term Impaired Cognitive Comments Cognitive Assessment Comments Pt very hard of hearing, pt then able to put in his hearing aids. Pt able to follow commands for ADL and mobility needs. Pt needing reminders to follow back precautions. OT- Vision and Hearing OT- Hearing Assessment OT- Hearing Assessment Hearing Impaired,Use of Hearing Aids OT- Vision Assessment Visual Acuity Glasses All The Time Visual Attentiveness WFL Occular Pursuits WFL M7 OT- IP Mobility and Balance Start: 03/07/25 12:01 Freq: Status: Active Protocol: Document 03/07/25 12:01 [facility] (Rec: 03/07/25 12:20 [facility] Desktop) OT- Bed Mobility Assessment Supine to Sit Supine to Sit Assist Contact Guard Assistance OT-Transfer Assessment Sit to and From Stand Sit to and from Stand Contact Guard Assistance Transfers Transfer Ability Contact Guard Assistance Technique Transfer Destination Bed,Bedside Commode,Chair Transfer Technique Stand Step Pivot Devices Transfer Assistive Devices Gait Belt,4 Wheeled Walker Comments Mobility Comments CGA for mobility needs. Pt BP supine 133/66, sitting 100/50 and 108/58, after standing 73/ 41 , 81/37, and then 114/57. Pt after on the BSC 82/46, 110 /52and after back in bed 120/ 61 Pt able to transfer with FWW with CGA. OT- Balance Assessment Sitting Balance and Reactions Static Sitting Balance Ability Normal Dynamic Sitting Balance Ability Good Standing Balance and Reactions Static Standing Balance Ability Good Dynamic Standing Balance Ability Fair M8 OT- IP Objective Assessments Start: 03/07/25 12:01 Freq: Status: Active Protocol: Document 03/07/25 12:01 [facility] (Rec: 03/07/25 12:20 [facility] Desktop) OT Gross Range of Motion Upper Extremity Range of Motion Assessment Within Functional Limits OT Strength Comments Strength Comments At least 3+/5, NT due to back pain and L5 impingement. M9 OT- IP Assessment and Plan Start: 03/07/25 12:01 Freq: Status: Active Protocol: Document 03/07/25 12:01 [facility] (Rec: 03/07/25 12:20 [facility] Desktop) OT Summary Assessment and Plan Potential Rehabilitation Potential Good Analytic Complexity at Evaluation Moderate Summary OT Impairments Pain,Strength,Balance, Functional Mobility,Self- Feeding,Grooming,Dressing, Toileting,Bathing,Toilet Transfers,Shower Transfers, Activity Tolerance Progress Towards Goals Slow Progress due to Pain,Slow Progress due to Medical Issues,Slow Progress due to Activity Tolerance Assessment Summary Pt MOD complexity and main barriers are steps, pain, hypotensive readings, and decreased overall strength and endurance. Pt to go to skilled rehab when medically stable. Pt needing cues to follow back precautions, make sure to do log rolling, and use of equipment to prevent from excessive bending and especially for twisting movements. Goals Self-Feeding Goal Independent Grooming Goal Independent Dressing Goal Independent,Long Handled Shoe Horn,Drying Machine Operator Package Yarns,Sock Aid Toileting Goal Independent Bathing Goal Standby Assistance Toilet Transfer Goal Independent Shower Transfer Goal Standby Assistance Days to Meet Goals 10 Frequency of Treatment Other frequency 5x/week Treatment Plan OT Treatment Plan ADL Training,Functional Mobility,Patient/Family Education,Discharge Planning Discharge Recommendations OT Discharge Recommendations SNF Rehab Transportation Needs at Discharge Private Vehicle,Wheelchair/ Cabulance
[2025-03-07] MEDS: SODIUM CHLORIDE 0.9% 1,000 ML 100 ML IV ×2 (13:13→22:21)
--- NOTE | 2025-03-07 14:14 | PC.WOUNDPHOT ---
(1) blanchable erythemia to buttocks, continue off loading measures, repositioning, and reinforce patient education for pressure ulcer prevention.
[2025-03-07] MEDS: SENNOSIDES 8.6 MG TABLET 17.2 MG PO (21:36)
[2025-03-08 01:32] VITALS: BP 138/66; PULSE 87; RESP 18; TEMP 36.8; O2SAT 98
[2025-03-08] MEDS: TRAMADOL 50 MG TABLET PO ×4 (03:48→22:33)
[2025-03-08 04:27] LABS: Hematocrit 25.6 % (41-53); Hemoglobin 9.1 g/dL (13.5-17.5); Mean Corpuscular HGB Conc 35.4 % (30-36); Mean Corpuscular Hemoglobin 29.9 PG (26-34); Mean Corpuscular Volume 84.4 fL (80-100); Platelet Count 233 X10^3/uL (150-400); Red Blood Cell Count 3.04 X10^6/uL (4.5-5.9); Red Cell Distribution Width 12.6 % (11.6-14.8); White Blood Cell Count 7.1 X10^3/uL (4.5-11.0)
[2025-03-08 04:42] LABS: BUN Creatinine Ratio 36.6 (6-22); Blood Urea Nitrogen 41 mg/dL (9-20); Calcium 8.6 mg/dL (8.4-10.2); Carbon Dioxide 26 mmol/L (22-32); Chloride 100 mmol/L (98-107); Estimated Glomerular Filt Rate > 60 mL/min (>60); Glucose 158 mg/dL (70-99); HEMOLYSIS < 15 (0-50); Potassium 4.6 mmol/L (3.4-5.1); Sodium 131 mmol/L (137-145)
[2025-03-08] MEDS: cephALEXin 250 MG CAPSULE PO ×3 (06:44→21:47)
--- NOTE | 2025-03-08 07:33 | P.PN_ITS ---
Subjective Subjective Interval history: Summary: 80 y/o brought to ED by EMS for confusion. Daughter found him confused at home and summoned EMS. He was recently hospitalized at [facility] for UTI, sepsis, MELISSA and acute urinary obstruction and was discharged home with indwelling catheter to follow up with urology for cystoscopy. He has a history of prostate carcinoma, TURP x 2, thickened bladder wall - planned cystoscopy, is on Flomax and finishing course of Keflex. He has a history of b/l carotid stenosis and intracranial stenosis and TIA/s in the past. ED workup negative for stroke, same degree of renal insufficiency, recent A1C was 5.9. Placed in observation with MRI brain pending In further discussion with patient, he had a fall yesterday after reaching down low to in the refridgerator. He has had a worsening R flank pain, he had pain when he bent down yesterday. He denies numbness, tingling, slurred speech to me but felt weak and had to crawl around. According to the ER report he was using a TV remote as a phone. He was acutely confused per daughter which resolved in under an hour per ER report. He was admitted for possible TIA. In review of admission labs, his sodium was 123 on presentation. He describes his pain as R flank related and radiating down his R leg laterally over the IT band area. It flares up intermittently like yesterday. His PCP had ordered a Lumbar spine MRI that was supposed to be today at the hospital. Interval history: 03/03: The patient reports pain in his back with movement, but otherwise is comfortable at rest. The pain radiates from the right lateral hip area and low back to the distal right lateral thigh, without pain [id number]. He is unable to get up without severe pain, and is essentially nonambulatory as a result, and unable to return home, where he has to navigate multiple levels of stairs in his level home. He notes he is awaiting cardiac clearance for planned urologic surgery for bilateral hydronephrosis and urethral obstruction due to history of prostate cancer with prostatic seeds with erosion into the bladder neck, PSA 01/04/2025 undetectable at less than 0.64. Note also recent Klebsiella urinary infection with sepsis two weeks ago requiring hospitalization. 03/04: The patient underwent successful right ureteral stenting on 03/03, unable to stent the left ureter, with bladder cautery of bleeding sites. He was given a dose of IV Solu-Medrol 125 mg postoperatively for back pain/sciatica. Today he states his back pain is gone and he is feeling much better, having been up and walked in the room without difficulty to go to the bathroom. 03/05: The patient reports his right lower back pain and sciatica appear worse today with increased pain. Then got up with physical therapy. Orthostatic blood pressures are notable for mildly low blood pressures with standing, but not significantly changed from line, in the 90 systolic range. No chest pain or breathing problems. 03/06-: Ongoing right back pain with radicular features, somewhat improved with steroids. Tramadol started. Ongoing hematuria in Rogers. Decision to stop apixaban given negative duplex in January. The risks of apixaban are felt to outweigh the benefits of ongoing anticoagulation. Renal function normalized. Discussed with Urology. They agreed with the plan to no longer consider a left percutaneous nephrostomy. Imaging reveals bilateral hydronephrosis, unchanged, even after a right ureter stent was placed. Plans [facility]. S: His back and right hip pain is improved since yesterday at maximum of 5/10 and a low of 0-1. He was moving better. Hematuria is also improved considerably since stopping apixaban. No dyspnea or other complaints. His appetite is improved. He understands the plan to go to a nursing facility for rehabilitation efforts tomorrow, stay off apixaban, monitor renal function twice week at [facility] [place] Dr. Padilla of Urology and follow up in the next couple of weeks. A renal perfusion scan may be obtained by Dr. Padilla at some point based on his judgment. Exam Vital Signs (past 8 hours): - 03/08/25 01:32 Temperature 98.3 F Pulse Rate 87 Respiratory Rate 18 Blood Pressure 138/66 Pulse Oximetry 98 Oxygen Flow Rate 0 Oxygen Delivery Method Room Air Oxygen Flow Rate 0 Narrative Exam Narrative: NAD, alert and oriented. Fluent speech. Lungs are clear, normal rate and effort. Heart is regular, no murmur gallop or rub. Abdomen is soft, non distended. Extremities are free of edema. Rogers catheter with improved degree of hematuria. Light red compared to a deep burgundy yesterday. Objective ECG Impression: Impression: 03/01/2025: Sinus rhythm with 1st degree AV block Imaging Multiple studies: : Radiologist's impression: 1. Head CT 03/01/2025: Motion limited study, without an acute intracranial abnormality seen. 2. Brain MRI 03/02/2025: Atrophy and mild white matter chronic ischemic change without acute infarct, hemorrhage or mass lesion Right maxillary mucosal sinus disease, improved from the prior 3. Head/neck CTA 03/01/2025: High-grade narrowing again seen involving the left P1 segment, without significant change from the prior.50% narrowing seen involving the left V4 segment. 70-80% narrowing seen involving the left proximal internal carotid artery. Mild narrowing can be seen involving the origins of the origins of the vertebral arteries. The If there is strong clinical suspicion for an acute stroke, please consider a brain MRI for further evaluation, as it is more sensitive (assuming that there is no contraindication to MRI). 4. Chest xray 03/01/2025: Motion limited study, without an acute intracranial abnormality seen. 5. Abdomen-pelvis CT without contrast 03/02/2025: Bilateral and fairly symmetric hydronephrosis, similar extent compared to priors. Given bilaterality, this is likely due to distal/bladder process. Colonic obstipation, primarily proximal, similar to increased compared to prior exam. Mesenteric adenopathy and hazy/divya mesentery appearance has not significantly changed since December 2024, but new since 09/02/23. 6. Lumbar MRI without contrast 03/02/2025: Multilevel degenerative changes including disc bulges, spinal stenosis and foraminal narrowing. Foraminal narrowing is most significant at L5-S1 demonstrating mild compression of the right exiting L5 nerve root. 7. Carotid doppler US 02/16/2025: 1. In the right carotid artery, there is 50-69% stenosis based on peak systolic velocity criteria. 2. In the left carotid artery, there is 70% stenosis- near occlusion based on peak systolic velocity criteria. 3. Antegrade vertebral arteries. 4. Incompletely characterized left submandibular 4.[address] neck soft tissue with contrast recommended for further evaluation. 8. NM myocardial perfusion scan 02/16/2025: This is a normal myocardial perfusion study. Preserved LV function. No ischemic EKG changes. Intermittent PVCs without any ventricular tachycardia during stress. Overall, low-risk myocardial perfusion scan. 9. Echocardiogram 02/15/2025: Normal sinus rhythm. Normal LV size; there is moderate eccentric left ventricular hypertrophy localized to the septum measuring 1.5 cm in end diastole. Normal wall motion and LV systolic function. Ejection fraction is 60-65%. Normal chamber sizes. Aortic sclerosis without stenosis. No left ventricular outflow tract obstruction. No prior study available for comparison. 10. Venous doppler US 02/12/2025: No findings of lower extremity deep venous thrombosis. 11. Renal US 02/14/2025: Bilateral moderate hydronephrosis without significant change compared to prior CT scan. 12. Renal US 03/06: Bilateral hydronephrosis appearing similar/minimally less prominent compared to prior exam. Labs 03/08/25 03:30 03/08/25 03:30 Labs: Laboratory Results - last 24 hr 03/08/25 03:30 WBC 7.1 RBC 3.04 L Hgb 9.1 L Hct 25.6 L MCV 84.4 MCH 29.9 MCHC 35.4 RDW 12.6 Plt Count 233 Sodium 131 L Potassium 4.6 Chloride 100 Carbon Dioxide 26 BUN 41 H Creatinine 1.12 Estimated GFR > 60 BUN/Creatinine Ratio 36.6 H Glucose 158 H Calcium 8.6 PFSH Medical History Worsening renal function Elevated serum creatinine Right leg DVT Chronic anticoagulation Gross hematuria Hx of brachytherapy (04/10/18) Urge incontinence Lower urinary tract symptoms (LUTS) Bladder outlet obstruction Prostatic calculi High blood pressure History of prostate cancer Surgical History History of transurethral resection of prostate (07/27/19) Social History marital status: number of children: 2 household members: spouse 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 Acute metabolic encephalopathy, weakness 2. Acute on chronic R leg sciatica/weakness - MRI 03/02: Right L5 nerve root impingement, exacerbated by overexertion with heavy lifting on 12/14/2024 lifting a heavy object - Pain is worsened and debilitating, resolved following 1 dose of IV methylprednisolone 125 mg on 03/03. - Continue IV methylprednisolone 80 mg daily today then oral prednisone taper. - start gabapentin 300 mg 3 times daily today - PT evaluation today for safety 3. Bladder outlet obstruction with chronic hydronephrosis/acute kidney injury - s/p right ureteral stenting 03/03, will need outpatient percutaneous left nephrostomy following discharge by IR, likely at [facility] - note no improvement in creatinine prior to admission despite Rogers catheter bladder decompression -had TURP, brachyTx and 2nd limited TURP for brachyTx removal - b/l hydronephrosis and renal function at CKD stage 3a-3b level since almost a month now - baseline cr around 1.0 in December prior to this obstruction, monitor with IV hydration today and hopeful to improve, but still requires left sided ureteral decompression percutaneously as an outpatient this week 4. UTI, ruled out. - UA negative for infection - completing course of prescribed Keflex from 02/25 on 03/07 5. Hyponatremia, acute on chronic, present on admission. 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 Orthostatic hypotension - Volume depletion - IV D5NS at 100nl/hr - monitor 7. Right leg DVT, resolved. - negative US 02/12/2025 8. Pancreatic Insufficiency, stable. - Creon with meals Plan: -discontinue IV steroids for back pain and transitioned to oral prednisone 20 mg QD on March 08. -continue gabapentin 300 mg 3 times daily -no further consideration for left nephrostomy at this point. Renal function is improved. Possible renal perfusion scan over the next several weeks per Dr. Padilla of Urology. -Stop IV fluids, improved orthostatic hypotension. -[facility] ([facility], March 09). -Urology follow up in 2 weeks with consideration for renal perfusion scan, decision to remove right kidney stent, consideration of cystoscopy and biopsy of bladder, and consideration procedure to alleviate bladder outlet obstruction. -stopped apixaban due to the risk benefit profile in a patient he was diagnosed with DVT in November and had a negative ultrasound of the same leg in January. The patient was had persistent hematuria which was not improving while on apixaban and therefore this is discontinued on March [address] Padilla. [place]: [facility] 03/09. Time-Based Coding :: [TOTAL MINUTES] spent with patient and on the chart (including review of chart, obtaining history, exam, reviewing outside data, placing orders, documenting exam and treatment plan, and counseling patient) on [DATE].
[2025-03-08] MEDS: GABAPENTIN 300 MG CAPSULE PO ×3 (08:26→20:23)
[2025-03-08] MEDS: TAMSULOSIN 0.4 MG CAPSULE PO (08:27)
[2025-03-08] MEDS: polyethylene glycoL 3350 17 GM POWD.PACK PO ×2 (08:28→11:54)
[2025-03-08] MEDS: LIPASE PROTEASE AMYLASE 3 EACH PO ×3 (08:33→17:11)
[2025-03-08] MEDS: methylPREDNISolone 125 MG/2 ML VIAL 80 MG IV (08:53)
[2025-03-08] MEDS: SODIUM CHLORIDE 0.9% 1,000 ML 100 ML IV (08:58)
[2025-03-08 10:17] VITALS: BP 103/58; BP 115/52; BP 119/49; PULSE 65; PULSE 81; PULSE 82
--- NOTE | 2025-03-08 13:10 | PT.IPTN ---
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) Unspecified hydronephrosis (03/01/25) Chronic kidney disease, stage 3 unspecified (03/01/25) Disorder of kidney and ureter, unspecified (03/01/25) Bladder-neck obstruction (03/01/25) Retention of urine, unspecified (03/01/25) Personal history of irradiation (03/01/25) Surgery Performed Operation Date: 03/03/25 14:00 Actual Procedures p Cystoscopy w/ right ureteral Stent Placement, right retrograde pyelogram - Kishore Padilla MD Physical Therapy Treatment Note M2 PT-IP Current Condition Start: 03/02/25 16:54 Freq: NEEDED Status: Active Protocol: Document 03/02/25 16:54 DLM (Rec: 03/02/25 17:25 DLM Desktop) Physical Therapy Current Condition Current Condition Evaluation Date 03/02/25 Treatment Diagnosis AMS, back pain, impaired gait Onset Date 03/01/25 M3 PT-IP Subjective Start: 03/02/25 16:54 Freq: NEEDED Status: Active Protocol: Document 03/08/25 13:10 AB (Rec: 03/08/25 16:09 AB [id number]) Subjective Physical Therapy Visit Type Type Treatment Note Visit Start Time 13:10 Visit Stop Time 14:00 Number of MARKET RISK MANAGER Visits 0 Physical Therapy Visit Comments Patient Comments agreeable to do PT Therapy Pain Assessment Pain When Pain Assessed At Rest Pain Present Pain Present Pain Reported Location Back Intensity 2 Scale Used 4/10 with mobility Pain Management Techniques Distraction,Modification of Treatment,Re-positioning, Timing of Activity with Medications M4 PT-IP Mobility and Gait Start: 03/02/25 16:54 Freq: NEEDED Status: Active Protocol: Document 03/08/25 13:10 AB (Rec: 03/08/25 16:09 AB [id number]) PT-Transfer Assessment Sit to and From Stand Sit to and from Stand Contact Guard Assistance,1 Person Assistance,Use of Upper Extremities Equipment Transfer Assistive Device Gait Belt,Front Wheeled Walker Orthotic/Prosthetic Devices or Brace: No Comments Mobility Comments pt sitting on the chair and agreeable to do PT. spouse in room with pt. BP monitored. Bp sittin/49. pt completed sit to stand CGA. BP checked in standin/79 . pt able to stand for ~ 2 more minutes and BP checked: 110/53. no c/o dizziness/ lightheadedness but c/o increase low back pain to 4/10 but decreased to 1-2/10 once seated. pt sat back on chair. BP checked: 119/59. sit to stand CGA and pt ambulated in room using FWW CGA ~ 35 ft x 2 with seated rest breaks in between. BP after 1st walk: 113/62 and 102 /54 on 2nd walk. pt sat back on chair and positioned on the chair. call light and table placed within reach. BP : 120/54 Gait Assessment Gait Gait Assistance Required: Contact Guard Assist Distance (Feet) 35 Able to Maintain Weight Bearing Status Yes During Gait Assistive Devices Assistive Device Gait Belt,Front Wheeled Walker Orthotic/Prosthetic Devices or Brace: No Gait Deviations General Gait Pattern Decreased Stride Length, Decreased Feet Clearance Factors Limiting Gait Function Factors Limiting Gait Function Decreased Activity Tolerance, Decreased Strength,Pain,Poor Balance M5 PT-IP Objective Assessments Start: 03/02/25 16:54 Freq: NEEDED Status: Active Protocol: Document 03/05/25 09:28 MB (Rec: 03/05/25 10:35 MB Desktop) Gross Range of Motion Lower Extremity ROM Impairments Right greater than left limited DF with legs supported in chair, increased edema in right greater than left leg, history of DVT, recent stenting right ureter. Edema B LEs Strength Comments Strength Comments Pt does not tolerate MMT and he presents with functional weakness in his legs that is shaking and cord-like with standing checking BP and using RW, increased shaking with increased time up on feet Coordination Assessment Assessment Coordination Comments Did not test coordination and pt presents changes in right greater than LLE today M6 PT-IP Treatment Start: 03/02/25 16:54 Freq: NEEDED Status: Active Protocol: Document 03/08/25 13:10 AB (Rec: 03/08/25 16:09 AB [id number]) Physical Therapy Treatment Education Education Provided Safety M7 PT-IP Assessment and Plan Start: 03/02/25 16:54 Freq: NEEDED Status: Active Protocol: Document 03/08/25 13:10 AB (Rec: 03/08/25 16:09 AB [id number]) PT Summary Assessment and Plan Potential Rehabilitation Potential Fair Summary Impairments Pain,ROM,Strength,Balance, Coordination,Sensation,Tone, Cognition,Bed Mobility, Transfers,Gait,Activity Tolerance Progress Towards Goals Slow Progress due to Medical Issues,Slow Progress due to Activity Tolerance Assessment Summary pt progressing slowly with mobility. continues to c/o back pain but better today and was able to ambulate using fWW ~ 35ft x 2 sets CGA. pt continues to have orthostatic hypotension with BP decreased to 102/54 after 2nd ambulation from 119/59 sitting BP. pt will benefit from SNF rehab to improve strength and mobility . Goals Bed Mobility Goal Independent Transfer Goal Independent,Front Wheeled Walker Gait Goal Standby Assistance,Front Wheel Walker Gait Distance 50 Other Goals up/down 7 steps with bilateral rails and SBA Days to Meet Goals 10 Frequency of Treatment Frequency Of Treatment Once a Day Treatment Plan Physical Therapy Treatment Plan Bed Mobility Training,Transfer Training,Gait Training, Therapeutic Exercise,Balance Retraining,Post Op Education, Discharge Planning,Hot or Cold Pack,Neuromuscular Re-ed, Coordination Retraining,Manual Therapy Precautions Other Precautions BP Recommendations To Nursing Amount of Assist Needed 1 Person Assist Discharge Recommendations PT Discharge Recommendations SNF Rehab Transportation Needs at Discharge Private Vehicle,Wheelchair/ Cabulance - PT assist 1
--- NOTE | 2025-03-08 13:13 | OT.IP.TRT ---
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) Unspecified hydronephrosis (03/01/25) Chronic kidney disease, stage 3 unspecified (03/01/25) Disorder of kidney and ureter, unspecified (03/01/25) Bladder-neck obstruction (03/01/25) Retention of urine, unspecified (03/01/25) Personal history of irradiation (03/01/25) Surgery Performed Operation Date: 03/03/25 14:00 Actual Procedures p Cystoscopy w/ right ureteral Stent Placement, right retrograde pyelogram - Kishore Padilla MD Occupational Therapy Treatment Note M2 OT-IP Current Condition Start: 03/07/25 12:01 Freq: Status: Active Protocol: Document 03/07/25 12:01 [facility] (Rec: 03/07/25 12:20 [facility] Desktop) Occupational Therapy Current Condition Current Condition Evaluation Date 03/07/25 Treatment Diagnosis UTI, AMS, RLE weakness-L5 nerve root impingement Diagnosis Onset Date 03/01/25 Post Operative Precautions Lumbar Precautions Log Roll,No Twisting,Limit Bending,Lifting Restriction of 10 lbs M3 OT- IP Subjective and Pain Start: 03/07/25 12:01 Freq: Status: Active Protocol: Document 03/08/25 12:46 [facility] (Rec: 03/08/25 14:20 [facility] Desktop) OT- Subjective Occupational Therapy Visit Type Type Treatment Note Visit Start Time 12:46 Visit Stop Time 13:13 Occupational Therapy Visit Comments Patient Comments Pt still eating lunch when OT came in. Pt not wanting to shower at this time. Noted pt coughing and clearing his throat often while seating. Nursing notified and suggested pt would benefit from ADMINISTRATIVE SERVICES MANAGER eval. Patient/Caregiver Goals TO get better. OT Pain Assessment Pain When Pain Assessed At Rest Pain Present Pain Present Denied Pain M4 OT- IP ADL's Start: 03/07/25 12:01 Freq: Status: Active Protocol: Document 03/08/25 12:46 [facility] (Rec: 03/08/25 14:20 [facility] Desktop) OT [id number] General Evaluation Self-Feeding Ability Standby Assistance Comments OT Self-Feeding Comments Able to get pt's position upright for eating and educated best to eat upright. Noted pt having to clear his throat often and had occasional coughing. Educated pt to eat slower and chew food more thoroughly. Suggested to nursing and hospitalist pt may benefit from ADMINISTRATIVE SERVICES MANAGER radha. M5 OT- IP IADL's Start: 03/07/25 12:01 Freq: Status: Active Protocol: Document 03/07/25 12:01 [facility] (Rec: 03/07/25 12:20 [facility] Desktop) OT-Instrumental Activities of Daily Living Meal Preparation Meal Preparation Caregiver Provides Assist Mop Man Mop Man Caregiver Provides Assist M6 OT- IP Functional Cognition Start: 03/07/25 12:01 Freq: Status: Active Protocol: Document 03/08/25 12:46 [facility] (Rec: 03/08/25 14:20 [facility] Desktop) Cognitive Factors Limiting Selfcare Function Cognitive Comments Cognitive Assessment Comments Pt more alert and able to states his precautions for his back with good accuracy. M7 OT- IP Mobility and Balance Start: 03/07/25 12:01 Freq: Status: Active Protocol: Document 03/07/25 12:01 [facility] (Rec: 03/07/25 12:20 [facility] Desktop) OT- Bed Mobility Assessment Supine to Sit Supine to Sit Assist Contact Guard Assistance OT-Transfer Assessment Sit to and From Stand Sit to and from Stand Contact Guard Assistance Transfers Transfer Ability Contact Guard Assistance Technique Transfer Destination Bed,Bedside Commode,Chair Transfer Technique Stand Step Pivot Devices Transfer Assistive Devices Gait Belt,4 Wheeled Walker Comments Mobility Comments CGA for mobility needs. Pt BP supine 133/66, sitting 100/50 and 108/58, after standing 73/ 41 , 81/37, and then 114/57. Pt after on the BSC 82/46, 110 /52and after back in bed 120/ 61 Pt able to transfer with FWW with CGA. OT- Balance Assessment Sitting Balance and Reactions Static Sitting Balance Ability Normal Dynamic Sitting Balance Ability Good Standing Balance and Reactions Static Standing Balance Ability Good Dynamic Standing Balance Ability Fair M8 OT- IP Objective Assessments Start: 03/07/25 12:01 Freq: Status: Active Protocol: Document 03/07/25 12:01 [facility] (Rec: 03/07/25 12:20 [facility] Desktop) OT Gross Range of Motion Upper Extremity Range of Motion Assessment Within Functional Limits OT Strength Comments Strength Comments At least 3+/5, NT due to back pain and L5 impingement. M9 OT- IP Assessment and Plan Start: 03/07/25 12:01 Freq: Status: Active Protocol: Document 03/08/25 12:46 [facility] (Rec: 03/08/25 14:20 [facility] Desktop) OT Summary Assessment and Plan Potential Rehabilitation Potential Good Analytic Complexity at Evaluation Moderate Summary OT Impairments Pain,Strength,Balance, Functional Mobility,Self- Feeding,Grooming,Dressing, Toileting,Bathing,Toilet Transfers,Shower Transfers, Activity Tolerance Progress Towards Goals Progressing Toward Goals Assessment Summary Pt noted having to clear his throat and occasional coughing on his food. Pt educated and helped to sit upright while eating, take smaller bites and sips, and to chew his food thoroughly. Pt not wanting to shower today. Pt to go to skilled rehab when medically stable. Goals Self-Feeding Goal Independent Grooming Goal Independent Dressing Goal Independent,Long Handled Shoe Horn,Director Orange,Sock Aid Toileting Goal Independent Bathing Goal Standby Assistance Toilet Transfer Goal Independent Shower Transfer Goal Standby Assistance Days to Meet Goals 9 Frequency of Treatment Other frequency 5x/week Treatment Plan OT Treatment Plan ADL Training,Functional Mobility,Patient/Family Education,Discharge Planning Discharge Recommendations OT Discharge Recommendations SNF Rehab Transportation Needs at Discharge Private Vehicle,Wheelchair/ Cabulance
[2025-03-08 14:56] VITALS: BP 138/57; PULSE 79; RESP 18; TEMP 36.1; O2SAT 100
[2025-03-08 20:00] VITALS: BP 158/63; PULSE 78; RESP 16; TEMP 36.2; O2SAT 99
[2025-03-09] MEDS: TRAMADOL 50 MG TABLET PO ×2 (05:26→12:26)
[2025-03-09] MEDS: cephALEXin 250 MG CAPSULE PO ×2 (05:27→13:20)
[2025-03-09 05:42] VITALS: BP 123/65; BP 128/65; BP 93/53; PULSE 84; PULSE 89; PULSE 91
[2025-03-09 05:45] VITALS: RESP 18; TEMP 36.6; O2SAT 99
[2025-03-09 06:07] LABS: Hemoglobin 9.6 g/dL (13.5-17.5); Mean Corpuscular HGB Conc 35.6 % (30-36); Mean Corpuscular Hemoglobin 29.9 PG (26-34); Platelet Count 272 X10^3/uL (150-400); Red Blood Cell Count 3.22 X10^6/uL (4.5-5.9); Red Cell Distribution Width 12.5 % (11.6-14.8); White Blood Cell Count 9.7 X10^3/uL (4.5-11.0)
[2025-03-09 06:14] LABS: BUN Creatinine Ratio 36.2 (6-22); Blood Urea Nitrogen 38 mg/dL (9-20); Calcium 8.8 mg/dL (8.4-10.2); Carbon Dioxide 24 mmol/L (22-32); Chloride 99 mmol/L (98-107); Estimated Glomerular Filt Rate > 60 mL/min (>60); Glucose 193 mg/dL (70-99); HEMOLYSIS < 15 (0-50); Sodium 127 mmol/L (137-145)
--- NOTE | 2025-03-09 06:28 | PC.NURSE ---
Addendum entered by Crystal Funk R.N. 03/09/25 06:43: also patient's urine output has been grade II / I in hematuria scale. Original Note: cage shift manager, patient orthostatic BP was positive; patient was complaining of pain with any movement in bed or when transitioning to bathroom. Patient would like his tramadol to be given on a schedule instead of PRN. RN will communicate to day shift RN.
[2025-03-09] MEDS: SODIUM CHLORIDE 0.9% 1,000 ML 100 ML IV (06:38)
[2025-03-09 08:00] VITALS: BP 143/68; PULSE 78; RESP 15; TEMP 36.6; O2SAT 99
--- NOTE | 2025-03-09 09:12 | DIET.PN1 ---
Dietary Progress Note Assessment: f/u Pt tolerating smoothie 1x/d and recent PO intakes 50-100%. Reports improved appetite. No further nutritional interventions at this time. If PO intakes remains >75%, will remove protein smoothie d/t renal function. Ht: 175.26 cm Wt: 70 kg BMI: 22.8 UBW: Last BM: 03/08/25 (03/08/25 23:00) MNA: 12 Terry Score: 20 Diet: 03/04/25 Lunch General (Regular) Diet Diet Modifications: Food Texture: Level 7 - Regular Liquid Consistency: Level 0 - Thin Nutrition Percent Meal Consumed 100% 03/08/25 18:00 Percent Meal Consumed 100% 03/07/25 18:00 Percent Meal Consumed 50% 03/07/25 13:34 Labs: RBC 3.22 X10^6/uL (4.5-5.9) L 03/09/25 05:10 Hgb 9.6 g/dL (13.5-17.5) L 03/09/25 05:10 Hct 27.0 % (41-53) L 03/09/25 05:10 Creatinine 1.05 mg/dL (0.66-1.25) 03/09/25 05:10 Hemoglobin A1c 6.0 % (4.0-6.0) 03/02/25 03:46 Lactate 0.8 mmol/L (0.7-2.1) 03/01/25 16:59 NT-Pro-B Natriuret Pep 8890 pg/mL (<450) H 03/06/25 12:11 Electronically Signed by: Therese Blandon 03/09/25 09:12 Clinical Dietitian [address] [id number]
[2025-03-09] MEDS: LIPASE PROTEASE AMYLASE 3 EACH PO ×2 (09:14→12:26)
[2025-03-09] MEDS: methylPREDNISolone 125 MG/2 ML VIAL 80 MG IV (09:15)
[2025-03-09] MEDS: GABAPENTIN 300 MG CAPSULE PO (09:15)
[2025-03-09] MEDS: polyethylene glycoL 3350 17 GM POWD.PACK PO (09:15)
[2025-03-09] MEDS: TAMSULOSIN 0.4 MG CAPSULE PO (09:15)
--- NOTE | 2025-03-09 12:18 | PM.DS.1 ---
History of Present Illness History of Present Illness Date Patient Seen: 03/09/25 Chief complaint: AMS Narrative: Chief complaint: Confusion obstructive uropathy MELISSA History of present illness: 80 y/o brought to ED by EMS for confusion. Daughter found him confused at home and summoned EMS. He was recently hospitalized at [facility] for UTI, sepsis, MELISSA and acute urinary obstruction and was discharged home with indwelling catheter to follow up with urology for cystoscopy. He has a history of prostate carcinoma, TURP x 2, thickened bladder wall - planned cystoscopy, is on Flomax and finishing course of Keflex. He has a history of b/l carotid stenosis and intracranial stenosis and TIA/s in the past. ED workup negative for stroke, same degree of renal insufficiency, recent A1C was 5.9. Placed in observation with MRI brain pending In further discussion with patient, he had a fall yesterday after reaching down low to in the refridgerator. He has had a worsening R flank pain, he had pain when he bent down yesterday. He denies numbness, tingling, slurred speech to me but felt weak and had to crawl around. According to the ER report he was using a TV remote as a phone. He was acutely confused per daughter which resolved in under an hour per ER report. He was admitted for possible TIA. In review of admission labs, his sodium was 123 on presentation. He describes his pain as R flank related and radiating down his R leg laterally over the IT band area. It flares up intermittently like yesterday. His PCP had ordered a Lumbar spine MRI that was supposed to be today at the hospital. Hospital course: 03/03: The patient reports pain in his back with movement, but otherwise is comfortable at rest. The pain radiates from the right lateral hip area and low back to the distal right lateral thigh, without pain [id number]. He is unable to get up without severe pain, and is essentially nonambulatory as a result, and unable to return home, where he has to navigate multiple levels of stairs in his level home. He notes he is awaiting cardiac clearance for planned urologic surgery for bilateral hydronephrosis and urethral obstruction due to history of prostate cancer with prostatic seeds with erosion into the bladder neck, PSA 01/04/2025 undetectable at less than 0.64. Note also recent Klebsiella urinary infection with sepsis two weeks ago requiring hospitalization. 5/10: The patient underwent successful right ureteral stenting on 03/03, unable to stent the left ureter, with bladder cautery of bleeding sites. He was given a dose of IV Solu-Medrol 125 mg postoperatively for back pain/sciatica. Today he states his back pain is gone and he is feeling much better, having been up and walked in the room without difficulty to go to the bathroom. 03/05: The patient reports his right lower back pain and sciatica appear worse today with increased pain. Then got up with physical therapy. Orthostatic blood pressures are notable for mildly low blood pressures with standing, but not significantly changed from line, in the 90 systolic range. No chest pain or breathing problems. 03/06-: Ongoing right back pain with radicular features, somewhat improved with steroids. Tramadol started. Ongoing hematuria in [place]. Decision to stop apixaban given negative duplex in January. The risks of apixaban are felt to outweigh the benefits of ongoing anticoagulation. Renal function normalized. Discussed with Urology. They agreed with the plan to no longer consider a left percutaneous nephrostomy. Imaging reveals bilateral hydronephrosis, unchanged, even after a right ureter stent was placed. Plans for discharge to shelter facility, [facility]. 03/09: His back and right hip pain is improved since yesterday at maximum of / and a low of 0-1. He was moving better. Hematuria is also improved considerably since stopping apixaban. No dyspnea or other complaints. His appetite is improved. He understands the plan to go to a nursing facility for rehabilitation efforts tomorrow, stay off apixaban, monitor renal function twice week at shelter facility, [place] Dr. Padilla of Urology and follow up in the next couple of weeks. A renal perfusion scan may be obtained by Dr. Padilla at some point based on his judgment. Physical exam: No acute distress at the time of my evaluation HEENT unremarkable No labored respiration Assessment and plan: 1. Acute metabolic encephalopathy, weakness improving 2. Acute on chronic R leg sciatica/weakness improved - MRI 03/02: Right L5 nerve root impingement, exacerbated by overexertion with heavy lifting on 12/14/2024 lifting a heavy object - Pain is worsened and debilitating, resolved following 1 dose of IV methylprednisolone 125 mg on 03/03. - Continue oral prednisone taper. - start gabapentin 300 mg 3 times daily today - PT evaluation today for safety 3. Bladder outlet obstruction with chronic hydronephrosis/acute kidney injury - s/p right ureteral stenting 03/03, will need outpatient percutaneous left nephrostomy following discharge by IR, likely at [facility] - note no improvement in creatinine prior to admission despite [place] catheter bladder decompression -had TURP, brachyTx and 2nd limited TURP for brachyTx removal - b/l hydronephrosis and renal function at CKD stage 3a-3b level since almost a month now - baseline cr around 1.0 in December prior to this obstruction, requires left sided ureteral decompression percutaneously as an outpatient this week 4. UTI, ruled out. - UA negative for infection - completing course of prescribed Keflex from 02/25 on 03/07 5. Hyponatremia, acute on chronic, present on admission. - SIADH due to pain, recent illness - Monitor -sodium chloride tablets 6. Orthostatic hypotension -resolved 7. Right leg DVT, resolved. - negative US 02/12/2025 8. Pancreatic Insufficiency, stable. - Creon with meals Plan: -discontinue IV steroids for back pain and transitioned to oral prednisone 20 mg b.i.d. on March 08. -continue gabapentin 300 mg 3 times daily -no further consideration for left nephrostomy at this point. Renal function is improved. Possible renal perfusion scan over the next several weeks per Dr. Padilla of Urology. -Stopped IV fluids, improved orthostatic hypotension. -shelter facility discharge in 1day for rehabilitation ([facility], March 09). -Urology follow up in 2 weeks with consideration for renal perfusion scan, decision to remove right kidney stent, consideration of cystoscopy and biopsy of bladder, and consideration procedure to alleviate bladder outlet obstruction. -stopped apixaban due to the risk benefit profile in a patient he was diagnosed with DVT in November and had a negative ultrasound of the same leg in January. The patient was had persistent hematuria which was not improving while on apixaban and therefore this is discontinued on March [address] Padilla. [facility]: [facility] 03/09. Time-Based Coding :: 35 minutes spent with patient and on the chart (including review of chart, obtaining history, exam, reviewing outside data, placing orders, documenting exam and treatment plan, and counseling patient) Discharge Providers Provider Date of admission: 05/07/25 22:36 Discharge Date: 03/09/25 Primary care physician: Kartik Cristina MD Consults: 03/02/25 01:18 Consult to Occupational Therapy Evaluate & Treat Comment: Physician Instructions: Evaluate and treat Consult to Physical Therapy Evaluate & Treat Comment: Physician Instructions: Evaluate and Treat Consult to Speech Therapy Evaluate & Treat Comment: cognitve assessment Physician Instructions: Evaluate and treat 03/03/25 11:25 Consult to Home Health Routine Comment: Reason For Exam: Home health at discharge 03/05/25 07:59 Consult to Physical Therapy Evaluate & Treat Comment: assess stairs/mobility Physician Instructions: Evaluate and Treat 03/07/25 11:17 Consult to Occupational Therapy Evaluate & Treat Comment: Physician Instructions: Evaluate and treat Discharge provider: Jhony Sánchez MD Exam Vital Signs (past 8 hours): - 03/09/25 05:42 03/09/25 05:45 03/09/25 08:00 Temperature 97.8 F 97.9 F Pulse Rate 78 Pulse Rate [Orthostatic Lying] 91 H Pulse Rate [Orthostatic Sitting] 89 Pulse Rate [Orthostatic Standing] 84 Respiratory Rate 18 15 Blood Pressure 143/68 H Blood Pressure [Orthostatic Lying] 93/53 L Blood Pressure [Orthostatic Sitting] 123/65 Blood Pressure [Orthostatic Standing] 128/65 Pulse Oximetry 99 99 Oxygen Flow Rate 0 0 Oxygen Delivery Method Room Air Oxygen Flow Rate 0 Objective Labs 03/09/25 05:10 03/09/25 05:10 Labs: Laboratory Results - last 24 hr 03/09/25 05:10 WBC 9.7 RBC 3.22 L Hgb 9.6 L Hct 27.0 L MCV 84.0 MCH 29.9 MCHC 35.6 RDW 12.5 Plt Count 272 Sodium 127 L Potassium 5.0 Chloride 99 Carbon Dioxide 24 BUN 38 H Creatinine 1.05 Estimated GFR > 60 BUN/Creatinine Ratio 36.2 H Glucose 193 H Calcium 8.8 PFSH Medical History Worsening renal function Elevated serum creatinine Right leg DVT Chronic anticoagulation Gross hematuria Hx of brachytherapy (04/10/18) Urge incontinence Lower urinary tract symptoms (LUTS) Bladder outlet obstruction Prostatic calculi High blood pressure History of prostate cancer Surgical History History of transurethral resection of prostate (07/27/19) Social History marital status: number of children: 2 household members: spouse 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 Home Assessments Smoking Status: Never smoker alcohol intake: current Type(s) of exercise: other frequency: daily Discharge Plan Discharge Plan Patient Disposition: SNF Discharge orders & Medications Prescriptions: New sennosides [senna] 8.6 mg Tablet 17.2 mg PO BEDTIME Qty: 10 0RF polyethylene glycol 3350 17 gram Powder In Packet 17 gm PO BID Qty: 10 0RF cephalexin 250 mg Capsule 250 mg PO Q8HR Qty: 10 0RF tramadol 50 mg Tablet 50 mg PO Q6H PRN (Reason: Pain, Moderate (4-6)) Qty: 12 0RF gabapentin 300 mg Capsule 300 mg PO TID Qty: 30 0RF prednisone 20 mg tablet 20 mg PO BID Qty: 20 0RF tramadol 50 mg tablet 50 mg PO Q6H PRN (Reason: pain) Qty: 10 0RF miscellaneous medical supply Misc 1 ea miscellaneous BID 10 Days Qty: 20 0RF Continued Creon 36,000-114,000- 180,000 unit capsule,delayed release(DR/EC) 3 cap PO TID Qty: 270 0RF Rx Instructions: 3 capsules with each meal tamsulosin 0.4 mg capsule 0.4 mg PO DAILY Rx Instructions: Reports that he no longer takes Discontinued Eliquis 5 mg Tablet 5 mg PO BID cephalexin 500 mg capsule 500 mg PO Q8H 10 Days Qty: 30 0RF Follow up/Referrals: Kartik Cristina MD [Primary Care Provider] - Visit Report/Discharge Packet Stand Alone Forms: Patient Portal/API Discharge Data Primary Care Provider: Kartik Cristina
--- NOTE | 2025-03-09 13:38 | CM.DPC ---
DCP Cont. Reviewed EMR and team rounds for status updates. Pt has been medically cleared for d/c today to [facility]. They will be picking him up at 2:30pm. Family updated and agree with this plan. No further CM d/c needs indicated at this time.
--- NOTE | 2025-03-09 14:57 | PC.NURSE ---
Day shift: Called Maria Elena at [facility] to give report. All belongings with patient's spouse. PIV and tele d/c'ed prior to discharge. [facility] arrived and escorted patient via wheelchair to exit. All paperwork, including hard scripts, given to [facility] transport. Medication that was stored in pharmacy returned to patient's spouse.
== END 2025-03-09 14:50 | DRG 987 ==
LOC: ED 22:36 → AC 03-02 03:04
PROVIDERS: Emergency Medicine; Hospitalist; Internal Medicine; Urology; Admitting Provider Internal Medicine; Emergency Provider Emergency Medicine; PCP Internal Medicine; Referring Provider Emergency Medicine; Visit Provider Internal Medicine
PROC: 0T768DZ Dilation of Right Ureter with Intraluminal Device, Via Natural or Artificial Opening Endoscopic (ICD-10-PCS; principal; 2025-03-03 14:00)
DX: E22.2 Syndrome of inappropriate secretion of antidiuretic hormone (principal); G93.41 Metabolic encephalopathy; N13.30 Unspecified hydronephrosis; N17.9 Acute kidney failure, unspecified; N32.0 Bladder-neck obstruction; R47.81 Slurred speech; W18.30XA Fall on same level, unspecified, initial encounter; N18.32 Chronic kidney disease, stage 3b; R53.1 Weakness; K86.89 Other specified diseases of pancreas; I44.0 Atrioventricular block, first degree; I95.1 Orthostatic hypotension; M54.41 Lumbago with sciatica, right side; R31.9 Hematuria, unspecified; Z79.01 Long term (current) use of anticoagulants; Z85.46 Personal history of malignant neoplasm of prostate; Z86.73 Personal history of transient ischemic attack (TIA), and cerebral infarction without residual deficits; Z86.718 Personal history of other venous thrombosis and embolism
CPT/HCPCS: 36415; 70450; 70496; 70498; 70551; 71045; 72148; 74018; 74176; 76000; 76770; 80048; 80053; 80061; 81001; 82550; 83036; 83605; 83690; 83735; 83880; 83935; 84300; 84484; 85025; 85027; 85610; 85730; 93005; 93010; 97116; 97163; 97164; 97166; 97530; 97535; 99284; 99285; C2617; J0690; J2405; J2704; J2919; Q9967

== ENCOUNTER 2025-03-22 14:19 | Inpatient (IN) | payer MEDICARE, OTHER, SELFPAY ==
[2025-03-01 22:45] VITALS: BMI 22.8
[2025-03-22] VITALS (15 sets, daily range): BP systolic 126–153; BP diastolic 60–73; PULSE 71–83; RESP 14–21; TEMP 36.1–36.6; O2SAT 96–99
--- NOTE | 2025-03-22 14:34 | EKG_ITS ---
[place] [id number] [place] [id number] Test Date: 2025-03-22 Pat Name: Aaron Cook Department: Room: Gender: Male [employer]: TODD : 1945 Requested By: Order Number: [id number] Reading MD: Dagoberto Jackson Measurements Intervals Peel Rate: 75 P: 71 AR: 184 QRS: 4 QRSD: 86 T: 128 QT: 352 QTc: 393 Interpretive Statements Normal sinus rhythm ST & T wave abnormality, consider anterolateral ischemia Electronically Signed On 03-22-2025 17:48:49 PDT by Dagoberto Jackson
--- NOTE | 2025-03-22 14:34 | DI.RAD.S_ITS ---
PROCEDURE: XR CHEST 1V INDICATIONS: suspected sepsis TECHNIQUE: One view of the chest was acquired. COMPARISON: [facility], CR, XR CHEST 1V, 03/01/2025, 16:54. FINDINGS: Surgical changes and devices: None. Lungs and pleura: Lungs are clear. No pleural effusions or pneumothorax. Mediastinum: Mediastinal contours appear normal. Heart size is normal. Bones and chest wall: No suspicious bony lesions. Overlying soft tissues appear unremarkable. IMPRESSION: No acute cardiopulmonary pathology. Dictated by: Flaquito Bentley M.D. on 03/22/2025 at 16:19 Approved by: Flaquito Bentley M.D. on 03/22/2025 at 16:19
[2025-03-22 14:48] LABS: Add Manual Diff / Slide Review NO; Basophils Absolute Auto 0 /uL (0-100); Basophils Percent Auto 0.1 % (0-2); Eosinophils Absolute Auto 0 /uL (0-450); Hematocrit 31.2 % (41-53); Hemoglobin 10.3 g/dL (13.5-17.5); Lymphocytes Absolute Auto 100 /uL (1100-4500); Lymphocytes Percent Auto 0.8 % (25-40); Mean Corpuscular Hemoglobin 29.1 PG (26-34); Monocytes Absolute Auto 300 /uL (0-900); Monocytes Percent Auto 2.6 % (3-14); Neutrophils Absolute Auto 11900 /uL (1500-7000); Neutrophils Percent Auto 96.5 % (50-75); Platelet Count 127 X10^3/uL (150-400); Red Blood Cell Count 3.54 X10^6/uL (4.5-5.9); Red Cell Distribution Width 13.6 % (11.6-14.8); White Blood Cell Count 12.4 X10^3/uL (4.5-11.0)
[2025-03-22 14:49] LABS: INR 1.1 (0.9-1.3); Prothrombin Time 11.9 SECONDS (9.4-12.5)
[2025-03-22 14:51] LABS: PTT Partial Thromboplastin Tim 27 SECONDS (25.1-36.5)
[2025-03-22 14:55] LABS: Lactate (Lactic Acid) 1.5 mmol/L (0.7-2.1)
[2025-03-22] MEDS: SODIUM CHLORIDE 0.9% 1,000 ML 1000 ML IV (15:14)
--- NOTE | 2025-03-22 15:34 | ED.AMS ---
HPI - Altered Mental Status General Chief Complaint: Altered Mental Status Stated Complaint: AMS Time Seen by Provider: 03/22/25 15:14 Source: EMS Mode of arrival: EMS History of Present Illness HPI narrative: Patient brought in by ambulance from [facility]. Patient just discharged from this facility earlier this month for UTI acute kidney injury, altered mental status sepsis urinary obstruction. Patient did have cystoscopy while he was here. Patient seen by Urology Dr. Padilla. Patient does have ureteral stent in place. In the last 3 days there has been a decline in cognition according to . He usually can carry a conversation. Now he is repeating the same sentences and not carrying on conversation at baseline. Related Data Home Medications ?Medication ?Instructions ?Recorded ?Confirmed tamsulosin 0.4 mg capsule 0.4 mg PO DAILY 02/24/24 03/02/25 Previous Rx's ?Medication ?Instructions ?Recorded cephalexin 250 mg capsule 250 mg PO Q8HR #10 caps 03/09/25 gabapentin 300 mg capsule 300 mg PO TID #30 caps 03/09/25 nlfesp-tbpzchsf-wpmrhfy 3 cap PO TID #270 caps 03/09/25 36,000-114,000-180,000 unit capsule,delay rel (Creon) polyethylene glycol 3350 17 gram 17 gm PO BID #10 ea 03/09/25 oral powder packet prednisone 20 mg tablet 20 mg PO BID #20 tabs 03/09/25 sennosides 8.6 mg tablet (senna) 17.2 mg (2 x 8.6 mg) PO BEDTIME 03/09/25 #10 tabs tramadol 50 mg tablet 50 mg PO Q6H PRN Pain, Moderate 03/09/25 (4-6) #12 tabs tramadol 50 mg tablet 50 mg PO Q6H PRN pain #10 tabs 03/09/25 Allergies Allergy/AdvReac Type Severity Reaction Status Date / Time No Known Drug Allergies Allergy Verified 02/25/25 12:16 Review of Systems Review of Systems Narrative: GENERAL: Negative chills, fatigue, malaise, fever, sweats. HEENT: Negative sinus pain, ear pain, sore throat RESPIRATORY: Negative dyspnea, cough CARDIOVASCULAR: Negative chest pain, palpitations GASTROINTESTINAL: Negative vomiting, nausea, abdominal pain : Negative dysuria, frequency, hematuria MUSCULOSKELETAL: Negative muscle or bony pain SKIN: Negative rash, skin lesions NEUROLOGIC: Negative weakness, numbness, positive confusion ROS Unobtainable: All systems reviewed & are unremarkable except as noted in HPI and below Patient History Medical History Worsening renal function Elevated serum creatinine Right leg DVT Chronic anticoagulation Gross hematuria Hx of brachytherapy (04/10/18) Urge incontinence Lower urinary tract symptoms (LUTS) Bladder outlet obstruction Prostatic calculi High blood pressure History of prostate cancer Surgical History History of transurethral resection of prostate (07/27/19) Social History marital status: number of children: 2 household members: spouse 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 EYES: Pupils equal round ENT: Mucous membranes moist. NECK: Trachea midline. CARDIOVASCULAR: Regular rate and rhythm RESPIRATORY: Clear to auscultation. Breath sounds equal bilaterally. No wheezes, rales, or rhonchi. GASTROINTESTINAL: Abdomen soft, non-tender EXTREMITIES: No gross deformities. BACK: No flank tenderness. NEURO: Patient is awake alert and following instructions. Alert and aware of name and date of only. Moving all 4 extremities purposely. 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 No facial droop no slurred speech SKIN: Warm and dry PSYCH: Not anxious, is cooperative Initial Vital Signs Initial Vital Signs: Vital Signs Temperature 97.8 F 03/22/25 14:27 Pulse Rate 71 03/22/25 14:27 Respiratory Rate 16 03/22/25 14:27 Blood Pressure 131/62 03/22/25 14:27 Pulse Oximetry 99 03/22/25 14:27 Oxygen Delivery Method Room Air 03/22/25 14:27 Course Orders Ordered: Discontinued Medications Furosemide (Furosemide 40 Mg/4 Ml Vial) 20 mg IV NOW ONE Stop: 03/22/25 22:32 Last Admin: 03/22/25 22:53 Dose: 20 mg Documented By: Heparin Sodium (Porcine) (Heparin 5,000 Unit/Ml Vial) 5,000 unit SUBCUT BID [facility] Last Admin: 03/23/25 08:29 Dose: 5,000 unit Documented By: Admin: 03/22/25 22:50 Dose: 5,000 unit Documented By: VH Sodium Chloride (Normal Saline 0.9%) 1,000 mls @ 1,000 mls/hr IV BOLUS ONE Stop: 03/22/25 15:32 Last Infusion: 03/22/25 16:47 Dose: Infused Documented By: Admin: 03/22/25 15:14 Dose: 1,000 mls/hr Documented By: DM Piperacillin Sod/Tazobactam (Sod 4.5 gm/ Sodium Chloride) 100 mls @ 200 mls/hr IV NOW ONE Stop: 03/22/25 15:35 Last Infusion: 03/22/25 16:47 Dose: Infused Documented By: [facility] Admin: 03/22/25 15:53 Dose: 200 mls/hr Documented By: RB Sodium Chloride (Normal Saline 0.9%) 1,000 mls @ 75 mls/hr IV CONT ONE Stop: 03/23/25 06:20 Last Infusion: 03/23/25 02:00 Dose: 0 mls/hr Documented By: Admin: 03/22/25 17:26 Dose: 75 mls/hr Documented By: ROSA Dextrose (D10w) 100 mls @ 999 mls/hr IV PRN PRN PRN Reason: Hypoglycemia INSULIN DRIP PREMIX (Myxredlin Drip Premix) 100 unit in 100 mls @ 7.5 mls/hr IV TITRATE JAMI; Protocol Last Titration: 03/23/25 08:00 Dose: 0.02 unit/kg/hr, 1.5 mls/hr Documented By: AV Co-signed By: MS Titration: 03/23/25 06:45 Dose: 0.05 unit/kg/hr, 3.75 mls/hr Documented By: FM Co-signed By: CT Admin: 03/23/25 01:59 Dose: 0.1 unit/kg/hr, 7.5 mls/hr Documented By: FM Co-signed By: CT Ceftriaxone Sodium 2,000 mg/ (Sodium Chloride) 100 mls @ 200 mls/hr IV Q24H JAMI Last Infusion: 03/23/25 03:15 Dose: Infused Documented By: Admin: 03/23/25 01:59 Dose: 200 mls/hr Documented By: FM Sodium Chloride (Normal Saline 0.9%) 1,000 mls @ 0 mls/hr IV CONT ONE; Protocol Stop: 03/22/25 17:02 Sodium Chloride (Normal Saline 0.9%) 1,000 mls @ 0 mls/hr IV CONT JAMI; Protocol Last Admin: 03/23/25 02:00 Dose: 50 mls/hr Documented By: ARA Dextrose/Sodium Chloride (Dextrose 5%-0.9% Ns) 1,000 mls @ 0 mls/hr IV CONT JAMI; Protocol Last Admin: 03/23/25 06:42 Dose: 75 mls/hr Documented By: ARA Calcium Gluconate 4.65 meq/ (Sodium Chloride) 60 mls @ 180 mls/hr IV NOW ONE Stop: 03/23/25 11:36 Last Admin: 03/23/25 11:43 Dose: 180 mls/hr Documented By: SD Insulin Human Lispro (Insulin Lispro 100 Unit/Ml 3ml Vial) 0 unit SUBCUT Q6H JAMI; Protocol Last Admin: 03/23/25 06:44 Dose: Not Given Documented By: Admin: 03/22/25 23:47 Dose: 4 unit Documented By: MARGIE Co-signed By: MS(2) Admin: 03/22/25 22:34 Dose: 12 unit Documented By: MARGIE Co-signed By: MS(2) Insulin Human Lispro (Insulin Lispro 100 Unit/Ml 3ml Vial) 0 unit SUBCUT ACHS JAMI; Protocol Insulin Human NPH (Insulin Nph 100 Unit/Ml 10ml Vial) 8 unit SUBCUT BIDAC JAMI Insulin Human NPH (Insulin Nph 100 Unit/Ml 10ml Vial) 8 unit SUBCUT NOW ONE Stop: 03/23/25 10:17 Last Admin: 03/23/25 11:01 Dose: 8 unit Documented By: SD Co-signed By: JEREMY Insulin Human Regular (Insulin Regular 100 Unit/Ml 3 Ml Vial) 10 unit IV NOW ONE Stop: 03/22/25 17:00 Last Admin: 03/22/25 17:26 Dose: 10 unit Documented By: DMMeagan Co-signed By: WILLI Naloxone HCl (Naloxone 0.4 Mg/Ml Vial) 0.2 mg IV Q2MIN PRN PRN Reason: Opiate Reversal Ondansetron HCl (Ondansetron 4 Mg/2 Ml Inj) 4 mg IV NOW PRN PRN Reason: Nausea And Vomiting Ondansetron HCl (Ondansetron 4 Mg Odt) 4 mg PO NOW PRN PRN Reason: Nausea And Vomiting Sodium Zirconium Cyclosilicate (Sodium Zirconium Cyclosilicate 10 Gm Powd.Pack) 10 gm PO NOW ONE Stop: 03/22/25 22:18 Last Admin: 03/22/25 22:40 Dose: 10 gm Documented By: VH Sodium Zirconium Cyclosilicate (Sodium Zirconium Cyclosilicate 10 Gm Powd.Pack) 10 gm PO NOW ONE Stop: 03/23/25 11:23 Vital Signs Vital signs: Vital Signs - 8 hr 03/22/25 14:27 03/22/25 14:28 03/22/25 14:30 Temperature 97.8 F Pulse Rate 71 75 74 Respiratory Rate 16 17 14 Blood Pressure 131/62 Pulse Oximetry 99 97 98 Oxygen Delivery Method Room Air 03/22/25 14:30 03/22/25 14:54 03/22/25 14:54 Temperature Pulse Rate 75 Respiratory Rate 14 Blood Pressure 126/62 139/65 Pulse Oximetry 98 Oxygen Delivery Method 03/22/25 15:00 03/22/25 15:00 03/22/25 15:30 Temperature Pulse Rate 74 Respiratory Rate 18 Blood Pressure 132/61 138/63 Pulse Oximetry 98 Oxygen Delivery Method 03/22/25 15:30 03/22/25 15:57 03/22/25 15:57 Temperature Pulse Rate 74 80 Respiratory Rate Blood Pressure 140/65 Pulse Oximetry 99 98 Oxygen Delivery Method 03/22/25 16:00 03/22/25 16:00 03/22/25 16:30 Temperature Pulse Rate 79 Respiratory Rate 14 Blood Pressure 134/60 143/65 H Pulse Oximetry 97 Oxygen Delivery Method Room Air 03/22/25 16:30 03/22/25 17:00 03/22/25 17:00 Temperature Pulse Rate 80 83 Respiratory Rate Blood Pressure 137/63 Pulse Oximetry 96 96 Oxygen Delivery Method MDM - Altered Mental Status Lab Data 03/23/25 02:45 03/23/25 10:10 Labs: Lab Results 03/22/25 03/22/25 Range/Units 14:14 15:21 WBC 12.4 H (4.5-11.0) X10^3/uL RBC 3.54 L (4.5-5.9) X10^6/uL Hgb 10.3 L (13.5-17.5) g/dL Hct 31.2 L (41-53) % MCV 88.0 (80-100) fL MCH 29.1 (26-34) PG MCHC 33.0 (30-36) % RDW 13.6 (11.6-14.8) % Plt Count 127 L (150-400) X10^3/uL Neut % (Auto) 96.5 H (50-75) % Lymph % (Auto) 0.8 L (25-40) % [place] % (Auto) 2.6 L (3-14) % Eos % (Auto) 0.0 L (2-4) % Baso % (Auto) 0.1 (0-2) % Neut # (Auto) 05750 H (8349-5590) /uL Lymph # (Auto) 100 L (3263-0705) /uL [place] # (Auto) 300 (0-900) /uL Eos # (Auto) 0 (0-450) /uL Baso # (Auto) 0 (0-100) /uL PT 11.9 (9.4-12.5) SECONDS INR 1.1 (0.9-1.3) APTT 27 (25.1-36.5) SECONDS Sodium 117 L* (137-145) mmol/L Potassium 6.0 H (3.4-5.1) mmol/L Chloride 88 L (98-107) mmol/L Carbon Dioxide 19 L (22-32) mmol/L BUN 123 H* (9-20) mg/dL Creatinine 3.47 H (0.66-1.25) mg/dL Estimated GFR 17 L (>60) mL/min BUN/Creatinine Ratio 35.4 H (6-22) Glucose 634 H* (70-99) mg/dL Lactate 1.5 (0.7-2.1) mmol/L Calcium 8.5 (8.4-10.2) mg/dL Total Bilirubin 0.7 (0.2-1.3) mg/dL AST 29 (17-59) IU/L ALT 36 (<50) IU/L Alkaline Phosphatase 211 H (38-126) U/L Total Protein 5.4 L (6.3-8.2) g/dL Albumin 2.8 L (3.5-5.0) g/dL Globulin 2.6 (1.7-4.1) g/dL Albumin/Globulin Ratio 1.1 (1.0-2.8) Lipase < 10 L (23-300) U/L Procalcitonin 1.77 H (<0.5) ng/mL A.calcoaceticus-baumannii cmplx PCR Not detected (Not Detect) Bacteroides fragilis Not detected (Not Detect) Emily albicans (PCR) Detected (Not Detect) Emily auris (PCR) Not detected (Not Detect) C. glabrata (PCR) Not detected (Not Detect) C. krusei (PCR) Not detected (Not Detect) C. parapsilosis (PCR) Not detected (Not Detect) C. tropicalis (PCR) Not detected (Not Detect) C. neoform/gattii (PCR) Not detected (Not Detect) Enterobacterales (PCR) Not detected (Not Detect) E. cloacae complex PCR Not detected (Not Detect) Enterococc faecalis PCR Not detected (Not Detect) Enterococc faecium PCR Not detected (Not Detect) E. coli (PCR) Not detected (Not Detect) H. influenzae (PCR) Not detected (Not Detect) Klebsiella aerogenes (PCR) Not detected (Not Detect) Klebsiella oxytoca PCR Not detected (Not Detect) Klebsiella pneumoniae Not detected (Not Detect) List. monocytogenes PCR Not detected (Not Detect) N. meningitidis (PCR) Not detected (Not Detect) Proteus species (PCR) Not detected (Not Detect) Salmonella spp. (PCR) Not detected (Not Detect) Serratia marcescens PCR Not detected (Not Detect) Staphylococcus sp PCR Not detected (Not Detect) Staph aureus (PCR) Not detected (Not Detect) mecA/C & MREJ Resist Gene Not applicable (Not Detect) mecA/C-Methicil Resis Gene Not applicable (Not Detect) mcr-1 Colistin Res Gene PCR Not applicable (Not Detect) Staph epidermidis (PCR) Not detected (Not Detect) Staph lugdunensis PCR Not detected (Not Detect) S. maltophilia (PCR) Not detected (Not Detect) Streptococcus sp PCR Not detected (Not Detect) Group A Strep (PCR) Not detected (Not Detect) Strep agalactiae (PCR) Not detected (Not Detect) Strep pneumoniae (PCR) Not detected (Not Detect) P. aeruginosa (PCR) Not detected (Not Detect) Mariya/B-Vanco Res Genes Not applicable (Not Detect) blaIMP Car res Gene PCR Not applicable (Not Detect) KPC-Carbap Res Gene PCR Not applicable (Not Detect) blaNDM Car Res Gene PCR Not applicable (Not Detect) OXA-48 Carbapenem Resis Gene (PCR) Not applicable (Not Detect) blaVIM Car Res Gene PCR Not applicable (Not Detect) CTX-M Gene Resistance (PCR) Not applicable (Not Detect) Imaging Data Chest x-ray: Radiologist's Impression: [address] [address] XRay Report Signed Patient: Aaron Cook MR#: [id number] : 1945 Acct:[id number] Age/Sex: 80 / M Date of Service: 03/22/25 Loc: ED Accession Number: [id number] Procedure: XR chest 1V Ordering Provider: Kishore Santizo MD PROCEDURE: XR CHEST 1V INDICATIONS: suspected sepsis TECHNIQUE: One view of the chest was acquired. COMPARISON: [facility], , XR CHEST 1V, 03/01/2025, 16:54. FINDINGS: Surgical changes and devices: None. Lungs and pleura: Lungs are clear. No pleural effusions or pneumothorax. Mediastinum: Mediastinal contours appear normal. Heart size is normal. Bones and chest wall: No suspicious bony lesions. Overlying soft tissues appear unremarkable. IMPRESSION: No acute cardiopulmonary pathology. Dictated by: Flaquito Bentley M.D. on 03/22/2025 at 16:19 Approved by: Flaquito Bentley M.D. on 03/22/2025 at 16:19 CT chest abdomen pelvis: Radiologist's Impression: [address] [id number] [address] Scan Report Signed Patient: Aaron Cook MR#: [id number] : 1945 Acct:[id number] Age/Sex: 80 / M Date of Service: 03/22/25 Loc: ED Accession Number: [id number] Procedure: CT chest abd pel w con Ordering Provider: Kishore Santizo MD PROCEDURE: CT CHEST ABD PEL W CON INDICATIONS: Sepsis TECHNIQUE: After the administration of intravenous contrast, 5 mm thick sections acquired from the lung apices to the symphysis. 5 mm coronal and sagittal reformats were performed, with additional 7 mm MIP reformats through the lungs. For radiation dose reduction, the following was used: automated exposure control, adjustment of mA and/or kV according to patient size. COMPARISON: [facility], CT, CT ABDOMEN PELVIS WO/W CON, 01/07/2025, 11:08. [facility], CT, CT ABDOMEN PELVIS WO CON, 03/02/2025, 14:56. FINDINGS: Image quality: Excellent. CHEST: Lower Neck: Large necrotic appearing left supraclavicular lymph no measures 3.1 x 3.5 cm in size is seen series 2, image 7. Thyroid: No thyroid nodules which require sonographic follow up, per consensus guidelines. Axillae: No enlarged lymph nodes. Chest Wall: Unremarkable. Lungs and Pleura: Ill-defined patchy airspace opacities are noted in posterior aspect of bilateral lower lobes and in posterior aspect of right upper lobe extending to bilateral hilar region. Small right pleural effusion and trace left pleural effusion is seen. No pneumothorax. Heart: Heart size is enlarged. No pericardial effusion. Thoracic Vessels: The aorta and pulmonary arteries demonstrate normal size. Mediastinum and Bridgett: No enlarged lymph nodes. Esophagus: No wall thickening. No significant in hiatal hernia. ABDOMEN: Liver: Numerous hypodense lesions are seen scattered in liver parenchyma not seen on previous studies and measures up to 1.5 cm in size in anterior segment of right hepatic lobe series 2, image 90 and 3 x 2.7 cm in size in left hepatic lobe series 2, image 84. Small amount of perihepatic fluid is seen. Gallbladder: No calcified gallstones. Mild gallbladder wall thickening and suggestion of small amount of pericholecystic fluid. Biliary ducts: Pneumobilia is seen predominantly involving left hepatic lobe Pancreas: A trophic pancreas with air seen in pancreatic duct. Spleen: Size is within normal limits. Adrenal Glands: Diffusely thickened left adrenal gland, underlying left adrenal nodule cannot be excluded. No right-sided adrenal nodule. Kidneys and Ureters: There is interval placement of right-sided ureteral stent. A persistent moderate hydronephrosis is seen no significant hydroureter on the current study surrounding the ureteral stent. Moderate to severe left-sided hydronephrosis and hydroureter extending to the level of UVJ is seen without obstructing stone noted. This is not significantly changed from prior study. Stomach and Bowel: There is no bowel obstruction. Moderate fecal stasis in the colon is seen. No abscess collection. Peritoneum: Small to moderate amount of free fluid in lower abdomen and pelvis is seen. No peritoneal free air. Ventral Wall: No significant ventral hernia. Generalized anasarca is seen. 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 PELVIS: Pelvic Organs: Brachial therapy seeds are noted within the prostate gland.. Bladder: Rogers catheter is seen in a decompressed urinary bladder. Pelvic Nodes: No enlarged lymph nodes. Miscellaneous: No inguinal hernias are seen. Bones: No aggressive osseous abnormality. IMPRESSION: 1. Interval development of numerous hypodense lesions scattered in liver parenchyma as described above. These were not definitely seen on recent study dated 03/02/2025. Finding could represent liver metastasis although fairly rapid onset is more suggestive of infectious process such as hepatic abscess. Clinical correlation and follow-up is recommended. 2. Necrotic appearing left supraclavicular lymph node as above. Finding is concerning for metastatic disease. 3. Patchy infiltrate/atelectasis scattered in posterior aspect of right upper lobe and bilateral lower lobes extending to bilateral hilar region concerning for infectious process given patient's history. Underlying neoplastic process cannot be excluded. Follow-up until resolution is recommended. Small right greater than left bilateral pleural effusion. No pneumothorax. 4. Stable pneumobilia. Small amount of free fluid is seen in abdomen and pelvis. No gross peritoneal free air. Generalized anasarca. 5. Questionable inflammatory changes involving gallbladder wall as above, acalculus cholecystitis cannot be entirely excluded 6. Interval placement of a right-sided ureteral stent with moderate right-sided hydronephrosis, mild residual right-sided hydroureter is also likely present. Persistent moderate to severe left-sided hydronephrosis and hydroureter extending to the level of UVJ. Decompressed urinary bladder. 7. Other chronic findings as above. Dictated by: Flaquito Bentley M.D. on 03/22/2025 at 16:31 Approved by: Flaquito Bentley M.D. on 03/22/2025 at 16:49 MDM Narrative Medical decision making narrative: Patient brought in by ambulance from [facility]. Patient just discharged from this facility earlier this month for UTI acute kidney injury, altered mental status sepsis urinary obstruction. Patient did have cystoscopy while he was here. Patient seen by Urology Dr. Padilla. Patient does have ureteral stent in place. In the last 3 days there has been a decline in cognition according to . He usually can carry a conversation. Now he is repeating the same sentences and not carrying on conversation at baseline. After history and exam, CBC CMP lactic acid procalcitonin CT chest abdomen pelvis Zosyn urinalysis blood culture [facility] Medical records reviewed: Discharge summary operative notes from earlier this month at this hospital Differential considered: Includes but not limited to pyelonephritis UTI sepsis Lab Test results independently reviewed as above. Pertinent findings: WBC 12.4 hemoglobin 10.3 sodium 117 potassium 6.0 bicarb 19 BUN 123 creatinine 3.47 GFR 17 procalcitonin 1.77 Independently reviewed EKG normal sinus rhythm rate [address] elevation or depression Imaging studies independently reviewed: CT chest abdomen pelvis, possible pneumonia, chest x-ray no acute finding Consultations: 5:[address] Jackson, hospitalist, who will admit patient, give normal saline 75 mL/hour for hyponatremia. Give insulin 10 units for hyperglycemia, patient not in DKA at this time. Order CT of the head. Re-evaluations: 5:10 p.m.. Patient resting comfortably at this time. is not in the room to update results and admission plan. Discussion: Appropriate for admission for hyponatremia. Antibiotics have been started. Possible pneumonia. Insulin given. IV fluids have been started for hyponatremia and acute renal injury Diagnosis: Hyponatremia Critical Care Time Critical Care Time Attestation: Critical Care Time 35 minutes: Critical care time is separate from other billable procedures. This critical care time includes consultation with family and other consulting doctors, review of records, and interpretation of data from labs, EKGs, imaging, etc. Discharge Plan Departure Patient Disposition: Admitted As Inpatient Clinical Impression: Acute hyponatremia, Acute kidney injury, Acute hyperglycemia Altered mental status Qualifiers: Altered mental status type: unspecified Qualified Code(s): R41.82 - Altered mental status, unspecified Admit Date/Time: 03/22/25 17:00 Admit Provider: Dagoberto Jackson
[2025-03-22 15:52] LABS: Alanine Aminotransferase 36 IU/L (<50); Albumin 2.8 g/dL (3.5-5.0); Albumin Globulin Ratio 1.1 (1.0-2.8); Alkaline Phosphatase 211 U/L (38-126); Aspartate Aminotransferase 29 IU/L (17-59); Bilirubin Total 0.7 mg/dL (0.2-1.3); Calcium 8.5 mg/dL (8.4-10.2); Carbon Dioxide 19 mmol/L (22-32); Chloride 88 mmol/L (98-107); Estimated Glomerular Filt Rate 17 mL/min (>60); Globulin 2.6 g/dL (1.7-4.1); HEMOLYSIS < 15 (0-50); Total Protein 5.4 g/dL (6.3-8.2)
[2025-03-22] MEDS: PIPERACILLIN/TAZO 4.5 GM in SODIUM CHLORIDE 0.9% 100 ML IV (15:53)
[2025-03-22 16:00] LABS: BUN Creatinine Ratio 35.4 (6-22); Lipase < 10 U/L (23-300)
[2025-03-22 16:04] LABS: Sodium 117 mmol/L (137-145)
[2025-03-22 16:05] LABS: Blood Urea Nitrogen 123 mg/dL (9-20); Glucose 634 mg/dL (70-99)
[2025-03-22 16:09] LABS: Procalcitonin 1.77 ng/mL (<0.5)
--- NOTE | 2025-03-22 16:59 | DI.CT.S_ITS ---
PROCEDURE: CT HEAD/BRAIN WO CON INDICATIONS: Altered mental status TECHNIQUE: Noncontrast 4.5 mm thick angled axial sections acquired from the foramen magnum to the vertex, with coronal and sagittal reformats. For radiation dose reduction, the following was used: automated exposure control, adjustment of mA and/or kV according to patient size. COMPARISON: [facility], CT, CT HEAD/BRAIN WO CON, 03/01/2025, 17:27. FINDINGS: Image quality: Diagnostic. CSF spaces: Basal cisterns are patent. No extra-axial fluid collections. The ventricles are symmetric in size and shape. Brain: No intracranial bleeds or mass effect. There is cerebral volume loss, with resultant ventricular and sulcal prominence. There are periventricular and deep white matter chronic small vessel ischemic changes. There is intracranial internal carotid artery atherosclerosis. Skull and face: Calvarium and visualized facial bones appear intact, without suspicious lesions. Sinuses: Visualized sinuses and mastoids are clear. IMPRESSION: No acute intracranial pathology. No significant changes from previous study. Dictated by: Flaquito Bentley M.D. on 03/22/2025 at 17:27 Approved by: Flaquito Bentley M.D. on 03/22/2025 at 17:28
[2025-03-22] MEDS: INSULIN REGULAR 100 UNIT/ML 3 ML VIAL 10 UNIT IV (17:26)
[2025-03-22] MEDS: SODIUM CHLORIDE 0.9% 1,000 ML 75 ML IV (17:26)
--- NOTE | 2025-03-22 17:47 | P.HP_ITS ---
History of Present Illness History of Present Illness Date Patient Seen: 03/22/25 Chief complaint: AMS Narrative: The patient was a 72-year-old male discharge to care home facility on March 09. He was treated for metabolic encephalopathy, right leg sciatica, bladder outlet obstruction with chronic hydronephrosis, and hyponatremia as well as orthostatic hypotension. The patient had been progressing and had normal mental status in the nursing facility until the last 2 days. He was having recalcitrant right lower back pain which would increase with standing and was interfering with his progression with therapies. His mental status changed abruptly over the last 2 days. He was sent to the emergency department where he was found to be hyperglycemic with a blood sugar of over 600. He had no ketosis and was also hyponatremic with a sodium of 117. His anticoagulation was recently stopped in the hospital due to persistent hematuria. He has an ongoing plan to follow up with Dr. Padilla of Urology for ongoing urologic evaluation. He was going to be referred to Dr. Mendoza's for consideration of epidural steroid injection for his limiting lower back pain and known radiculopathy. He has a history of hyperglycemia but not a formal diagnosis of diabetes. He does have chronic pancreatic insufficiency and takes Creon. He was notes his mental status has gone down just in the last 2 days. She also notes no history of severe hyperglycemia in the past. He has been on Creon for some time for his pancreatic insufficiency. He was doing well until 2 days ago. His Rogers catheter bag was essentially empty when he arrived and he was very thirsty consistent with hyperglycemia induced diuresis and volume depletion. The patient became quite confused. No fevers or chills were reported. She does note the recent discovery of a left submandibular nodule. I did share with her the plan to hydrate him overnight and slowly bring his sugar down and follow mental status. Also shared the abnormal lesions in the liver and chest x-ray which are of unclear cause and we will need to be further investigated. She would called Dr. Padilla yesterday, and he was going to order renal ultrasounds. With the patient's MELISSA we will likely be doing that the next 1-2 days. 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 Type(s) of exercise: other frequency: daily Meds Home Medications and Allergies Home Medications Medication Instructions Recorded Confirmed Type tamsulosin 0.4 mg capsule 0.4 mg PO DAILY 02/24/24 03/02/25 History cephalexin 250 mg capsule 250 mg PO Q8HR #10 caps 03/09/25 Rx gabapentin 300 mg capsule 300 mg PO TID #30 caps 03/09/25 Rx ofvife-cehnbkyp-ewnwxtu 3 cap PO TID #270 caps 03/09/25 03/02/25 Rx 36,000-114,000-180,000 unit capsule,delay rel (Creon) polyethylene glycol 3350 17 gram 17 gm PO BID #10 ea 03/09/25 Rx oral powder packet prednisone 20 mg tablet 20 mg PO BID #20 tabs 03/09/25 Rx sennosides 8.6 mg tablet (senna) 17.2 mg (2 x 8.6 mg) PO BEDTIME 03/09/25 Rx #10 tabs tramadol 50 mg tablet 50 mg PO Q6H PRN Pain, Moderate 03/09/25 Rx (4-6) #12 tabs tramadol 50 mg tablet 50 mg PO Q6H PRN pain #10 tabs 03/09/25 Rx Allergies Allergy/AdvReac Type Severity Reaction Status Date / Time No Known Drug Allergies Allergy Verified 02/25/25 12:16 Review of Systems Review of Systems Narrative: Limited due to patient's cognition. Exam Vital Signs (past 8 hours): - 03/22/25 14:27 03/22/25 14:28 03/22/25 14:30 Temperature 97.8 F Pulse Rate 71 75 74 Respiratory Rate 16 17 14 Blood Pressure 131/62 Pulse Oximetry 99 97 98 Oxygen Delivery Method Room Air 03/22/25 14:30 03/22/25 14:54 03/22/25 14:54 Temperature Pulse Rate 75 Respiratory Rate 14 Blood Pressure 126/62 139/65 Pulse Oximetry 98 Oxygen Delivery Method 03/22/25 15:00 03/22/25 15:00 03/22/25 15:30 Temperature Pulse Rate 74 Respiratory Rate 18 Blood Pressure 132/61 138/63 Pulse Oximetry 98 Oxygen Delivery Method 03/22/25 15:30 03/22/25 15:57 03/22/25 15:57 Temperature Pulse Rate 74 80 Respiratory Rate Blood Pressure 140/65 Pulse Oximetry 99 98 Oxygen Delivery Method 03/22/25 16:00 03/22/25 16:00 03/22/25 16:30 Temperature Pulse Rate 79 Respiratory Rate 14 Blood Pressure 134/60 143/65 H Pulse Oximetry 97 Oxygen Delivery Method Room Air 03/22/25 16:30 03/22/25 17:00 03/22/25 17:00 Temperature Pulse Rate 80 83 Respiratory Rate Blood Pressure 137/63 Pulse Oximetry 96 96 Oxygen Delivery Method Oxygen Delivery Method Room Air Narrative Exam Narrative: NAD, alert and confused, fluent speech, calm. Normocephalic skull, EOMI, anicteric sclera, symmetric pupils. Oropharynx unremarkable, no droop. Neck supple, midline trachea, no adenopathy. Lungs clear, normal rate and effort. Heart regular, no murmur gallop or rub. Abdomen is soft, non distended and non tender. Extremities are with 3+ edema. Skin is free of rash or lesions. Joints are not swollen or deformed. Judgment appears to be abnormal. Oropharynx is very dry. Rogers in place. Objective ECG Impression: Intervals [place] Rate: 75 P: 71 WV: 184 QRS: 4 QRSD: 86 T: 128 QT: 352 QTc: 393 Interpretive Statements Normal sinus rhythm ST & T wave abnormality, consider anterolateral ischemia Imaging Multiple studies:: Radiologist's impression: Head CT: No acute intracranial pathology. No significant changes from previous study. Chest, abdomen, pelvis CT: 1. Interval development of numerous hypodense lesions scattered in liver parenchyma as described above. These were not definitely seen on recent study dated 03/02/2025. Finding could represent liver metastasis although fairly rapid onset is more suggestive of infectious process such as hepatic abscess. Clinical correlation and follow- up is recommended. 2. Necrotic appearing left supraclavicular lymph node as above. Finding is concerning for metastatic disease. 3. Patchy infiltrate/atelectasis scattered in posterior aspect of right upper lobe and bilateral lower lobes extending to bilateral hilar region concerning for infectious process given patient's history. Underlying neoplastic process cannot be excluded. Follow-up until resolution is recommended. Small right greater than left bilateral pleural effusion. No pneumothorax. 4. Stable pneumobilia. Small amount of free fluid is seen in abdomen and pelvis. No gross peritoneal free air. Generalized anasarca. 5. Questionable inflammatory changes involving gallbladder wall as above, acalculus cholecystitis cannot be entirely excluded 6. Interval placement of a right-sided ureteral stent with moderate right-sided hydronephrosis, mild residual right-sided hydroureter is also likely present. Persistent moderate to severe left-sided hydronephrosis and hydroureter extending to the level of UVJ. Decompressed urinary bladder. 7. Other chronic findings as above. Chest x-ray: No acute cardiopulmonary pathology. Labs 03/22/25 14:14 03/22/25 15:21 Labs: Laboratory Results - last 24 hr 03/22/25 03/22/25 14:14 15:21 WBC 12.4 H RBC 3.54 L Hgb 10.3 L Hct 31.2 L MCV 88.0 MCH 29.1 MCHC 33.0 RDW 13.6 Plt Count 127 L Neut % (Auto) 96.5 H Lymph % (Auto) 0.8 L [place] % (Auto) 2.6 L Eos % (Auto) 0.0 L Baso % (Auto) 0.1 Neut # (Auto) 42271 H Lymph # (Auto) 100 L [place] # (Auto) 300 Eos # (Auto) 0 Baso # (Auto) 0 PT 11.9 INR 1.1 APTT 27 Sodium 117 L* Potassium 6.0 H Chloride 88 L Carbon Dioxide 19 L BUN 123 H* Creatinine 3.47 H Estimated GFR 17 L BUN/Creatinine Ratio 35.4 H Glucose 634 H* Lactate 1.5 Calcium 8.5 Total Bilirubin 0.7 AST 29 ALT 36 Alkaline Phosphatase 211 H Total Protein 5.4 L Albumin 2.8 L Globulin 2.6 Albumin/Globulin Ratio 1.1 Lipase < 10 L Procalcitonin 1.77 H Assessment & Plan Assessment & Plan narrative: 1. Acute metabolic encephalopathy, present on admission and active. 2. Nonketotic hyperglycemia, present on admission and active. No previous diagnosis of diabetes. 3. Hyponatremia (previosu concern for SIADH, now likely volume depleted and partly pseudo hyponatremia from hyperglycemia), present on admission and active. 4. Imaging reveals new finding of multiple hypodense lesions in the liver concerning for metastases versus infectious process. 5. Imaging reveals necrotic appearing left supraclavicular lymph node, concerning for metastatic disease. 6. Imaging reveals patchy infiltrates scattered in the posterior aspect of the right upper lobe and both lower lobes as well as the hilum concerning for infectious process versus neoplastic process. 7. MELISSA with creatinine of 3.47, discharge creatinine on March 09 was 1.05, active. 8. Acute on chronic R leg sciatica/weakness. - MRI 03/02: Right L5 nerve root impingement, exacerbated by overexertion with heavy lifting on 12/14/2024 lifting a heavy object - Pain is worsened and debilitating, resolved following 1 dose of IV methylprednisolone 125 mg on 03/03. 9. Bladder outlet obstruction with chronic hydronephrosis, active. - s/p right ureteral stenting 03/03, will need outpatient percutaneous left nephrostomy following discharge by IR, likely at [facility] - note no improvement in creatinine prior to admission despite Rogers catheter bladder decompression -had TURP, brachyTx and 2nd limited TURP for brachyTx removal - b/l hydronephrosis and renal function at CKD stage 3a-3b level since almost a month now - baseline cr around 1.0 in December prior to this obstruction, requires left sided ureteral decompression percutaneously as an outpatient this week 10. Right leg DVT, resolved. - negative US 02/12/2025. Off anticoagulation from last admission due to persistent hematuria. 11. Pancreatic Insufficiency, stable. - Creon with meals 12. Recent new finding of a left submandibular nodule, active. 13. Hyperkalemia, new and active. PLAN: -efforts night we will be directed at correcting hyperglycemia and electrolyte abnormalities at a reasonable rate. He will be on normal saline at 75 mL an hour and was given 10 units of insulin IV. We will monitor his glucose tonight and periodically give him were insulin. At this time we will forego an insulin drip and attempt to do this with intermittent bolus. -we will monitor his mental status. -we will monitor his renal function with these efforts. -anticipate discussing the situation with Dr. Padilla depending on how his electrolytes and creatinine respond to fluids. -we will obtain blood cultures and urine cultures and follow. -patient's new findings on imaging are concerning for a possible new neoplastic process. He may require biopsy depending on his clinical course. -Tele and monitor K The patient is full resuscitation, his is proxy decision maker. He also has a involved son. He will require at least 2 midnights of hospital care, supports inpatient status. Time-Based Coding :: 45 min spent with patient and on the chart (including review of chart, obtaining history, exam, reviewing outside data, placing orders, documenting exam and treatment plan, and counseling patient) on 03/22. Quality MIPS - Admit I confirm the patient?s Advance Care Plan is present, Code status is documented, Surrogate decision maker is in patient?s record [If Yes, STOP here]: Yes MIPS - Meds 'Current medications' to include all prescriptions, [id number] products, herbals, cannabis/cannabidiol products, and vitamin/mineral/dietary (nutritional) supplements. I have utilized all available resources to obtain, update, or review the patient?s current medications. [If Yes, STOP here]: Yes
[2025-03-22 21:26] LABS: Calcium 8.2 mg/dL (8.4-10.2); Carbon Dioxide 18 mmol/L (22-32); Chloride 88 mmol/L (98-107); Estimated Glomerular Filt Rate 16 mL/min (>60); HEMOLYSIS < 15 (0-50)
[2025-03-22 21:33] LABS: Potassium 6.1 mmol/L (3.4-5.1)
[2025-03-22 21:35] LABS: Blood Urea Nitrogen 122 mg/dL (9-20); Glucose 532 mg/dL (70-99); Sodium 118 mmol/L (137-145)
[2025-03-22] MEDS: INSULIN LISPRO 100 UNIT/ML 3ML VIAL SUBCUT ×2 (22:34→23:47)
[2025-03-22] MEDS: SODIUM ZIRCONIUM CYCLOSILICATE 10 GM POWD.PACK PO (22:40)
[2025-03-22] MEDS: HEPARIN 5,000 UNIT/ML VIAL 5000 UNIT SUBCUT (22:50)
[2025-03-22] MEDS: FUROSEMIDE 40 MG/4 ML VIAL 20 MG IV (22:53)
[2025-03-22 23:56] LABS: Calcium 8.3 mg/dL (8.4-10.2); Carbon Dioxide 18 mmol/L (22-32); Chloride 88 mmol/L (98-107); Estimated Glomerular Filt Rate 16 mL/min (>60)
[2025-03-23] VITALS (25 sets, daily range): BP systolic 104–157; BP diastolic 50–74; PULSE 77–89; RESP 12–35; TEMP 36.3; O2SAT 95–100; BMI 24.4
[2025-03-23 00:04] LABS: BUN Creatinine Ratio 33.7 (6-22); HEMOLYSIS 63 (0-50)
[2025-03-23 00:05] LABS: NT-proBNP (BNP-Adult 18+) 24500 pg/mL (<450)
[2025-03-23 00:06] LABS: Sodium 119 mmol/L (137-145)
[2025-03-23 00:07] LABS: Blood Urea Nitrogen 126 mg/dL (9-20); Potassium 6.5 mmol/L (3.4-5.1)
[2025-03-23 00:08] LABS: Glucose 479 mg/dL (70-99)
[2025-03-23 00:32] LABS: Sodium Urine Random 84 mmol/L (30-90)
[2025-03-23 00:45] LABS: Appearance Urine UA TURBID; Bilirubin Urine UA 2+ (NEGATIVE); Color Urine UA RED; Glucose Urine UA NEGATIVE (Negative); Ketones Urine UA TRACE (NEGATIVE); Leukocyte Esterase Urine UA 2+ (NEGATIVE); Nitrite Urine UA POSITIVE (Negative); Occult Blood Urine UA 3+ (Negative); Protein Urine UA 3+ (Negative); Specific Gravity Urine UA 1.015 (1.000-1.035); pH Urine UA 6.5 (4.5-8.0)
[2025-03-23 00:48] LABS: RBC Urine 30-100/HPF (0-5/HPF); Urine Volume 10mL (spun); WBC Urine >100/HPF (0-5/HPF)
[2025-03-23 00:53] LABS: Bacteria Urine Few (2-10); Squamous Epithelial Cell Urine 0-1 /HPF (0-5/HPF)
[2025-03-23 00:54] LABS: Culture Indicated Urine Specimen Cultured; Ictotest Urine Negative (Negative)
[2025-03-23] MEDS: cefTRIAXone 2,000 MG in SODIUM CHLORIDE 0.9% 100 ML 200 MG IV (01:59)
[2025-03-23] MEDS: INSULIN DRIP PREMIX 100 UNIT/100 ML PLAST..BAG 7.5 UNIT IV (01:59)
[2025-03-23] MEDS: SODIUM CHLORIDE 0.9% 1,000 ML 50 ML IV (02:00)
[2025-03-23 02:40] LABS: Allen Test for ABG Passed? Positive; Base Excess ABG -5.9 mmol/L (-2-3); Blood Gas Collection Site Left Radial; HCO3 ABG 19 mmol/L (23-27); Oxygen Saturation ABG 97 % (95-100); PO2 ABG 89 mmHg (80-100); TCO2 ABG 18 mmol/L (23-27); pH ABG 7.36 (7.35-7.45)
--- NOTE | 2025-03-23 03:04 | P.TELICUCN_ITS ---
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 has history of hydronephrosis, which seems ot be worse now with stent on right - CT also has hydroureter in addiition to mets from likely prostate Ca. 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 Type(s) of exercise: other frequency: daily Current Medications Current Medications Medications: Home Medications tamsulosin 0.4 mg capsule 0.4 mg PO DAILY 02/24/24 [History Confirmed 03/02/25] cephalexin 250 mg capsule 250 mg PO Q8HR #10 caps 03/09/25 [Rx] gabapentin 300 mg capsule 300 mg PO TID #30 caps 03/09/25 [Rx] btimdj-sasybpmh-mdshdfu 36,000-114,000-180,000 unit capsule,delay rel (Creon) 3 cap PO TID #270 caps 03/09/25 [Rx Confirmed 03/02/25] polyethylene glycol 3350 17 gram oral powder packet 17 gm PO BID #10 ea 03/09/25 [Rx] prednisone 20 mg tablet 20 mg PO BID #20 tabs 03/09/25 [Rx] sennosides 8.6 mg tablet (senna) 17.2 mg (2 x 8.6 mg) PO BEDTIME #10 tabs 03/09/25 [Rx] tramadol 50 mg tablet 50 mg PO Q6H PRN Pain, Moderate (4-6) #12 tabs 03/09/25 [Rx] tramadol 50 mg tablet 50 mg PO Q6H PRN pain #10 tabs 03/09/25 [Rx] Visit Medications (administered) Generic Name Dose Route Start Last Admin Trade Name Reganq PRN Reason Stop Dose Admin Heparin Sodium (Porcine) 5,000 unit 03/22/25 21:00 03/22/25 22:50 Heparin 5,000 Unit/Ml Vial SUBCUT 5,000 unit BID JAMI Administration Sodium Chloride 1,000 mls @ 75 mls/hr 03/22/25 17:01 03/22/25 17:26 Normal Saline 0.9% IV 03/23/25 06:20 75 mls/hr CONT ONE Administration INSULIN DRIP PREMIX 100 unit in 100 mls @ 7.5 mls/hr 03/23/25 01:45 03/23/25 01:59 Myxredlin Drip Premix IV 0.1 unit/kg/hr TITRATE JAMI 7.5 mls/hr Administration Protocol 0.1 UNIT/KG/HR Ceftriaxone Sodium 2,000 mg/ 100 mls @ 200 mls/hr 03/23/25 01:45 03/23/25 01:59 Sodium Chloride IV 200 mls/hr Q24H JAMI Administration Insulin Human Lispro 0 unit 03/22/25 18:00 03/22/25 23:47 Insulin Lispro 100 Unit/Ml 3ml Vial SUBCUT 4 unit Q6H JAMI Administration Protocol Exam Vital Signs (past 8 hours): - 03/22/25 21:16 03/23/25 01:57 Temperature 97 F L 97.4 F L Pulse Rate 73 77 Respiratory Rate 18 21 Blood Pressure 136/68 157/74 H Pulse Oximetry 98 99 Oxygen Flow Rate 0 0 Oxygen Delivery Method Room Air Oxygen Flow Rate 0 Narrative Exam Narrative: ill appearing on NC rate controlled symmetric chest rise Objective Labs 03/22/25 14:14 03/22/25 23:30 Labs: Laboratory Results - last 24 hr 03/22/25 03/22/25 03/22/25 14:14 15:21 21:06 WBC 12.4 H RBC 3.54 L Hgb 10.3 L Hct 31.2 L MCV 88.0 MCH 29.1 MCHC 33.0 RDW 13.6 Plt Count 127 L Neut % (Auto) 96.5 H Lymph % (Auto) 0.8 L [place] % (Auto) 2.6 L Eos % (Auto) 0.0 L Baso % (Auto) 0.1 Neut # (Auto) 55731 H Lymph # (Auto) 100 L [place] # (Auto) 300 Eos # (Auto) 0 Baso # (Auto) 0 PT 11.9 INR 1.1 APTT 27 ABG Sample Site ABG pH ABG pCO2 ABG pO2 ABG HCO3 ABG Total CO2 ABG O2 Saturation ABG Base Excess Dagoberto Test Sodium 117 L* 118 L* Potassium 6.0 H 6.1 H Chloride 88 L 88 L Carbon Dioxide 19 L 18 L BUN 123 H* 122 H* Creatinine 3.47 H 3.70 H Estimated GFR 17 L 16 L BUN/Creatinine Ratio 35.4 H 33.0 H Glucose 634 H* 532 H* Lactate 1.5 Calcium 8.5 8.2 L Total Bilirubin 0.7 AST 29 ALT 36 Alkaline Phosphatase 211 H NT-Pro-B Natriuret Pep Total Protein 5.4 L Albumin 2.8 L Globulin 2.6 Albumin/Globulin Ratio 1.1 Lipase < 10 L Procalcitonin 1.77 H Urine Color Urine Appearance Urine pH Ur Specific [place] Urine Protein Urine Glucose (UA) Urine Ketones Urine Occult Blood Urine Nitrate Urine Bilirubin Ur Bilirubin Confirm Urine Urobilinogen Ur Leukocyte Esterase Urine RBC Urine WBC Ur Squamous Epith Cells Urine Bacteria Urine Yeast Ur Culture Indicated? Vol Urine Centrifuged Ur Random Sodium 03/22/25 03/23/25 03/23/25 23:30 00:04 02:37 WBC RBC Hgb Hct MCV MCH MCHC RDW Plt Count Neut % (Auto) Lymph % (Auto) [place] % (Auto) Eos % (Auto) Baso % (Auto) Neut # (Auto) Lymph # (Auto) [place] # (Auto) Eos # (Auto) Baso # (Auto) PT INR APTT ABG Sample Site Left radial ABG pH 7.36 ABG pCO2 33.0 L ABG pO2 89 ABG HCO3 19 L ABG Total CO2 18 L ABG O2 Saturation 97 ABG Base Excess -5.9 L Dagoberto Test Positive Sodium 119 L* Potassium 6.5 H* Chloride 88 L Carbon Dioxide 18 L BUN 126 H* Creatinine 3.74 H Estimated GFR 16 L BUN/Creatinine Ratio 33.7 H Glucose 479 H* Lactate Calcium 8.3 L Total Bilirubin AST ALT Alkaline Phosphatase NT-Pro-B Natriuret Pep 51164 H Total Protein Albumin Globulin Albumin/Globulin Ratio Lipase Procalcitonin Urine Color Red Urine Appearance Turbid Urine pH 6.5 Ur Specific [place] 1.015 Urine Protein 3+ H Urine Glucose (UA) Negative Urine Ketones Trace H Urine Occult Blood 3+ H Urine Nitrate Positive H Urine Bilirubin 2+ H Ur Bilirubin Confirm Negative Urine Urobilinogen 1.0 Ur Leukocyte Esterase 2+ H Urine RBC 30-100/hpf H Urine WBC >100/hpf H Ur Squamous Epith Cells 0-1 /hpf Urine Bacteria Few (2-10) H Urine Yeast >100/hpf Ur Culture Indicated? Specimen cultured Vol Urine Centrifuged 10ml (spun) Ur Random Sodium 84 Assessment & Plan Assessment and plan (1) Acute hyperglycemia: Status: Acute (2) Acute hyponatremia: Status: Acute (3) Acute kidney injury: Status: Acute Plan Acute metabolic encephalopahty HHS MELISSA on CKD metabolic acidosis from uremia hydronephrosis with r stent and hydroureter prostate Ca with diffuse mets ( usually mets like this have a neuroendocrine component, which could also have paraneoplastic effects) pain control monitor mental status o2 as needed map goal >65 on insulin gtt NPO trend bmp monitor UO needs urology eval for the stent as it does not seem to be fucntioning well, consider nephrostomy if this isnt possible on empirc abx dvt ppx Assessment & Plan narrative: see above Time-Based Coding :: 35 spent with patient and on the chart (including review of chart, obtaining history, exam, reviewing outside data, placing orders, documenting exam and treatment plan, and counseling patient) on [03/23, total Critical care time = 35 min.
[2025-03-23 03:08] LABS: Add Manual Diff / Slide Review NO; Basophils Absolute Auto 0 /uL (0-100); Basophils Percent Auto 0.3 % (0-2); Eosinophils Absolute Auto 0 /uL (0-450); Eosinophils Percent Auto 0.1 % (2-4); Hematocrit 32.9 % (41-53); Hemoglobin 11.1 g/dL (13.5-17.5); Lymphocytes Absolute Auto 200 /uL (1100-4500); Lymphocytes Percent Auto 1.4 % (25-40); Mean Corpuscular HGB Conc 33.7 % (30-36); Mean Corpuscular Hemoglobin 29.1 PG (26-34); Mean Corpuscular Volume 86.4 fL (80-100); Monocytes Absolute Auto 100 /uL (0-900); Monocytes Percent Auto 1.2 % (3-14); Neutrophils Absolute Auto 10800 /uL (1500-7000); Platelet Count 132 X10^3/uL (150-400); Red Cell Distribution Width 13.6 % (11.6-14.8); White Blood Cell Count 11.1 X10^3/uL (4.5-11.0)
[2025-03-23 03:11] LABS: Calcium 8.6 mg/dL (8.4-10.2); Carbon Dioxide 18 mmol/L (22-32); Chloride 89 mmol/L (98-107); Estimated Glomerular Filt Rate 14 mL/min (>60); Glucose 352 mg/dL (70-99); HEMOLYSIS < 15 (0-50); Lactate (Lactic Acid) 2.4 mmol/L (0.7-2.1); Magnesium 2.2 mg/dL (1.6-2.3); Sodium 121 mmol/L (137-145)
[2025-03-23 03:19] LABS: Potassium 6.1 mmol/L (3.4-5.1)
[2025-03-23 03:21] LABS: Blood Urea Nitrogen 125 mg/dL (9-20)
[2025-03-23 03:40] LABS: MRSA (Nasal) PCR NOT DETECTED (Not Detect)
[2025-03-23 04:11] LABS: Hemoglobin A1C% w Est Avg Glu 8.2 % (4.0-6.0)
[2025-03-23 04:33] LABS: Reflexed Lactate in 2 Hours Y
[2025-03-23] MEDS: DEXTROSE 5%-0.9% NS 1,000 ML 75 ML IV (06:42)
[2025-03-23 07:05] LABS: Calcium 8.5 mg/dL (8.4-10.2); Carbon Dioxide 18 mmol/L (22-32); Chloride 92 mmol/L (98-107); Estimated Glomerular Filt Rate 14 mL/min (>60); Glucose 128 mg/dL (70-99); HEMOLYSIS < 15 (0-50); Lactate 2HR (Lactic Acid Rflx) 2.4 mmol/L (0.7-2.1); Sodium 123 mmol/L (137-145)
[2025-03-23 07:12] LABS: BUN Creatinine Ratio 31.2 (6-22); Potassium 5.7 mmol/L (3.4-5.1)
[2025-03-23 07:13] LABS: Blood Urea Nitrogen 129 mg/dL (9-20)
[2025-03-23] MEDS: HEPARIN 5,000 UNIT/ML VIAL 5000 UNIT SUBCUT (08:29)
--- NOTE | 2025-03-23 09:31 | P.CALLCOV_ITS ---
Call Coverage Note Note Date of Patient Contact: 03/23/25 Time of Patient Contact: 09:31 Narrative of Care Provided: 80 M with recent complex history of hydronephrosis bilaterally admitted overnight with possible DKA but mainly MELISSA and continued hydronephrosis. Dis ucussed with urologists here whom have been seeing the patient, they recommend transfer for nephrostomy placement given his MELISSA, and inability to visualize his left ureteral orifice on his cystoscopy about 3 weeks ago. His blood sugars are stable this morning, unclear if this was DKA. After discussion with instructional specialist will repeat VBG, consider transition off insulin infusion, and continue to work on transfer for nephrostomy placement and higher level of care.
[2025-03-23 10:14] LABS: Base Excess VBG -4.9 mmol/L (0-4); HCO3 VBG 21 mmol/L (24-28); Oxygen Saturation VBG 92 % (70-75); PCO2 VBG 38.8 mmHg (45-50); PO2 VBG 67 mmHg (35-45); Total CO2 VBG 20 mmol/L (24-29); pH VBG 7.33 (7.33-7.43)
[2025-03-23 10:38] LABS: Lactate (Lactic Acid) 1.1 mmol/L (0.7-2.1)
[2025-03-23 10:39] LABS: Calcium 8.2 mg/dL (8.4-10.2); Carbon Dioxide 16 mmol/L (22-32); Chloride 92 mmol/L (98-107); Estimated Glomerular Filt Rate 13 mL/min (>60); Glucose 122 mg/dL (70-99); HEMOLYSIS < 15 (0-50); Sodium 120 mmol/L (137-145)
[2025-03-23 10:45] LABS: BUN Creatinine Ratio 28.5 (6-22)
[2025-03-23 10:46] LABS: Blood Urea Nitrogen 129 mg/dL (9-20)
[2025-03-23] MEDS: INSULIN NPH 100 UNIT/ML 10ML VIAL 8 UNIT SUBCUT (11:01)
[2025-03-23] MEDS: CALCIUM GLUCONATE 4.65 MEQ in SODIUM CHLORIDE 0.9% 50 ML 180 MEQ IV (11:43)
--- NOTE | 2025-03-23 12:13 | PM.DS.1 ---
History of Present Illness History of Present Illness Date Patient Seen: 03/23/25 Time Patient Seen: 12:18 Chief complaint: AMS Narrative: Per admitting provider, The patient was a 72-year-old male [facility]. He was treated for metabolic encephalopathy, right leg sciatica, bladder outlet obstruction with chronic hydronephrosis, and hyponatremia as well as orthostatic hypotension. The patient had been progressing and had normal mental status in the nursing facility until the last 2 days. He was having recalcitrant right lower back pain which would increase with standing and was interfering with his progression with therapies. His mental status changed abruptly over the last 2 days. He was sent to the emergency department where he was found to be hyperglycemic with a blood sugar of over 600. He had no ketosis and was also hyponatremic with a sodium of 117. His anticoagulation was recently stopped in the hospital due to persistent hematuria. He has an ongoing plan to follow up with Dr. Padilla of Urology for ongoing urologic evaluation. He was going to be referred to Dr. Mendoza's for consideration of epidural steroid injection for his limiting lower back pain and known radiculopathy. He has a history of hyperglycemia but not a formal diagnosis of diabetes. He does have chronic pancreatic insufficiency and takes Creon. He was notes his mental status has gone down just in the last 2 days. She also notes no history of severe hyperglycemia in the past. He has been on Creon for some time for his pancreatic insufficiency. He was doing well until 2 days ago. His Harper catheter bag was essentially empty when he arrived and he was very thirsty consistent with hyperglycemia induced diuresis and volume depletion. The patient became quite confused. No fevers or chills were reported. She does note the recent discovery of a left submandibular nodule. I did share with her the plan to hydrate him overnight and slowly bring his sugar down and follow mental status. Also shared the abnormal lesions in the liver and chest x-ray which are of unclear cause and we will need to be further investigated. She would called Dr. Padilla yesterday, and he was going to order renal ultrasounds. With the patient's MELISSA we will likely be doing that the next 1-2 days. Discharge Providers Provider Date of admission: 03/22/25 17:00 Discharge Date: 03/23/25 Primary care physician: Kartik Cristina MD Discharge provider: Mookie Ballesteros DO Summary Hospital Course Discharge Diagnosis: 1. Acute metabolic encephalopathy, present on admission and active. Rule out sepsis. 2. Nonketotic hyperglycemia, present on admission and active. New diagnosis of DM. 3. Hyponatremia (previosu concern for SIADH, now likely volume depleted and partly pseudo hyponatremia from hyperglycemia), present on admission and active. 4. Imaging reveals new finding of multiple hypodense lesions in the liver concerning for metastases versus infectious process. 5. Imaging reveals necrotic appearing left supraclavicular lymph node, concerning for metastatic disease. 6. Imaging reveals patchy infiltrates scattered in the posterior aspect of the right upper lobe and both lower lobes as well as the hilum concerning for infectious process versus neoplastic process. 7. MELISSA with creatinine of 3.47, discharge creatinine on March 09 was 1.05, active. 8. Acute on chronic R leg sciatica/weakness. - MRI 03/02: Right L5 nerve root impingement, exacerbated by overexertion with heavy lifting on 12/14/2024 lifting a heavy object - Pain is worsened and debilitating, resolved following 1 dose of IV methylprednisolone 125 mg on 03/03. 9. Bladder outlet obstruction with chronic hydronephrosis, active. 10. Right leg DVT, resolved. - negative US 02/12/2025. Off anticoagulation from last admission due to persistent hematuria. 11. Pancreatic Insufficiency, stable. - Creon with meals 12. Recent new finding of a left submandibular nodule, active. 13. Hyperkalemia, new and active. Hospital Course: 80 M with recent complex history of hydronephrosis bilaterally admitted overnight with possible DKA (hyperglycemia and acidosis) but mainly MELISSA and continued hydronephrosis, acute encephalopathy, possible sepsis. Imaging showed multiple hypodense liver lesions of unclear origin and persistent left hydronephrosis. Lactate was elevated but improved to 1.1 the day after admission. Sodium was 117 on admission, improved to 123 with fluids but again dropped to 120 with worsening renal function as of 10AM on 03/23. Disucussed with urologist here, Dr. Padilla, who has been seeing the patient and performed prior cystocopy and stent placement on the R. He recommend transfer for nephrostomy placement given his MELISSA, and inability to visualize his left ureteral orifice on his cystoscopy about 3 weeks ago. His blood sugars are stable this morning, unclear if this was DKA and acidosis is likely due to worsening renal failure. Cr continues to uptrend this morning, worsening mentation, minimal urine output via harper. While this could represent possible sepsis he has had no response to IV fluids, zosyn given in the ER and ceftriaxone ordered once admitted. Discussed with both making line worker and hospitalist at [facility] this morning, patient will transfer for higher level of care, possible need for urgent HD or L nephrostomy tube placement. Given his worsening mentation, hyperkalemia, and likelihood of decompensation, minimization of transfer time is recommended and therefore he should transfer via helicopter. For his hyperkalemia, he received one dose of Lokelma here, calicum gluconate and insulin. For his possible DKA, he was transitioned from insulin infusion to NPH BID (8 units) late morning of 03/23 as his anion gap had close, his pH was not signficantly acidotic, bicarb was >15, and glucose was controlled. Urinalysis was notable for probable infection with nitrate +, 30-100 RBC and >100 WBC. Blood and urine cultures were obtained and are pending at the time of transfer. A1c was performed and was 8.2%. I spent 60 minutes involved in the critical management of this patient. Time Spent with Patient Time spent: Greater than 30 minutes Exam Vital Signs (past 8 hours): - 03/23/25 04:30 03/23/25 04:30 03/23/25 05:00 Temperature 97.4 F L Pulse Rate 84 80 Respiratory Rate 35 H 20 Blood Pressure 144/64 H 126/60 Pulse Oximetry 98 99 Oxygen Flow Rate 0 03/23/25 05:00 03/23/25 05:00 03/23/25 05:30 Temperature Pulse Rate 81 Respiratory Rate 23 Blood Pressure 130/59 L 125/60 Pulse Oximetry 99 Oxygen Flow Rate 03/23/25 05:30 03/23/25 05:41 03/23/25 05:41 Temperature Pulse Rate 82 80 Respiratory Rate 25 H 31 H Blood Pressure 126/60 Pulse Oximetry 99 99 Oxygen Flow Rate 03/23/25 06:00 03/23/25 06:00 03/23/25 06:30 Temperature Pulse Rate 80 Respiratory Rate 20 Blood Pressure 125/57 L 125/58 L Pulse Oximetry 99 Oxygen Flow Rate 03/23/25 06:30 03/23/25 07:00 03/23/25 07:00 Temperature Pulse Rate 80 80 Respiratory Rate 23 20 Blood Pressure 112/52 L Pulse Oximetry 99 98 Oxygen Flow Rate 03/23/25 07:30 03/23/25 07:30 03/23/25 08:00 Temperature Pulse Rate 81 Respiratory Rate 26 H Blood Pressure 104/50 L 104/52 L Pulse Oximetry 98 Oxygen Flow Rate 03/23/25 08:00 03/23/25 08:30 03/23/25 08:30 Temperature Pulse Rate 81 86 Respiratory Rate 19 25 H Blood Pressure 114/56 L Pulse Oximetry 99 97 Oxygen Flow Rate 03/23/25 09:00 03/23/25 09:00 03/23/25 09:30 Temperature Pulse Rate 89 Respiratory Rate 25 H Blood Pressure 125/60 117/57 L Pulse Oximetry 96 Oxygen Flow Rate 03/23/25 09:30 03/23/25 10:00 03/23/25 10:00 Temperature Pulse Rate 89 88 Respiratory Rate 24 25 H Blood Pressure 126/58 L Pulse Oximetry 95 96 Oxygen Flow Rate 03/23/25 10:30 03/23/25 10:30 Temperature Pulse Rate 86 Respiratory Rate 21 Blood Pressure 126/59 L Pulse Oximetry 97 Oxygen Flow Rate Oxygen Delivery Method Room Air Oxygen Flow Rate 0 Narrative Exam Narrative: Gen: alert, lethargic, oriented to name CV: RRR no m/r/g Pulm: CTA b/l no wheezing rhonchi or rales Abd: S NT ND Ext: trace peripheral edema Objective Labs 03/23/25 02:45 03/23/25 10:10 Labs: Laboratory Results - last 24 hr 03/22/25 03/22/25 03/22/25 14:14 15:21 21:06 WBC 12.4 H RBC 3.54 L Hgb 10.3 L Hct 31.2 L MCV 88.0 MCH 29.1 MCHC 33.0 RDW 13.6 Plt Count 127 L Neut % (Auto) 96.5 H Lymph % (Auto) 0.8 L [place] % (Auto) 2.6 L Eos % (Auto) 0.0 L Baso % (Auto) 0.1 Neut # (Auto) 95831 H Lymph # (Auto) 100 L [place] # (Auto) 300 Eos # (Auto) 0 Baso # (Auto) 0 PT 11.9 INR 1.1 APTT 27 ABG Sample Site ABG pH ABG pCO2 ABG pO2 ABG HCO3 ABG Total CO2 ABG O2 Saturation ABG Base Excess Dagoberto Test VBG pH VBG pCO2 VBG pO2 VBG HCO3 VBG Total CO2 VBG O2 Saturation VBG Base Excess FiO2 % Sodium 117 L* 118 L* Potassium 6.0 H 6.1 H Chloride 88 L 88 L Carbon Dioxide 19 L 18 L BUN 123 H* 122 H* Creatinine 3.47 H 3.70 H Estimated GFR 17 L 16 L BUN/Creatinine Ratio 35.4 H 33.0 H Glucose 634 H* 532 H* Hemoglobin A1c Lactate 1.5 Calcium 8.5 8.2 L Magnesium Total Bilirubin 0.7 AST 29 ALT 36 Alkaline Phosphatase 211 H NT-Pro-B Natriuret Pep Total Protein 5.4 L Albumin 2.8 L Globulin 2.6 Albumin/Globulin Ratio 1.1 Lipase < 10 L Procalcitonin 1.77 H Urine Color Urine Appearance Urine pH Ur Specific Funk Urine Protein Urine Glucose (UA) Urine Ketones Urine Occult Blood Urine Nitrate Urine Bilirubin Ur Bilirubin Confirm Urine Urobilinogen Ur Leukocyte Esterase Urine RBC Urine WBC Ur Squamous Epith Cells Urine Bacteria Urine Yeast Ur Culture Indicated? Vol Urine Centrifuged Ur Random Sodium Nasal Screen MRSA (PCR) 03/22/25 03/23/25 03/23/25 23:30 00:04 01:56 WBC RBC Hgb Hct MCV MCH MCHC RDW Plt Count Neut % (Auto) Lymph % (Auto) [place] % (Auto) Eos % (Auto) Baso % (Auto) Neut # (Auto) Lymph # (Auto) [place] # (Auto) Eos # (Auto) Baso # (Auto) PT INR APTT ABG Sample Site ABG pH ABG pCO2 ABG pO2 ABG HCO3 ABG Total CO2 ABG O2 Saturation ABG Base Excess Dagoberto Test VBG pH VBG pCO2 VBG pO2 VBG HCO3 VBG Total CO2 VBG O2 Saturation VBG Base Excess FiO2 % Sodium 119 L* Potassium 6.5 H* Chloride 88 L Carbon Dioxide 18 L BUN 126 H* Creatinine 3.74 H Estimated GFR 16 L BUN/Creatinine Ratio 33.7 H Glucose 479 H* Hemoglobin A1c Lactate Calcium 8.3 L Magnesium Total Bilirubin AST ALT Alkaline Phosphatase NT-Pro-B Natriuret Pep 95050 H Total Protein Albumin Globulin Albumin/Globulin Ratio Lipase Procalcitonin Urine Color Red Urine Appearance Turbid Urine pH 6.5 Ur Specific Funk 1.015 Urine Protein 3+ H Urine Glucose (UA) Negative Urine Ketones Trace H Urine Occult Blood 3+ H Urine Nitrate Positive H Urine Bilirubin 2+ H Ur Bilirubin Confirm Negative Urine Urobilinogen 1.0 Ur Leukocyte Esterase 2+ H Urine RBC 30-100/hpf H Urine WBC >100/hpf H Ur Squamous Epith Cells 0-1 /hpf Urine Bacteria Few (2-10) H Urine Yeast >100/hpf Ur Culture Indicated? Specimen cultured Vol Urine Centrifuged 10ml (spun) Ur Random Sodium 84 Nasal Screen MRSA (PCR) Not detected 03/23/25 03/23/25 03/23/25 02:37 02:45 06:45 WBC 11.1 H RBC 3.80 L Hgb 11.1 L Hct 32.9 L MCV 86.4 MCH 29.1 MCHC 33.7 RDW 13.6 Plt Count 132 L Neut % (Auto) 97.0 H Lymph % (Auto) 1.4 L [place] % (Auto) 1.2 L Eos % (Auto) 0.1 L Baso % (Auto) 0.3 Neut # (Auto) 43258 H Lymph # (Auto) 200 L [place] # (Auto) 100 Eos # (Auto) 0 Baso # (Auto) 0 PT INR APTT ABG Sample Site Left radial ABG pH 7.36 ABG pCO2 33.0 L ABG pO2 89 ABG HCO3 19 L ABG Total CO2 18 L ABG O2 Saturation 97 ABG Base Excess -5.9 L Dagoberto Test Positive VBG pH VBG pCO2 VBG pO2 VBG HCO3 VBG Total CO2 VBG O2 Saturation VBG Base Excess FiO2 % Sodium 121 L 123 L Potassium 6.1 H 5.7 H Chloride 89 L 92 L Carbon Dioxide 18 L 18 L BUN 125 H* 129 H* Creatinine 4.16 H 4.13 H Estimated GFR 14 L 14 L BUN/Creatinine Ratio 30.0 H 31.2 H Glucose 352 H D 128 H D Hemoglobin A1c 8.2 H Lactate 2.4 H 2.4 H Calcium 8.6 8.5 Magnesium 2.2 Total Bilirubin AST ALT Alkaline Phosphatase NT-Pro-B Natriuret Pep Total Protein Albumin Globulin Albumin/Globulin Ratio Lipase Procalcitonin Urine Color Urine Appearance Urine pH Ur Specific Funk Urine Protein Urine Glucose (UA) Urine Ketones Urine Occult Blood Urine Nitrate Urine Bilirubin Ur Bilirubin Confirm Urine Urobilinogen Ur Leukocyte Esterase Urine RBC Urine WBC Ur Squamous Epith Cells Urine Bacteria Urine Yeast Ur Culture Indicated? Vol Urine Centrifuged Ur Random Sodium Nasal Screen MRSA (PCR) 03/23/25 10:10 WBC RBC Hgb Hct MCV MCH MCHC RDW Plt Count Neut % (Auto) Lymph % (Auto) [place] % (Auto) Eos % (Auto) Baso % (Auto) Neut # (Auto) Lymph # (Auto) [place] # (Auto) Eos # (Auto) Baso # (Auto) PT INR APTT ABG Sample Site ABG pH ABG pCO2 ABG pO2 ABG HCO3 ABG Total CO2 ABG O2 Saturation ABG Base Excess Dagoberto Test VBG pH 7.33 VBG pCO2 38.8 L VBG pO2 67 H VBG HCO3 21 L VBG Total CO2 20 L VBG O2 Saturation 92 H VBG Base Excess -4.9 L FiO2 % 21.0 % Sodium 120 L Potassium 6.0 H Chloride 92 L Carbon Dioxide 16 L BUN 129 H* Creatinine 4.52 H Estimated GFR 13 L BUN/Creatinine Ratio 28.5 H Glucose 122 H Hemoglobin A1c Lactate 1.1 Calcium 8.2 L Magnesium Total Bilirubin AST ALT Alkaline Phosphatase NT-Pro-B Natriuret Pep Total Protein Albumin Globulin Albumin/Globulin Ratio Lipase Procalcitonin Urine Color Urine Appearance Urine pH Ur Specific Funk Urine Protein Urine Glucose (UA) Urine Ketones Urine Occult Blood Urine Nitrate Urine Bilirubin Ur Bilirubin Confirm Urine Urobilinogen Ur Leukocyte Esterase Urine RBC Urine WBC Ur Squamous Epith Cells Urine Bacteria Urine Yeast Ur Culture Indicated? 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
[2025-03-23 12:41] LABS: COVID19 - ADMIT (NP swab/PCR) Negative (Negative)
--- NOTE | 2025-03-23 13:34 | PC.NURSE ---
Pt being transferred to [facility] for interventions needs. Worsening labs and lethargy, nothing given PO. Critical BUN reported to MDs and elevated K. 1g Ca Gluconate given. EKG done, no peeked T waves seen. Insulin gtt titrated off and NPH given. Zero urine output for shift, urine color in [place] is dark katie/brown. COVID test negative. Pt being flighted, report given to reciving RN going to [phone]. All questions answered. Family at bedside, all questions answered.
[2025-03-23 19:44] LABS: Acinetobacter calcoa-baumannii Not Detected (Not Detect); Bacteroides fragilis Not Detected (Not Detect); Candida albicans Detected (Not Detect); Candida auris Not Detected (Not Detect); Candida glabrata Not Detected (Not Detect); Candida krusei Not Detected (Not Detect); Candida parapsilosis Not Detected (Not Detect); Candida tropicalis Not Detected (Not Detect); Cryptococcus neoformans/gatti Not Detected (Not Detect); Enterobacter cloacae complex Not Detected (Not Detect); Enterobacterales Not Detected (Not Detect); Enterococcus faecalis Not Detected (Not Detect); Enterococcus faecium Not Detected (Not Detect); Haemophilus influenzae Not Detected (Not Detect); Klebsiella aerogenes Not Detected (Not Detect); Listeria monocytogenes Not Detected (Not Detect); Neisseria meningitidis Not Detected (Not Detect); Proteus species Not Detected (Not Detect); Pseudomonas aeruginosa Not Detected (Not Detect); Salmonella species Not Detected (Not Detect); Serratia marcescens Not Detected (Not Detect); Staphylococcus epidermidis Not Detected (Not Detect); Staphylococcus lugdunensis Not Detected (Not Detect); Staphylococcus species Not Detected (Not Detect); Stenotrophomonas maltophilia Not Detected (Not Detect); Streptococcus agalactiae (Gr B Not Detected (Not Detect); Streptococcus pneumonia Not Detected (Not Detect); Streptococcus pyogenes (Gr A) Not Detected (Not Detect); Streptococcus species Not Detected (Not Detect)
== END 2025-03-23 12:53 | disposition short-term general hospital (02) | DRG 640 ==
LOC: ED 15:40 → AC 17:01 → ICU 03-23 01:15
PROVIDERS: Internal Medicine; Admitting Provider Hospitalist; Emergency Provider Emergency Medicine; PCP Internal Medicine; Referring Provider Emergency Medicine; Visit Provider Hospitalist
DX: E87.1 Hypo-osmolality and hyponatremia (principal); E11.00 Type 2 diabetes mellitus with hyperosmolarity without nonketotic hyperglycemic-hyperosmolar coma (NKHHC); G93.41 Metabolic encephalopathy; N17.9 Acute kidney failure, unspecified; N13.30 Unspecified hydronephrosis; C78.7 Secondary malignant neoplasm of liver and intrahepatic bile duct; C77.0 Secondary and unspecified malignant neoplasm of lymph nodes of head, face and neck; C78.02 Secondary malignant neoplasm of left lung; C78.01 Secondary malignant neoplasm of right lung; K76.9 Liver disease, unspecified; M54.31 Sciatica, right side; N32.0 Bladder-neck obstruction; N18.32 Chronic kidney disease, stage 3b; E87.5 Hyperkalemia; E87.20 Acidosis, unspecified; C61 Malignant neoplasm of prostate; K86.89 Other specified diseases of pancreas; E11.65 Type 2 diabetes mellitus with hyperglycemia; Z96.0 Presence of urogenital implants; Z86.718 Personal history of other venous thrombosis and embolism
CPT/HCPCS: 36415; 36600; 51798; 70450; 71045; 71260; 74177; 80048; 80053; 81001; 82805; 82962; 83036; 83605; 83690; 83735; 83880; 84145; 84300; 85025; 85610; 85730; 87040; 87077; 87086; 87154; 87635; 87797; 93005; 96361; 96365; 96375; 99285; 99291; J0612; J0696; J1644; J1938; J2543; Q9967